=== PATIENT | female | born 1975 | race Caucasian/White ===

== ENCOUNTER 2019-09-15 07:13 | Outpatient (CLI) | payer OTHER, SELFPAY ==
--- NOTE | ~2019-09-15 | MM_ITS ---
EXAMINATION: MM screening jj BI w anna HISTORY: Screening mammogram, history of bilateral breast cancer and reduction mammoplasty. TECHNIQUE: Craniocaudal and mediolateral oblique 3-D tomosynthesis images were obtained and synthetic 2-D images were generated. CAD analysis was submitted and interpreted. COMPARISON: 10/07/2018, 09/23/2018, 09/11/2018, 09/18/2017, 03/13/2017 BREAST PARENCHYMAL COMPOSITION: The breasts are heterogeneously dense, which may obscure small masses . FINDINGS: Lumpectomy changes are noted in the right breast and changes of reduction mammoplasty are s een in both breasts. There is no evidence of suspicious mass, calcification, or architectural distort ion to suggest malignancy in either breast. There has been no suspicious interval change. IMPRESSION: 1. No mammographic evidence of malignancy. 2. Recommend routine screening mammography in one year. BI-RADS Category 2: Benign finding(s). Reviewed, dictated and finalized at location A.
== END 2019-09-15 07:14 | disposition home or self-care (01) ==
LOC: ANHIMG 07:17
PROVIDERS: PCP Internal Medicine; Visit Provider Student in an Organized Health Care Education/Training Program
DX: Z12.31 Encounter for screening mammogram for malignant neoplasm of breast (principal)
CPT/HCPCS: 77063; 77067

== ENCOUNTER 2020-07-17 06:24 | Emergency (ER) | payer BC, SELFPAY ==
--- NOTE | ~2020-07-17 | XR_ITS ---
EXAMINATION: XR chest 2V DATE: 07/17/2020 07:23 INDICATION: Chest wall pain. TECHNIQUE: Frontal and lateral views of the chest were obtained. COMPARISON: Chest 2 views 09/07/2015 FINDINGS: The chest demonstrates clear lungs without pneumonia, pleural effusion, or pneumothorax. Th e heart size is normal. Surgical clips in the right upper quadrant are likely from cholecystectomy. IMPRESSION: 1. No acute cardiopulmonary disease. Reviewed, dictated and finalized at location A. 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
[2020-07-17 06:27] VITALS: BP 173/109; PULSE 82; RESP 18; TEMP 36.8; O2SAT 100
[2020-07-17 06:56] LABS: Add Urine Microscopic? YES; Appearance Urine Clear (Clear); Bacteria Urine Trace /hpf; Bilirubin Urine Negative (Negative); Blood Urine 1+ (Negative); Color Urine Colorless (Yellow); Glucose Urine UA Negative (Negative); Ketones Urine Negative (Negative); Leukocyte Esterase Ur Negative LEU/UL (Negative); Nitrate Urine Negative (Negative); Protein Urine Negative (Negative); RBC Urine 0-2 /hpf (0-2); Squamous Epithelial Cell Urine Rare /hpf (Few); Urobilinogen Urine Negative mg/dL (<2.0); WBC Urine 0-3 /hpf
[2020-07-17 06:58] LABS: Specific Grav Ur 1.002 (1.001-1.035)
[2020-07-17 07:02] LABS: Basophils Absolute Auto 0.1 K/mm3 (0.0-0.1); Basophils Percent Auto 0.8 % (0.2-1.2); Eosinophils Absolute Auto 0.2 K/mm3 (0-0.3); Eosinophils Percent Auto 3.2 % (0-4.4); Hematocrit 42.6 % (37.0-47.0); Hemoglobin 14.6 g/dL (12.0-15.0); Immature Granulocyte Absolute 0.01 K/mm3 (0.00-0.031); Immature Granulocyte Percent A 0.2 % (0-0.5); Lymphocytes Absolute Auto 1.95 K/mm3 (0.9-3.2); Lymphocytes Percent Auto 29.5 % (18.3-44.2); Mean Corpuscular HGB Conc 34.3 g/dl (32-36); Mean Corpuscular Hemoglobin 31.1 pg (26-34); Mean Corpuscular Volume 90.8 fl (80-100); Mean Platelet Volume 9.2 fl (7.4-10.4); Monocytes Absolute Auto 0.4 K/mm3 (0.1-0.6); Monocytes Percent Auto 5.6 % (2.6-8.5); Neutrophils Percent Auto 60.7 % (45.5-73.1); Platelet Count Result 252 k/mm3 (150-375); Red Blood Count 4.69 M/mm3 (4.2-5.4); Red Cell Distribution Width 11.9 % (11.5-14.5); White Blood Count 6.6 K/mm3 (4.5-10.0)
[2020-07-17 07:14] LABS: Anion Gap 7 mmol/L (8-16); Blood Urea Nitrogen 13 mg/dL (7-17); Calcium 9.4 mg/dL (8.4-10.2); Carbon Dioxide 30 mmol/L (22-30); Chloride 104 mmol/L (98-107); Estimated CRCL calculation 94 ml/min; Estimated Glomerular Filt Rate > 60; Glucose 97 mg/dL (65-105); Sodium 141 mmol/L (137-145)
--- NOTE | 2020-07-17 07:15 | ED.BACK ---
HPI - Back Pain/Injury General Chief Complaint: Urogenital-Female Stated Complaint: Right flank pain-hx of kidney stones Time Seen by Provider: 07/17/20 06:58 History of Present Illness HPI Narrative: RIght mid back pain for the past 5 days. worse with movement and taking a deep breath. No radiation. No associated symptoms. No injury. She has had prior kidney stones, this feels different. She has tried OTC pain medications without relief. No fever, chills, nausea, vomiting, cough, SOB, dysuria, hematuria. Related Data Home Medications Medication Instructions Recorded Confirmed cephalexin 250 mg capsule 250 mg PO Q12H 07/22/19 Allergies Allergy/AdvReac Type Severity Reaction Status Date / Time Sulfa (Sulfonamide AdvReac Unknown HIVES Verified 07/17/20 06:25 Antibiotics) Review of Systems Review of Systems: All systems reviewed & are unremarkable except as noted in HPI and below Constitutional: Constitutional: Denies chills, Denies fever(s) and Denies weakness Eyes: Eyes: Reports no additional eye complaints ENT: Reports system reviewed and no additional complaints, except as documented Respiratory: Respiratory: Denies chest congestion, Denies cough and Denies dyspnea Gastrointestinal: Gastrointestinal: Denies abdominal pain, Denies constipation, Denies diarrhea, Denies nausea and Denies vomiting Genitourinary: Genitourinary: Denies hematuria, Denies nocturia and Denies dysuria Musculoskeletal: Musculoskeletal: Reports back pain Neurologic: Denies dizziness, Denies numbness and Denies weakness PMFSH Past Medical History Medical History (Updated 07/18/20 @ 00:00 by Background Daemon) Anemia Breast cancer Kidney stones (vaginal after ) x 2 Surgical History Surgical History History of breast surgery History of hysterectomy Hx of cholecystectomy Previous section S/P laparoscopic surgery x 3 Social History Social History Smoking status: Former smoker Exam Const: General: healthy appearing, no acute distress and alert Nutritional Appearance: obese Orientation/consciousness: patient oriented x3 HENMT: Head: normal to inspection Neck: Neck: normal visual inspection and no lymphadenopathy Chest: Chest palpation & inspection: no tenderness Resp: Effort & Inspection: normal respiratory effort Auscultation: clear to auscultation bilaterally, no rales, no rhonchi and no wheezes Cardio: Jugular venous distension: no JVD Rate: regular rate Rhythm: regular rhythm Heart sounds: no murmurs GI: Inspection: non-distended GI Palp: Yes Soft to palpation and No Tenderness to palpation present (GI) Back/Spine/Pelvis: Back: no CVA tenderness Skin: General skin exam: normal color Neuro: General: patient oriented x3, moves all extremities, no focal motor deficits and CN's II-XI intact bilaterally Speech: normal speech Gait exam (Neuro): Normal gait present Extrem: General: normal to inspection and no edema Psych: Appearance: well kempt Affect: normal affect Course Vital Signs Vital signs: Vital Signs Temperature 36.8 C 07/17/20 06:27 Pulse Rate 82 07/17/20 06:27 Respiratory Rate 18 07/17/20 06:27 Blood Pressure 173/109 H 07/17/20 06:27 Pulse Oximetry 100 07/17/20 06:27 Temperature 36.8 C 07/17/20 06:27 Pulse Rate 84 07/17/20 07:46 Respiratory Rate 18 07/17/20 06:27 Blood Pressure 115/92 H 07/17/20 07:46 Pulse Oximetry 94 07/17/20 07:46 MDM - Back Pain/Injury MDM Narrative Medical decision making narrative: H&P suggests muscular pain. higher than expected for renal origin. CXR negative. Differential Diagnosis Differential diagnosis: Likely thoracic back pain Medical Records Attestation: I reviewed the patient's medical records. Lab Data Attestation: I reviewed the patient's lab results. Result
[2020-07-17 07:28] VITALS: BP 145/91; O2SAT 97
[2020-07-17] MEDS: KETOROLAC 30 MG/ML VIAL (*BKC) IV PUSH (07:29)
[2020-07-17 07:31] VITALS: BP 137/90; O2SAT 98
[2020-07-17] MEDS: diazePAM INJ (*CRX) 10 MG/2 ML SYRINGE 2.5 MG IV PUSH (07:31)
[2020-07-17 07:46] VITALS: BP 115/92; PULSE 84; O2SAT 94
== END 2020-07-17 08:54 | disposition home or self-care (01) ==
PROVIDERS: Emergency Medicine; Emergency Provider Emergency Medicine; PCP Internal Medicine
DX: S29.012A Strain of muscle and tendon of back wall of thorax, initial encounter (principal); Z85.3 Personal history of malignant neoplasm of breast; Z87.442 Personal history of urinary calculi; Z87.891 Personal history of nicotine dependence; Z86.2 Personal history of diseases of the blood and blood-forming organs and certain disorders involving the immune mechanism; X58.XXXA Exposure to other specified factors, initial encounter
CPT/HCPCS: 36415; 71046; 80048; 81001; 81025; 85025; 96374; 96375; 99284; J1885; J3360

== ENCOUNTER 2020-09-16 07:16 | Outpatient (CLI) | payer BC, SELFPAY ==
--- NOTE | ~2020-09-16 | MM_ITS ---
EXAMINATION: MM screening jj BI w anna HISTORY: Screening mammogram TECHNIQUE: Craniocaudal and mediolateral oblique 3-D tomosynthesis images were obtained and synthetic 2-D images were generated. CAD analysis was submitted and interpreted. COMPARISON: 09/15/2019 bilateral digital screening mammogram 10/07/2018 diagnostic left digital mammogram 09/23/2018 diagnostic left digital mammogram and limited left breast ultrasound 08/2018, 09/18/2017 bilateral digital screening mammogram BREAST PARENCHYMAL COMPOSITION: The breasts are heterogeneously dense, which may obscure small masses . FINDINGS: Surgical clips are noted on the right. A biopsy marker is noted on the left. There is a new cluster of grouped granular appearing suspicious microcalcifications in the upper inne r right breast. Diagnostic right mammogram with magnification views is recommended, in addition to ri ght breast ultrasound examination. Otherwise there is no evidence of suspicious mass, calcification, or interval architectural distortio n to suggest malignancy in either breast. There has been no other suspicious interval change. IMPRESSION: 1. Suspicious new grouped microcalcifications in the upper inner right breast 2. Diagnostic right mammogram and right breast ultrasound examination are recommended. BI-RADS Category 0: Incomplete: Needs additional imaging evaluation. Reviewed, dictated and finalized at location A. IMPRESSION: 1. Suspicious new grouped microcalcifications in the upper inner right breast 2. Diagnostic right mammogram and right breast ultrasound examination are recom mended. BI-RADS Category 0: Incomplete: Needs additional imaging evaluation.
== END 2020-09-16 07:17 | disposition home or self-care (01) ==
PROVIDERS: PCP Internal Medicine; Visit Provider Student in an Organized Health Care Education/Training Program
DX: Z12.31 Encounter for screening mammogram for malignant neoplasm of breast (principal); R92.8 Other abnormal and inconclusive findings on diagnostic imaging of breast
CPT/HCPCS: 77063; 77067

== ENCOUNTER 2020-10-04 13:20 | Outpatient (CLI) | payer BC, SELFPAY ==
--- NOTE | ~2020-10-04 | MMUS_ITS ---
EXAMINATION: MM diagnostic mammo unilat RT, US breast RT limited HISTORY: New cluster of grouped granular suspicious microcalcifications in upper inner right breast o n 09/16/2020 screening mammogram TECHNIQUE: Additional 3-D ML tomosynthesis images of the right breast were performed and synthetic 2- D images were generated. Magnification views of the right breast in ML and CC projections. CAD analys is was submitted and interpreted. High resolution upper outer and upper inner quadrant right breast u ltrasound was performed. COMPARISON: 09/26/2020, 09/15/2019 bilateral digital screening mammogram examinations FINDINGS: MAMMOGRAPHIC FINDINGS: There is a cluster of grouped granular indeterminate microcalcifications in the inner aspect of the u pper inner quadrant of the right breast. ULTRASOUND: No suspicious mass or shadowing is evident in the upper outer or upper inner quadrants. There is a 2.8 x 2.3 x 3.6 mm cyst with through transmission posterior enhancement at 10:00 near the nipple. IMPRESSION: 1. Indeterminate grouped microcalcifications in upper inner quadrant 2. Stereotactic biopsy of upper inner quadrant grouped microcalcifications is recommended BI-RADS Category 4: Suspicious abnormality; biopsy should be considered Dr. Allison telephoned the report to [phone] and left a voicemail message with the diagnostic mammo gram and ultrasound findings and the recommendation for stereotactic biopsy of grouped microcalcifica tions of indeterminate nature in the upper inner quadrant Reviewed, dictated and finalized at location A. IMPRESSION: 1. Indeterminate grouped microcalcifications in upper inner quadrant 2. Stereotactic biopsy of upper inner quadrant grouped microcalcifications is r ecommended BI-RADS Category 4: Suspicious abnormality; biopsy should be considered Dr. Allison telephoned the report to [phone] and left a voicemail message wit h the diagnostic mammogram and ultrasound findings and the recommendation for s tereotactic biopsy of grouped microcalcifications of indeterminate nature in th e upper inner quadrant IMPRESSION: 1. Indeterminate grouped microcalcifications in upper inner quadrant 2. Stereotactic biopsy of upper inner quadrant grouped microcalcifications is r ecommended BI-RADS Category 4: Suspicious abnormality; biopsy should be considered Dr. Allison telephoned the report to [phone] and left a voicemail message wit h the diagnostic mammogram and ultrasound findings and the recommendation for s tereotactic biopsy of grouped microcalcifications of indeterminate nature in th e upper inner quadrant
== END 2020-10-04 13:21 | disposition home or self-care (01) ==
PROVIDERS: PCP Internal Medicine; Visit Provider Student in an Organized Health Care Education/Training Program
DX: R92.8 Other abnormal and inconclusive findings on diagnostic imaging of breast (principal)
CPT/HCPCS: 76642; 77065

== ENCOUNTER → 2020-11-29 13:28 | Outpatient (CLI) | payer BC, SELFPAY ==
--- NOTE | ~2020-11-29 | XR_ITS ---
EXAMINATION: XR abdomen/kub 1V INDICATION: Bilateral kidney stones TECHNIQUE: Supine views of the abdomen were obtained on 2 radiographs. COMPARISON: 11/19/2018 FINDINGS: Small stones of the left kidney measure up to 3 mm and are grossly unchanged. No definite r ight-sided stones are identified. No stones are identified along the expected courses of the ureters or within the urinary bladder. The bowel gas pattern is normal. Cholecystectomy clips are noted in th e right upper quadrant. IMPRESSION: 1. Stable left nephrolithiasis. Reviewed, dictated and finalized at location A.
== END ==
PROVIDERS: Visit Provider Urology
DX: N20.0 Calculus of kidney (principal)
CPT/HCPCS: 74018

== ENCOUNTER 2022-01-30 00:42 | Day surgery (SDC) | payer BC, SELFPAY ==
[2022-01-17 14:09] VITALS: BMI 33.5
[2022-01-30 06:17] VITALS: BP 140/88; PULSE 73; RESP 18; TEMP 36.4; O2SAT 100; BMI 33.4
[2022-01-30] MEDS: LACTATED RINGERS 1,000 ML 150 ML IV CONT (06:27)
--- NOTE | 2022-01-30 07:18 | P.PNAN_ITS ---
Anes - Initial Pre Proc Eval Procedure: Operation Date: 01/30/22 07:30 Proposed Procedures p Screening Colonoscopy - Emery Nolan MD Date/Time: 01/30/22 07:18 Surgeon: Emery Nolan MD Pre Op Diagnosis: neoplasm screening Patient Data Age: 46 Gender: F Height: 1.7 m Weight: 96.8 kg Last Vital Signs Temp 97.5 F L 01/30/22 06:17 Pulse 73 01/30/22 06:17 Resp 18 01/30/22 06:17 BP 140/88 01/30/22 06:17 Pulse Ox 100 01/30/22 06:17 O2 Del Method Room Air 01/30/22 06:17 Allergies Allergy/AdvReac Type Severity Reaction Status Date / Time Sulfa (Sulfonamide AdvReac Unknown HIVES Verified 01/30/22 06:16 Antibiotics) Home Medications Medication Instructions Recorded Confirmed Type Saccharomyces boulardii 250 mg 250 mg PO BID 08/02/20 01/30/22 History capsule (Daily Probiotic (S. boulardii)) cephalexin 250 mg capsule 250 mg PO Q12H PRN Sexual Activity 08/02/20 01/30/22 History cholecalciferol (vitamin D3) 125 125 mcg PO DAILY 08/02/20 01/30/22 History mcg (5,000 unit) capsule multivitamin (Daily Multi-Vitamin 1 tablet PO DAILY 08/02/20 01/30/22 History tablet) Patient hx anesthesia problems: none Family hx anesthesia problems: none Results Review: All pre-operative results and documents have been reviewed as part of the pre- operative evaluation. PMFSH Past Medical History Medical History Anemia Breast cancer Kidney stones (vaginal after ) x 2 Surgical History Surgical History History of breast surgery Hx of cholecystectomy Previous section S/P laparoscopic surgery x 3 Social History Social History Smoking status: Former smoker Tobacco type: cigarettes Substance use type: does not use Living arrangements: with family Spiritual care concerns: No Anes - Eval Final PreProcedure Day of Procedure 01/30/22 07:18 Patient weight: obese Heart: regular rate and rhythm Lungs: clear to auscultation Airway: Mallampati scale class II Neurological: alert and oriented Last oral intake: >/= 8 hours ASA classification: II Emergent: no Anesthetic plan: proceed Anesthesia type and monitoring: general GIVS and standard monitoring Results Review: All pre-operative results and documents have been reviewed as part of the pre- operative evaluation. Informed Consent: The patient's anesthetic plan and its attendant risks and benefits were discussed with the patient/family/POA. Questions were solicited and answers provided to the satisfaction of the patient/family/POA.
--- NOTE | 2022-01-30 07:20 | PM.HPGS ---
History of Present Illness History of Present Illness Consent: Risks, benefits, and alternatives have been discussed and questions answered. Patient agrees to proceed with procedure. Chief complaint: neoplasm screening Narrative: Karena Jay is a 46 year old female here for screening colonoscopy, had one about 15 years ago because IBS Review of Systems Constitutional: Constitutional: Denies headache(s) and Denies weakness Eyes: Eyes: Denies blurry vision ENT: Reports Normal hearing present, Denies headache(s) and Denies neck pain Cardiovascular: Cardiovascular: Denies chest pain and Denies dyspnea Respiratory: Respiratory: Denies dyspnea Gastrointestinal: Gastrointestinal: Reports no additional gastrointestinal complaints Genitourinary: Genitourinary: Denies dysuria Musculoskeletal: Musculoskeletal: Denies neck pain Integumentary/Breasts: Skin/Breast: Denies dry skin Neurologic: Reports Normal hearing present, Denies headache(s) and Denies weakness Psychiatric: Psychiatric: Denies anxiety Endocrine: Endocrine: Denies change in body appearance Hematologic/Lymphatic: Hematologic/Lymphatic: Denies easy bleeding Allergic/Immunologic: Allergic/Immunologic: Denies urticaria PMFSH Past Medical History Medical History (Updated 01/30/22 @ 07:21 by Emery Nolan MD) Anemia Breast cancer Colon cancer screening Kidney stones (vaginal after ) x 2 Surgical History Surgical History History of breast surgery Hx of cholecystectomy Previous section S/P laparoscopic surgery x 3 Social History Social History Smoking status: Former smoker Tobacco type: cigarettes Substance use type: does not use Living arrangements: with family Spiritual care concerns: No Meds Home Medications and Allergies Home Medications Medication Instructions Recorded Confirmed Type Saccharomyces boulardii 250 mg 250 mg PO BID 08/02/20 01/30/22 History capsule (Daily Probiotic (S. boulardii)) cephalexin 250 mg capsule 250 mg PO Q12H PRN Sexual Activity 08/02/20 01/30/22 History cholecalciferol (vitamin D3) 125 125 mcg PO DAILY 08/02/20 01/30/22 History mcg (5,000 unit) capsule multivitamin (Daily Multi-Vitamin 1 tablet PO DAILY 08/02/20 01/30/22 History tablet) Allergies Allergy/AdvReac Type Severity Reaction Status Date / Time Sulfa (Sulfonamide AdvReac Unknown HIVES Verified 01/30/22 06:16 Antibiotics) Vital Signs Vital Signs - 24 hr 01/30/22 06:17 Temperature 97.5 F L Pulse Rate 73 Respiratory Rate 18 Blood Pressure 140/88 Pulse Oximetry 100 Oxygen Delivery Room Air Exam Const: General: comfortable and no acute distress HENMT: General nose exam: Normal nares present Eyes: General: appearance normal, both eyes and all related structures Neck: Neck: no JVD Resp: Auscultation: clear to auscultation bilaterally Cardio: Rate: regular rate Rhythm: regular rhythm GI: Inspection: non-distended GI Palp: Yes Soft to palpation Skin: General skin exam: normal color Neuro: General: gait normal Speech: normal speech Extrem: General: normal to inspection Psych: Mental Status: mental status grossly normal Assessment and Plan Assessment and plan (1) Colon cancer screening: Code(s): Z12.11 - Encounter for screening for malignant neoplasm of colon Status: Acute Assessment and Plan: colonoscopy
[2022-01-30 07:40] VITALS: BP 131/77; PULSE 60; RESP 22; O2SAT 100
[2022-01-30 07:50] VITALS: BP 125/80; PULSE 54; RESP 17; O2SAT 100
[2022-01-30 08:00] VITALS: BP 132/88; PULSE 50; RESP 17; O2SAT 100
== END 2022-01-30 08:11 | disposition home or self-care (01) ==
PROVIDERS: PCP Internal Medicine; Visit Provider Internal Medicine Gastroenterology
PROC: 0DJD8ZZ Inspection of Lower Intestinal Tract, Via Natural or Artificial Opening Endoscopic (ICD-10-PCS; CPT 45378; principal; 2022-01-30 07:30)
DX: Z12.11 Encounter for screening for malignant neoplasm of colon (principal); K57.30 Diverticulosis of large intestine without perforation or abscess without bleeding; K64.8 Other hemorrhoids; D64.9 Anemia, unspecified; Z85.3 Personal history of malignant neoplasm of breast; Z87.891 Personal history of nicotine dependence; E66.9 Obesity, unspecified; Z68.33 Body mass index [BMI] 33.0-33.9, adult
CPT/HCPCS: 45378; J2704; J7120

== ENCOUNTER 2022-04-24 14:21 | Outpatient (CLI) | payer BC, SELFPAY ==
--- NOTE | ~2022-04-24 | XR_ITS ---
EXAMINATION: XR abdomen/kub 1V INDICATION: Bilateral kidney stones TECHNIQUE: Supine views of the abdomen were obtained on 2 radiographs. COMPARISON: 11/29/2020 FINDINGS: Bowel contents project over the kidneys limiting sensitivity for renal stones. There are st able left kidney stones measuring 3 mm and 2 mm. No stones project along the expected courses of the ureter or the urinary bladder. The bowel gas pattern is normal. A moderate volume of colonic stool is present. Surgical clips in the right upper quadrant are likely from prior cholecystectomy. IMPRESSION: 1. Stable left nephrolithiasis. Reviewed, dictated and finalized at location F. IRATORY THERAPY AIDE
== END 2022-04-24 14:22 | disposition home or self-care (01) ==
PROVIDERS: PCP Internal Medicine; Visit Provider Nurse Practitioner Adult Health
DX: N20.0 Calculus of kidney (principal)
CPT/HCPCS: 74018

== ENCOUNTER 2023-04-24 13:57 | Outpatient (CLI) | payer BC, SELFPAY ==
--- NOTE | ~2023-04-24 | XR_ITS ---
Supine and upright views of the abdomen Clinical history: Kidney stones COMPARISON: 09/18/2021 Findings: Bowel gas pattern is nonspecific. No evidence for obstruction or free air. Small left renal stones are similar to prior exam. Probable small right renal stones also present. Cholecystectomy cl ips present. Osseous structures are intact. Impression: Small bilateral renal stones, left larger than right. Reviewed, dictated and finalized at location . 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
== END 2023-04-24 13:58 | disposition home or self-care (01) ==
PROVIDERS: PCP Internal Medicine; Visit Provider Nurse Practitioner Adult Health
DX: N20.0 Calculus of kidney (principal)
CPT/HCPCS: 74018

== ENCOUNTER 2024-03-19 07:03 | Emergency (ER) | payer BC, SELFPAY ==
--- NOTE | ~2024-03-19 | CT_ITS ---
CT of the Abdomen and Pelvis: Indication: Abdominal pain Technique: 2.5 mm axial scans were obtained through the abdomen and pelvis following intravenous adm inistration of 100 cc of Omnipaque 350. Dose reduction technique was used on this scan by utilizing a utomated exposure control and iterative reconstruction technique. The dose-length product (DLP) was 1 042.84 mGy-cm. Findings: Scans through the lung bases are unremarkable. The liver, spleen, pancreas, and adrenal glands are within normal limits. Cholecystectomy clips are p resent. Small bilateral nonobstructing renal stones are present. No evidence of aortic aneurysm. No lymphadenopathy. There is extensive wall thickening and inflammatory change involving the proximal sigmoid colon, most compatible with acute diverticulitis. Probable prominent diverticulum in this region. No definite fr ee air or abscess. Images through the pelvis were performed. Urinary bladder unremarkable. No adnexal mass seen. No asci casey. Impression: Acute sigmoid diverticulitis, as detailed above. Small bilateral nonobstructing renal stones. Reviewed, dictated and finalized at location . Impression: Acute sigmoid diverticulitis, as detailed above. Small bilateral nonobstructing renal stones.
[2024-03-19 07:23] VITALS: BP 160/100; PULSE 97; RESP 16; TEMP 37.2; O2SAT 98
[2024-03-19 07:47] LABS: Basophils Absolute Auto 0.1 K/mm3 (0.0-0.1); Basophils Percent Auto 0.4 % (0.2-1.2); Eosinophils Absolute Auto 0.1 K/mm3 (0-0.3); Eosinophils Percent Auto 1.1 % (0-4.4); Hematocrit 42.8 % (37.0-47.0); Hemoglobin 14.3 g/dL (12.0-15.0); Immature Granulocyte Absolute 0.04 K/mm3 (0.00-0.031); Immature Granulocyte Percent A 0.4 % (0-0.5); Lymphocytes Absolute Auto 1.87 K/mm3 (0.9-3.2); Lymphocytes Percent Auto 16.6 % (18.3-44.2); Mean Corpuscular HGB Conc 33.4 g/dl (32-36); Mean Corpuscular Volume 92.8 fl (80-100); Mean Platelet Volume 9.2 fl (7.4-10.4); Monocytes Absolute Auto 0.9 K/mm3 (0.1-0.6); Monocytes Percent Auto 8.2 % (2.6-8.5); Neutrophils Absolute Auto 8.3 K/mm3 (1.3-6.7); Neutrophils Percent Auto 73.3 % (45.5-73.1); Platelet Count Result 209 k/mm3 (150-375); Red Blood Count 4.61 M/mm3 (4.2-5.4); Red Cell Distribution Width 12.3 % (11.5-14.5); White Blood Count 11.3 K/mm3 (4.5-10.0)
[2024-03-19 08:00] LABS: Alanine Aminotransferase 20 U/L (6-35); Albumin Level 4.8 g/dL (3.5-5.1); Alkaline Phosphatase 80 U/L (38-126); Anion Gap 8 mmol/L (4-12); Aspartate Amino Transferase 21 U/L (14-36); Bilirubin,Total 1.4 mg/dL (0.2-1.3); Blood Urea Nitrogen 16 mg/dL (7-17); Calcium 9.4 mg/dL (8.4-10.2); Carbon Dioxide 29 mmol/L (22-30); Chloride 103 mmol/L (98-107); Estimated CRCL calculation 88 ml/min; Estimated Glomerular Filt Rate > 60; Glucose 109 mg/dL (65-110); Potassium 3.9 mmol/L (3.4-5.0); Sodium 140 mmol/L (137-145)
[2024-03-19 08:26] LABS: INR 0.9; Prothrombin Time 13.1 Seconds (11.1-14.7)
[2024-03-19 08:27] LABS: Partial Thromboplastin Time 26.8 Seconds (22.3-36.8)
--- NOTE | 2024-03-19 10:13 | ED.GENADULT ---
HPI - General Adult General Chief complaint: GI Bleed Stated complaint: gastro issues no bowel movements, blood/mucus Time Seen by Provider: 03/19/24 07:18 History of Present Illness HPI narrative: Patient is a 48-year-old female who presents ER with lower abdominal pain and rectal bleeding. Pain worsening over last 3 days. Mainly left lower quadrant. Worse with physical movements. No fevers or chills or sweats. HIDA mucus-like bowel movement today that had streaks of blood in it. This is abnormal for her. Colonoscopy in 2021 showed diverticula but patient has no history of diverticulitis. No vomiting. Related Data Home Medications Medication Instructions Recorded Confirmed cephalexin 250 mg capsule 250 mg PO Q12H PRN Sexual Activity 08/02/20 10/09/23 cholecalciferol (vitamin D3) 125 125 mcg PO DAILY 08/02/20 10/09/23 mcg (5,000 unit) capsule multivitamin (Daily Multi-Vitamin 1 tablet PO DAILY 08/02/20 10/09/23 tablet) Allergies Allergy/AdvReac Type Severity Reaction Status Date / Time Sulfa (Sulfonamide AdvReac Unknown HIVES Verified 10/09/23 10:07 Antibiotics) Review of Systems Review of Systems: All systems reviewed & are unremarkable except as noted in HPI and below Constitutional: Constitutional: Reports no additional constitutional complaints Cardiovascular: Cardiovascular: Reports no additional cardiovascular complaints Respiratory: Respiratory: Reports no additional respiratory complaints Gastrointestinal: Gastrointestinal: Reports abdominal pain, Denies diarrhea, Denies nausea and Denies vomiting Comments: Blood in stool Genitourinary: Genitourinary: Reports no additional female genitourinary complaints PMFSH Past Medical History Medical History Anemia Breast cancer Colon cancer screening Kidney stones (vaginal after ) x 2 Surgical History Surgical History History of breast surgery History of hysterectomy, supracervical Hx of cholecystectomy Previous section S/P laparoscopic surgery x 3 Social History Social History Smoking status: Former smoker Tobacco type: cigarettes Alcohol intake: current Substance use: never Substance use type: does not use Lack of Transportation: No Lack of Food: Never True Current Housing: I Have Housing Concerned About Future Housing: No Difficulty Paying Gas/Electric Bills: No Difficulty Paying for Meds: No Currently Unemployed: No Education: High School Diploma/GED Difficulty w/ Childcare or Family Care: No Living arrangements: with family Spiritual care concerns: No Exam Narrative: GENERAL: Well-appearing, well-nourished, and in no acute distress. HEAD: Normocephalic, atraumatic. ENT: Mucous membranes moist. CHEST: Clear to auscultation. No respiratory distress. HEART: Regular rate and rhythm. Normal peripheral pulses. ABDOMEN: Soft, tender to palpation left lower quadrant with guarding, nondistended. EXTREMITIES: Normal range of motion. No edema. SKIN: Warm, dry, no rash. NEURO: Alert and oriented x3. PSYCH: Normal mood and affect. Course Course Emergency Course: resting comfortably. Informed of results. Discussed treatment plan. Mild leukocytosis with diverticulitis on imaging. No perforation or abscess. Augmentin and [place] for home. Recommend follow-up with PCP. Vital Signs Vital signs: Vital Signs Temperature 98.9 F 03/19/24 07:23 Pulse Rate 97 03/19/24 07:23 Respiratory Rate 16 03/19/24 07:23 Blood Pressure 160/100 H 03/19/24 07:23 Pulse Oximetry 98 03/19/24 07:23 Temperature 98.9 F 03/19/24 07:23 Pulse Rate 97 03/19/24 07:23 Respiratory Rate 16 03/19/24 07:23 Blood Pressure 160/100 H 03/19/24 07:23 Pulse Oximetry 98 03/19/24 07:23
== END 2024-03-19 10:33 | disposition home or self-care (01) ==
PROVIDERS: Emergency Provider Emergency Medicine; PCP Internal Medicine
DX: K57.32 Diverticulitis of large intestine without perforation or abscess without bleeding (principal); Z86.2 Personal history of diseases of the blood and blood-forming organs and certain disorders involving the immune mechanism; Z85.3 Personal history of malignant neoplasm of breast; Z87.442 Personal history of urinary calculi; Z87.891 Personal history of nicotine dependence; Z90.710 Acquired absence of both cervix and uterus; Z90.49 Acquired absence of other specified parts of digestive tract; N20.0 Calculus of kidney
CPT/HCPCS: 36415; 74177; 80053; 85025; 85610; 85730; 86850; 86900; 86901; 99284; Q9967

== ENCOUNTER 2024-05-12 07:13 | Outpatient (CLI) | payer BC, SELFPAY ==
--- NOTE | ~2024-05-12 | XR_ITS ---
Supine and upright views of the abdomen Clinical history: Bilateral kidney stones COMPARISON: 04/24/2023 Findings: Bowel gas pattern is nonspecific. No evidence for obstruction or free air. Left renal stone s are present, largest measuring 5 mm. Questionable punctate right renal stones versus overlying josh l contents. Osseous structures are intact. Impression: Nephrolithiasis, as detailed above. Reviewed, dictated and finalized at location . LIGHTING ADVISER Impression: Nephrolithiasis, as detailed above.
== END 2024-05-12 07:14 | disposition home or self-care (01) ==
PROVIDERS: PCP Physician Assistant
DX: N20.0 Calculus of kidney (principal)
CPT/HCPCS: 74018

== ENCOUNTER 2024-05-23 00:44 | Day surgery (SDC) | payer BC, SELFPAY ==
[2024-05-13 13:16] VITALS: BMI 33.3
[2024-05-23 11:38] VITALS: BP 153/100; PULSE 71; RESP 18; TEMP 36.1; O2SAT 98
[2024-05-23] MEDS: LACTATED RINGERS 1,000 ML 150 ML IV CONT (11:55)
--- NOTE | 2024-05-23 12:00 | P.PNAN_ITS ---
Anes - Initial Pre Proc Eval Procedure: Operation Date: 05/23/24 13:00 Proposed Procedures p Colonoscopy - Orlando Oviedo MD Date/Time: 05/23/24 12:00 Surgeon: Orlando Oviedo MD Pre Op Diagnosis: personal hx of disease of digestive system Patient Data Age: 49 Gender: F Height: 1.7 m Weight: 95 kg Last Vital Signs Temp 36.1 C L 05/23/24 11:38 Pulse 71 05/23/24 11:38 Resp 18 05/23/24 11:38 BP 153/100 H 05/23/24 11:38 Pulse Ox 98 05/23/24 11:38 O2 Del Method Room Air 05/23/24 11:38 Allergies Allergy/AdvReac Type Severity Reaction Status Date / Time Sulfa (Sulfonamide AdvReac Unknown HIVES Verified 05/23/24 11:36 Antibiotics) Home Medications ?Medication ?Instructions ?Recorded ?Confirmed ?Type cephalexin 250 mg capsule 250 mg PO Q12H PRN Sexual Activity 08/02/20 05/13/24 History cholecalciferol (vitamin D3) 125 125 mcg PO DAILY 08/02/20 05/23/24 History mcg (5,000 unit) capsule multivitamin (Daily Multi-Vitamin 1 tablet PO DAILY 08/02/20 05/23/24 History tablet) Patient hx anesthesia problems: none Family hx anesthesia problems: none Results Review: All pre-operative results and documents have been reviewed as part of the pre- operative evaluation. PMFSH Past Medical History Medical History LLQ pain History of diverticulitis of colon Colon cancer screening Anemia Breast cancer Kidney stones (vaginal after ) x 2 Surgical History Surgical History History of hysterectomy, supracervical History of breast surgery Hx of cholecystectomy S/P laparoscopic surgery x 3 Previous section Social History Social History Smoking status: Former smoker Tobacco type: cigarettes Alcohol intake: current Substance use: never Substance use type: does not use Lack of Transportation: No Lack of Food: Never True Current Housing: I Have Housing Concerned About Future Housing: No Difficulty Paying Gas/Electric Bills: No Difficulty Paying for Meds: No Currently Unemployed: No Education: High School Diploma/GED Difficulty w/ Childcare or Family Care: No Living arrangements: with family Spiritual care concerns: No Anes - Eval Final PreProcedure Day of Procedure 05/23/24 12:00 Patient weight: obese Heart: regular rate and rhythm Lungs: clear to auscultation Airway: Mallampati scale class II Neurological: alert and oriented Last oral intake: >/= 8 hours ASA classification: III Emergent: no Anesthetic plan: proceed Anesthesia type and monitoring: general GIVS and standard monitoring Results Review: All pre-operative results and documents have been reviewed as part of the pre- operative evaluation. Informed Consent: The patient's anesthetic plan and its attendant risks and benefits were discussed with the patient/family/POA. Questions were solicited and answers provided to the satisfaction of the patient/family/POA.
--- NOTE | 2024-05-23 12:26 | PM.IMHP ---
H&P: HPI History of Present Illness Date/Time: 05/23/24 12:26 Chief Complaint: History of colon polyps Narrative: The patient has a history of colonic polyps, the last colonoscopy was approximately 2 years ago. However, the patient had attack of acute diverticulitis 2 months ago and she is referred for follow-up colonoscopy. Review of Systems Review of Systems: All systems reviewed & are unremarkable except as noted in HPI and below PMFSH Past Medical History Medical History LLQ pain History of diverticulitis of colon Colon cancer screening Anemia Breast cancer Kidney stones (vaginal after ) x 2 Surgical History Surgical History History of hysterectomy, supracervical History of breast surgery Hx of cholecystectomy S/P laparoscopic surgery x 3 Previous section Social History Social History Smoking status: Former smoker Tobacco type: cigarettes Alcohol intake: current Substance use: never Substance use type: does not use Lack of Transportation: No Lack of Food: Never True Current Housing: I Have Housing Concerned About Future Housing: No Difficulty Paying Gas/Electric Bills: No Difficulty Paying for Meds: No Currently Unemployed: No Education: High School Diploma/GED Difficulty w/ Childcare or Family Care: No Living arrangements: with family Spiritual care concerns: No Meds Home Medications and Allergies Home Medications ?Medication ?Instructions ?Recorded ?Confirmed ?Type cephalexin 250 mg capsule 250 mg PO Q12H PRN Sexual Activity 08/02/20 05/13/24 History cholecalciferol (vitamin D3) 125 125 mcg PO DAILY 08/02/20 05/23/24 History mcg (5,000 unit) capsule multivitamin (Daily Multi-Vitamin 1 tablet PO DAILY 08/02/20 05/23/24 History tablet) Allergies Allergy/AdvReac Type Severity Reaction Status Date / Time Sulfa (Sulfonamide AdvReac Unknown HIVES Verified 05/23/24 11:36 Antibiotics) Vital Signs Vital Signs - 24 hr 05/23/24 11:38 Temperature 97 F L Pulse Rate 71 Respiratory Rate 18 Blood Pressure 153/100 H Pulse Oximetry 98 Oxygen Delivery Room Air Exam Const: General: cooperative and healthy appearing Resp: Effort & Inspection: normal respiratory effort and able to speak in complete sentences Auscultation: clear to auscultation bilaterally Cardio: Rate: regular rate Rhythm: regular rhythm GI: Inspection: normal to inspection GI Palp: No No hepatosplenomegaly present Auscultation: normal bowel sounds Rectal Exam: deferred Skin: General skin exam: normal color Psych: Appearance: grossly normal Mental Status: mental status grossly normal Assessment and Plan Assessment and plan (1) Colon cancer screening: Code(s): Z12.11 - Encounter for screening for malignant neoplasm of colon Status: Acute Assessment and Plan: The patient is deemed a good candidate for the procedure. Consent signed. Will proceed. (2) History of diverticulitis of colon: Code(s): Z87.19 - Personal history of other diseases of the digestive system Status: Acute
[2024-05-23 12:47] VITALS: BP 119/72; PULSE 64; RESP 21; O2SAT 95
[2024-05-23 12:57] VITALS: BP 116/72; PULSE 59; RESP 13; O2SAT 97
[2024-05-23 13:07] VITALS: BP 131/71; PULSE 48; RESP 21; O2SAT 100
== END 2024-05-23 13:17 | disposition home or self-care (01) ==
PROVIDERS: Referring Provider Internal Medicine Gastroenterology; Visit Provider Internal Medicine Gastroenterology
PROC: 0DJD8ZZ Inspection of Lower Intestinal Tract, Via Natural or Artificial Opening Endoscopic (ICD-10-PCS; CPT 45378; principal; 2024-05-23 13:00)
DX: Z09 Encounter for follow-up examination after completed treatment for conditions other than malignant neoplasm (principal); K57.30 Diverticulosis of large intestine without perforation or abscess without bleeding; Z87.19 Personal history of other diseases of the digestive system; E66.9 Obesity, unspecified; Z68.32 Body mass index [BMI] 32.0-32.9, adult
CPT/HCPCS: 45378; J2003; J2704; J7120

== ENCOUNTER 2024-05-30 07:42 | Outpatient (CLI) | payer BC, SELFPAY ==
[2024-05-30 08:27] LABS: INR 0.9; Prothrombin Time 12.2 Seconds (11.1-14.7)
[2024-05-30 08:28] LABS: Partial Thromboplastin Time 29.1 Seconds (22.3-36.8)
== END 2024-05-30 07:43 | disposition home or self-care (01) ==
LOC: ANHSURGERY 07:44
PROVIDERS: Visit Provider Urology
DX: Z01.812 Encounter for preprocedural laboratory examination (principal); N20.0 Calculus of kidney
CPT/HCPCS: 36415; 85610; 85730; 87086

== ENCOUNTER 2024-06-06 00:45 | Day surgery (SDC) | payer BC, SELFPAY ==
[2024-05-28 11:49] VITALS: BMI 33.7
--- NOTE | 2024-05-28 11:54 | PC.NURSE ---
Report to the Outpatient Waiting Room, entrance under the green pavilion located off [facility], at time _1130_ on date _[id number]_. Planned Procedure Time: _130pm_.? Time changes happen often and if your time is changed the preop area will call you the afternoon before. - You and your visitor will be asked to self-screen and do not enter if you have any COVID symptoms. Please call surgeon if you need to reschedule. - A mask is optional within the hospital at this time. Patients may have clear liquids (water, carbonated beverages, clear teas, apple juice) until 3 hours prior to surgery with a maximum of 20 ounces. - No food from midnight until time of surgery and no smoking. This includes no chewing gum, candy or mints. Take only the following medications with a SIP of water on the morning of surgery: ____None DO NOT STOP ANY OF YOUR OTHER PRESCRIPTION MEDICATIONS PRIOR TO SURGERY EXCEPT THE FOLLOWING Medications to discontinue per physician __Vitamins Date to take last onbx___[id number] Please no make-up, nail indian, hairspray, perfume, deodorant, or body powder the day of surgery.? No jewelry (including any body piercings) or valuables the day of surgery, leave them at home.? Please take a shower or bath the night before, or the morning of, surgery with an antibacterial soap.? Wear comfortable, loose fitting clothing.? - Jewelry must be removed prior to entering the operating room.? Rings and piercings that are not removed may be cut off. - The hospital will not accept responsibility for valuables.? - Please leave all valuables, including medications, at home the day of surgery. If you are going home after surgery, a licensed electric truck driver must drive you home.? - NO public transportation without another adult if you receive anesthesia. - We recommend that an adult stay with you for 24 hours following discharge. - We also recommend that you do not drive, make important decision, drink alcoholic beverages, or take any drugs that were not prescribed by your health care provider for at least 24 hours after your discharge time. Follow any additional instructions given to you from your surgeon. Telephone instructions given to Micaela___and asked if any additional questions and then verbalized understanding. Patient advised to call surgeon office or pre surgery nurse liaison [phone] if any additional questions.
[2024-06-06] VITALS (11 sets, daily range): BP systolic 113–155; BP diastolic 60–103; PULSE 59–76; RESP 14–18; TEMP 36.6–36.7; O2SAT 96–100
--- NOTE | ~2024-06-06 | XR_ITS ---
EXAMINATION: XR abdomen/kub 1V DATE: 06/06/2024 11:33 INDICATION: Left kidney stone. TECHNIQUE: A supine view of the abdomen on 2 radiographs was obtained. COMPARISON: Abdomen radiographs 05/12/2024, CT abdomen and pelvis 03/19/2024 FINDINGS: There are no dilated loops of bowel. The right kidney is obscured by bowel. There are appro ximately 7 stones in left kidney measuring up to 5 mm. Surgical clips in the right upper quadrant are likely from cholecystectomy. IMPRESSION: 1. Left kidney stones. Reviewed, dictated and finalized at location A. ROOM ASSISTANT IMPRESSION: 1. Left kidney stones.
--- NOTE | 2024-06-06 06:24 | WPDHPUPDATE1 ---
History and Physical Update Update Date/Time: 06/06/24 06:24 History and Physical has been reviewed, including an updated exam of the patient. There are NO changes in the patient's condition. Risks, benefits, and alternatives have been discussed and questions answered. Patient agrees to proceed with procedure.
[2024-06-06] MEDS: LACTATED RINGERS 1,000 ML 30 ML IV CONT (12:00)
--- NOTE | 2024-06-06 12:51 | P.PNAN_ITS ---
Anes - Initial Pre Proc Eval Procedure: Operation Date: 06/06/24 13:30 Proposed Procedures p Left Extracorporeal Shock Wave Lithotripsy - Tanner Red MD Date/Time: 06/06/24 12:51 Surgeon: Tanner Red MD Pre Op Diagnosis: Left Renal Stone Patient Data Age: 49 Gender: F Height: 1.7 m Weight: 97.7 kg Last Vital Signs Temp 98.0 F 06/06/24 11:44 Pulse 76 06/06/24 11:44 Resp 18 06/06/24 11:44 BP 132/78 06/06/24 12:34 Pulse Ox 99 06/06/24 11:44 O2 Del Method Room Air 06/06/24 11:44 Allergies Allergy/AdvReac Type Severity Reaction Status Date / Time Sulfa (Sulfonamide AdvReac Unknown HIVES Verified 05/28/24 11:48 Antibiotics) Home Medications ?Medication ?Instructions ?Recorded ?Confirmed ?Type cephalexin 250 mg capsule 250 mg PO Q12H PRN Sexual Activity 08/02/20 05/28/24 History cholecalciferol (vitamin D3) 125 125 mcg PO DAILY 08/02/20 06/06/24 History mcg (5,000 unit) capsule multivitamin (Daily Multi-Vitamin 1 tablet PO DAILY 08/02/20 06/06/24 History tablet) Patient hx anesthesia problems: none Family hx anesthesia problems: none Results Review: All pre-operative results and documents have been reviewed as part of the pre- operative evaluation. PMFSH Past Medical History Medical History LLQ pain History of diverticulitis of colon Colon cancer screening Anemia Breast cancer Kidney stones (vaginal after ) x 2 Surgical History Surgical History History of hysterectomy, supracervical History of breast surgery Hx of cholecystectomy S/P laparoscopic surgery x 3 Previous section Social History Social History Years smoked: 15 Smoking status: Former smoker Tobacco type: cigarettes Smoking end date: 05/28/13 Alcohol intake: current Substance use: never Substance use type: does not use Lack of Transportation: No Lack of Food: Never True Current Housing: I Have Housing Concerned About Future Housing: No Difficulty Paying Gas/Electric Bills: No Difficulty Paying for Meds: No Currently Unemployed: No Education: High School Diploma/GED Difficulty w/ Childcare or Family Care: No Living arrangements: with family Spiritual care concerns: No Anes - Eval Final PreProcedure Day of Procedure 06/06/24 12:51 Patient weight: obese Heart: regular rate and rhythm Lungs: clear to auscultation Airway: Mallampati scale class II Neurological: alert and oriented Last oral intake: >/= 8 hours ASA classification: II Emergent: no Anesthetic plan: proceed Anesthesia type and monitoring: general LMA and standard monitoring Results Review: All pre-operative results and documents have been reviewed as part of the pre- operative evaluation. Obesity. No cp or sob w walking 1-2 fos. Informed Consent: The patient's anesthetic plan and its attendant risks and benefits were discussed with the patient/family/POA. Questions were solicited and answers provided to the satisfaction of the patient/family/POA.
[2024-06-06] MEDS: ceFAZolin 2 GM/D5W 50 ML 2 GM/50 ML BAG IVPB (13:30)
--- NOTE | 2024-06-06 14:04 | W.PM.PROC2 ---
Procedure Note - Detailed Date of Procedure 06/06/24 Pre-op Diagnosis Left Renal Stones Post-op Diagnosis Same Procedure Performed Left ESWL Surgeon Tanner Red MD Anesthesia General Description of Procedure The patient was brought to the operative suite where she was placed in the supine position on the Dornier lithotripsy table. The focal point of the lithotripter was placed first at a 5-6mm left mid-pole calculus. We treated that stone with 1900 shocks at a power setting of 4. A smaller upper pole stone was treated with 600 shocks at the same power setting. A total of 2500 shocks were delivered at a power setting of 4. There appeared to be good fragmentation of the stone. The patient tolerated the procedure well and was taken to the recovery room in good condition. Drains No Packing No Pathology None sent Complications No immediate complications Condition Stable
[2024-06-06] MEDS: ONDANSETRON INJ 4 MG/2 ML VIAL IV PUSH (15:25)
--- OUTSIDE RECORDS SUMMARY | 2024-06-13 01:59 | XMS_ITS | Encounter Summary ---
Author Organization [facility] Health Address [address] [place] [address] Care Team Providers Care Blood Bank Technologist Name Role Phone Denilson Ferrara MD Primary Care Provider + Encounter Details Date Type Department Care Team (Late st Contact Info) Description 08/29/2016 Hospital Outpatient Visit Historic [facility] [address] [place] [id number] Nivia Castrejon, DO [address] [id number] Discharge Disposition: Home or Self Care Social History Tobacco Use Types Packs/Day Years Used Date Smoking Tobacco: Never Assessed Sex and Gender Information Value Date Recorded Sex Assigned at Not on file Gender Identity Not on file Sexual Orientation Not on file documented as of this encounter Plan of Treatment Not on file documented as of this encounter Visit Diagnoses Not on filedocumented in this encounter Care Teams Blood Bank Technologist Relationship Specialty Start Date End Date Denilson Ferrara MD PCP - General 06/01/10 documented as of this encounter
--- OUTSIDE RECORDS SUMMARY | 2024-06-13 01:59 | XMS_ITS | Encounter Summary ---
Author Organization [facility] Address [address] [place] [address]. [place], [place] [address] [place] [address] Care Team Providers Care Terminal Carman Name Role Phone Ravinder Ford Primary Care Provider [phone] Reason for Referral * Imaging (Routine) - Closed Specialty Diagnoses / Procedures Referred By Annemarie turner Referred To Contact RADIOLOGY Diagnoses Multiple thyroid nodules Procedures [place] [address] [place] [address] Phone: tel: fax: Referral ID Status Reason Start Date Expiration Date Visits Re quested Visits Authorized [id number] Closed 07/03/2023 07/03/2024 1 1 * Imaging (Routine) - Closed Specialty Diagnoses / Procedures Referred By Annemarie turner Referred To Contact RADIOLOGY Diagnoses Pulmonary nodules Procedures CT CHEST [place] [address] [place] [address] Phone: tel: fax: Referral ID Status Reason Start Date Expiration Date Visits Re quested Visits Authorized [id number] Closed 07/03/2023 07/30/2024 1 1 Reason for Visit * Imaging (Routine) - Closed Specialty Diagnoses / Procedures Referred By Annemarie t Referred To Contact RADIOLOGY Diagnoses Pulmonary nodules Procedures CT CHEST [place] [address] [place] [address] Phone: tel: fax: Referral ID Status Reason Start Date Expiration Date Visits Re quested Visits Authorized [id number] Closed 07/03/2023 07/30/2024 1 1 Encounter Details Date Type Department Care Team (Latest Contact Info) Description 03/11/2024 8:06 AM CDT - 03/11/2024 11:59 PM CDT [place] [address] [place] [address] [place] [address] [place] [address] Discharge Disposition: Home or Self Care (Routine Discharge) Social History Tobacco Use Types Packs/Day Years Used Date Smoking Tobacco: Former Cigarettes 0.5 15 0 07/11/1998 - 07/11/2013 Smokeless Tobacco: Never Alcohol Use Standard Drinks/Week Comments Yes 0 (1 standard drink = 0.6 oz pur e alcohol) occasional AUDIT-C Answer Date Recorded Frequency of Alcohol Consumption Monthly or less 08/22/2018 Average Number of Drinks 1 or 2 019 Frequency of Binge Drinking Never 08/09 PHQ-2 Answer Date Recorded Patient Health Questionnaire-2 Score 0 07/03/2023 Comments No Sex and Gender Information Value Date Recorded Sex Assigned at Not on file Legal Sex Female 7:01 PM CDT Gender Identity Not on file Sexual Orientation Not on file documented as of this encounter Medications at Time of Discharge Multiple Vitamin (MULTIVITAMIN) capsule Take 1 capsule by mouth daily. vitamin D3, cholecalciferol, 1000 UNIT Tab tabletIndication s:Vitamin D Deficiency Take 1 tablet (25 mcg total) by mouth daily. Indications: Vitamin D Deficiency documented as of this encounter Plan of Treatment Upcoming Encounters Date Type Department Care Team (Late st Contact Info) Description 06/23/2024 2:40 PM INSERTER OPERATOR Office Visit [facility] Medical Group Family & Internal Medicine [place] [address] [place] [phone] [place] [address] [place] [address] documented as of this encounter Procedures Procedure Name Priority Date/Time Associated Diagnosis Comments US THYROID Routine 03/11/2024 8:54 AM CDT Multiple thyroid nodules CT CHEST W LUNG NOD FLUP Routine 03/11/2024 8:49 AM CDT Pulmonary nodules documented in this encounter Results * US THYROID (03/11/2024 8:54 AM CDT) Anatomical Region Laterality Modality Neck Ultrasound 03/14/2024 11:4 5 AM CDT Impressions 03/14/2024 11:53 AM CDT IMPRESSION: 1. ??Grossly similar appearance of the 2 left-sided thyroid nodules. No new lesions. Ordered By: RAVINDER FORD Interpreted By: James Wilson, 03/14/2024 11:45 AM Narrative 03/14/2024 11:53 AM CDT [facility] [address] [facility] [place] [address] IMAGING STUDIES: US THYROID DATE: 03/11/2024 8:42 AM CLINICAL HISTORY: f/u multiple nodules. one with solid component ?? . Comparison: 03/22/2023. FINDINGS: RIGHT THYROID GLAND MEASURES 4.8 x 1.0 x 1.8 cm. LEFT THYROID GLAND MEASURES 5.0 x 1.5 x 1.8 cm. SLIGHTLY HETEROGENEOUS ECHOTEXTURE TO THE THYROID GLAND. GROSSLY NORMAL COLOR FLOW.. NO NODULES WITHIN THE RIGHT LOBE. WITHIN THE SUPERIOR LEFT LOBE THERE IS A WELL-DEFINED MIXED CYSTIC AND SOLID NODULE. NO ABNORMAL COLOR FLOW. NO SHADOWING. HYPOECHOIC. MEASURES 4.8 X 3.5 X 4.5 MILLIMETERS.. PRIOR MEASUREMENT OF 5.1 X 3.2 X 4.4 MM. ?TR3 Within the mid left lobe there is a well-defined spongiform nodule. Mainly hypoechoic. No abnormal color flow. No shadowing. Measures 8.0 x 4.7 x 6.9 mm. Prior measurement of 8.7 x 4.5 x 7.0 mm.. ?? TR 2 Procedure Note Miguelangel Wilson MD - 03/14/2024 [facility] [address] [place] [address] IMAGING STUDIES: US THYROID DATE: 03/11/2024 8:42 AM CLINICAL HISTORY: f/u multiple nodules. one with solid component . Comparison: 03/22/2023. FINDINGS: RIGHT THYROID GLAND MEASURES 4.8 x 1.0 x 1.8 cm. LEFT THYROID GLAND MEASURES 5.0 x 1.5 x 1.8 cm. SLIGHTLY HETEROGENEOUS ECHOTEXTURE TO THE THYROID GLAND. GROSSLY NORMALCOLOR FLOW.. NO NODULES WITHIN THE RIGHT LOBE. WITHIN THE SUPERIOR LEFT LOBE THERE IS A WELL-DEFINED MIXED CYSTIC ANDSOLID NODULE. NO ABNORMAL COLOR FLOW. NO SHADOWING. HYPOECHOIC. MEASURES 4.8 X 3.5 X 4.5 MILLIMETERS.. PRIOR MEASUREMENT OF 5.1 X 3.2 X4.4 MM. TR3 Within the mid left lobe there is a well-defined spongiform nodule. Mainlyhypoechoic. No abnormal color flow. No shadowing. Measures 8.0 x 4.7 x 6.9 mm. Prior measurement of 8.7 x 4.5 x 7.0 mm..TR 2 IMPRESSION: 1. Grossly similar appearance of the 2 left-sided thyroid nodules. No newlesions. Ordered By: RAVINDER FORD Interpreted By: James Wilson, 03/14/2024 11:45 AM Ravinder BOATENG ULTRASOUND Final Result * CT CHEST W LUNG NOD FLUP (03/11/2024 8:49 AM CDT) Anatomical Region Laterality Modality Chest Computed Tomogra phy 03/14/2024 12:5 9 PM CDT Impressions 03/14/2024 1:07 PM CDT IMPRESSION: 1. ??Stable appearance to bilateral pulmonary nodules for greater than 2 years. Considered benign. No further workup necessary. 2. ??No new nodules. No infiltrate or effusion.. 3. ??Moderate coronary artery calcifications for a patient of this age. Please correlate with cardiac risk profile. Ordered By: RAVINDER FORD Interpreted By: James Wilson, 03/14/2024 12:59 PM Narrative 03/14/2024 1:07 PM CDT [facility] [address] [place] [address] IEXAMINATION: CT CHEST WITH CONTRAST EXAM DATE/TIME: 03/11/2024 8:20 AM REASON FOR EXAM: ??Lung nodules, multiple ? . Prior history of tobacco use. Follow-up. History of breast carcinoma with lumpectomy COMPARISON: 03/22/2023. 03/15/2022. 03/04/2021 TECHNIQUE: Computed tomography was performed of the chest after the injection of 80 mL of Isovue-370. A dose lowering technique was used for this procedure, which may include, but is not limited to, dose reduction technique, automated exposure control, iterative reconstruction, ALARA (As Low As Reasonably Achievable), or Image Gently techniques. FINDINGS: On lung windows, no suspicious pulmonary lesion, pneumothorax, or pleural effusion.. Previously identified lung nodules within the right lower lobe and left lower lobe are stable for greater than 2 years. Considered benign. No new nodules. No further workup needed. Largest nodule is in the left lower lobe measuring approximately 5.5 mm on image 70 of series 3. Other smaller nodules in the right lower lobe are stable. Multiple arrows placed on lung window images. On soft tissue windows, no axillary or supraclavicular lymphadenopathy. On mediastinal windows, no evidence of hilar or mediastinal lymphadenopathy. Heart size normal. No pericardial effusion. Calcified mediastinal and right hilar lymph nodes. Calcified granuloma in right lower lobe. Limited evaluation of the upper abdomen demonstrates no acute abnormality. On bone windows, no suspicious skeletal lesion or acute compression fracture deformity. Procedure Note Miguelangel Wilson MD - 03/14/2024 [facility] [address] [place] [address] IEXAMINATION: CT CHEST WITH CONTRAST EXAM DATE/TIME: 03/11/2024 8:20 AM REASON FOR EXAM: Lung nodules, multiple . Prior history of tobaccouse. Follow-up. History of breast carcinoma with lumpectomy COMPARISON: 03/22/2023. 03/15/2022. 03/04/2021 TECHNIQUE: Computed tomography was performed of the chest after theinjection of 80 mL of Isovue-370. A dose lowering technique was used for this procedure, which may include,but is not limited to, dose reduction technique, automated exposurecontrol, iterative reconstruction, ALARA (As Low As ReasonablyAchievable), or Image Gently techniques. FINDINGS: On lung windows, no suspicious pulmonary lesion, pneumothorax, or pleuraleffusion.. Previously identified lung nodules within the right lower lobe and leftlower lobe are stable for greater than 2 years. Considered benign. No newnodules. No further workup needed. Largest nodule is in the left lower lobe measuring approximately 5.5 mm onimage 70 of series 3. Other smaller nodules in the right lower lobe arestable. Multiple arrows placed on lung window images. On soft tissue windows, no axillary or supraclavicular lymphadenopathy. On mediastinal windows, no evidence of hilar or mediastinallymphadenopathy. Heart size normal. No pericardial effusion. Calcifiedmediastinal and right hilar lymph nodes. Calcified granuloma in rightlower lobe. Limited evaluation of the upper abdomen demonstrates no acuteabnormality. On bone windows, no suspicious skeletal lesion or acute compressionfracture deformity. IMPRESSION: 1. Stable appearance to bilateral pulmonary nodules for greater than 2years. Considered benign. No further workup necessary. 2. No new nodules. No infiltrate or effusion.. 3. Moderate coronary artery calcifications for a patient of this age.Please correlate with cardiac risk profile. Ordered By: RAVINDER FORD Interpreted By: James Wilson, 03/14/2024 12:[address] Final Result documented in this encounter Visit Diagnoses Diagnosis Pulmonary nodules Other nonspecific abnormal finding of lung field Multiple thyroid nodules Nontoxic multinodular goiter documented in this encounter Administered Medications Inactive Administered Medications - up to 3 most recent administrations Medication Order MAR Action Action Date Dose Rate Site iopamidol (ISOVUE-370) 76 % injection 80 mL 80 mL, Intravenous, IMG once as needed, Contrast, 1 dose, Starting on Sun03/11/24 at 0849, Until Sun03/11/24 at 0843 Given 03/11/2024 8:43 AM CDT 80 mLs Left Arm documented in this encounter Care Teams Terminal Carman Relationship Specialty [place] [address] [place] [address] PCP - General Physician Digital Account Director Medical 06/29/23 documented as of this encounter
--- OUTSIDE RECORDS SUMMARY | 2024-06-13 01:59 | XMS_ITS | Clinical Summary ---
Author Organization [facility] Address [address] [place] [address] Care Team Providers Care Arcade Attendant Name Role Phone Denilson Ferrara MD Primary Care Provider + Source Comments [facility],non-owned Affiliates and Associated Physician Practices is amultiple site organization consisting of ambulatory clinics and hospital sitesin [place], [place], [place] and [place]. This disclosure is being madepursuant to the Care Everywhere program and may not contain all information available regarding this patient. Last updated 18.[facility] [employer] Social History Tobacco Use Types Packs/Day Years Used Date Smoking Tobacco: Never Assessed Sex and Gender Information Value Date Recorded Sex Assigned at Not on file Gender Identity Not on file Sexual Orientation Not on file Plan of Treatment Health Maintenance Due Date Last Done Comments COLOGUARD (AGES 45-75) - COL ON CA SCREENING 1976 COLON MONITORING 1976 COLONOSCOPY - COLON CA SCREENING 1976 CT COLONOGRAPHY - COLON CA SCREENING 1976 Colorectal Cancer Screening 1976 FIT - COLON CA SCREENING 1976 FLEX SIG - COLON CA SCREENING 1976 LIPID TESTING 1976 MAMMOGRAM 1976 PAP SMEAR 1976 HIV SCREENING 1991 HEPATITIS C SCREENING 05/06/1994 DTAP/TDAP/TD VACCINES (1 - Tdap) 1995 HEPATITIS B VACCINE (1 of 3 - 19+ 3-dose series) 1995 DEPRESSION SCREENING 06/11/2023 COVID-19 VACCINE (1 - 2023-2 5 season) 2024 INFLUENZA VACCINE (#1) 2024 ZOSTER VACCINE (1 of 2) 2026 HIB VACCINE Aged Out No longer eligi ble based on patient's age to complete this topic HPV VACCINE Aged Out No longer eligi ble based on patient's age to complete this topic MENINGOCOCCAL VACCINE Aged Out No tracy josseline eligible based on patient's age to complete this topic PNEUMOCOCCAL VACCINE Aged Out No long er eligible based on patient's age to complete this topic Care Teams Arcade Attendant Relationship Specialty Start Date End Date Denilson Ferrara MD PCP - General 06/01/10
--- OUTSIDE RECORDS SUMMARY | 2024-06-13 01:59 | XMS_ITS | Encounter Summary ---
Author Organization [facility] Address [address] [place] [address]. [place], [place] [address] [place] [address] Care Team Providers Care Civil Designer Name Role Phone Ravinder Ford Primary Care Provider [phone] Encounter Details Date Type Department Care Team (Latest Contact Info) Description 07/03/2023 Travel Social History Tobacco Use Types Packs/Day Years [...] st Contact Info) Description 06/23/2024 2:40 PM SURVEY ASSOCIATE Office Visit [facility] Medical Group Family & Internal Medicine [facility] [address] [place] [address] [place] [address] [place] [address] documented as of this encounter Visit Diagnoses Not on filedocumented in this encounter Care Teams Civil Designer Relationship Specialty [place] [address] [place] [address] PCP - General Physician Canvas Goods Fabricator Medical 06/29/23 documented as of this encounter
--- OUTSIDE RECORDS SUMMARY | 2024-06-13 01:59 | XMS_ITS | Encounter Summary ---
Author Organization [facility] Address [address] [place] [address]. [place], [place] [address] [place] [address] Care Team Providers Care Pulping Machine Operator Name Role Phone Radha Culp NP Primary Care Provider [phone] Ravinder Ford Primary Care Provider [phone] Encounter Details Date Type Department Care Team (Latest Contact Info) Description 04/24/2023 Scan HEALTH INFO SRVCS Scanned, Doc Med Group Social History Tobacco Use Types Packs/Day Years [...] st Contact Info) Description 06/23/2024 2:40 PM SOCIAL WORKER PSYCHIATRIC Office Visit [facility] Medical Group Family & Internal Medicine [facility] [address] [place] [address] Ravinder Ford PA [address] [place] [address] documented as of this encounter Visit Diagnoses Not on filedocumented in this encounter Care Teams Pulping Machine Operator Relationship Specialty [place] [address] [address], [address] [place] [address] PCP - General Nurse Practitioner Family 09/15/2206/11 [place] [address] [place] [address] PCP - General Physician Tax Compliance Manager Medical 06/29/23 documented as of this encounter
--- OUTSIDE RECORDS SUMMARY | 2024-06-13 01:59 | XMS_ITS | Encounter Summary ---
Author Organization [facility] Address [address] [place] [address]. [place], [place] [address] [place] [address] Care Team Providers Care Diecast Machine Operator Name Role Phone Ravinder Ford Primary Care Provider [phone] Reason for Visit * Reason Comments Lab (SCAN) CT (SCAN) Encounter Details Date Type Department Care Team ([facility] Contact Info) Description 03/19/2024 Scan HEALTH INFO SRVCS Scanned, Doc Med Group Lab (SCAN); CT (SCAN) Social History Tobacco Use Types Packs/Day Years [...] Upcoming Encounters Date Type Department Care Team ([facility] Contact Info) Description 06/23/2024 2:40 PM BRANCH BILLING PAYROLL CLERK Office Visit [facility] Medical [facility] Family & Internal Medicine [facility] [address] [place] [phone] Ravinder Ford PA [address] [place] [address] documented as of this encounter Procedures Procedure Name Priority Date/Time Associated Diagnosis Comments CT GENERIC 03/19/2024 OUTSIDE PT/INR (SCAN ORDER) 03/19/2024 OUTSIDE LAB (SCAN ORDER) 03/19/2024 OUTSIDE LAB (SCAN ORDER) 03/19/2024 documented in this encounter Results * OUTSIDE LAB (SCAN ORDER) (03/19/2024) 03/19/2024 us Doc Med Group Scanned SCANNING Final Resu lt * OUTSIDE PT/INR (SCAN ORDER) (03/19/2024) 03/19/2024 us Doc Med Group Scanned SCANNING Final Resu lt * OUTSIDE LAB (SCAN ORDER) (03/19/2024) 03/19/2024 us Doc Med Group Scanned SCANNING Final Resu lt * CT GENERIC (03/19/2024) Anatomical Region Laterality Modality Other 03/19/2024 us Doc Med Group Scanned SCANNING Final Resu lt documented in this encounter Visit Diagnoses Not on filedocumented in this encounter Care Teams Diecast Machine Operator Relationship Specialty [place] [address] [place] [address] PCP - General Physician Treatment Coordinator Medical 06/29/23 documented as of this encounter
--- OUTSIDE RECORDS SUMMARY | 2024-06-13 01:59 | XMS_ITS | Encounter Summary ---
Author Organization [facility] Address [address] [place] [address]. [place], [place] [address] [place] [address] Care Team Providers Care Linux System Admin Name Role Phone Ravinder Ford Primary Care Provider [phone] Encounter Details Date Type Department Care Team (Latest Contact Info) Description 03/11/2024 Travel Social History Tobacco Use Types Packs/Day [...] st Contact Info) Description 06/23/2024 2:40 PM COVERSTITCH BINDER Office Visit [facility] Medical Group Family & Internal Medicine [facility] [address] [place] [address] [place] [address] [place] [address] documented as of this encounter Visit Diagnoses Not on filedocumented in this encounter Care Teams Linux System Admin Relationship Specialty [place] [address] [place] [address] PCP - General Physician Architect Intern Medical 06/29/23 documented as of this encounter
--- OUTSIDE RECORDS SUMMARY | 2024-06-13 01:59 | XMS_ITS | Encounter Summary ---
Author Organization [facility] Address [address] [place] [address] Care Team Providers Care Nursing Assoc Name Role Phone Denilson Ferrara MD Primary Care Provider + Encounter Details Date Type Department Care Team (Latest Contact Info) Description 08/29/2016 Hospital Outpatient Visit Historic [facility] MRI [address] [place] [address] Discharge Disposition: Home or Self Care Social History Tobacco Use Types Packs/Day Years Used Date Smoking Tobacco: Never Assessed Sex and Gender Information Value Date Recorded Sex Assigned at Not on file Gender Identity Not on file Sexual Orientation Not on file documented as of this encounter Plan of Treatment Not on file documented as of this encounter Procedures Procedure Name Priority Date/Time Associated Diagnosis Comments MRI BREAST BILAT WWO CONTRAST Routine 08/29/2016 2:44 PM CDT CREATININE BLOOD - POCT (IP) [facility] Routine 08/29/2016 documented in this encounter Results * MRI BREAST BILAT WWO CONTRAST (08/29/2016 2:44 PM CDT) Anatomical Region Laterality Modality Breast Bilateral Other Impressions 08/30/2016 12:05 PM CDT IMPRESSION: Right breast: A 1.9 x 3.4 cm postbiopsy hematoma in the upper inner quadrant with minimal surrounding enhancement which may represent residual disease versus post biopsy change. ??No additional MR evidence of malignancy within the right breast. Left breast: No MR evidence of malignancy. ASSESSMENT: BI-RADS category 6, known malignancy. RECOMMENDATION: Management per the patient's breast surgeon, Dr. Castrejon. Report dictated by Emmanuel Olson M.D. (resident). I, Dr. DALTON SALDIVAR M.D. have personally reviewed and interpreted this examination/study. This report was electronically signed by DALTON SALDIVAR M.D. ??on 08/30/2016 12:05 PM . 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 Patient underwent right breast biopsy on 08/08/2016. COMPARISON: Comparison was made to previous mammograms dated 07/20/2016 and 07/26/2016 from [facility]. TECHNIQUE: Multiplanar multisequence MR imaging of both breasts before and following the administration of 10 mL of Gadavist intravenous gadolinium contrast. Dynamic phase imaging was performed in the axial plane. Exam was processed by and interpreted on a Sisasa magnetic observer including 3-D volume rendering, subtraction image processing and contrast kinetic analysis. FINDINGS: Background tissue pattern: Scattered fibroglandular tissue. Degree of background parenchymal enhancement: Minimal symmetric. RIGHT BREAST: In the upper inner right breast, there is a 1.9 x 3.4 cm lobulated heterogeneously T2 hyperintense and T1 hyperintense post biopsy hematoma (series 2 image 20) which is adjacent to a area of magnetic susceptibility on the T1 sequence (series 3 image 64) consistent with a postbiopsy marker. The hematoma has subtle thin peripheral enhancement on the postcontrast images which is minimally more prominent along the anterior and medial surfaces. There is no additional suspicious mass or area of abnormal enhancement in the right breast. There is no abnormality of the right axilla, chest wall, or nipple areolar complex. LEFT BREAST: There is no suspicious mass or area of abnormal enhancement in the left breast. There is no abnormality of the left axilla, chest wall, or nipple areolar complex. EXTRAMAMMARY FINDINGS: None Procedure Note Veronique Saldivar MD - 09/07/2017 EXAMINATION: Magnetic Resonance Imaging (MRI) Bilateral Breast Without AndWith Contrast HISTORY: 41-year-old female with DCIS in the upper, slightly inner rightbreast. Patient underwent right breast biopsy on 08/08/2016. COMPARISON: Comparison was made to previous mammograms dated 07/20/2016 and07/26/2016 from [facility]. TECHNIQUE: Multiplanar multisequence MR imaging of both breasts before andfollowing the administration of 10 mL of Gadavist intravenous gadoliniumcontrast. Dynamic phase imaging was performed in the axial plane. Exam wasprocessed by and interpreted on a Sisasa magnetic observer including 3-D volume rendering, subtraction imageprocessing and contrast kinetic analysis. FINDINGS: Background tissue pattern: Scattered fibroglandular tissue. Degree of background parenchymal enhancement: Minimal symmetric. RIGHT BREAST: In the upper inner right breast, there is a 1.9 x 3.4 cm lobulatedheterogeneously T2 hyperintense and T1 hyperintense post biopsy hematoma(series 2 image 20) which is adjacent to a area of magnetic susceptibilityon the T1 sequence (series 3 image 64) consistent with a postbiopsy marker. The hematoma has subtle thinperipheral enhancement on the postcontrast images which is minimally moreprominent along the anterior and medial surfaces. There is no additionalsuspicious mass or area of abnormal enhancement in the right breast. There is no abnormality of the rightaxilla, chest wall, or nipple areolar complex. LEFT BREAST: There is no suspicious mass or area of abnormal enhancement in the leftbreast. There is no abnormality of the left axilla, chest wall, or nippleareolar complex. EXTRAMAMMARY FINDINGS: None IMPRESSION IMPRESSION: Right breast: A 1.9 x 3.4 cm postbiopsy hematoma in the upper innerquadrant with minimal surrounding enhancement which may represent residualdisease versus post biopsy change. No additional MR evidence ofmalignancy within the right breast. Left breast: No MR evidence of malignancy. ASSESSMENT: BI-RADS category 6, known malignancy. RECOMMENDATION: Management per the patient's breast surgeon, Dr. Castrejon. Report dictated by Emmanuel Olson M.D. (resident). I, Dr. DALTON SALDIVAR M.D. have personally reviewed and interpreted thisexamination/study. This report was electronically signed by DALTON SALDIVAR M.D. on08/30/2016 12:05 PM . Historical Provider MR ORDERABLES * (ABNORMAL) CREATININE BLOOD - POCT (IP) [facility] (08/29/2016) Creatinine POCT 1.22 0.3 - 1.3 mg/dL [facility] eGFR POCT 52(A) 60 ml/min [facility] 08/29/2016 Hellen Bejarano MD LAB - POINT OF CARE ORDERABLES [facility] documented in this encounter Visit Diagnoses Not on filedocumented in this encounter Care Teams Nursing Assoc Relationship Specialty Start Date End Date Denilson Ferrara MD PCP - General 06/01/10 documented as of this encounter
--- OUTSIDE RECORDS SUMMARY | 2024-06-13 01:59 | XMS_ITS | Patient Health Summary ---
Author Organization [facility] Address [address] [place] [address] Care Team Providers Care Financial Foundations Associate Name Role Phone Denilson Ferrara MD Primary Care Provider + Note from [facility],non-owned Affiliates and Associated Physician Practices is amultiple site organization consisting of ambulatory clinics and hospital sitesin [place], [place], [place] and [place]. This disclosure is being madepursuant to the Care Everywhere program and may not contain all information available regarding this patient. Last updated 18.[facility] Social History Tobacco Use Types Packs/Day Years Used Date Smoking Tobacco: Never Assessed Sex and Gender Information Value Date Recorded Sex Assigned at Not on file Gender Identity Not on file Sexual Orientation Not on file Procedures * MRI BREAST BILAT WWO CONTRAST(Performed 08/29/2016) * CREATININE BLOOD - POCT (IP) [facility](Performed 08/29/2016) Results * MRI BREAST BILAT WWO CONTRAST [...] previous mammograms dated 07/20/2016 and 07/26/2016 from [facility]. TECHNIQUE: Multiplanar multisequence MR imaging of both breasts before and following the administration of 10 mL of Gadavist intravenous gadolinium contrast. Dynamic phase imaging was performed in the axial plane. Exam was processed by and interpreted on a MagMe repair miller including 3-D volume rendering, subtraction image processing [...] to previous mammograms dated 07/20/2016 and07/26/2016 from [facility]. TECHNIQUE: Multiplanar multisequence MR imaging of both breasts before andfollowing the administration of 10 mL of Gadavist intravenous gadoliniumcontrast. Dynamic phase imaging was performed in the axial plane. Exam wasprocessed by and interpreted on a MagMe repair miller including 3-D volume rendering, subtraction imageprocessing and [...] * (ABNORMAL) CREATININE BLOOD - POCT (IP) [facility] (08/29/2016) Creatinine POCT 1.22 0.3 - 1.3 mg/dL [facility] eGFR POCT 52(A) 60 ml/min [facility] 08/29/2016 Hellen Bejarano MD LAB - POINT OF CARE ORDERABLES Performing Organization Address City/State/[place]UST Co de Phone Number [facility] Care Teams Financial Foundations Associate Relationship Specialty Start Date End Date Denilson Ferrara MD PCP - General 06/01/10
--- OUTSIDE RECORDS SUMMARY | 2024-06-13 01:59 | XMS_ITS | Encounter Summary ---
Author Organization [facility] Address [address] [place] [address]. [place], [place] [address] [place] [address] Care Team Providers Care Health And Safety Coordinator Name Role Phone Ravinder Ford Primary Care Provider [phone] Encounter Details Date Type Department Care Team (Latest Contact Info) Description 05/23/2024 Scan HEALTH INFO SRVCS Scanned, Doc Med [...] st Contact Info) Description 06/23/2024 2:40 PM MACHINE MAINTENANCE REPAIRER Office Visit [facility] Medical [facility] Family & Internal Medicine [facility] [address] [place] [address] Ravinder Ford PA [address] [place] [address] documented as of this encounter Visit Diagnoses Not on filedocumented in this encounter Care Teams Health And Safety Coordinator Relationship Specialty [place] [address] [place] [address] PCP - General Physician Brakes Inspector Medical 06/29/23 documented as of this encounter
--- OUTSIDE RECORDS SUMMARY | 2024-06-13 01:59 | XMS_ITS | Encounter Summary ---
Author Organization [facility] Address [address] [place] [address]. [place], [place] [address] [place] [address] Care Team Providers Care Train Driver Name Role Phone Ravinder Ford Primary Care Provider [phone] Encounter Details Date Type Department Care Team (Latest Contact Info) Description 04/03/2024 Scan HEALTH INFO SRVCS Scanned, Doc Med [...] st Contact Info) Description 06/23/2024 2:40 PM VETERANS ADVISER Office Visit [facility] Medical [facility] Family & Internal Medicine [facility] [address] [place] [address] Ravinder Ford PA [address] [place] [address] documented as of this encounter Visit Diagnoses Not on filedocumented in this encounter Care Teams Train Driver Relationship Specialty [place] [address] [place] [address] PCP - General Physician Science Specialist Medical 06/29/23 documented as of this encounter
--- OUTSIDE RECORDS SUMMARY | 2024-06-13 01:59 | XMS_ITS | Encounter Summary ---
Author Organization [facility] Address [address] [place] [address]. [place], [place] [address] [place] [address] Care Team Providers Care Sand Polisher Name Role Phone Ravinder Ford Primary Care Provider [phone] Reason for Referral * Imaging (Routine) - Closed Specialty Diagnoses / Procedures Referred By Annemarie turner Referred To Contact RADIOLOGY Diagnoses Multiple thyroid nodules Procedures [place] [address] [facility] [place] [address] Phone: tel: fax: Referral ID Status Reason Start Date Expiration Date Visits Re quested Visits Authorized [id number] Closed 07/03/2023 07/03/2024 1 1 WOUND * Imaging (Routine) - Closed Specialty Diagnoses / Procedures Referred By Annemarie turner Referred To Contact RADIOLOGY Diagnoses Pulmonary nodules Procedures CT CHEST [place] [address] [place] [address] Phone: tel: fax: Referral ID Status Reason Start Date Expiration Date Visits Re quested Visits Authorized [id number] Closed 07/03/2023 07/30/2024 1 1 WOUND Reason for Visit * Reason Comments Follow Up Transfer care (Radha pt) Hyperlipidemia Blood Pressure Changes Pt has noticed el evated BP the past 3 months Encounter Details Date Type Department Care Team (Late st Contact Info) Description 07/03/2023 7:40 AM RN WOUND Office Visit [facility] Family & Internal Medicine [facility] [address] [place] [address] [place] [address] [place] [address] Follow Up (Transfer care (Radha pt)); Hyperlipidemia; Blood Pressure Changes (Pt has noticed elevated BP the past 3 months) Social History Tobacco Use Types Packs/Day Years Used Date Smoking Tobacco: Former Cigarettes 0.5 15 0 07/11/1998 - 07/11/2013 Smokeless Tobacco: Never Tobacco Cessation:Counseling Given: Yes Alcohol Use Standard Drinks/Week Comments Yes 0 [...] on file documented as of this encounter Last Filed Vital Signs Vital Sign Reading Time Taken Comments Blood Pressure 150/94 07/03/2023 7:38 AM RN WOUND Pulse 74 07/03/2023 7:31 AM RN WOUND Temperature 36.6 ??C (97.8 ??F) 07/03/2023 7:31 AM CS T Respiratory Rate 16 07/03/2023 7:31 AM RN WOUND Oxygen Saturation 99% 07/03/2023 7:31 AM RN WOUND Inhaled Oxygen Concentration - - Weight 93 kg (205 lb) 07/03/2023 7:31 AM RN WOUND Height 170.2 cm (5' 7 ) 07/03/2023 7:31 AM RN WOUND Body Mass Index 32.11 07/03/2023 7:31 AM RN WOUND documented in this encounter Patient Instructions * Patient Instructions* TASNEEM [place] - 07/03/2023 7:40 AM RN WOUND Blood pressure should be 120-130 over 70-80. If consistently above 140/90 please make f/u appt to discuss blood pressure meds. Also bring in machine to compare to clinic blood pressure readings. F/u blood draw and f/u in 6 months. F/u sooner if blood pressure is high. WOUND documented in this encounter Progress Notes * TASNEEM [place] - 07/03/2023 7:40 AM CST Reason for Visit: Follow Up (Transfer care (Radha pt)), Hyperlipidemia, and Blood Pressure Changes (Pt has noticed elevated BP the past 3 months) History of Present Illness: Patient here to transfer care from Dr. Hopper. She was also seen Radha Seay NP recently forfollow-up of thyroid nodules and pulmonary nodules. She gets annual CT of the lungs for some stablepulmonary nodules 3 mm and 5 mm. These have been unchanged over the last 2 years. Recently had an ultrasound done of her thyroid due to nodule seen on the CT scan. These are also benign- appearing less than 1.5 cm. There is one that is has solid components on the periphery. We will repeat the ultrasound again a year from March. Patient has seen elevated blood pressures at home with her home machine. She states the highest 1 has been 150s over 110. Most of the time though they are around 140/90. She denies headache chest pain shortness of breath or [place] exertion. The patient really does not want to go on blood pressure medication unless absolutely necessary. We discussed the possible long-term consequences of uncontrolled blood pressure including stroke and congestive heart failure. The patient has been losing weight since about March intentionally, she is using intermittent fasting last meal was at 6 PM and next meal is at 12 noon the next day. I am absolutely for this and also recommended she eat only whole food diet. She is eating salads with extremely small amount of salad dressing turkey and cheese. We spoke about exercise and diet briefly. Cholesterol labs: HDL is 50 which is increased from her prior one 2 years ago, triglycerides 99, LDL 122. Her HDL to triglyceride ratio is 2 or less which is excellent. I would not recommend any change or medications to treat this. History of breast cancer: Patient has a breast surgeon she sees and does 6 months mammograms. She had ER positive breast cancer with partial mastectomy in the past. No complaints. Left hip pain: Patient complains of the left hip popping on occasion. States when she was exercising she did not have this issue. She states she is stiff. I offered physical therapy referral she would like to wait and see if it goes away after she starts her new exercise routine. Follow Up Hyperlipidemia ROS: Review of Systems Medications: Current Outpatient Medications: Multiple Vitamin (MULTIVITAMIN) capsule, Take 1 capsule by mouth daily., Disp: , Rfl: vitamin D3, cholecalciferol, 1000 UNIT Tab tablet, Take 1 tablet (25 mcg total) by mouth daily. Indications: Vitamin D Deficiency, Disp: , Rfl: Review of patient's allergies indicates: Allergen Reactions Elemental Sulfur Rash and Hives Sulfa Antibiotics Unknown Past Medical History: Diagnosis Date Chronic UTI Influenza vaccine refused Shoulder pain, right Past Surgical History: Procedure Laterality Date BREAST LUMPECTOMY Right 11/2020 SECTION LAPAROSCOPIC CHOLECYSTECTOMY LAPAROSCOPIC SUPRACERVICAL HYSTERECTOMY OTHER PROCEDURE Renal Lithotripsy Social History Socioeconomic History Marital status: Tobacco Use Smoking status: Former Packs/day: 0.50 Years: 15.00 Additional pack years: 0.00 Total pack years: 7.50 Types: Cigarettes Quit date: 07/11/2013 Years since quittin.9 Smokeless tobacco: Never Vaping Use Vaping Use: Never used Substance and Sexual Activity Alcohol use: Yes Comment: occasional Drug use: No Other Topics Concern Service No Blood Transfusions No Caffeine Concern No Occupational Exposure No Hobby Hazards No Sleep Concern No Stress Concern No Weight Concern No Special Diet No Back Care No Exercise No Bike Helmet No Seat Belt No Self-Exams No Wheelchair No Walker No Upper extremity braces/slings No Lower extermity braces/slings No Self Care No E-Cigarettes Questions Responses E-Cigarette Use Never User E-cigarette/Vaping Substances Questions Responses Nicotine No THC No CBD No Flavoring No E-cigarette/Vaping Devices Questions Responses Disposable No Pre-filled or Refillable Cartridge No Refillable Tank No Pre-filled Pod No Family History Problem Relation Name Age of Onset None Mother No Known Problems Father No Known Problems Sister No Known Problems Brother No Known Problems Daughter No Known Problems Son No Known Problems Maternal Aunt No Known Problems Maternal Uncle No Known Problems Paternal Aunt No Known Problems Paternal Uncle No Known Problems Maternal Grandmother No Known Problems Maternal Grandfather No Known Problems Paternal Grandmother No Known Problems Paternal Grandfather No Known Problems Other Family Status Relation Name Status Mother (Not Specified) Father (Not Specified) Sister (Not Specified) Brother (Not Specified) Daughter (Not Specified) Son (Not Specified) MAunt (Not Specified) MUncle (Not Specified) PAunt (Not Specified) PUncle (Not Specified) MGM (Not Specified) MGF (Not Specified) PGM (Not Specified) PGF (Not Specified) Other (Not Specified) Physical Exam Vitals reviewed. Constitutional: Appearance: Normal appearance. HENT: Head: Normocephalic and atraumatic. Right Ear: Tympanic membrane normal. Left Ear: Tympanic membrane normal. Mouth/Throat: Mucous membranes are moist. Oropharynx is clear. Eyes: General: Left eye: Left eye discharge: cmp. Conjunctiva/sclera: Conjunctivae normal. Pupils: Pupils are equal, round, and reactive to light. Neck: Vascular: No carotid bruit. Comments: No carotid bruits bilaterally. Cardiovascular: Rate and Rhythm: Normal rate and regular rhythm. Pulmonary: Effort: Pulmonary effort is normal. Breath sounds: Normal breath sounds. Musculoskeletal: Cervical back: No tenderness. Lymphadenopathy: Cervical: No cervical adenopathy. Neurological: Mental Status: She is alert. Filed Vitals: 07/03/23 0731 07/03/23 0738 BP: (!) 142/93 (!) 150/94 Pulse: 74 Resp: 16 Temp: 97.8 ??F (36.6 ??C) TempSrc: Core SpO2: 99% Weight: 93 kg (205 lb) Height: 1.702 m (5' 7 ) Diagnoses/Impression: 1. Borderline hypertension INSULIN,TOTAL COMPREHENSIVE METABOLIC PANEL 2. Multiple thyroid nodules US THYROID TSH W/REFLEX THYROXINE, FREE (FT4) FREE T3 3. Pulmonary nodules CT CHEST W LUNG NOD FLUP 4. Chronic left hip pain 5. Vitamin D deficiency VITAMIN D, 25 OH Recommendations and Plan: Continue current diet and and exercise routine. Monitor home blood pressure medications if above what they are instructions are in patient instructions and return for evaluation for possible medication. Otherwise follow-up in 6 months. Orders Placed This Encounter VITAMIN D, 25 OH INSULIN,TOTAL COMPREHENSIVE METABOLIC PANEL TSH W/REFLEX THYROXINE, FREE (FT4) FREE T3 CT CHEST W LUNG NOD FLUP US THYROID Reviewed and updated this visit by provider: TASNEEM POWELL Referring Provider: No ref. provider found PCP: TASNEEM POWELL Cosigned by Joseph Addiosn MD at 07/03/2023 12:01 PM RN WOUND WOUND WOUND WOUND documented in this encounter Plan of Treatment Upcoming Encounters Date Type Department Care Team (Late st Contact Info) Description 06/23/2024 2:40 PM RN WOUND Office Visit [facility] Family & Internal Medicine [address] [address] Ravinder Ford PA [address] [place] [address] Scheduled Orders Name Type Priority Associated Diagnoses Orde r Schedule VITAMIN D, 25 OH Lab Routine Vitamin D deficiency Expected: 12/10/2023, Expires: 12/09/2024 INSULIN,TOTAL Lab Routine Borderline hypertension Expected: 12/10/2023, Expires: 12/09/2024 COMPREHENSIVE METABOLIC PANEL Lab Routine Borderline hypertension Expected: 12/10/2023, Expires: 12/09/2024 TSH W/REFLEX Lab Routine Multiple thyroid nodules Expected: 12/10/2023, Expires: 12/09/2024 THYROXINE, FREE (FT4) Lab Routine Multiple thyroid nodules Expected: 12/10/2023, Expires: 12/09/2024 FREE T3 Lab Routine Multiple thyroid nodules Expected: 12/10/2023, Expires: 12/09/2024 documented as of this encounter Results * US THYROID (03/11/2024 8:54 AM CDT) Anatomical Region Laterality Modality Neck Ultrasound 03/14/2024 11:4 5 AM CDT Impressions 03/14/2024 11:53 AM CDT IMPRESSION: 1. ??Grossly similar appearance of the 2 left-sided thyroid nodules. No new lesions. Ordered By: RAVINDER FORD Interpreted By: James Wilson, 03/14/2024 11:45 AM Narrative 03/14/2024 11:53 AM CDT [facility] [address] [facility] [address] [place] [address] IMAGING STUDIES: US THYROID DATE: 03/11/2024 8:42 [...] Procedure Note Miguelangel Wilson MD - 03/14/2024 [facility] [address] [place] [address] IMAGING STUDIES: US THYROID DATE: 03/11/2024 8:42 [...] Interpreted By: James Wilson, 03/14/2024 11:45 AM us Ravinder BOATENG ULTRASOUND Final Result * CT [...] 12:59 PM Narrative 03/14/2024 1:07 PM CDT [facility] [address] [place] [address] IEXAMINATION: CT CHEST WITH CONTRAST EXAM DATE/TIME: [...] Procedure Note Miguelangel Wilson MD - 03/14/2024 [facility] [address] [facility] [place] [address] IEXAMINATION: CT CHEST WITH CONTRAST EXAM DATE/TIME: [...] documented in this encounter Visit Diagnoses Diagnosis Borderline hypertension- Primary Elevated blood pressure reading without diagnosis of hypertension Multiple thyroid nodules Nontoxic multinodular goiter Pulmonary nodules Other nonspecific abnormal finding of lung field Chronic left hip pain Pain in joint, pelvic region and thigh Vitamin D deficiency Unspecified vitamin D deficiency Pulmonary nodules Other nonspecific abnormal finding of lung field Multiple thyroid nodules Nontoxic multinodular goiter documented in this encounter Care Teams Sand Polisher Relationship Specialty [place] [address] [place] [address] PCP - General Physician Environmental Aide Medical 06/29/23 documented as of this encounter
--- OUTSIDE RECORDS SUMMARY | 2024-06-13 01:59 | XMS_ITS | Clinical Summary ---
Author Organization [facility] Address [address] [place] [address]. [place], [place] [address] [place] [address] Care Team Providers Care Pedicab Driver Name Role Phone Ravinder Ford Primary Care Provider [phone] Allergies Active Allergy Reactions Criticality Noted Date Comments Elemental Sulfur Rash,Hives High 10/03/2017 Sulfa Antibiotics Unknown 10/23/2013 Medications vitamin D3, cholecalciferol , 1000 UNIT Tab tabletIndicatio ns:Vitamin D Deficiency Take 1 tablet (25 mcg total) by mouth daily. Indications: Vitamin D Deficiency Active Multiple Vitamin (MULTIVITAMIN) capsule Take 1 capsule by mouth daily. Active Active Problems Problem Noted Date Diagnosed Date Mixed hyperlipidemia 06/29/2023 Fatty liver 12/19/[address] nodules on [address] 02/23/2021 Vitamin D deficiency 02/23/2021 BMI 33.0-33.9,adult 04/07/2018 History of breast cancer 10/03/2017 Estrogen receptor positive status (ER+) 10/04/19 18 Resolved Problems Problem Noted Date Diagnosed Date Resolved Date Health care maintenance 02/23/2021 09/2 Acute right flank pain 07/22/202002/23 UTI symptoms 07/22/2020 02/23/2021 Hematuria, unspecified type 07/22/2020 12/19/2022 Kidney stone 07/22/2020 12/19/2022 Sign and symptom in breast 10/03/2018 0 12/19/2022 Abnormal ultrasound of breast 10/03/2018 12/19/2022 Acute diffuse otitis externa of right ear 09/12/2018 11/15/2018 Palpitations 07/10/2014 12/19/2022 Shoulder pain, right 10/23/2013 021 Encounters Date Type Department Care Team Description 06/10/2024 Orders Only [facility] Family & Internal Medicine [facility] [address] [place] [address] Ravinder Ford PA 05/23/2024 Scan [facility] Scanned, Doc [facility] 04/03/2024 Scan [facility] INFO [facility] Scanned, Doc [facility] Group 03/19/2024 Scan [facility] INFO [facility] Scanned, Doc Med Group Lab (SCAN); CT (SCAN) from Last 3 Months Immunizations Name Administration Dates Next Due COVID-19 Vaccine (Generic) 02/23/2021(Deferred: Patient Refused) Fluzone Adult - >Age 3 (Pref illed Syringe) 07/22/2020(Deferred: Patient Refused) Td 02/15/2013 Family History Medical History Relation Comments No Known Problems Brother No Known Problems Daughter No Known Problems Father No Known Problems Maternal Aunt No Known Problems Maternal Grandfather No Known Problems Maternal Grandmother No Known Problems Maternal Uncle None Mother No Known Problems Other No Known Problems Paternal Aunt No Known Problems Paternal Grandfather No Known Problems Paternal Grandmother No Known Problems Paternal Uncle No Known Problems Sister No Known Problems Son Relation Status Comments Brother Daughter Father Maternal Aunt Maternal Grandfather Maternal Grandmother Maternal Uncle Mother Other Paternal Aunt Paternal Grandfather Paternal Grandmother Paternal Uncle Sister Son Social History Tobacco Use Types Packs/Day Years [...] on file Sexual Orientation Not on file Last Filed Vital Signs Vital Sign Reading Time Taken Comments Blood Pressure 150/94 07/03/2023 7:38 AM BALING MACHINE TENDER Pulse 74 07/03/2023 7:31 AM BALING MACHINE TENDER Temperature 36.6 ??C (97.8 ??F) 07/03/2023 7:31 AM CS T Respiratory Rate 16 07/03/2023 7:31 AM BALING MACHINE TENDER Oxygen Saturation 99% 07/03/2023 7:31 AM BALING MACHINE TENDER Inhaled Oxygen Concentration - - Weight 93 kg (205 lb) 07/03/2023 7:31 AM BALING MACHINE TENDER Height 170.2 cm (5' 7 ) 07/03/2023 7:31 AM BALING MACHINE TENDER Body Mass Index 32.11 07/03/2023 7:31 AM BALING MACHINE TENDER Plan of Treatment Upcoming Encounters Date Type Department Care Team (Late st Contact Info) Description 06/23/2024 2:40 PM BALING MACHINE TENDER Office Visit [facility] Family & Internal Medicine [facility] [address] [place] [phone] [place] [address] [place] [address] Health Maintenance Due Date Last Done Comments Cervical Cancer Screening Pap Smear (Age 30 to 64) Every 3 Years 1976 Colorectal Cancer Screening Colonoscopy (10 Years) 1976 Pneumococcal Vaccine: Pediatrics (0 to 5 Years) and At-Risk Patients (6 to 64 Years) (1 of 2 - PCV) 1982 Hepatitis C 1994 Hepatitis B Vaccines (1 of 3 - 19+ 3-dose series) 1995 DTaP, Tdap and Td Vaccines (1 - Tdap) 02/16/2013 02/15/2013 Annual Physical 12/20/2023 12/19/2022, 02/23/2021 COVID-19 Vaccine ( - season) 2024 Influenza Adult (#1) 2024 Mammogram Screening 10/07/2025 10/08/2023, 10/05/2022, 10/05/2022, Additional history exists Cervical Cancer Screening Pap with HPV Testing (Age 30 to 64) Every 5 Years 08/16/2027 08/15/2022, 08/11/2021, 08/02/2020 Cervical Cancer Screening with HPV 08/16/2027 Meningococcal Vaccine Aged Out No tracy josseline eligible based on patient's age to complete this topic RSV Immunizations Under 20 Months Aged Out No longer eligible based on patient's age to complete this topic Procedures Procedure Name Priority Date/Time Associated Diagnosis Comments FREE T3 Routine 06/10/2024 7:10 AM BALING MACHINE TENDER THYROID STIM HORMONE TSH Routine 06/10/2024 7:10 AM BALING MACHINE TENDER THYROXINE, FREE (FT4) Routine 06/10/2024 7:10 AM BALING MACHINE TENDER INSULIN,TOTAL Routine 06/10/2024 7:10 AM BALING MACHINE TENDER COMPREHENSIVE METABOLIC PANEL Routine 06/10/2024 7:[address] M[address] GENERIC 03/19/2024 OUTSIDE LAB (SCAN ORDER) 03/19/2024 OUTSIDE PT/INR (SCAN ORDER) 03/19/2024 OUTSIDE LAB (SCAN ORDER) 03/19/2024 MAMMOGRAM GENERIC (SCAN ORDER) 10/05/2022 OUTSIDE CYTOPATH CERV/VAG INTERPRET (PAP) 08/15/2022 from Last 3 Months or Most Recently Relevant to Health Maintenance Results * FREE T3 (06/10/2024 7:10 AM BALING MACHINE TENDER) FREE T3 3.6 2.3 - 4.2 pg/mL [facility] 06/10/2024 7:10 AM BALING MACHINE TENDER 06/10/2024 7:11 AM BALING MACHINE TENDER Narrative [facility] - 06/11/2024 3:18 AM BALING MACHINE TENDER FASTING:YES FASTING: YES Resulting Agency Comment Performing Organization Information: ?Site ID: [place] ?Name: [facility] ?Address: [facility][note 3] [place] [address] ?Director: Osiel Collins MD us Ravinder BOATENG LABORATORY Final Result [facility] [address] [id number], * COMPREHENSIVE METABOLIC PANEL (06/10/2024 7:10 AM BALING MACHINE TENDER) Pathologist [facility] GLUCOSE 91 65 - 99 mg/dL [facility] Comment: ? Fasting reference interval BUN 15 7 - 25 mg/dL [facility] CREATININE S/P/B 0.80 0.50 - 0.99 mg/dL [facility] GFR ESTIMATE 91 > OR = 60 mL/min/1. 73m2 [facility] BUN CREATININE RATIO SEE NOTE: (calc) [facility] Comment: ?? Not Reported: BUN and Creatinine are within ?? reference range. ? SODIUM S/P/B 141 135 - 146 mmol/L [facility] POTASSIUM S/P/B 4.1 3.5 - 5.3 mmol/L [facility] CHLORIDE S/P/B 102 98 - 110 mmol/L [facility] CO2 29 20 - 32 mmol/L [facility] CALCIUM S/P/B 9.7 8.6 - 10.2 mg/dL [facility] TOTAL PROTEIN S/P/B 7.6 6.1 - 8.1 g/dL [facility] ALBUMIN S/P/B 4.5 3.6 - 5.1 g/dL [facility] GLOBULIN 3.1 1.9 - 3.7 g/dL (calc) [facility] ALBUMIN/GLOBULI N RATIO 1.5 1.0 - 2.5 (calc) [facility] BILIRUBIN TOTAL S/P/B 0.9 0.2 - 1.2 mg/dL [facility] ALKALINE PHOSPHATASE S/P/B 65 31 - 125 U/L [facility] AST 12 10 - 35 U/L [facility] ALT 15 6 - 29 U/L [facility] 06/10/2024 7:10 AM BALING MACHINE TENDER 06/10/2024 7:11 AM BALING MACHINE TENDER Narrative [facility] [place] [facility] - 06/11/2024 3:18 AM BALING MACHINE TENDER FASTING:YES FASTING: YES Resulting Agency Comment Performing Organization Information: ?Site ID: [place] ?Name: [facility] ?Address: [address] [place] [address] ?Director: Osiel Collins MD Ravinder BOATENG LABORAT[facility] Final Result Performing Organization Address [facility] de Phone Number [facility] [address] [place], [place] [phone] [place] [address] * THYROXINE, FREE (FT4) (06/10/2024 7:10 AM BALING MACHINE TENDER) FREE T4 1.3 0.8 - 1.8 ng/dL [facility] 06/10/2024 7:10 AM BALING MACHINE TENDER 06/10/2024 7:11 AM BALING MACHINE TENDER Narrative [facility] - 06/11/2024 3:18 AM BALING MACHINE TENDER FASTING:YES FASTING: YES Resulting Agency Comment Performing Organization Information: ?Site ID: [place] ?Name: [facility] ?Address: [facility][note 3] [place] [address] ?Director: Osiel Collins MD Ravinder BOATENG LABORATORY Final Result Performing Organization Address [facility] de Phone Number [facility] [address] [place], [place] [phone] [place] [address] * THYROID STIM HORMONE TSH (06/10/2024 7:10 AM BALING MACHINE TENDER) TSH 2.22 mIU/L [facility] Comment: ?Reference Range ?> or = 20 Years ??0.40-4.50 ? Ranges ?First trimester ?0.26-2.66 ?Second trimester ?? 0.55-2.73 ?Third trimester ?0.43-2.91 06/10/2024 7:10 AM BALING MACHINE TENDER 06/10/2024 7:11 AM BALING MACHINE TENDER Narrative [facility] - 06/11/2024 3:18 AM BALING MACHINE TENDER FASTING:YES FASTING: YES Resulting Agency Comment Performing Organization Information: ?Site ID: [place] ?Name: [facility] ?Address: [address] [place] [address] ?Director: Osiel Collins MD us Ravinder BOATENG LABORATORY Final Result [facility] [address] [place] [address], * (ABNORMAL) INSULIN,TOTAL (06/10/2024 7:10 AM BALING MACHINE TENDER) INSULIN 24.0(H) uIU/mL [facility] Comment: ?Reference Range ??< or = 18.4 ?Risk: ?Optimal ?< or = 18.4 ?Moderate ? NA ?High ? >18.4 ?Adult cardiovascular event risk category ?cut points (optimal, moderate, high) ?are based on Insulin Reference Interval ?studies performed at [facility] ?in 2021. ? 06/10/2024 7:10 AM BALING MACHINE TENDER 06/10/2024 7:11 AM BALING MACHINE TENDER Narrative [facility] - 06/11/2024 3:18 AM BALING MACHINE TENDER FASTING:YES FASTING: YES Resulting Agency Comment Performing Organization Information: ?Site ID: [place] ?Name: [facility] ?Address: [address] [address] ?Director: Osiel Collins MD Ravinder BOATENG LABORATORY Final Result [facility] [address] [address], [place] * CT GENERIC (03/19/2024) Anatomical Region Laterality Modality Other 03/19/2024 Result [facility] Scanned SCANNING Final Resu lt * OUTSIDE PT/INR (SCAN ORDER) (03/19/2024) 03/19/2024 Result [facility] Scanned SCANNING Final Resu lt * OUTSIDE LAB (SCAN ORDER) (03/19/2024) Only the most recent of2 resultswithin the time period is included. 03/19/2024 Result [facility] Scanned SCANNING Final Resu lt * MAMMOGRAM GENERIC (10/05/2022) Anatomical Region Laterality Modality Other 10/05/2022 [facility] Scanned SCANNING Final Resu lt * PAP SMEAR WITH HPV (08/15/2022) 08/15/2022 [facility] Scanned SCANNING Final Resu lt from Last 3 Months or Most Recently Relevant to Health Maintenance [place] [address] [place] [address] Care Teams Pedicab Driver Relationship Specialty [place] [address] [place] [address] PCP - General Physician Residential Specialist Medical 06/29/23
--- OUTSIDE RECORDS SUMMARY | 2024-06-13 01:59 | XMS_ITS | Encounter Summary ---
Author Organization [facility] Address [address] [place] [address]. [place], [place] [address] [place] [address] Care Team Providers Care Freight Hustler Name Role Phone Radha Culp NP Primary Care Provider [phone] Encounter Details Date Type Department Care Team (Latest Contact Info) Description 06/26/2023 Travel Social History Tobacco Use Types Packs/Day [...] Date Recorded Patient Health Questionnaire-2 Score 0 12/19/2022 Comments No Sex and Gender Information Value Date Recorded Sex Assigned at Not on file Legal Sex Female 7:01 PM CDT Gender Identity Not on file Sexual Orientation Not on file documented as of this encounter Plan of Treatment Upcoming Encounters Date Type Department Care Team (Late st Contact Info) Description 06/23/2024 2:40 PM CASH REGISTER REPAIRER Office Visit [facility] Family & Internal Medicine [facility] [address] [place] [address] [place] [address] [place] [address] documented as of this encounter Visit Diagnoses Not on filedocumented in this encounter Care Teams Freight Hustler Relationship Specialty [place] [address] [address], [address] [place] [address] PCP - General Nurse Practitioner Family 09/15/2206/11 documented as of this encounter
--- OUTSIDE RECORDS SUMMARY | 2024-06-13 01:59 | XMS_ITS | Encounter Summary ---
Author Organization [facility] Address [address] [place] [address]. [place], [place] [phone] [place] [address] Care Team Providers Care Recreation Supervisor Name Role Phone Radha Culp NP Primary Care Provider Reason for Visit * Reason Onset Date Comments Lab Order 06/12/2023 Encounter Details Date Type Department Care Team (Late st Contact Info) Description 06/12/2023 Telephone [facility] Family & Internal Medicine [facility] [address] [place] [address] [place] [address] [facility] [address] [place] [address] Lab Order Social History Tobacco Use Types Packs/Day Years [...] on file documented as of this encounter Progress Notes * Radha Culp NP - 06/29/2023 2:34 PM CST Please let patient know cmp is normal. Please let patient know total cholesterol was 122 (normal is below 200), triglycerides were 99 (normal is less than 150), HDL was 50( this is your good cholesterol and normal is above 40), and your LDL was 122 (this is your bad cholesterol and normal is less than 100). Recommend a low cholesterol diet, increase veggies, decrease intake of trans fats, processed meats, refined carbs, and sweetened beverages. Stop smoking if you smoke. Encourage regular aerobic exercise, such as walking, riding a bike, or swimming. She is past due for a f/u appt. Please make f/u appt and est. Care with new provider. Thanks TAL CAMPAIGN MANAGER * Radha Culp NP - 06/13/2023 5:15 PM CST She can come here for fasting labs. Labs are already ordered. TAL CAMPAIGN MANAGER * Lety Plunkett MA - 06/13/2023 4:46 PM CST Please advise? TAL CAMPAIGN MANAGER * Rd Craven RN - 06/12/2023 2:31 PM CST Per SINCERE NATH: Please have patient get fasting labs drawn. Cmp and lipids. If cholesterol is elevated, then this might help our case to get CTA covered. Please get labs done LITZY. Also does she have any family hx of heart disease? Thanks TAL CAMPAIGN MANAGER documented in this encounter Plan of Treatment Upcoming Encounters Date Type Department Care Team (Late st Contact Info) Description 06/23/2024 2:40 PM DIGITAL CAMPAIGN MANAGER Office Visit [facility] Family & Internal Medicine [address] [address] [place] [address] [place] [address] documented as of this encounter Procedures Procedure Name Priority Date/Time Associated Diagnosis Comments COMPREHENSIVE METABOLIC PANEL Routine 06/26/2023 8:05 AM DIGITAL CAMPAIGN MANAGER Screening for lipid disorders LIPID PANEL Routine 06/26/2023 8:05 AM DIGITAL CAMPAIGN MANAGER Screening for lipid disorders documented in this encounter Results * COMPREHENSIVE METABOLIC PANEL (06/26/2023 8:05 AM DIGITAL CAMPAIGN MANAGER) [facility] GLUCOSE 84 65 - 99 mg/dL [place] [place] Comment: ? Fasting reference interval BUN 14 7 - 25 mg/dL [place] [place] CREATININE S/P/B 0.78 0.50 - 0.99 mg/dL [place] [place] GFR ESTIMATE 94 > OR = 60 mL/min/1. 73m2 [place] [place] BUN CREATININE RATIO SEE NOTE: (calc) [facility] [place] Comment: ?? Not Reported: BUN and Creatinine are within ?? reference range. ? SODIUM S/P/B 140 135 - 146 mmol/L [place] [place] POTASSIUM S/P/B 4.5 3.5 - 5.3 mmol/L [place] [place] CHLORIDE S/P/B 103 98 - 110 mmol/L [place] [place] CO2 28 20 - 32 mmol/L [place] [place] CALCIUM S/P/B 9.9 8.6 - 10.2 mg/dL [place] [place] TOTAL PROTEIN S/P/B 7.9 6.1 - 8.1 g/dL [place] [place] ALBUMIN S/P/B 4.8 3.6 - 5.1 g/dL [place] [place] GLOBULIN 3.1 1.9 - 3.7 g/dL (calc) [place] [place] ALBUMIN/GLOBULIN RATIO 1.5 1.0 - 2.5 (calc) [place] [place] BILIRUBIN TOTAL S/P/B 0.8 0.2 - 1.2 mg/dL [place] [place] ALKALINE PHOSPHATASE S/P/B 66 31 - 125 U/L [place] [place] AST 14 10 - 35 U/L [place] [place] ALT 16 6 - 29 U/L [place] [place] 06/26/2023 8:05 AM DIGITAL CAMPAIGN MANAGER 06/27/2023 12:52 PM DIGITAL CAMPAIGN MANAGER Narrative Resulting Agency Comment Performing Organization Information: ?Site ID: ?Name: [facility] ?Address: [address] [place] [address] ?Director: Osiel Collins us Radha Culp NP LABORATORY Final Result [facility] [place] [facility] [address] [address] * (ABNORMAL) LIPID PANEL (06/26/2023 8:05 AM DIGITAL CAMPAIGN MANAGER) CHOLESTEROL 193 <200 mg/dL [place] [place] HDL 50 > OR = 50 mg/dL [place] [place] TRIGLYCERIDES 99 <150 mg/dL [place] [place] LDL (CALCULATED) 122(H) mg/dL (calc) [place] [place] Comment: Reference range: <100 Desirable range <100 mg/dL for primary prevention; ?? <70 mg/dL for patients with CHD or diabetic patients with > or = 2 CHD risk factors. LDL-C is now calculated using the Yash calculation, which is a validated novel method providing better accuracy than the Friedewald equation in the estimation of LDL-C. Moisés SS et al. YOSEF. 2013;310(19): 2674-9712 (http://education.Conclusive [employer]/faq/GCY065) CHOL/HDL RATIO 3.9 <5.0 (calc) [place] [place] NON HDL CHOLESTEROL 143(H) <130 mg/dL (calc) [place] [place] Comment: For patients with diabetes plus 1 major ASCVD risk factor, treating to a non-HDL-C goal of <100 mg/dL (LDL-C of <70 mg/dL) is considered a therapeutic option. 06/26/2023 8:05 AM DIGITAL CAMPAIGN MANAGER 06/27/2023 12:52 PM DIGITAL CAMPAIGN MANAGER Narrative Resulting Agency Comment Performing Organization Information: ?Site ID: ?Name: [facility] ?Address: [facility] [place] [address] ?Director: Osiel Collins us Radha Culp NP LABORATORY Final Result [facility] [address], documented in this encounter Visit Diagnoses Diagnosis Screening for lipid disorders- Primary documented in this encounter Care Teams Recreation Supervisor Relationship Specialty [place] [address] [address], [address] [place] [address] PCP - General Nurse Practitioner Family 09/15/2206/11 documented as of this encounter
--- OUTSIDE RECORDS SUMMARY | 2024-06-13 01:59 | XMS_ITS | Encounter Summary ---
Author Organization [facility] Address [address] [place] [address]. [place], [place] [address] [place] [address] Care Team Providers Care Contract Administration Manager Name Role Phone Radha Culp NP Primary Care Provider [phone] Encounter Details Date Type Department Care Team (Late st Contact Info) Description 06/26/2023 8:00 AM BURLAP SPREADER Laboratory Only [facility] Family & Internal Medicine [facility] [address] [place] [address] [place] [address] [facility], [address] [place] [address] Social History Tobacco Use Types Packs/Day Years [...] st Contact Info) Description 06/23/2024 2:40 PM BURLAP SPREADER Office Visit [facility] Family & Internal Medicine [facility] [address] [place] [phone] [place] [address] [place] [address] documented as of this encounter Procedures Procedure Name Priority Date/Time Associated Diagnosis Comments COLLECTION VENOUS BLOOD VENIPUNCTURE Routine 06/26/2023 8:05 AM BURLAP SPREADER Screening for lipid disorders documented in this encounter Visit Diagnoses Diagnosis Screening for lipid disorders- Primary documented in this encounter Care Teams Contract Administration Manager Relationship Specialty [place] [address] [facility] [address] [place] [address] PCP - General Nurse Practitioner Family 09/15/2206/11 documented as of this encounter
--- OUTSIDE RECORDS SUMMARY | 2024-06-13 01:59 | XMS_ITS | Referral Summary ---
Author Organization [facility] Address [address] [facility] [place] [address] Care Team Providers Care Spanish Interpreter Name Role Phone Denilson Ferrara MD Primary Care Provider + Source Comments [facility],non-owned Affiliates and Associated Physician Practices is amultiple site organization consisting of ambulatory clinics and hospital sitesin [place], [place], [place] and [place]. This disclosure is being madepursuant to the Care Everywhere program and may not contain all information available regarding this patient. Last updated 18.[facility] Social History Tobacco Use Types Packs/Day Years Used Date Smoking Tobacco: Never Assessed Sex and Gender Information Value Date Recorded Sex Assigned at Not on file Gender Identity Not on file Sexual Orientation Not on file Plan of Treatment Not on file Care Teams Spanish Interpreter Relationship Specialty Start Date End Date Denilson Ferrara MD PCP - General 06/01/10
--- OUTSIDE RECORDS SUMMARY | 2024-06-13 02:00 | XMS_ITS | Encounter Summary ---
Author Organization [facility] Address [address] [place] [address]. [place], [place] [address] [place] [address] Care Team Providers Care Body Welder Name Role Phone Radha Culp NP Primary Care Provider [phone] Reason for Visit * Reason Comments Mammogram (SCAN) Encounter Details Date Type Department Care Team ([facility] Contact Info) Description 10/05/2022 Scan HEALTH INFO SRVCS Scanned, Doc Med Group Mammogram (SCAN) Social History Tobacco Use Types Packs/Day [...] Drinking Never 08/09 PHQ-2 Answer Date Recorded PHQ-2 Score - If the patient scores above 3, please move on to questions 3-9 0 07/22/2020 Comments No Sex and Gender Information Value Date Recorded Sex Assigned at Not on file Legal Sex Female 7:01 PM CDT Gender Identity Not on file Sexual Orientation Not on file documented as of this encounter Plan of Treatment Upcoming Encounters Date Type Department Care Team ([facility] Contact Info) Description 06/23/2024 2:40 PM NUTRITION SERVICES MANAGER Office Visit [facility] Medical [facility] Family & Internal Medicine [facility] [address] [place] [address] [place] [address] [place] [address] documented as of this encounter Procedures Procedure Name Priority Date/Time Associated Diagnosis Comments MAMMOGRAM GENERIC (SCAN ORDER) 10/05/2022 documented in this encounter Results * MAMMOGRAM GENERIC (10/05/2022) Anatomical Region Laterality Modality Other 10/05/2022 us Doc Med Group Scanned SCANNING Final Resu lt documented in this encounter Visit Diagnoses Not on filedocumented in this encounter Care Teams Body Welder Relationship Specialty [place] [address] [address], [address] [place] [address] PCP - General Nurse Practitioner Family 09/15/2206/11 documented as of this encounter
--- OUTSIDE RECORDS SUMMARY | 2024-06-13 02:00 | XMS_ITS | Encounter Summary ---
Author Organization [facility] Address [address] [place] [address]. [place], [place] [address] [place] [address] Care Team Providers Care Material Clerk Name Role Phone Denilson Ferrara MD Primary Care Provider U rayshawn Reason for Visit * Reason Onset Date Comments CT Results 11/17/2020 Encounter Details Date Type Department Care Team (Late st Contact Info) Description 11/17/2020 Telephone [facility] Medical Group Family & Internal Medicine [address] [address] Results Social History Tobacco Use Types Packs/Day Years [...] as of this encounter Progress Notes * Tamy Ramos RN - 11/17/2020 5:[address] results sent via mail * Tamy Ramos RN - 11/17/2020 4:39 PM CDT Sent message to patient asking how she wants to get her results-awaiting reply * Marisol Olmos - 11/17/2020 4:[address] scan to check for kidney stones. Karena is asking if this can be sent to her. Test was completed mid July [facility] in [place] CB # Karena [phone] for questions documented in this encounter Plan of Treatment Upcoming Encounters Date Type Department Care Team (Late st Contact Info) Description 06/23/2024 2:40 PM LEAD HANDLER Office Visit [facility] Medical Group Family & Internal Medicine [address] [address] Ravinder Ford PA [address] [place] [address] documented as of this encounter Visit Diagnoses Not on filedocumented in this encounter Care Teams Material Clerk Relationship Specialty Start Date End Date Denilson Ferrara MD PCP - General INTERNAL MEDICINE 08/22/18 09/14/22 documented as of this encounter
--- OUTSIDE RECORDS SUMMARY | 2024-06-13 02:00 | XMS_ITS | Encounter Summary ---
Author Organization [facility] Address [address] [place] [address]. [place], [place] [address] [place] [address] Care Team Providers Care Emergency Vehicle Operator Name Role Phone Denilson Ferrara MD Primary Care Provider U rayshawn Encounter Details Date Type Department Care Team (Latest Contact Info) Description 10/11/2020 Scan HEALTH INFO SRVCS Scanned, Documents Social History Tobacco Use Types Packs/Day Years [...] st Contact Info) Description 06/23/2024 2:40 PM HELPER STEEL FABRICATION Office Visit [facility] Medical Group Family & Internal Medicine [facility] [address] [place] [address] [place] [address] [place] [address] documented as of this encounter Visit Diagnoses Not on filedocumented in this encounter Care Teams Emergency Vehicle Operator Relationship Specialty Start Date End Date Denilson Ferrara MD PCP - General INTERNAL MEDICINE 08/22/18 09/14/22 documented as of this encounter
--- OUTSIDE RECORDS SUMMARY | 2024-06-13 02:00 | XMS_ITS | Encounter Summary ---
Author Organization [facility] Address [address] [place] [address]. [place], [place] [address] [place] [address] Care Team Providers Care Composition Board Press Operator Name Role Phone Denilson Ferrara MD Primary Care Provider U rayshawn Encounter Details Date Type Department Care Team (Late st Contact Info) Description 02/24/2021 6:56 AM CDT - 02/24/2021 11:59 PM CDT Hospital Encounter [facility] [address] [place] [address] Denilson Ferrara MD Discharge Disposition: Home or Self Care (Routine [...] on file Sexual Orientation Not on file COVID-19 Exposure Response Date Recorded In the last month, have you been in contact with someone who was confirmed or suspected to have Coronavirus / COVID-19? No / Unsure 02/23/2021 3:47 PM CDT documented as of this encounter Medications at Time of Discharge Multiple Vitamin (MULTIVITAMIN) capsule Take 1 capsule by mouth daily. vitamin D3, cholecalciferol, 1000 UNIT Tab tabletIndication s:Vitamin D Deficiency Take 1 tablet (25 mcg total) by mouth daily. Indications: Vitamin D Deficiency cephALEXin 500 MG capsuleIndicatio ns:Urinary Tract Infection,Recurr ent UTI's through Dr. Red Take 1 capsule (500 mg total) by mouth 4 (four) times daily. Indications: Urinary Tract Infection, Recurrent UTI's through Dr. Red 3 Probiotic Product (PROBIOTIC ADVANCED) Cap Take 1 capsule by mouth daily. 3 documented as of this encounter Plan of Treatment Upcoming Encounters Date Type Department Care Team (Late st Contact Info) Description 06/23/2024 2:40 PM SEWING MACHINE TESTER Office Visit [facility] Medical Group Family & Internal Medicine [facility] [address] [place] [address] [place] [address] [place], [place] [phone] documented as of this encounter Procedures Procedure Name Priority Date/Time Associated Diagnosis Comments TSH W/REFLEX Routine 02/24/2021 7:34 AM CDT Avitaminosis D Routine general medical examination at a health care facility COMPREHENSIVE METABOLIC PANEL Routine 02/24/2021 7:34 AM CDT Avitaminosis D Routine general medical examination at a health care facility LIPID PANEL Routine 02/24/2021 7:34 AM CDT Avitaminosis D Routine general medical examination at a health care facility CBC W/DIFF AUTOMATED Routine 02/24/2021 7:34 AM CDT Avitaminosis D Routine general medical examination at a health care facility VITAMIN D, 25 OH Routine 02/24/2021 7:34 AM CDT Avitaminosis D Routine general medical examination at a health care facility documented in this encounter Results * (ABNORMAL) CBC W/DIFF AUTOMATED (02/24/2021 7:34 AM CDT) WBC 7.1 4.4 - 11.0 x10'3/uL 02/24/2021 8:17 AM CDT [facility] RBC 4.47(L) 4.50 - 5.10 x10'6/uL 02/24/2021 8:17 AM CDT [facility] HGB 14.0 12.3 - 15.3 G/DL 02/24/2021 8:17 AM CDT [facility] HCT 41.7 35.9 - 44.6 % 02/24/2021 8:17 AM CDT [facility] MCV 93.3 80.0 - 96.0 FL 02/24/2021 8:17 AM CDT [facility] MCH 31.3(H) 25.3 - 30.9 PG 02/24/2021 8:17 AM CDT [facility] MCHC 33.6 31.0 - 34.1 G/DL 02/24/2021 8:17 AM CDT [facility] RDW 12.1(L) 12.4 - 15.1 % 02/24/2021 8:17 AM CDT [facility] PLT 232 151 - 353 x10'3/uL 02/24/2021 8:17 AM CDT [facility] MPV 9.5(L) 9.6 - 12.0 FL 02/24/2021 8:17 AM CDT [facility] RBC MORPHOLOGY NORMAL 02/24/2021 8:17 AM CDT [facility] PLT MORPH. NORMAL 02/24/2021 8:17 AM CDT [facility] WBC MORPHOLOGY NORMAL 02/24/2021 8:17 AM CDT [facility] LYMPHOCYTES % 30.0 15.8 - 45.0 % 02/24/2021 8:17 AM CDT [facility] NEUTROPHILS % 58.8 42.1 - 71.9 % 02/24/2021 8:17 AM CDT [facility] MONOCYTES % 6.9 5.7 - 12.5 % 02/24/2021 8:17 AM CDT [facility] EOSINOPHILS 2.8 0.0 - 5.6 % 02/24/2021 8:17 AM CDT [facility] BASOPHILS 1.1 0.0 - 1.3 % 02/24/2021 8:17 AM CDT [facility] ABS. NEUTROPHILS TOTAL 4.19 1.40 - 6.00 x10'3/uL 02/24/2021 8:17 AM CDT [facility] IMMATURE GRANS % 0.4 0.0 - 0.5 % 02/24/2021 8:17 AM CDT [facility] ABS. LYMPHOCYTES 2.14 0.80 - 4.70 x10'3/uL 02/24/2021 8:17 AM T [facility] 02/24/2021 7:34 AM CDT us Leslie Ferrara MD LABORATORY Final Result [facility] [address] [place] [address], * (ABNORMAL) COMPREHENSIVE METABOLIC PANEL (02/24/2021 7:34 AM CDT) [facility] GLUCOSE 87 70 - 99 MG/DL 02/24/2021 8:37 AM CDT [facility] BUN 16 7 - 18 MG/DL 02/24/2021 8:[address] [facility] CREATININE S/P/B 0.92 0.55 - 1.02 MG/DL 02/24/2021 8:[address] [facility] SODIUM S/P/B 143 136 - 145 MMOL/L 02/24/2021 8:[address] [facility] POTASSIUM S/P/B 4.2 3.5 - 5.1 MMOL/L 02/24/2021 8:[address] [facility] CHLORIDE S/P/B 105 100 - 108 MMOL/L 02/24/2021 8:[address] [facility] CO2 28.1 21 - 32 MMOL/L 02/24/2021 8:[address] [facility] CALCIUM S/P/B 8.8 8.5 - 10.1 MG/DL 02/24/2021 8:[address] [facility] BILIRUBIN TOTAL S/P/B 0.6 0.2 - 1.2 MG/DL 02/24/2021 8:[address] [facility] TOTAL PROTEIN S/P/B 7.4 6.4 - 8.2 G/DL 02/24/2021 8:[address] [facility] ALBUMIN S/P/B 3.8 3.4 - 5.0 G/DL 02/24/2021 8:[address] [facility] AST 9(L) 15 - 37 U/L 02/24/2021 8:[address] [facility] ALT 18 14 - 55 U/L 02/24/2021 8:[address] [facility] ALKALINE PHOSPHATASE S/P/B 61 50 - 136 U/L 02/24/2021 8:[address] [facility] ANION GAP 9.9 5 - 15 MMOL/L 02/24/2021 8:37 AM CDT [facility] BUN CREATININE RATIO 17.4 6 - 26 02/24/2021 8:37 AM CDT [facility] A/G RATIO 1.1 1.0 - 2.0 RATIO 02/24/2021 8:37 AM CDT [facility] EGFR NON-AFR. AMER. 76(L) >90 ML/MIN/1.7 3 M2 02/24/2021 8:37 AM CDT [facility] EGFR AFR. AMER. 88(L) >90 ML/MIN/1.7 3 M2 02/24/2021 8:37 AM T [facility] Comment: NOTE: eGFR is not calculated for patients <18 years of age. This is an estimated GFR (CKD EPI) and should not be used for calculating drug doses. 02/24/2021 7:34 AM CDT us Leslie Ferrara MD LABORATORY Final Result [facility] [address] [place] [address], * (ABNORMAL) LIPID PANEL (02/24/2021 7:34 AM CDT) CHOLESTEROL 183 <200.0 MG/DL 02/24/2021 8:37 AM CDT [facility] TRIGLYCERIDES 78 <150 MG/DL 02/24/2021 8:37 AM CDT [facility] HDL 48 >40.0 MG/DL 02/24/2021 8:37 AM CDT [facility] LDL (CALCULATED) 119(H) <100 MG/DL 02/24/2021 8:37 AM CDT [facility] NON HDL CHOLESTEROL 135(H) <130 MG/DL 02/24/2021 8:37 AM CDT [facility] CHOL/HDL RATIO 3.8 0.0 - 4.5 02/24/2021 8:37 AM T [facility] VLDL CALCULATION 16 5 - 55 MG/DL 02/24/2021 8:37 AM T [facility] LIPID INTERPRETATION 02/24/2021 8:37 AM CDT [facility] Comment: NIH CONCENSUS REPORT RECOMMENDATIONS: ?ADULT ?CHILD ??LOW RISK: ?CHOLESTEROL ? <200 ? <170 ?TRIGLYCERIDE ?<150 ?--- ?HDL ? >=60 ?--- ?LDL ? <100 ? <110 ??BORDERLINE: ?CHOLESTEROL ? 200-239 ?? 170-199 ?TRIGLYCERIDE ?150-199 ? --- ?HDL ?40-59 ?--- ?LDL ? 100-159 ?? 110-129 ??HIGH RISK: ?CHOLESTEROL ? >=240 ?>=200 ?TRIGLYCERIDE ?>=200 ? --- ?HDL ?<40 ?--- ?LDL ? >=160 ?>=130 02/24/2021 7:34 AM CDT Leslie Ferrara MD LABORATORY Final Result Performing Organization Address [facility] de Phone Number [facility] [address] [place] [address], * TSH W/REFLEX (02/24/2021 7:34 AM CDT) TSH 2.695 0.358 - 3.74 uIU/ML 02/24/2021 8:37 AM CDT [facility] Comment: HIGH DOSES OF BIOTIN MAY INTERFERE WITH THIS TEST RESULT. CORRELATION TO CLINICAL HISTORY AND PRESENTATION RECOMMENDED. FREE T4 NOT INDICATED 02/24/2021 7:34 AM CDT Leslie Ferrara MD LABORATORY Final Result Performing Organization Address [facility] de Phone Number [facility] [address] [place] [address], * VITAMIN D, 25 OH (02/24/2021 7:34 AM CDT) VITAMIN D 25 HYDROXY S/P/B 54 30 - 100 NG/ML 02/24/2021 8:56 AM CDT [facility] Comment: ? INTERPRETATION ? DEFICIENT ??<20 ? INSUFFICIENT 20-29 ?SUFFICIENT 30-100 02/24/2021 7:34 AM CDT Leslie Ferrara MD LABORATORY Final Result [facility] [address] [place] [address], [place] [phone] documented in this encounter Visit Diagnoses Diagnosis Avitaminosis D Unspecified vitamin D deficiency Routine general medical examination at a health care facility documented in this encounter Care Teams Composition Board Press Operator Relationship Specialty Start Date End Date Denilson Ferrara MD PCP - General INTERNAL MEDICINE 08/22/18 09/14/22 documented as of this encounter
--- OUTSIDE RECORDS SUMMARY | 2024-06-13 02:00 | XMS_ITS | Encounter Summary ---
Author Organization [facility] Address [address] [place] [address]. [place], [place] [address] [place] [address] Care Team Providers Care Natural Gas Plant Technician Name Role Phone Denilson Ferrara MD Primary Care Provider U rayshawn Encounter Details Date Type Department Care Team (Latest Contact Info) Description 12/08/2020 Scan HEALTH INFO SRVCS Scanned, Documents Social [...] st Contact Info) Description 06/23/2024 2:40 PM HYDROMETEOROLOGIST Office Visit [facility] Medical Group Family & Internal Medicine [facility] [address] [place] [address] [place] [address] [place] [address] documented as of this encounter Visit Diagnoses Not on filedocumented in this encounter Care Teams Natural Gas Plant Technician Relationship Specialty Start Date End Date Denilson Ferrara MD PCP - General INTERNAL MEDICINE 08/22/18 09/14/22 documented as of this encounter
--- OUTSIDE RECORDS SUMMARY | 2024-06-13 02:00 | XMS_ITS | Encounter Summary ---
Author Organization [facility] Address [address] [place] [address]. [place], [place] [address] [place] [address] Care Team Providers Care Launch Manager Name Role Phone Denilson Ferrara MD Primary Care Provider U meganailable Reason for Visit * Reason Comments Mammogram (SCAN) Encounter Details Date Type Department Care Team ([facility] Contact Info) Description 10/04/2020 Scan [facility] HEALTH INFO SRVCS Scanned, Documents Mammogram (SCAN) Social History Tobacco Use Types [...] Upcoming Encounters Date Type Department Care Team ([facility] Contact Info) Description 06/23/2024 2:40 PM TRAUMA COUNSELLOR Office Visit [facility] Medical Group Family & Internal Medicine [facility] [address] [place] [address] [place] [address] [place] [address] documented as of this encounter Procedures Procedure Name Priority Date/Time Associated Diagnosis Comments MAMMOGRAM GENERIC (SCAN ORDER) 10/04/2020 documented in this encounter Results * MAMMOGRAM GENERIC (10/04/2020) Anatomical Region Laterality Modality Other 10/04/2020 Narrative 10/04/2020 Ordered by an unspecified provider. us Documents Scanned SCANNING Final Result documented in this encounter Visit Diagnoses Not on filedocumented in this encounter Care Teams Launch Manager Relationship Specialty Start Date End Date Denilson Ferrara MD PCP - General INTERNAL MEDICINE 08/22/18 09/14/22 documented as of this encounter
--- OUTSIDE RECORDS SUMMARY | 2024-06-13 02:00 | XMS_ITS | Encounter Summary ---
Author Organization [facility] Address [address] [place] [address]. [place], [place] [address] [place] [address] Care Team Providers Care Multiple Spindle Screw Machine Operator Name Role Phone Denilson Ferrara MD Primary Care Provider U meganailable Reason for Visit * Reason Onset Date Comments Schedule Test 03/03/2022 Patient to have a follow up CT scan from 02/2021-amado landa MD aware. Patient agreeable. Encounter Details Date Type Department Care Team (Late st Contact Info) Description 03/03/2022 Telephone [facility] Medical Group Family & Internal Medicine [address] [address] Denilson Ferrara MD Schedule Test (Patient to have a follow up CT scan from 02/2021-amado landa MD aware. Patient agreeable.) Social History Tobacco Use Types Packs/Day Years [...] Progress Notes * Tamy Ramos RN - 03/03/2022 8:49 AM CDT ----- Message from Tamy Ramos RN sent at 03/11/2021 1:28 PM CDT ----- Ct scan in 1 year follow up from small nodule documented in this encounter Plan of Treatment Upcoming Encounters Date Type Department Care Team (Late st Contact Info) Description 06/23/2024 2:40 PM MARBLE MASON Office Visit [facility] Medical Group Family & Internal Medicine - [place] [address] [place] [address] [place] [address] [place] [address] documented as of this encounter Visit Diagnoses Not on filedocumented in this encounter Care Teams Multiple Spindle Screw Machine Operator Relationship Specialty Start Date End Date Denilson Ferrara MD PCP - General INTERNAL MEDICINE 08/22/18 09/14/22 documented as of this encounter
--- OUTSIDE RECORDS SUMMARY | 2024-06-13 02:00 | XMS_ITS | Encounter Summary ---
Author Organization [facility] Address [address] [place] [address]. [place], [place] [address] [place] [address] Care Team Providers Care Animator Name Role Phone Radha Culp NP Primary Care Provider [phone] Encounter Details Date Type Department Care Team (Latest Contact Info) Description 12/19/2022 Travel Social History Tobacco Use Types Packs/Day [...] Contact Info) Description 06/23/2024 2:40 PM LEAD NET SOFTWARE DEVELOPER Office Visit [facility] Medical Group Family & Internal Medicine [facility] [address] [place] [address] [place] [address] [place] [address] documented as of this encounter Visit Diagnoses Not on filedocumented in this encounter Care Teams Animator Relationship Specialty [place] [address] [address], [address] [place] [address] PCP - General Nurse Practitioner Family 09/15/2206/11 documented as of this encounter
--- OUTSIDE RECORDS SUMMARY | 2024-06-13 02:00 | XMS_ITS | Encounter Summary ---
Author Organization [facility] Address [address] [place] [address]. [place], [place] [address] [place] [address] Care Team Providers Care Supervisor Electrolytic Tinning Name Role Phone Radha Culp NP Primary Care Provider [phone] Encounter Details Date Type Department Care Team (Latest Contact Info) Description 03/22/2023 Travel Social History Tobacco Use Types Packs/Day [...] st Contact Info) Description 06/23/2024 2:40 PM HUMAN RESOURCES BENEFITS ASSISTANT Office Visit [facility] Medical Group Family & Internal Medicine [facility] [address] [place] [address] [place] [address] [place] [address] documented as of this encounter Visit Diagnoses Not on filedocumented in this encounter Care Teams Supervisor Electrolytic Tinning Relationship Specialty [place] [address] [address], [address] [place] [address] PCP - General Nurse Practitioner Family 09/15/2206/11 documented as of this encounter
--- OUTSIDE RECORDS SUMMARY | 2024-06-13 02:00 | XMS_ITS | Encounter Summary ---
Author Organization [facility] Address [address] [place] [address]. [place], [place] [address] [place] [address] Care Team Providers Care Sociology Research Assistant Name Role Phone Radha Culp NP Primary Care Provider [phone] Encounter Details Date Type Department Care Team (Late st Contact Info) Description 03/26/2023 Orders Only [facility] Medical Group Family & Internal Medicine - [address] [address] [place] [address] [place] [address], [address] [place] [address] Social History Tobacco Use Types [...] as of this encounter Progress Notes * Elana Cummings RN - 03/28/2023 4:04 PM CDTAddended by: ELANA CUMMINGS I on: 03/28/2023 04:04 PM Modules accepted: Orders documented in this encounter Plan of Treatment Upcoming Encounters Date Type Department Care Team (Late st Contact Info) Description 06/23/2024 2:40 PM HYDROELECTRIC MACHINERY MECHANIC HELPER Office Visit [facility] Medical Group Family & Internal Medicine [facility] [address] [place] [address] [place] [address] [place], [place] [phone] documented as of this encounter Visit Diagnoses Diagnosis Coronary artery calcification- Primary documented in this encounter Care Teams Sociology Research Assistant Relationship Specialty [place] [address] [facility], [address] [place] [address] PCP - General Nurse Practitioner Family 09/15/2206/11 documented as of this encounter
--- OUTSIDE RECORDS SUMMARY | 2024-06-13 02:00 | XMS_ITS | Encounter Summary ---
Author Organization [facility] Address [address] [place] [address]. [place], [place] [id number] [place] [address] Care Team Providers Care Yarn Worker Name Role Phone Denilson Ferrara MD Primary Care Provider U meganailable Reason for Visit * Reason Comments Mammogram (SCAN) Encounter Details Date Type Department Care Team ([facility] Contact Info) Description 09/16/2020 Scan [facility] HEALTH INFO SRVCS Scanned, Documents [...] Upcoming Encounters Date Type Department Care Team ([facility] Contact Info) Description 06/23/2024 2:40 PM CARTON MARKER MACHINE Office Visit [facility] Family & Internal Medicine [facility] [id number] [place] [phone] [place] [id number] [place] [address] documented as of this encounter Procedures Procedure Name Priority Date/Time Associated Diagnosis Comments MAMMOGRAM GENERIC (SCAN ORDER) 09/16/2020 documented in this encounter Results * MAMMOGRAM GENERIC (09/16/2020) Anatomical Region Laterality Modality Other 09/16/2020 Narrative 09/16/2020 Ordered by an unspecified provider. us Documents Scanned SCANNING Final Result documented in this encounter Visit Diagnoses Not on filedocumented in this encounter Care Teams Yarn Worker Relationship Specialty Start Date End Date Denilson Ferrara MD PCP - General INTERNAL MEDICINE 08/22/18 09/14/22 documented as of this encounter
--- OUTSIDE RECORDS SUMMARY | 2024-06-13 02:00 | XMS_ITS | Encounter Summary ---
Author Organization [facility] Address [address] [place] [address]. [place], [place] [phone] [place] [address] Care Team Providers Care Bleaching Machine Operator Name Role Phone Denilson Ferrara MD Primary Care Provider U rayshawn Encounter Details Date Type Department Care Team (Latest Contact Info) Description 01/30/2022 Scan HEALTH INFO SRVCS Scanned, Documents Social [...] st Contact Info) Description 06/23/2024 2:40 PM MECHANICAL SERVICE TECHNICIAN Office Visit [facility] Family & Internal Medicine [facility] [address] [place] [address] [place] [address] [place] [address] documented as of this encounter Visit Diagnoses Not on filedocumented in this encounter Care Teams Bleaching Machine Operator Relationship Specialty Start Date End Date Denilson Ferrara MD PCP - General INTERNAL MEDICINE 08/22/18 09/14/22 documented as of this encounter
--- OUTSIDE RECORDS SUMMARY | 2024-06-13 02:00 | XMS_ITS | Encounter Summary ---
Author Organization [facility] Address [address] [place] [address]. [place], [place] [phone] [place] [address] Care Team Providers Care Tire Finisher Name Role Phone Denilson Ferrara MD Primary Care Provider Rogelio bloodshaq Encounter Details Date Type Department Care Team (Latest Contact Info) Description 07/29/2020 Travel Social History Tobacco Use Types Packs/Day [...] have Coronavirus / COVID-19? No / Unsure 07/29/2020 4:09 PM INSIDE BARREL LATHE OPERATOR documented as of this encounter Plan of Treatment Upcoming Encounters Date Type Department Care Team (Late st Contact Info) Description 06/23/2024 2:40 PM INSIDE BARREL LATHE OPERATOR Office Visit [facility] Medical [facility] Family & Internal Medicine [address] [phone] [place] [address] [place] [address] documented as of this encounter Visit Diagnoses Not on filedocumented in this encounter Care Teams Tire Finisher Relationship Specialty Start Date End Date Denilson Ferrara MD PCP - General INTERNAL MEDICINE 08/22/18 09/14/22 documented as of this encounter
--- OUTSIDE RECORDS SUMMARY | 2024-06-13 02:00 | XMS_ITS | Encounter Summary ---
Author Organization [facility] Address [address] [place] [address]. 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 Office Visit [facility] Family & Internal Medicine [facility] [address] [place] [address] [place] [address] [place] [address] documented as of this encounter Results * (ABNORMAL) CBC W/DIFF AUTOMATED (02/24/2021 7:34 AM CDT) WBC 7.1 4.4 - 11.0 x10'3/uL 02/24/2021 8:17 AM CDT [facility] RBC 4.47(L) 4.50 - 5.10 x10'6/uL 02/24/2021 8:17 AM CDT [facility] HGB 14.0 12.3 - 15.3 G/DL 02/24/2021 8:17 AM CDT [facility] HCT 41.7 35.9 - 44.6 % 02/24/2021 8:17 AM CDT [facility] MCV 93.3 80.0 - 96.0 FL 02/24/2021 8:17 AM CDT [facility] MCH 31.3(H) 25.3 - 30.9 PG 02/24/2021 8:17 AM CDT [facility] MCHC 33.6 31.0 - 34.1 G/DL 02/24/2021 8:17 AM CDT [facility] RDW 12.1(L) 12.4 - 15.1 % 02/24/2021 8:17 AM CDT [facility] PLT 232 151 - 353 x10'3/uL 02/24/2021 8:17 AM CDT [facility] MPV 9.5(L) 9.6 - 12.0 FL 02/24/2021 8:17 AM CDT [facility] RBC MORPHOLOGY NORMAL 02/24/2021 8:17 AM CDT [facility] PLT MORPH. NORMAL 02/24/2021 8:17 AM CDT [facility] WBC MORPHOLOGY NORMAL 02/24/2021 8:17 AM CDT [facility] LYMPHOCYTES % 30.0 15.8 - 45.0 % 02/24/2021 8:17 AM CDT [facility] NEUTROPHILS % 58.8 42.1 - 71.9 % 02/24/2021 8:17 AM CDT [facility] MONOCYTES % 6.9 5.7 - 12.5 % 02/24/2021 8:17 AM T [facility] EOSINOPHILS 2.8 0.0 - 5.6 % 02/24/2021 8:17 AM T [facility] BASOPHILS 1.1 0.0 - 1.3 % 02/24/2021 8:17 AM T [facility] ABS. NEUTROPHILS TOTAL 4.19 1.40 - 6.00 x10'3/uL 02/24/2021 8:17 AM T [facility] IMMATURE GRANS % 0.4 0.0 - 0.5 % 02/24/2021 8:17 AM CDT [facility] ABS. LYMPHOCYTES 2.14 0.80 - 4.70 x10'3/uL 02/24/2021 8:17 AM T [facility] 02/24/2021 7:34 AM CDT us Leslie Ferrara MD LABORATORY Final Result [facility] [address] [place] [place] [address], * (ABNORMAL) COMPREHENSIVE METABOLIC PANEL (02/24/2021 7:34 AM CDT) [facility] GLUCOSE 87 70 - 99 MG/DL 02/24/2021 8:37 AM CDT [facility] BUN 16 7 - 18 MG/DL 02/24/2021 8:37 AM CDT [facility] CREATININE S/P/B 0.92 0.55 - 1.02 MG/DL 02/24/2021 8:37 AM CDT [facility] SODIUM S/P/B 143 136 - 145 MMOL/L 02/24/2021 8:37 AM CDT [facility] POTASSIUM S/P/B 4.2 3.5 - 5.1 MMOL/L 02/24/2021 8:37 AM CDT [facility] CHLORIDE S/P/B 105 100 - 108 MMOL/L 02/24/2021 8:37 AM T [facility] CO2 28.1 21 - 32 MMOL/L 02/24/2021 8:37 AM T [facility] CALCIUM S/P/B 8.8 8.5 - 10.1 MG/DL 02/24/2021 8:37 AM T [facility] BILIRUBIN TOTAL S/P/B 0.6 0.2 - 1.2 MG/DL 02/24/2021 8:37 AM T [facility] TOTAL PROTEIN S/P/B 7.4 6.4 - 8.2 G/DL 02/24/2021 8:37 AM T [facility] ALBUMIN S/P/B 3.8 3.4 - 5.0 G/DL 02/24/2021 8:37 AM T [facility] AST 9(L) 15 - 37 U/L 02/24/2021 8:37 AM T [facility] ALT 18 14 - 55 U/L 02/24/2021 8:37 AM T [facility] ALKALINE PHOSPHATASE S/P/B 61 50 - 136 U/L 02/24/2021 8:37 AM CDT [facility] ANION GAP 9.9 5 - 15 MMOL/L 02/24/2021 8:37 AM T [facility] BUN CREATININE RATIO 17.4 6 - 26 02/24/2021 8:37 AM T [facility] A/G RATIO 1.1 1.0 - 2.0 RATIO 02/24/2021 8:37 AM T [facility] EGFR NON-AFR. AMER. 76(L) >90 ML/MIN/1.7 3 M2 02/24/2021 8:37 AM T [facility] EGFR AFR. AMER. 88(L) >90 ML/MIN/1.7 3 M2 02/24/2021 8:37 AM T [facility] Comment: NOTE: eGFR is not calculated for patients <18 years of age. This is an estimated GFR (CKD EPI) and should not be used for calculating drug doses. 02/24/2021 7:34 AM CDT us Leslie Ferrara MD LABORATORY Final Result [facility] [address] [place] [address], * (ABNORMAL) LIPID PANEL (02/24/2021 7:34 AM CDT) CHOLESTEROL 183 <200.0 MG/DL 02/24/2021 8:37 AM CDT [facility] TRIGLYCERIDES 78 <150 MG/DL 02/24/2021 8:[address] [facility] HDL 48 >40.0 MG/DL 02/24/2021 8:[address] [facility] LDL (CALCULATED) 119(H) <100 MG/DL 02/24/2021 8:[address] [facility] NON HDL CHOLESTEROL 135(H) <130 MG/DL 02/24/2021 8:[address] [facility] CHOL/HDL RATIO 3.8 0.0 - 4.5 02/24/2021 8:[address] [facility] VLDL CALCULATION 16 5 - 55 MG/DL 02/24/2021 8:[address] [facility] LIPID INTERPRETATION 02/24/2021 8:[address] [facility] Comment: [facility] CONCENS[facility] REPORT RECOMMENDATIONS: ?ADULT [...] MD LABORATORY Final Result Performing Organization Address [facility] de Phone Number [facility] [address] [place] [address], * TSH W/REFLEX (02/24/2021 7:34 AM CDT) [facility] TSH 2.695 0.358 - 3.74 uIU/ML 02/24/2021 8:37 AM CDT [facility] Comment: HIGH DOSES OF BIOTIN MAY INTERFERE WITH THIS TEST RESULT. CORRELATION TO CLINICAL HISTORY AND PRESENTATION RECOMMENDED. FREE T4 NOT INDICATED 02/24/2021 7:34 AM CDT Leslie Ferrara MD LABORATORY Final Result Performing Organization Address [facility] de Phone Number [facility] [address] [place] [address], * VITAMIN D, 25 OH (02/24/2021 7:34 AM CDT) VITAMIN D 25 HYDROXY S/P/B 54 30 - 100 NG/ML 02/24/2021 8:56 AM CDT [facility] Comment: ? INTERPRETATION ? DEFICIENT ??<20 ? INSUFFICIENT 20-29 ?SUFFICIENT 30-100 02/24/2021 7:34 AM CDT Leslie Ferrara MD LABORATORY Final Result [facility] [address] [place] [address], documented in this encounter Visit Diagnoses Diagnosis Avitaminosis D- Primary Unspecified vitamin D deficiency Routine general medical examination at a health care facility documented in this encounter Care Teams Hand Roller Engraver Relationship Specialty Start Date End Date Denilson Ferrara MD PCP - General INTERNAL MEDICINE 08/22/18 09/14/22 documented as of this encounter
--- OUTSIDE RECORDS SUMMARY | 2024-06-13 02:00 | XMS_ITS | Encounter Summary ---
Author Organization [facility] Address [address] [place] [address]. [place], [place] [id number] [place] [id number] Care Team Providers Care Job Placement Counselor Name Role Phone Radha Culp NP Primary Care Provider [phone] Reason for Referral * Imaging (Routine) - Closed Specialty Diagnoses / Procedures Referred By Annemarie turner Referred To Contact RADIOLOGY Diagnoses Thyroid nodule [place] [address] [address], [address] [place] [address] Phone: tel: fax: Referral ID Status Reason Start Date Expiration Date Visits Re quested Visits Authorized [id number] Closed 12/19/2022 12/20/2023 1 1 * Imaging (Routine) - Closed Specialty Diagnoses / Procedures Referred By Annemarie turner Referred To Contact RADIOLOGY Diagnoses Multiple lung nodules on CT Procedures [place]ST [place] [id number] [place] [address] Phone: tel: fax: Referral ID Status Reason Start Date Expiration Date Visits Re quested Visits Authorized [id number] Closed 12/19/2022 01/16/2024 1 1 Reason for Visit * Reason Comments Physical Pt is here for mariama burch physicalWould like to discuss lab results [facility] Encounter Details Date Type Department Care Team (Late st Contact Info) Description 12/19/2022 4:20 PM CDT Office Visit [facility] Family & Internal Medicine [facility] [address] [place] [address] [place] [address] [facility], [address] [place] [address] Physical (Pt is here for annual physical/Would like to discuss lab results she had done at [facility] ) Social History Tobacco Use Types Packs/Day Years Used Date Smoking Tobacco: Former Cigarettes 0.5 15 0 07/11/1998 - 07/11/2013 Smokeless Tobacco: Never Tobacco Cessation:Counseling Given: Not Answered Alcohol Use Standard Drinks/Week Comments Yes 0 [...] Sign Reading Time Taken Comments Blood Pressure 146/84 12/19/2022 4:08 PM CDT Pulse 72 12/19/2022 3:59 PM CDT Temperature 37.3 ??C (99.2 ??F) 12/19/2022 3:59 PM CD T Respiratory Rate 20 12/19/2022 3:59 PM CDT Oxygen Saturation 96% 12/19/2022 3:59 PM CDT Inhaled Oxygen Concentration - - Weight 103 kg (227 lb) 12/19/2022 3:59 PM CDT Height 170.2 cm (5' 7 ) 12/19/2022 3:59 PM CDT Body Mass Index 35.55 12/19/2022 3:59 PM CDT documented in this encounter Progress Notes * Radha Culp NP - 12/19/2022 4:20 PM CDT Reason for Visit: Physical (Pt is here for annual physical/Would like to discuss lab results she had done at [facility] ) History of Present Illness: Transition into care-- tx from Dr. Schuler Annual-- here for annual exam. Brought labs that she had done at [facility] that were ordered by [facility] with Lisbeth Michele NP and was rx vitamins. Weight gain-- reports weight gain x 6mo. Eats healthy. Walks 1-2 miles 3 times a week. She works [employer]. Breakfast-- protein shake; 10am-- turkey stick, cheese stick, carrots, apple; lunch--salad with chicken; snack-- none; dinner-- chicken kabob and small potato. Only drinks water. Reports she has always struggled with weight. Has never tried weight loss meds, but is interested. Health maintenance: Nicu Rn care: Dr. Ortega Mammogram: monitored by [facility]. Hx of DCIS breast cancer. Pap: 09/2022- by Dr. Ortega. Hx of partial hysterectomy. Still has ovaries and cervix. Colon cancer screenin01/2022--repeat in 10 years. Exercise: sometimes. Diet: Vision: yearly Dental: every 6mo. ROS: Review of Systems Constitutional: Positive for malaise/fatigue. Negative for fever and weight loss. Respiratory: Negative for cough and shortness of breath. Cardiovascular: Negative for chest pain, palpitations and leg swelling. Gastrointestinal: Negative for abdominal pain, constipation and diarrhea. Genitourinary: Negative. Musculoskeletal: Negative for joint pain and myalgias. Skin: Negative for rash. Psychiatric/Behavioral: Negative for depression and suicidal ideas. The patient is not nervous/anxious. PHQ-9: 07/22/2020 8:20 AM 12/19/2022 4:07 PM PHQ2/PHQ 9 DEPRESSION SCREEN QUESTIONAIRE Little interest or pleasure in doing things Not at all Feeling down, depressed, or hopeless Not at all Patient Health Questionnaire-2 Score 0 LITTLE INTEREST OR PLEASURE IN DOING THINGS 0-Not at All FEELING DOWN, DEPRESSSED,OR HOPELESS 0-Not at All PHQ2 DEPRESSION TOTAL SCORE 0 IF YOU CHECKED OFF ANY PROBLEMS Not difficult at all Medications: Current Outpatient Medications: Digestive Enzymes (PANCREATIN 8X OR), Bilex, Disp: , Rfl: Kelp 150 MCG Tab, , Disp: , Rfl: Magnesium Glycinate 100 MG Cap, , Disp: , Rfl: Multiple Vitamin (MULTIVITAMIN) capsule, Take 1 capsule by mouth daily., Disp: , Rfl: Morse-3 Fatty Acids (FISH OIL) 500 MG capsule, Take 500 mg by mouth daily. ProOmega Lemon, Disp: , Rfl: Probiotic Product (FORTIFY PROBIOTIC WOMENS EX ST OR), PRO-Women, Disp: , Rfl: semaglutide-weight management (WEGOVY) 0.25 mg/dose injection (PEN), Inject 0.25 mg into the skin once a week for 30 days., Disp: 2 mL, Rfl: 0 vitamin D3, cholecalciferol, 1000 UNIT Tab tablet, Take 1 tablet (25 mcg total) by mouth daily. Indications: Vitamin D Deficiency, Disp: , Rfl: Review of patient's allergies indicates: Allergen Reactions Elemental Sulfur Rash and Hives Sulfa Antibiotics Unknown Past Medical History: Diagnosis Date Chronic UTI Influenza vaccine refused Shoulder pain, right Past Surgical History: Procedure Laterality Date BREAST LUMPECTOMY Right 11/2020 SECTION GALLBLADDER SURGERY HYSTERECTOMY OTHER PROCEDURE Renal Lithotripsy Social History Socioeconomic History Marital status: Tobacco Use Smoking status: Former Packs/day: 0.50 Years: 15.00 Pack years: 7.50 Types: Cigarettes Quit date: 07/11/2013 Years since quittin.4 Smokeless tobacco: Never Vaping Use Vaping Use: [...] Lower extermity braces/slings No Self Care No Family History Problem Relation Name Age [...] Specified) PGF (Not Specified) Other (Not Specified) Filed Vitals: 12/19/22 1559 12/19/22 1608 BP: (!) 146/88 (!) 146/84 Pulse: 72 Resp: 20 Temp: 99.2 ??F (37.3 ??C) TempSrc: Temporal SpO2: 96% Weight: 103 kg (227 lb) Height: 5' 7 (1.702 m) Physical Exam Vitals and nursing note reviewed. Constitutional: Appearance: Normal appearance. She is obese. HENT: Head: Normocephalic and atraumatic. Eyes: Extraocular Movements: Extraocular movements intact. Conjunctiva/sclera: Conjunctivae normal. Pupils: Pupils are equal, round, and reactive to light. Neck: Thyroid: No thyroid mass or thyromegaly. Vascular: No carotid bruit. Trachea: Trachea normal. Cardiovascular: Rate and Rhythm: Normal rate and regular rhythm. Heart sounds: Normal heart sounds. Pulmonary: Effort: Pulmonary effort is normal. Breath sounds: Normal breath sounds. Abdominal: General: Abdomen is flat. Bowel sounds are normal. Palpations: Abdomen is soft. There is no mass. Tenderness: There is no abdominal tenderness. Musculoskeletal: Cervical back: Neck supple. Right lower leg: No edema. Left lower leg: No edema. Lymphadenopathy: Cervical: No cervical adenopathy. Skin: General: Skin is warm and dry. Neurological: Mental Status: She is alert. Psychiatric: Mood and Affect: Mood normal. Behavior: Behavior normal. Behavior is cooperative. Thought Content: Thought content normal. Judgment: Judgment normal. Assessment: 1. Annual physical exam CANCELED: COMPREHENSIVE METABOLIC PANEL CANCELED: LIPID PANEL 2. Depression screening 3. Elevated blood pressure reading 4. Obesity (BMI 35.0-39.9 without comorbidity) semaglutide-weight management (WEGOVY) 0.25 mg/dose injection (PEN) 5. Fatigue, unspecified type 6. Weight gain 7. History of breast cancer 8. Multiple lung nodules on CT CT CHEST WO LUNG NOD FLUP 9. Vitamin D deficiency 10. Thyroid nodule US THYROID Plan: 1. Annual physical exam F/u 1 year. 2. Depression screening 3. Elevated blood pressure reading Goal bp is 140/90. Recommend low salt diet. Monitor bp at home and bring readings to next office visit. F/u in 1 mo. 4. Obesity (BMI 35.0-39.9 without comorbidity) Encouraged 6 small meals per day that are high in protein, low in carbs, low sugar. Limit sugary drinks. Increase water intake. Increase regular aerobic exercise, such as walking. Walk at least 10,000 steps/day. Keep a journal of exercise, food intake, and weights. Bring these to your next office visit. F/u in 1 mo. - semaglutide-weight management (WEGOVY) 0.25 mg/dose injection (PEN); Inject 0.25 mg into the skinonce a week for 30 days. Dispense: 2 mL; Refill: 0 5. Fatigue, unspecified type Reviewed lipids, thyroid, cmp, hgb A1C, magnesium, cbc, vitamin d that were done at [facility] clinic in october 2022. All labs were unremarkable. Recommended sleep study. Patient refused at this time. 6. Weight gain 7. History of breast cancer Managed by oncology. 8. Multiple lung nodules on CT Repeat CT 03/2023 to monitor. - CT CHEST WO LUNG NOD FLUP; Future 9. Vitamin D deficiency Stable. Monitored by anti-aging clinic. 10. Thyroid nodule Noted on lung CT from 03/2022. Will get US in 3mo. To monitor. - US THYROID; Future I personally spent a total of 60 minutes on the day of the encounter. This includes ktst-an-umjy and sxo-lkla-vo-face time I provided on the day of the encounter & excludes time spent performing separately reportable services. VANGIE BRODY documented in this encounter Plan of Treatment Upcoming Encounters Date Type Department Care Team (Late st Contact Info) Description 06/23/2024 2:40 PM VASCULAR MANAGER Office Visit [facility] Family & Internal Medicine [facility] [id number] [place] [id number] [place] [address] [place] [address] documented as of this encounter Results * CT CHEST WO LUNG NOD FLUP (03/22/2023 10:45 AM CDT) Anatomical Region Laterality Modality Chest Computed Tomogra phy 03/23/2023 8:30 AM CDT Impressions 03/23/2023 8:43 AM CDT IMPRESSION: 1. ??Stable appearance to bilateral pulmonary nodules for greater than 2 years. Considered benign. No further workup necessary of these nodules. 2. ??No new nodules. No infiltrate or effusion. 3. ??Moderate coronary artery calcifications. Please correlate with cardiac risk profile. CT angiogram of the coronary vessels may be of benefit in this 47-year-old. Ordered By: RADHA CULP Interpreted By: James Wilson, 03/23/2023 8:30 AM Narrative 03/23/2023 8:43 AM CDT IMAGING STUDIES: ??CT CHEST WO LUNG NOD FLUP ? DATE: ??03/22/2023 10:19 AM COMPARISON STUDIES: ??03/15/2022. 03/04/2021 CLINICAL HISTORY: ??Follow-up of lung nodules. Prior tobacco use.. . Radiation dose reduction technique was utilized. FINDINGS: 1. ??No infiltrate or effusion. No pneumothorax. . 2. ??Previous identified lung nodules within the right lower lobe and left lower lobe are stable for greater than 2 years. Thus considered benign. No new nodules. No further workup necessary. 3. ??Largest nodule is in the left lower lobe measuring 5 mm on image 72 of series 3. Other smaller nodules in the right lower lobe are stable, on images #53, 59, 60, 63, and 64 4. ??Atherosclerotic aorta without dilatation. No pericardial effusion. ??No pathologic lymphadenopathy. Calcified mediastinal and right hilar lymph nodes. Calcified granuloma in right lower lobe. 5. ??Upper abdomen with normal adrenals. Fatty superior liver. Cholecystectomy. Multiple calculi within partially visualized bilateral superior kidneys. Degenerative change in thoracic spine. Procedure Note Miguelangel Wilson MD - 03/23/2023 IMAGING STUDIES: CT CHEST WO LUNG NOD FLUP DATE: 03/22/2023 10:19 AM COMPARISON STUDIES: 03/15/2022. 03/04/2021 CLINICAL HISTORY: Follow-up of lung nodules. Prior tobacco use.. .Radiation dose reduction technique was utilized. FINDINGS: 1. No infiltrate or effusion. No pneumothorax. . 2. Previous identified lung nodules within the right lower lobe and leftlower lobe are stable for greater than 2 years. Thus considered benign. Nonew nodules. No further workup necessary. 3. Largest nodule is in the left lower lobe measuring 5 mm on image 72 ofseries 3. Other smaller nodules in the right lower lobe are stable, onimages #53, 59, 60, 63, and 64 4. Atherosclerotic aorta without dilatation. No pericardial effusion. Nopathologic lymphadenopathy. Calcified mediastinal and right hilar lymphnodes. Calcified granuloma in right lower lobe. 5. Upper abdomen with normal adrenals. Fatty superior liver.Cholecystectomy. Multiple calculi within partially visualized bilateralsuperior kidneys. Degenerative change in thoracic spine. IMPRESSION: 1. Stable appearance to bilateral pulmonary nodules for greater than 2years. Considered benign. No further workup necessary of these nodules. 2. No new nodules. No infiltrate or effusion. 3. Moderate coronary artery calcifications. Please correlate with cardiacrisk profile. CT angiogram of the coronary vessels may be of benefit inthis 47-year-old. Ordered By: RADHA CULP Interpreted By: James Wilson, 03/23/2023 8:30 AM us Radha Culp NP CT Final Result * US THYROID (03/22/2023 10:13 AM CDT) Anatomical Region Laterality Modality Neck Ultrasound 03/25/2023 5:48 AM CDT Impressions 03/25/2023 5:51 AM CDT IMPRESSION: ===== 1. ??No individual nodule meets TIRADS threshold recommend follow-up or FNA. 2. ??No acute abnormalities. Referred By: RADHA CULP Interpreted By: Phi Choudhary MD, 03/25/2023 5:48 AM Narrative 03/25/2023 5:51 AM CDT EXAMINATION: Thyroid ultrasound EXAM DATE/TIME: 03/22/2023 10:02 AM REASON FOR EXAM: ??f/u ?? Left thyroid nodule seen on CT. COMPARISON: No prior thyroid ultrasound TECHNIQUE: Transcutaneous ultrasound evaluation of the thyroid bed was performed for analysis of grayscale and color Doppler imaging characteristics. FINDINGS: The right thyroid lobe measures 4.9 x 1.1 x 1.5 cm. The left thyroid lobe measures 5.6 x 1.6 x 2.0 cm. The isthmus measures 3.6 ??mm in thickness. ?? 5 x 3 x 4 mm wider than tall mostly cystic nodule in the superior right thyroid lobe. ??Some peripheral solid components are noted. ??TIRADS 3. ??No follow-up indicated due to size under 1.5 cm. 9 x 5 x 7 mm wider than tall spongiform nodule in the right thyroid as well. ??TIRADS 2. ??Not suspicious. Remainder of thyroid tissue bilaterally has homogeneous grayscale appearance. ??No surrounding abnormal fluid collections or lymphadenopathy. ??Overlying skin thickness is normal. ===== Procedure Note Phi Choudhary MD - 03/25/2023 EXAMINATION: Thyroid ultrasound EXAM DATE/TIME: 03/22/2023 10:02 AM REASON FOR EXAM: f/u Left thyroid nodule seen on CT. COMPARISON: No prior thyroid ultrasound TECHNIQUE: Transcutaneous ultrasound evaluation of the thyroid bed wasperformed for analysis of grayscale and color Doppler imagingcharacteristics. FINDINGS: The right thyroid lobe measures 4.9 x 1.1 x 1.5 cm. The left thyroid lobemeasures 5.6 x 1.6 x 2.0 cm. The isthmus measures 3.6 mm in thickness. 5 x 3 x 4 mm wider than tall mostly cystic nodule in the superior rightthyroid lobe. Some peripheral solid components are noted. TIRADS 3. Nofollow-up indicated due to size under 1.5 cm. 9 x 5 x 7 mm wider than tall spongiform nodule in the right thyroid aswell. TIRADS 2. Not suspicious. Remainder of thyroid tissue bilaterally has homogeneous grayscaleappearance. No surrounding abnormal fluid collections or lymphadenopathy.Overlying skin thickness is normal. ===== IMPRESSION: ===== 1. No individual nodule meets TIRADS threshold recommend follow-up orFNA. 2. No acute abnormalities. Referred By: RADHA CULP Interpreted By: Phi Choudhary MD, 03/25/2023 5:48 AM us Radha Culp NP ULTRASOUND Final Result documented in this encounter Visit Diagnoses Diagnosis Annual physical exam- Primary Routine general medical examination at a health care facility Depression screening Screening for depression Elevated blood pressure reading Elevated blood pressure reading without diagnosis of hypertension Obesity (BMI 35.0-39.9 without comorbidity) Obesity, unspecified Fatigue, unspecified type Weight gain Abnormal weight gain History of breast cancer Personal history of malignant neoplasm of breast Multiple lung nodules on CT Vitamin D deficiency Unspecified vitamin D deficiency Thyroid nodule Nontoxic uninodular goiter Thyroid nodule Nontoxic uninodular goiter Multiple lung nodules on CT documented in this encounter Care Teams Job Placement Counselor Relationship Specialty Start [place] [address] [facility], [address] [place] [address] PCP - General Nurse Practitioner Family 09/15/2206/11 documented as of this encounter
--- OUTSIDE RECORDS SUMMARY | 2024-06-13 02:00 | XMS_ITS | Encounter Summary ---
Author Organization [facility] Address [facility]. [place], [place] [address] [place] [address] Care Team Providers Care Direct Sales Consultant Name Role Phone Denilson Pozo MD Primary Care Provider Rogelio tabares Reason for Visit * Reason Comments Pain Patient is here for right rib pain. Pain radiates to her back. Feels better when laying down. Sitting is hurting worse. Patient has been feeling light headed and dizzy. Patient vommited last week due to being dizzy. Encounter Details Date Type Department Care Team (Late st Contact Info) Description 07/29/2020 4:20 PM ELECTRICITY TRADING ANALYST Office Visit [facility] [address] [place] [address] Veronique Villagran, BOX BUILDER [facility] [address] [place] [address] Pain (Patient is here for right rib pain. Pain radiates to her back. Feels better when laying down. Sitting is hurting worse. Patient has been feeling light headed and dizzy. Patient vommited last week due to being dizzy. ) Social History Tobacco Use Types Packs/Day [...] COVID-19? No / Unsure 07/29/2020 4:09 PM ELECTRICITY TRADING ANALYST documented as of this encounter Last Filed Vital Signs Vital Sign Reading Time Taken Comments Blood Pressure 124/82 07/29/2020 4:17 PM ELECTRICITY TRADING ANALYST Pulse 75 07/29/2020 4:17 PM ELECTRICITY TRADING ANALYST Temperature 36.5 ??C (97.7 ??F) 07/29/2020 4:17 PM CS T Respiratory Rate 20 07/29/2020 4:17 PM ELECTRICITY TRADING ANALYST Oxygen Saturation 97% 07/29/2020 4:17 PM ELECTRICITY TRADING ANALYST Inhaled Oxygen Concentration - - Weight 98.3 kg (216 lb 12.8 oz) 07/29/2020 4:17 PM ELECTRICITY TRADING ANALYST Height 170.2 cm (5' 7 ) 07/29/2020 4:17 PM ELECTRICITY TRADING ANALYST Body Mass Index 33.96 07/29/2020 4:17 PM ELECTRICITY TRADING ANALYST documented in this encounter Progress Notes * Veronique Villagran, BOX BUILDER - 07/29/2020 4:20 PM CST Reason for Visit: Pain (Patient is here for right rib pain. Pain radiates to her back. Feels better when laying down.Sitting is hurting worse. Patient has been feeling light headed and dizzy. Patient vommited last week due to being dizzy. ) History of Present Illness: Karena Jay is a 45-year-old female who presents to the office with complaints of continued right side pain. Karena was seen one week ago due to right side back pain and was found to have multiple kidney stones on CT scan with largest stone being in left kidney. She has not started on the Tamulosin as prescribed. She notes persistent right back pain that radiates to the right abdominal area and is stabbing. The pain is better with standing or laying down and made worse with sitting. She notes she has taken ibuprofen 800 mg twice a day and this helps the pain. She denies fever, chills, nausea, vomiting, SOB, cough, dysuria, frequency, hematuria, headaches, numbness, tingling or difficu lty sleeping related to the pain. She notes she continues to have bouts of dizziness and notes themonly last seconds. She does report last week when pain started she did have episode of vomiting, but no additional episodes. She reports history of kidney stones and follows with a urologist. She hasno additional concerns today. ROS: Review of Systems Constitutional: Negative for chills, fatigue and fever. Eyes: Negative for visual disturbance. Respiratory: Negative for cough and shortness of breath. Gastrointestinal: Positive for vomiting (now resolved ). Negative for change in bowel habit and nausea. Genitourinary: Negative for dysuria, frequency and hematuria. Neurological: Positive for dizziness. Negative for tingling, weakness, numbness and headaches. Psychiatric/Behavioral: Negative for sleep disturbance. Medications: Current Outpatient Medications: ??? cephALEXin 500 MG capsule, Take 500 mg by mouth 4 (four) times daily. Indications: Urinary Tract Infection, Recurrent UTI's through Dr. Red, Disp: , Rfl: ??? multi vitamin/minerals tablet, Take 1 tablet by mouth daily. Indications: Vitamin Deficiency, Ritual Multi-Vitamin., Disp: , Rfl: ??? Probiotic Product (PROBIOTIC ADVANCED) Cap, Take 1 capsule by mouth daily., Disp: , Rfl: ??? tamsulosin 0.4 MG Cap, Take 1 capsule (0.4 mg total) by mouth daily., Disp: 15 capsule, Rfl: 1 ??? vitamin D3, cholecalciferol, 1000 UNIT Tab tablet, Take 1 tablet by mouth daily. Indications: Vitamin D Deficiency, Disp: , Rfl: Allergies Allergen Reactions ??? Sulfa Antibiotics Unknown ??? Sulfur Rash Past Medical History: Diagnosis Date ??? Chronic UTI ??? Influenza vaccine refused ??? Shoulder pain, right Past Surgical History: Procedure Laterality Date ??? SECTION ??? GALLBLADDER SURGERY ??? HYSTERECTOMY ??? OTHER PROCEDURE Renal Lithotripsy Social History Socioeconomic History ??? Marital status: Spouse name: Not on file ??? Number of children: Not on file ??? Years of education: Not on file ??? Highest education level: Not on file Occupational History ??? Not on file Social Needs ??? Financial resource strain: Not on file ??? Food insecurity Worry: Not on file Inability: Not on file ??? Transportation needs Medical: Not on file Non-medical: Not on file Tobacco Use ??? Smoking status: Former Smoker Packs/day: 0.50 Years: 15.00 Pack years: 7.50 Types: Cigarettes Quit date: 07/11/2013 Years since quittin.0 ??? Smokeless tobacco: Never Used Substance and Sexual Activity ??? Alcohol use: Yes Frequency: Monthly or less Drinks per session: 1 or 2 Binge frequency: Never Comment: occasional ??? Drug use: No ??? Sexual activity: Not on file Lifestyle ??? Physical activity Days per week: Not on file Minutes per session: Not on file ??? Stress: Not on file Relationships ??? Social connections Talks on phone: Not on file Gets together: Not on file Attends hinduism service: Not on file Active member of club or organization: Not on file Attends meetings of clubs or organizations: Not on file Relationship status: Not on file ??? Intimate partner violence Fear of current or ex partner: Not on file Emotionally abused: Not on file Physically abused: Not on file Forced sexual activity: Not on file Other Topics Concern ??? Service No ??? Blood Transfusions No ??? Caffeine Concern No ??? Occupational Exposure No ??? Hobby Hazards No ??? Sleep Concern No ??? Stress Concern No ??? Weight Concern No ??? Special Diet No ??? Back Care No ??? Exercise No ??? Bike Helmet No ??? Seat Belt No ??? Self-Exams No ??? Wheelchair No ??? Walker No ??? Upper extremity braces/slings No ??? Lower extermity braces/slings No ??? Self Care No Social History Narrative ??? Not on file E-Cigarettes Questions Responses E-Cigarette Use Never User Family History Problem Relation Name Age of Onset ??? None Mother Family Status Relation Name Status ??? Mother (Not Specified) Physical Exam Vitals signs and nursing note reviewed. Constitutional: General: She is awake. She is not in acute distress. Appearance: Normal appearance. She is well-developed and well-groomed. She is not ill-appearing, toxic-appearing or diaphoretic. HENT: Head: Normocephalic and atraumatic. Right Ear: Hearing and external ear normal. Left Ear: Hearing and external ear normal. Eyes: General: Lids are normal. Extraocular Movements: Extraocular movements intact. Conjunctiva/sclera: Conjunctivae normal. Pupils: Pupils are equal, round, and reactive to light. Cardiovascular: Rate and Rhythm: Normal rate and regular rhythm. Heart sounds: Normal heart sounds. No murmur. No gallop. Pulmonary: Effort: Pulmonary effort is normal. Breath sounds: Normal breath sounds and air entry. Abdominal: General: Abdomen is flat. Bowel sounds are normal. There is no distension. Palpations: Abdomen is soft. There is no hepatomegaly, splenomegaly or mass. Tenderness: There is no abdominal tenderness. There is no right CVA tenderness, left CVA tenderness, guarding or rebound. Musculoskeletal: Normal range of motion. Comments: She had no noted pain of her back with palpation. Skin: General: Skin is warm and dry. Capillary Refill: Capillary refill takes less than 2 seconds. Findings: No rash. Neurological: General: No focal deficit present. Mental Status: She is alert. Gait: Gait is intact. Psychiatric: Attention and Perception: Attention and perception normal. Mood and Affect: Mood and affect normal. Speech: Speech normal. Behavior: Behavior normal. Behavior is cooperative. Thought Content: Thought content normal. Cognition and Memory: Cognition and memory normal. Judgment: Judgment normal. Filed Vitals: 07/29/20 1617 BP: 124/82 Pulse: 75 Resp: 20 Temp: 97.7 ??F (36.5 ??C) TempSrc: Temporal SpO2: 97% Weight: 98.3 kg (216 lb 12.8 oz) Height: 5' 7 (1.702 m) Diagnoses/Impression: 1. Right flank pain CBC W/DIFF AUTOMATED COMPREHENSIVE METABOLIC PANEL 2. Kidney stone CBC W/DIFF AUTOMATED COMPREHENSIVE METABOLIC PANEL Recommendations and Plan: 1. Right flank pain - discussed continuing to use ibuprofen every 6 hours for pain, add heat 20 minutes on and 20 minutes off. If any new or worsening symptoms she is to seek ER attention. - CBC W/DIFF AUTOMATED; Future - COMPREHENSIVE METABOLIC PANEL; Future - CBC W/DIFF AUTOMATED - COMPREHENSIVE METABOLIC PANEL 2. Kidney stone - discussed following up with Urologist in [place], patient will call there office in the morningto set up appointment. - patient has not started on Tamulosin and does not plan to start - CBC W/DIFF AUTOMATED; Future - COMPREHENSIVE METABOLIC PANEL; Future - CBC W/DIFF AUTOMATED - COMPREHENSIVE METABOLIC PANEL Return to clinic for follow-up as scheduled with Dr. Schuler or sooner with new, persistent, or worsening symptoms. Karena Jay is in agreement to and verbalized understanding of treatment plan withno further questions at this time. Orders Placed This Encounter ??? CBC W/DIFF AUTOMATED ??? COMPREHENSIVE METABOLIC PANEL Reviewed and updated this visit by provider: MARIAN SORENSEN Referring Provider: No ref. provider found PCP: DENILSON POZO MD Cosigned by Joseph Addison MD at 07/30/2020 7:11 AM ELECTRICITY TRADING ANALYST TRICITY TRADING ANALYST TRICITY TRADING ANALYST * MARIAN Sorensen - 07/29/2020 4:20 PM CST Please call and let Karena know that her labs are reassurring and her kidney and liver function look good. Please remind her to make appointment with urologist she follows in [place] and to call us with the appointment once it is made. We can place a referral if needed. TRICITY TRADING ANALYST * Rosalie Lemus MA - 07/29/2020 4:20 PM CST Called the patient, No answer. Left a message for her to call the office back for results. TRICITY TRADING ANALYST * Rosalie Lemus MA - 07/29/2020 4:20 PM CST Spoke to the patient, Informed her of the results. Patient voiced understanding. TRICITY TRADING ANALYST documented in this encounter Plan of Treatment Upcoming Encounters Date Type Department Care Team (Late st Contact Info) Description 06/23/2024 2:40 PM ELECTRICITY TRADING ANALYST Office Visit [facility] Medical Group Family & Internal Medicine [facility] [address] [place] [address] [place] [address] [place], [place] [id number] documented as of this encounter Procedures Procedure Name Priority Date/Time Associated Diagnosis Comments COMPREHENSIVE METABOLIC PANEL Routine 07/29/2020 4:57 PM ELECTRICITY TRADING ANALYST Right flank pain Kidney stone CBC W/DIFF AUTOMATED Routine 07/29/2020 4:57 PM ELECTRICITY TRADING ANALYST Right flank pain Kidney stone documented in this encounter Results * COMPREHENSIVE METABOLIC PANEL (07/29/2020 4:57 PM ELECTRICITY TRADING ANALYST) GLUCOSE 80 65 - 99 mg/dL [facility] Comment: ? Fasting reference interval BUN 12 7 - 25 mg/dL [employer] [facility] CREATININE S/P/B 0.84 0.50 - 1.10 mg/dL [facility] EGFR NON-AFR. AMER. 85 > OR = 60 mL/min/1. 73m2 [facility] EGFR AFR. AMER. 98 > OR = 60 mL/min/1. 73m2 [employer] [facility] BUN CREATININE RATIO NOT APPLICABLE 6 - 22 (calc) [facility] SODIUM S/P/B 138 135 - 146 mmol/L [employer] POTASSIUM S/P/B 4.1 3.5 - 5.3 mmol/L [employer] CHLORIDE S/P/B 104 98 - 110 mmol/L [employer] CO2 25 20 - 32 mmol/L [employer] CALCIUM S/P/B 9.5 8.6 - 10.2 mg/dL [employer] [facility] TOTAL PROTEIN S/P/B 7.4 6.1 - 8.1 g/dL [employer] [facility] ALBUMIN S/P/B 4.8 3.6 - 5.1 g/dL [facility] GLOBULIN 2.6 1.9 - 3.7 g/dL (calc) [facility] ALBUMIN/GLOBULI N RATIO 1.8 1.0 - 2.5 (calc) [facility] BILIRUBIN TOTAL S/P/B 0.8 0.2 - 1.2 mg/dL [facility] ALKALINE PHOSPHATASE S/P/B 46 31 - 125 U/L [facility] AST 15 10 - 30 U/L [facility] ALT 22 6 - 29 U/L [facility] 07/29/2020 4:57 PM ELECTRICITY TRADING ANALYST 07/30/2020 12:37 AM ELECTRICITY TRADING ANALYST Veronique Villagran BOX BUILDER LABORATORY Final Resu lt [facility] [facility] [address] [place] [address] * CBC W/DIFF AUTOMATED (07/29/2020 4:57 PM ELECTRICITY TRADING ANALYST) WBC 8.2 3.8 - 10.8 Thousand/u L [facility] RBC 4.42 3.80 - 5.10 Million/uL [facility] HGB 13.7 11.7 - 15.5 g/dL [facility] HCT 40.8 35.0 - 45.0 % [facility] MCV 92.3 80.0 - 100.0 fL [facility] MCH 31.0 27.0 - 33.0 pg [facility] MCHC 33.6 32.0 - 36.0 g/dL [facility] RDW 12.7 11.0 - 15.0 % [facility] PLT 244 140 - 400 Thousand/u L [facility] MPV 10.0 7.5 - 12.5 fL [facility] ABS. NEUTROPHILS 4,108 1,500 - 7,800 cells/uL [facility] ABS. LYMPHOCYTES 3,321 850 - 3,900 cells/uL [facility] ABS. MONOCYTES 476 200 - 950 cells/uL [facility] ABS. EOSINOPHILS 221 15 - 500 cells/uL [facility] ABS. BASOPHILS 74 0 - 200 cells/uL [facility] SEG NEUTROPHILS 50.1 % [facility] LYMPHOCYTES 40.5 % [facility] MONOCYTES 5.8 % [facility] EOSINOPHILS 2.7 % [facility] BASOPHILS 0.9 % [facility] 07/29/2020 4:57 PM ELECTRICITY TRADING ANALYST 07/30/2020 12:37 AM ELECTRICITY TRADING ANALYST Veronique Villagran BOX BU[employer]DER LABORATORY Final Resu lt [facility] [place] [facility] [address] [place] [address] documented in this encounter Visit Diagnoses Diagnosis Right flank pain- Primary Abdominal pain, unspecified site Kidney stone Calculus of kidney documented in this encounter Care Teams Direct Sales Consultant Relationship Specialty Start Date End Date Denilson Pozo MD PCP - General INTERNAL MEDICINE 08/22/18 09/14/22 documented as of this encounter
--- OUTSIDE RECORDS SUMMARY | 2024-06-13 02:00 | XMS_ITS | Encounter Summary ---
Author Organization [facility] Address [address] [place] [address]. [place], [place] [address] [place] [address] Care Team Providers Care Optical Lathe Operator Name Role Phone EsperanzaemileeRadha le NP Primary Care Provider [phone] Reason for Visit * Reason Comments Lab (SCAN) Encounter Details Date Type Department Care Team (Latest Contact Info) Description 11/01/2022 Scan HEALTH INFO [facility] Scanned, Doc Med Group Lab (SCAN) Social History Tobacco Use Types Packs/Day [...] st Contact Info) Description 06/23/2024 2:[address] TECHNOLOGIST Office Visit [facility] Medical [facility] Family & Internal Medicine [facility] [address] [place] [address] [place] [address] [place] [address] documented as of this encounter Procedures Procedure Name Priority Date/Time Associated Diagnosis Comments OUTSIDE LAB (SCAN ORDER) 11/01/2022 documented in this encounter Results * OUTSIDE LAB (SCAN) (11/01/2022) 11/01/2022 us Doc Med [facility] Scanned SCANNING Final Resu lt documented in this encounter Visit Diagnoses Not on filedocumented in this encounter Care Teams Optical Lathe Operator Relationship Specialty [place] [address] [facility] [address] [place] [address] PCP - General Nurse Practitioner Family 09/15/2206/11 documented as of this encounter
--- OUTSIDE RECORDS SUMMARY | 2024-06-13 02:00 | XMS_ITS | Encounter Summary ---
Author Organization [facility] Address [address] [place] [address]. [place], [place] [address] [place] [address] Care Team Providers Care Lifeguard Name Role Phone Radha Culp NP Primary Care Provider [phone] Reason for Visit * Reason Onset Date Comments Record Request 12/20/2022 Encounter Details Date Type Department Care Team (Late st Contact Info) Description 12/20/2022 Telephone [facility] Medical Group Family & Internal Medicine [facility] [id number] [place] [address] [place] [address] [facility] [address] [place] [address] Record Request Social History Tobacco Use Types Packs/Day Years [...] as of this encounter Progress Notes * Priyanka Queen MA - 12/20/2022 10:58 AM CDT I have faxed [facility] INFECTION CONTROL SPECIALIST Dr. Titi Hollingsworth for INFECTION CONTROL SPECIALIST records Received and sent to PCP * Priyanka Queen MA - 12/20/2022 10:53 AM CDT I have faxed [facility] in [place] for records 01/02/23 = Received and sent to PCP documented in this encounter Plan of Treatment Upcoming Encounters Date Type Department Care Team (Late st Contact Info) Description 06/23/2024 2:40 PM ANNEALING OPERATOR Office Visit [facility] Medical Group Family & Internal Medicine [facility] [address] [place] [address] [place] [address] [place] [address] documented as of this encounter Visit Diagnoses Not on filedocumented in this encounter Care Teams Lifeguard Relationship Specialty [place] [address] [facility], [address] [place], [place] [id number] PCP - General Nurse Practitioner Family 09/15/2206/11 documented as of this encounter
--- OUTSIDE RECORDS SUMMARY | 2024-06-13 02:00 | XMS_ITS | Encounter Summary ---
Author Organization [facility] Address [address] [place] [address]. [place], [place] [address] [place] [address] Care Team Providers Care Continuous Process Coffee Roaster Name Role Phone Denilson Ferrara MD Primary Care Provider U rayshawn Encounter Details Date Type Department Care Team (Latest Contact Info) Description 03/15/2022 Travel Social History Tobacco Use Types Packs/Day [...] Exposure Response Date Recorded In the last 10 days, have yo u been in contact with someone who was confirmed or suspected to have Coronavirus/COVID-19? No / Unsure 03/15/2022 8:26 AM CDT documented as of this encounter Plan of Treatment Upcoming Encounters Date Type Department Care Team (Late st Contact Info) Description 06/23/2024 2:40 PM KITCHEN HELPER Office Visit [facility] Medical Group Family & Internal Medicine [address] [address] [place] [address] [place] [address] documented as of this encounter Visit Diagnoses Not on filedocumented in this encounter Care Teams Continuous Process Coffee Roaster Relationship Specialty Start Date End Date Denilson Ferrara MD PCP - General INTERNAL MEDICINE 08/22/18 09/14/22 documented as of this encounter
--- OUTSIDE RECORDS SUMMARY | 2024-06-13 02:00 | XMS_ITS | Encounter Summary ---
Author Organization [facility] Address [address] [place] [address]. [place], [place] [address] [place] [address] Care Team Providers Care Supervisor Cooler Service Name Role Phone Radha Culp NP Primary Care Provider [phone] Ravinder Ford Primary Care Provider [phone] Reason for Visit * Reason Onset Date Comments MRI/CT Orders 03/28/2023 Encounter Details Date Type Department Care Team (Late st Contact Info) Description 03/28/2023 Telephone [facility] Medical Group Family & Internal Medicine [facility] [address] [place] [address] [place]ulp [place] [id number] [place] [address], [address] [place] [address] MRI/CT Orders Social History Tobacco Use Types Packs/Day Years [...] as of this encounter Progress Notes * Shena Vega MA - 06/29/2023 4:07 PM CST Patient informed and voiced understanding. Patient states she would like to do the CAC and discuss further on Sunday with Ravinder. L PRODUCTION SPECIALIST * Radha Culp NP - 06/29/2023 3:36 PM CST Please let patient know I did peer to peer and it was still denied. She can pay for a CAC (coronary artery calcium test) out of pocket for around 100 dollars at [facility] ifshe would like or we could refer her to cardiology for further evaluation. Thanks L PRODUCTION SPECIALIST * Tamy Ramos RN - 06/28/2023 11:29 AM CST FYI L PRODUCTION SPECIALIST * Tamy Ramos RN - 06/28/2023 9:41 AM CST Please advise patient had labs completed on 06/26/2023 L PRODUCTION SPECIALIST * Mony Koch - 06/28/2023 9:35 AM CST Good Morning. I noticed that the CTA was still denied with insurance and wondering if there was an outcome on patients CTA as she is scheduled for 07/02. Please advise. Thank you, Mony L PRODUCTION SPECIALIST * Tamy Ramos RN - 06/26/2023 2:22 PM CST She had them drawn today, I do not see any results as yet. L PRODUCTION SPECIALIST * Radha Culp NP - 06/26/2023 1:11 PM CST Did she get her fasting labs drawn yet? I was thinking if she had high lipids that might give us some leverage. Thanks L PRODUCTION SPECIALIST * Tamy Ramos RN - 06/26/2023 12:40 PM CST Please advise. L PRODUCTION SPECIALIST * Rosalie Snowden - 06/26/2023 12:36 PM CSTSummary: CTA ---- Message ----- From: Alyssa Victor Sent: 05/14/2023 9:30 AM EMAIL PRODUCTION SPECIALIST To: Radha Coto Nurse; * Subject: Patient scheduled tomorrow at [facility] for CTA Co* Per [employer] portal the request is being denied as it does not meet criteria for medical necessity. At time of submission we faxed the last office note and CT Chest report but they need more information to indicate the patient has heart disease before they can approve (see clinical rationale below). To perform a peer to peer please call [phone] and reference order # [id number] Clinical Rationale: Your doctor is checking you for heart disease. Your doctor ordered a test that takes pictures of the blood vessels in your heart. This test is used to look for blocked blood vessels in the heart. This test should be used when you have heart disease symptoms, and you are at moderate or high risk forheart disease. Your risk is based on various factors such as age, gender and nature of your symptoms . We reviewed the notes we received. The notes show that you do not have heart disease symptoms. Thus, we cannot approve this request as medically necessary. We used [facility] Medical Benefits Management Clinical Guideline titled Imaging of the Heart, Coronary CT Angiography (CCTA) and CT Derived Fractional Flow [place] (FFR-CT) to make this decision. You may view this guideline at [email or web address] PATIENT IS NOW BACK ON THE SCHEDULE FOR 07/02/23. PLEASE LET US KNOW HOW YOU PLAN TO PROCEED. THANKYOU. L PRODUCTION SPECIALIST * Rd Craven RN - 03/28/2023 4:04 PM CDT Order has been updated to [facility] * Gaye Ogden - 03/28/2023 2:53 PM CDT Received a call from central scheduling as the CTA Coronary w/ Scoring can not be done here at [facility].Please change the order to have it done at [facility]. documented in this encounter Plan of Treatment Upcoming Encounters Date Type Department Care Team (Late st Contact Info) Description 06/23/2024 2:40 PM EMAIL PRODUCTION SPECIALIST Office Visit [facility] Medical Group Family & Internal Medicine [facility] [address] [place] [address] [place] [address] [place], [place] [id number] documented as of this encounter Visit Diagnoses Not on filedocumented in this encounter Care Teams Supervisor Cooler Service Relationship Specialty Start [place] [address] [facility], [address] [place], [place] [id number] PCP - General Nurse Practitioner Family 09/15/2206/11 [place] [address] [place] [address] PCP - General Physician Quality Control Operator Medical 06/29/23 documented as of this encounter
--- OUTSIDE RECORDS SUMMARY | 2024-06-13 02:00 | XMS_ITS | Encounter Summary ---
Author Organization [facility] Address [address] [place] [address]. [place], [place] [address] [place] [address] Care Team Providers Care Finishing Supervisor Name Role Phone EsperanzaemileeRadha le NP Primary Care Provider [phone] Reason for Visit * Reason Comments Lab [...] st Contact Info) Description 06/23/2024 2:40 PM SMELTER LINER Office Visit [facility] Medical Group Family & Internal Medicine [facility] [address] [place] [address] Rav[place] [address] [place] [address] documented as of this encounter Procedures Procedure Name Priority Date/Time Associated Diagnosis Comments OUTSIDE LAB (SCAN ORDER) Routine 11/01/2022 documented in this encounter Results * OUTSIDE LAB (SCAN) (11/01/2022) HGB A1C 5.3 % [facility] ONBASE 11/01/2022 us Doc Med Group Scanned SCANNING Edited Res ult - Final [facility] documented in this encounter Visit Diagnoses Not on filedocumented in this encounter Care Teams Finishing Supervisor Relationship Specialty [place] [address] [facility], [address] [place] [address] PCP - General Nurse Practitioner Family 09/15/2206/11 documented as of this encounter
--- OUTSIDE RECORDS SUMMARY | 2024-06-13 02:00 | XMS_ITS | Encounter Summary ---
Author Organization [facility] Address [address] [place] [address]. [place], [place] [address] [place] [address] Care Team Providers Care Semiconductor Assembler Name Role Phone Denilson Ferrara MD Primary Care Provider U Radha Rodríguez NP Primary Care Provider [phone] Reason for Visit * Reason Comments Pathology (SCAN) Encounter Details Date Type Department Care Team ([facility] Contact Info) Description 08/02/2020 Scan HEALTH INFO SRVCS Scanned, Doc Med Group Pathology (SCAN) Social History Tobacco Use Types Packs/Day [...] Upcoming Encounters Date Type Department Care Team ([facility] Contact Info) Description 06/23/2024 2:40 PM FLORAL MERCHANDISER Office Visit [facility] Medical Group Family & Internal Medicine [facility] [address] [place] [address] [place] [address] [place], [place] [phone] documented as of this encounter Procedures Procedure Name Priority Date/Time Associated Diagnosis Comments OUTSIDE CYTOPATH CERV/VAG IN TERPRET (PAP) 08/02/2020 documented in this encounter Results * PAP SMEAR WITH HPV (08/02/2020) 08/02/2020 us Doc Med Group Scanned SCANNING Final Resu lt documented in this encounter Visit Diagnoses Not on filedocumented in this encounter Care Teams Semiconductor Assembler Relationship Specialty Start Date End Date Denilson Ferrara MD PCP - General INTERNAL MEDICINE 08/22/18 09/14/22 [place] [address] [facility], [address] [place] [address] PCP - General Nurse Practitioner Family 09/15/2206/11 documented as of this encounter
--- OUTSIDE RECORDS SUMMARY | 2024-06-13 02:00 | XMS_ITS | Encounter Summary ---
Author Organization [facility] Address [address] [place] [address]. [place], [place] [address] [place] [address] Care Team Providers Care Analytical Strategist Name Role Phone Denilson Ferrara MD Primary Care Provider U rayshawn Encounter Details Date Type Department Care Team (Latest Contact Info) Description 07/22/2020 Scan HEALTH INFO SRVCS Scanned, Documents Social [...] COVID-19? No / Unsure 07/29/2020 4:09 PM BULLARD MACHINE OPERATOR documented as of this encounter Plan of Treatment Upcoming Encounters Date Type Department Care Team (Late st Contact Info) Description 06/23/2024 2:40 PM BULLARD MACHINE OPERATOR Office Visit [facility] Medical Group Family & Internal Medicine [address] [address] [place] [address] [address] [place], [place] [phone] documented as of this encounter Visit Diagnoses Not on filedocumented in this encounter Care Teams Analytical Strategist Relationship Specialty Start Date End Date Denilson Ferrara MD PCP - General INTERNAL MEDICINE 08/22/18 09/14/22 documented as of this encounter
--- OUTSIDE RECORDS SUMMARY | 2024-06-13 02:00 | XMS_ITS | Encounter Summary ---
Author Organization [facility] Address [address] [place] [address]. [place], [place] [address] [place] [address] Care Team Providers Care Patient Registration Specialist Name Role Phone Denilson Ferrara MD Primary Care Provider U Radha Rodríguez NP Primary Care Provider [phone] Reason for Visit * Reason Comments Pathology (SCAN) Encounter Details Date Type Department Care Team ([facility] Contact Info) Description 08/11/2021 Scan HEALTH INFO SRVCS Scanned, Doc Med [...] Upcoming Encounters Date Type Department Care Team ([facility] Contact Info) Description 06/23/2024 2:40 PM RANCH HAND LIVESTOCK Office Visit [facility] Medical Group Family & Internal Medicine [facility] [address] [place] [address] [place] [address] [place], [place] [phone] documented as of this encounter Procedures Procedure Name Priority Date/Time Associated Diagnosis Comments OUTSIDE CYTOPATH CERV/VAG IN TERPRET (PAP) 08/11/2021 documented in this encounter Results * PAP SMEAR WITH HPV (08/11/2021) 08/11/2021 us Doc Med Group Scanned SCANNING Final Resu lt documented in this encounter Visit Diagnoses Not on filedocumented in this encounter Care Teams Patient Registration Specialist Relationship Specialty Start Date End Date Denilson Ferrara MD PCP - General INTERNAL MEDICINE 08/22/18 09/14/22 [place] [address] [facility], [address] [place] [address] PCP - General Nurse Practitioner Family 09/15/2206/11 documented as of this encounter
--- OUTSIDE RECORDS SUMMARY | 2024-06-13 02:00 | XMS_ITS | Encounter Summary ---
Author Organization [facility] Address [address] [place] [address]. [place], [place] [address] [place] [address] Care Team Providers Care Solar Energy Technician Name Role Phone Radha Culp NP Primary Care Provider [phone] Ravinder Ford Primary Care Provider [phone] Encounter Details Date Type Department Care Team (Late st Contact Info) Description 12/25/2022 [employer] Message Enc [facility] Medical Group Family & Internal Medicine [address] [address] [place] [address] [place] [address] [address] [place] [address] [employer] Social History Tobacco Use Types Packs/Day Years [...] as of this encounter Progress Notes * Rd Craven RN - 12/26/2022 4:31 PM CDT FYI weight loss medications are not covered under patients plan. Please advise. documented in this encounter Plan of Treatment Upcoming Encounters Date Type Department Care Team (Late st Contact Info) Description 06/23/2024 2:40 PM FISH WORM GROWER Office Visit [facility] Medical Group Family & Internal Medicine [facility] [address] [place] [address] [place] [address] [place] [address] documented as of this encounter Visit Diagnoses Not on filedocumented in this encounter Care Teams Solar Energy Technician Relationship Specialty Start [place] [address] [facility] [address] [place], [place] [phone] PCP - General Nurse Practitioner Family 09/15/2206/11 [place] [address] [place] [address] PCP - General Physician Regulatory Assistant Medical 06/29/23 documented as of this encounter
--- OUTSIDE RECORDS SUMMARY | 2024-06-13 02:00 | XMS_ITS | Encounter Summary ---
Author Organization [facility] Address [address] [place] [address]. [place], [place] [address] [place] [address] Care Team Providers Care Crane Hoist Or Lift Operator Name Role Phone Denilson Ferrara MD Primary Care Provider U meganailable Reason for Visit * Reason Comments Image (SCAN) Encounter Details Date Type Department Care Team (Latest Contact Info) Description 04/24/2022 Scan HEALTH INFO SRVCS Scanned, Doc Med Group Image (SCAN) Social History Tobacco Use Types Packs/Day [...] st Contact Info) Description 06/23/2024 2:40 PM GROUP EXERCISE CLASS INSTRUCTOR Office Visit [facility] Medical Group Family & Internal Medicine [facility] [address] [place] [address] [place] [address] [place] [address] documented as of this encounter Procedures Procedure Name Priority Date/Time Associated Diagnosis Comments IMAGE GENERIC 04/24/2022 documented in this encounter Results * IMAGE GENERIC (04/24/2022) Anatomical Region Laterality Modality Other 04/24/2022 us Doc Med Group Scanned SCANNING Final Resu lt documented in this encounter Visit Diagnoses Not on filedocumented in this encounter Care Teams Crane Hoist Or Lift Operator Relationship Specialty Start Date End Date Denilson Ferrara MD PCP - General INTERNAL MEDICINE 08/22/18 09/14/22 documented as of this encounter
--- OUTSIDE RECORDS SUMMARY | 2024-06-13 02:00 | XMS_ITS | Encounter Summary ---
Author Organization [facility] Address [address] [place] [address]. [place], [place] [address] [place] [address] Care Team Providers Care Fabric Worker Name Role Phone Denilson Ferrara MD Primary Care Provider U rayshawn Encounter Details Date Type Department Care Team (Late st Contact Info) Description 03/11/2021 Orders Only [facility] Medical Group Family & Internal Medicine [address] [address] Denilson Ferrara MD Social History Tobacco Use Types Packs/Day Years [...] have Coronavirus / COVID-19? No / Unsure 03/04/2021 7:42 AM CDT documented as of this encounter Plan of Treatment Upcoming Encounters Date Type Department Care Team (Late st Contact Info) Description 06/23/2024 2:40 PM NATURAL RESOURCE TECHNICIAN Office Visit [facility] Medical Group Family & Internal Medicine [facility] [address] [place] [address] [place] [address] [place] [address] documented as of this encounter Visit Diagnoses Not on filedocumented in this encounter Care Teams Fabric Worker Relationship Specialty Start Date End Date Denilson Ferrara MD PCP - General INTERNAL MEDICINE 08/22/18 09/14/22 documented as of this encounter
--- OUTSIDE RECORDS SUMMARY | 2024-06-13 02:00 | XMS_ITS | Encounter Summary ---
Author Organization [facility] Address [address] [place] [address]. [place], [place] [address] [place] [address] Care Team Providers Care Public Service Director Name Role Phone Denilson Pozo MD Primary Care Provider U navailable Reason for Referral * Imaging (Routine) - Closed Specialty Diagnoses / Procedures Referred By Contac t Referred To Contact RADIOLOGY Diagnoses Multiple lung nodules on CT Procedures CT CHEST W CON Denilson Pozo MD Referral ID Status Reason Start Date Expiration Date Visits Re quested Visits Authorized [id number] Closed 03/07/2022 05/05/2022 1 1 Encounter Details Date Type Department Care Team (Late st Contact Info) Description 03/03/2022 Orders Only [facility] Medical Group Family & Internal Medicine [address] [address] Denilson Pozo MD Social History Tobacco Use Types Packs/Day [...] Notes * Tamy Ramos RN - 03/03/2022 8:[address] chest documented in this encounter Plan of Treatment Upcoming Encounters Date Type Department Care Team (Late st Contact Info) Description 06/23/2024 2:40 PM ALLERGIST/MD Office Visit [facility] Medical Group Family & Internal Medicine - [place] [address] [place] [address] [place] [address] [place] [address] documented as of this encounter Results * CT CHEST W CON (03/15/2022 9:07 AM CDT) Anatomical Region Laterality Modality Chest Computed Tomogra phy 03/15/2022 9:38 AM CDT Impressions 03/15/2022 10:05 AM CDT IMPRESSION: Small, stable pulmonary nodules as noted below with CT chest follow- up in one year to document 2 years of stability recommended. Stable 3 mm posteromedial RLL subpleural nodularity on axial image 58/131, 2 adjacent stable 3 mm posterolateral RLL peripheral pulmonary nodules on image 59, stable tiny peripheral posterolateral RLL pulmonary nodule on axial image 61 and better visualized on axial image 456/696, and stable 5 mm LLL pulmonary nodule approximately 2.5 cm from costal pleural surface on axial image 69. No new pulmonary nodules are seen. No active pulmonary infiltrates, pneumothorax, or pleural fluid collections identified. Minor postinflammatory calcification. Stable tiny 3 x 5 mm left thyroid lobe nodule incidentally noted. Mild left anterior descending coronary artery calcification. Atherosclerotic calcification of thoracic aorta without apparent thoracic aortic aneurysm or dissection. No apparent axillary, mediastinal, or hilar lymphadenopathy. Fatty infiltration of liver. Multiple bilateral intrarenal nonobstructing calculi again noted with the largest approximately 4 x 6 mm in the left upper renal pole. Cholecystectomy without biliary ductal dilatation. No mass lesions noted in visualized upper abdomen. Stable mild degenerative and hypertrophic change in thoracic spine.. Ordered By: DENILSON POZO Interpreted By: Finn Payne, 03/15/2022 9:38 AM Narrative 03/15/2022 10:05 AM CDT IMAGING STUDIES: CT CHEST WITH IV CONTRAST WITH SAGITTAL AND CORONAL RECONSTRUCTION ? DATE: 03/15/2022 8:35 AM HISTORY: Pulmonary nodule follow-up. COMPARISON: 03/04/2021 CT chest. CONTRAST: 75 mL Isovue-370 IV. Radiation dose reduction technique was utilized. Procedure Note Finn Payne MD - 03/15/2022 IMAGING STUDIES: CT CHEST WITH IV CONTRAST WITH SAGITTAL AND CORONALRECONSTRUCTION DATE: 03/15/2022 8:35 AM HISTORY: Pulmonary nodule follow-up. COMPARISON: 03/04/2021 CT chest. CONTRAST: 75 mL Isovue-370 IV. Radiation dose reduction technique was utilized. IMPRESSION: Small, stable pulmonary nodules as noted below with CT chestfollow- up in one year to document 2 years of stability recommended. Stable 3 mm posteromedial RLL subpleural nodularity on axial image 58/131,2 adjacent stable 3 mm posterolateral RLL peripheral pulmonary nodules onimage 59, stable tiny peripheral posterolateral RLL pulmonary nodule onaxial image 61 and better visualized on axial image 456/696, and stable 5mm LLL pulmonary nodule approximately 2.5 cm from costal pleural surfaceon axial image 69. No new pulmonary nodules are seen. No active pulmonary infiltrates, pneumothorax, or pleural fluidcollections identified. Minor postinflammatory calcification. Stable tiny3 x 5 mm left thyroid lobe nodule incidentally noted. Mild left anterior descending coronary artery calcification.Atherosclerotic calcification of thoracic aorta without apparent thoracicaortic aneurysm or dissection. No apparent axillary, mediastinal, or hilarlymphadenopathy. Fatty infiltration of liver. Multiple bilateral intrarenal nonobstructingcalculi again noted with the largest approximately 4 x 6 mm in the leftupper renal pole. Cholecystectomy without biliary ductal dilatation. Nomass lesions noted in visualized upper abdomen. Stable mild degenerativeand hypertrophic change in thoracic spine.. Ordered By: DENILSON POZO Interpreted By: Finn Payne, 03/15/2022 9:38 AM us Denilson Pozo MD CT Final Re sult documented in this encounter Visit Diagnoses Diagnosis Multiple lung nodules on CT- Primary Multiple lung nodules on CT documented in this encounter Care Teams Public Service Director Relationship Specialty Start Date End Date Denilson Pozo MD PCP - General INTERNAL MEDICINE 08/22/18 09/14/22 documented as of this encounter
--- OUTSIDE RECORDS SUMMARY | 2024-06-13 02:00 | XMS_ITS | Encounter Summary ---
Author Organization [facility] Address [address] [place] [address]. [place], [place] [address] [place] [address] Care Team Providers Care Conference Planner Name Role Phone Denilson Ferrara MD Primary Care Provider Rogelio bloodshaq Encounter Details Date Type Department Care Team (Latest Contact Info) Description 02/23/2021 Travel Social History Tobacco Use Types Packs/Day [...] st Contact Info) Description 06/23/2024 2:40 PM RETORT LOADER Office Visit [facility] Medical Group Family & Internal Medicine [address] [address] [place] [address] [place] [address] documented as of this encounter Visit Diagnoses Not on filedocumented in this encounter Care Teams Conference Planner Relationship Specialty Start Date End Date Denilson Ferrara MD PCP - General INTERNAL MEDICINE 08/22/18 09/14/22 documented as of this encounter
--- OUTSIDE RECORDS SUMMARY | 2024-06-13 02:00 | XMS_ITS | Encounter Summary ---
Author Organization [facility] Address [address] [place] [address]. [place], [place] [address] [place] [address] Care Team Providers Care Machining Technician Name Role Phone Denilson Ferrara MD Primary Care Provider U Radha Rodríguez NP Primary Care Provider Ravinder Ford Primary Care Provider [phone] Encounter Details Date Type Department Care Team (Late st Contact Info) Description 11/17/2020 [employer] Message Enc [facility] Medical Group Family & Internal Medicine [address] [address] [facility] Provider RE:ct scan Social History Tobacco Use Types Packs/Day Years [...] st Contact Info) Description 06/23/2024 2:40 PM NOZZLE TENDER Office Visit [facility] Medical Group Family & Internal Medicine [facility] [address] [place] [address] [place] [address] [place] [address] documented as of this encounter Visit Diagnoses Not on filedocumented in this encounter Care Teams Machining Technician Relationship Specialty Start Date End Date Denilson Ferrara MD PCP - General INTERNAL MEDICINE 08/22/18 09/14/22 [place] [address] [facility] [address] [place] [address] PCP - General Nurse Practitioner Family 09/15/2206/11 [place] [address] [place] [address] PCP - General Physician Doubler Operator Medical 06/29/23 documented as of this encounter
--- OUTSIDE RECORDS SUMMARY | 2024-06-13 02:00 | XMS_ITS | Encounter Summary ---
Author Organization [facility] Address [address] [place] [address]. [place], [place] [address] [place] [address] Care Team Providers Care Art Consultant Name Role Phone Portillo Culp NP Primary Care Provider [phone] Reason for Referral * Imaging (Routine) - Closed Specialty Diagnoses / Procedures Referred By Annemarie turner Referred To Contact RADIOLOGY Diagnoses Multiple lung nodules on CT Procedures CT CHEST [place] [address] [address], [address] [place] [address] Phone: tel: fax: Referral ID Status Reason Start Date Expiration Date Visits Re quested Visits Authorized [id number] Closed 12/19/2022 01/16/2024 1 1 * Imaging (Routine) - Closed Specialty Diagnoses / Procedures Referred By Annemarie turner Referred To Contact RADIOLOGY Diagnoses Thyroid nodule [place] [address] [address], [address] [place] [address] Phone: tel: fax: Referral ID Status Reason Start Date Expiration Date Visits Re quested Visits Authorized [id number] Closed 12/19/2022 12/20/2023 1 1 Reason for Visit * Imaging (Routine) - Closed Specialty Diagnoses / Procedures Referred By Contac t Referred To Contact RADIOLOGY Diagnoses Thyroid nodule Procedures [place] [address] [address], [address] [place] [address] Phone: tel: fax: Referral ID Status Reason Start Date Expiration Date Visits Re quested Visits Authorized [id number] Closed 12/19/2022 12/20/2023 1 1 Encounter Details Date Type Department Care Team (Latest Contact Info) Description 03/22/2023 10:00 AM CDT - 03/22/2023 11:59 PM CDT Hospital Encounter [facility] Ultrasound [address] [place] [address] [place] [address] [facility], [address] [place], [place] [id number] Discharge Disposition: Home or Self Care (Routine [...] by mouth daily. Indications: Vitamin D Deficiency Digestive Enzymes (PANCREATIN 8X OR) Bilex 4 Kelp 150 MCG Tab 12/19/2022 07/03/19 2 4 Magnesium Glycinate 100 MG Cap 11/20/2022 4 [place]-3 Fatty Acids (FISH OIL) 500 MG capsule Take 500 mg by mouth daily. ProOmega Lemon 4 Probiotic Product (FORTIFY PROBIOTIC WOMENS EX ST OR) PRO-Women 4 documented as of this encounter Progress Notes * Portillo Culp NP - 03/22/2023 10:00 AM CDT Please let patient know CT showed stable appearance to bilateral pulmonary nodules for greater than2 years. Considered benign. No further workup necessary of these nodules. CT also showed moderate coronary artery calcifications (plaque build up in the arteries around her heart). The radiologist recommends further evaluation with CT angiogram of the coronary vessels. Please order. Thanks * Portillo Culp NP - 03/22/2023 10:00 AM CDT cystic nodule in the superior right thyroid lobe. Some peripheral solid components are noted. TIRADS 3. No follow-up indicated due to size under 1.5 cm. spongiform nodule in the right thyroid as well. TIRADS 2. Not suspicious. Ok to monitor for now and repeat thyroid US in 6mo. Thanks documented in this encounter Plan of Treatment Upcoming Encounters Date Type Department Care Team (Late st Contact Info) Description 06/23/2024 2:40 PM PSYCHOLOGIST CHIEF Office Visit [facility] Medical Group Family & Internal Medicine [facility] [address] [place] [address] [place] [address] [place] [address] documented as of this encounter Procedures Procedure Name Priority Date/Time Associated Diagnosis Comments CT CHEST WO LUNG NOD FLUP Routine 03/22/2023 10:45 AM CDT Multiple lung nodules on CT US THYROID Routine 03/22/2023 10:13 AM CDT Thyroid nodule documented in this encounter Results * CT CHEST WO [...] of benefit in this 47-year-old. Ordered By: PORTILLO CULP Interpreted By: James Wilson, 03/23/2023 8:30 [...] be of benefit inthis 47-year-old. Ordered By: PORTILLO CULP Interpreted By: James Wilson, 03/23/2023 8:30 AM us Portillo Culp CHIEF ACCOUNTANT CT Final Result * US THYROID (03/22/2023 10:13 AM CDT) Anatomical Region Laterality Modality Neck Ultrasound 03/25/2023 5:48 AM CDT Impressions 03/25/2023 5:51 AM CDT IMPRESSION: ===== 1. ??No individual nodule meets TIRADS threshold recommend follow-up or FNA. 2. ??No acute abnormalities. Referred By: PORTILLO CULP Interpreted By: Phi Choudhary MD, 03/25/2023 [...] orFNA. 2. No acute abnormalities. Referred By: PORTILLO CULP Interpreted By: Phi Choudhary MD, 03/25/2023 5:48 AM us Portillo Culp NP ULTRASOUND Final Result documented in this encounter Visit Diagnoses Diagnosis Thyroid nodule Nontoxic uninodular goiter Multiple lung nodules on CT documented in this encounter Care Teams Art Consultant Relationship Specialty [place] [address] [facility], [address] [place] [address] PCP - General Nurse Practitioner Family 09/15/2206/11 documented as of this encounter
--- OUTSIDE RECORDS SUMMARY | 2024-06-13 02:00 | XMS_ITS | Encounter Summary ---
Author Organization [facility] Address [address] [place] [address]. [place], [place] [address] [place] [address] Care Team Providers Care Publications Designer Name Role Phone Denilson Ferrara MD Primary Care Provider U rayshawn Encounter Details Date Type Department Care Team (Latest Contact Info) Description 10/05/2021 Scan HEALTH INFO SRVCS Scanned, Documents Social [...] st Contact Info) Description 06/23/2024 2:40 PM THERAPEUTIC PROGRAM WORKER Office Visit [facility] Medical Group Family & Internal Medicine [facility] [address] [place] [address] [place] [address] [place] [address] documented as of this encounter Visit Diagnoses Not on filedocumented in this encounter Care Teams Publications Designer Relationship Specialty Start Date End Date Denilson Ferrara MD PCP - General INTERNAL MEDICINE 08/22/18 09/14/22 documented as of this encounter
--- OUTSIDE RECORDS SUMMARY | 2024-06-13 02:00 | XMS_ITS | Encounter Summary ---
Author Organization [facility] Address [address] [place] [address]. [place], [place] [address] [place] [address] Care Team Providers Care Trackwalker Name Role Phone Denilson Ferrara MD Primary Care Provider U navailable Reason for Referral * Imaging (Emergency) - Closed Specialty Diagnoses / Procedures Referred By Contac t Referred To Contact RADIOLOGY Diagnoses Acute right flank pain Procedures CT ABD+PEL KIDNEY STONE Denilson Ferrara MD Referral ID Status Reason Start Date Expiration Date Visits Re quested Visits Authorized [id number] Closed 07/22/2020 08/20/2020 1 1 TURNER Reason for Visit * Imaging (Emergency) - Closed Specialty Diagnoses / Procedures Referred By Contac t Referred To Contact RADIOLOGY Diagnoses Acute right flank pain Procedures CT ABD+PEL KIDNEY STONE Denilson Ferrara MD Referral ID Status Reason Start Date Expiration Date Visits Re quested Visits Authorized [id number] Closed 07/22/2020 08/20/2020 1 1 Encounter Details Date Type Department Care Team (Late st Contact Info) Description 07/22/2020 9:10 AM BOOT TURNER - 07/22/2020 11:59 PM BOOT TURNER [place] [address] [place] [address] Denilson Ferrara MD Discharge Disposition: Home or [...] have Coronavirus / COVID-19? No / Unsure 07/22/2020 8:01 AM BOOT TURNER documented as of this encounter Medications at Time of Discharge vitamin D3, cholecalciferol, 1000 UNIT Tab tabletIndication s:Vitamin D Deficiency Take 1 tablet (25 mcg total) by mouth daily. Indications: Vitamin D Deficiency cephALEXin 500 MG capsuleIndicatio ns:Urinary Tract Infection,Recurr ent UTI's through Dr. Red Take 1 capsule (500 mg total) by mouth 4 (four) times daily. Indications: Urinary Tract Infection, Recurrent UTI's through Dr. Red 3 multi vitamin/minerals tabletIndication s:Vitamin Deficiency,Ritua l Multi-Vitamin. Take 1 tablet by mouth daily. Indications: Vitamin Deficiency, Ritual Multi-Vitamin. 1 Probiotic Product (PROBIOTIC ADVANCED) Cap Take 1 capsule by mouth daily. 3 tamsulosin 0.4 MG CapIndications:K idney stone Take 1 capsule (0.4 mg total) by mouth daily. 15 capsule 1 07/22/2020 1 documented as of this encounter Progress Notes * Cordelia Rodriguez MA - 07/22/2020 12:30 PM CST JULI contacted patient and informed her of this result. Patient denies having any questions. Patient aware and v/u. TURNER documented in this encounter Plan of Treatment Upcoming Encounters Date Type Department Care Team (Late st Contact Info) Description 06/23/2024 2:40 PM BOOT TURNER Office Visit [facility] Medical Group [facility] [address] [place] [phone] [place] [address] [place], [place] [phone] documented as of this encounter Procedures Procedure Name Priority Date/Time Associated Diagnosis Comments CT ABD+PEL KIDNEY STONE STAT 07/22/2020 9:53 AM BOOT TURNER Acute right flank pain documented in this encounter Results * CT ABD+PEL KIDNEY STONE (07/22/2020 9:53 AM BOOT TURNER) Anatomical Region Laterality Modality Abdomen Computed Tomogra phy 07/22/2020 10:0 9 AM BOOT TURNER Narrative 07/22/2020 10:14 AM BOOT TURNER IMAGING STUDIES: ??CT ABD+PEL KIDNEY STONE ? DATE: ??07/22/2020 9:46 AM COMPARISON STUDIES: No previous available. ?? CLINICAL HISTORY: ??Flank pain, kidney stone suspected ?right flank pain. TECHNIQUE: ??Helical axial images were acquired from the lung bases to symphysis pubis. ??Sagittal and coronal reconstructions were obtained. Radiation dose reduction technique was utilized. FINDINGS AND IMPRESSION (Limited exam due to the lack of intravenous contrast administration): LOWER CHEST: 1. ??Lungs: There are few very small pulmonary nodules within the right lower lobe, the largest 3 mm in diameter. Recommend elective outpatient workup with CT of the chest to further evaluate. 2. ??Visible mediastinum: Coronary artery calcifications. ABDOMEN: 1. ??Liver: Mild hepatomegaly 21 cm cephalocaudal dimension. 2. ??Gallbladder: Post cholecystectomy. 3. ??Spleen: No lesions, no splenomegaly. 4. ??Pancreas: No focal lesions. 5. ??Adrenal glands: No focal lesions. 6. ??Kidneys: Numerous bilateral nonobstructive stones, the largest measures 6 mm and is located in the left kidney mid polar region. No hydronephrosis. No hydroureter or obvious distal stones. 7. ??Retroperitoneal space: The visible lymph nodes do not appear pathologically enlarged. No mesenteric lymphadenopathy or edema. 8. ??Stomach and bowel: Nonobstructive pattern. No free air. 9. ??Aorta: No significant atherosclerotic disease or aneurysmal dilation. ?? PELVIS: 1. ??Appendix: Not pathologically distended. 2. ??Colon and rectum: Mild sigmoid diverticulosis. 3. ??Uterus and adnexa: No obvious masses. 4. ??Urinary bladder: No stones or abnormal wall thickening. 5. ??Pelvic space: No free fluid. BONES AND OTHER INCIDENTAL FINDINGS: 1. ??Bones: Mild degenerative changes of the sacroiliac joints, lumbar spine worse at L5-S1. ? Voice recognition software utilized. Interpreted By: Kane Felipe, 07/22/2020 10:09 AM Procedure Note Kane Feilpe MD - 07/22/2020 IMAGING STUDIES: CT ABD+PEL KIDNEY STONE DATE: 07/22/2020 9:46 AM COMPARISON STUDIES: No previous available. CLINICAL HISTORY: Flank pain, kidney stone suspected right flankpain. TECHNIQUE: Helical axial images were acquired from the lung bases to symphysis pubis. Sagittal and coronal reconstructions were obtained. Radiation dose reduction technique was utilized. FINDINGS AND IMPRESSION (Limited exam due to the lack of intravenous contrast administration): LOWER CHEST: 1. Lungs: There are few very small pulmonary nodules within the right lower lobe, the largest 3 mm in diameter. Recommend elective outpatient workup with CT of the chest to further evaluate. 2. Visible mediastinum: Coronary artery calcifications. ABDOMEN: 1. Liver: Mild hepatomegaly 21 cm cephalocaudal dimension. 2. Gallbladder: Post cholecystectomy. 3. Spleen: No lesions, no splenomegaly. 4. Pancreas: No focal lesions. 5. Adrenal glands: No focal lesions. 6. Kidneys: Numerous bilateral nonobstructive stones, the largestmeasures 6 mm and is located in the left kidney mid polar region. Nohydronephrosis. No hydroureter or obvious distal stones. 7. Retroperitoneal space: The visible lymph nodes do not appear pathologically enlarged. No mesenteric lymphadenopathy or edema. 8. Stomach and bowel: Nonobstructive pattern. No free air. 9. Aorta: No significant atherosclerotic disease or aneurysmal dilation. PELVIS: 1. Appendix: Not pathologically distended. 2. Colon and rectum: Mild sigmoid diverticulosis. 3. Uterus and adnexa: No obvious masses. 4. Urinary bladder: No stones or abnormal wall thickening. 5. Pelvic space: No free fluid. BONES AND OTHER INCIDENTAL FINDINGS: 1. Bones: Mild degenerative changes of the sacroiliac joints, lumbarspine worse at L5-S1. Voice recognition software utilized. Interpreted By: Kane Felipe, 07/22/2020 10:09 AM us Denilson Ferrara MD CT Final Re sult documented in this encounter Visit Diagnoses Diagnosis Acute right flank pain Abdominal pain, unspecified site documented in this encounter Care Teams Trackwalker Relationship Specialty Start Date End Date Denilson Ferrara MD PCP - General INTERNAL MEDICINE 08/22/18 09/14/22 documented as of this encounter
--- OUTSIDE RECORDS SUMMARY | 2024-06-13 02:00 | XMS_ITS | Encounter Summary ---
Author Organization [facility] Address [address] [place] [address]. [place], [place] [address] [place] [address] Care Team Providers Care Glass Driller Name Role Phone Denilson Pozo MD Primary Care Provider U navailable Reason for Referral * Imaging (Routine) - Closed Specialty Diagnoses / Procedures Referred By Annemarie turner Referred To Contact RADIOLOGY Diagnoses Multiple lung nodules on CT Procedures CT CHEST W Denilson Randhawa MD [facility] [address] [place] [address] Phone: tel: Referral ID Status Reason Start Date Expiration Date Visits Re quested Visits Authorized [id number] Closed 02/23/2021 03/26/2022 1 1 Reason for Visit * Imaging (Routine) - Closed Specialty Diagnoses / Procedures Referred By Annemarie turner Referred To Contact RADIOLOGY Diagnoses Multiple lung nodules on CT Procedures CT CHEST W Denilson Randhawa MD [facility] [address] [place] [address] Phone: tel: Referral ID Status Reason Start Date Expiration Date Visits Re quested Visits Authorized [id number] Closed 02/23/2021 03/26/2022 1 1 Encounter Details Date Type Department Care Team (Late st Contact Info) Description 03/04/2021 7:42 AM CDT - 03/04/2021 11:59 PM CDT [place] [address] [place] [address] Denilson Pozo MD Discharge Disposition: Home or Self Care [...] AM CDT documented as of this encounter Medications [...] st Contact Info) Description 06/23/2024 2:40 PM WELLNESS NURSE Office Visit [facility] Family & Internal Medicine [facility] [address] [place] [address] [place] [address] [place] [address] documented as of this encounter Procedures Procedure Name Priority Date/Time Associated Diagnosis Comments CT CHEST W CON Routine 03/04/2021 8:11 AM CDT Multiple lung nodules on CT CREATININE WHOLE BLOOD Routine 03/04/2021 7:59 AM CDT Multiple lung nodules on CT documented in this encounter Results * CT CHEST W CON (03/04/2021 8:11 AM CDT) Anatomical Region Laterality Modality Chest Computed Tomogra phy 03/04/2021 8:51 AM CDT Impressions 03/04/2021 8:59 AM CDT FINDINGS AND IMPRESSION: 1. ??Trachea and airway: No endotracheal lesions. 2. ??Pleural space: No pleural effusion or pneumothorax. 3. ??Lung parenchyma: Few calcified granulomas in otherwise clear lungs. 4. ??Pulmonary nodules: There are few small pulmonary nodules in the right lower lobe of which the more conspicuous include 2 nodules measuring 3 mm on image 63, on image 65 and on the left lower lobe 5 mm on image 70; recommend follow-up in one year to assess long-term stability (Fleischner Society guidelines 2017). 5. ??Mediastinum: The visible lymph nodes do not appear pathologically enlarged. 6. ??Axillary and supraclavicular soft tissues: The visible lymph nodes do not appear pathologically enlarged. ??5 mm cyst left thyroid lobe incidentally noted. 7. ??Cardiovascular: No aneurysmal dilation. No cardiomegaly 8. ??Partially visualized upper abdomen: Bilateral nonobstructive stones, the largest is located in the left kidney and measures 5 mm. 9. ??Bones: Mild degenerative changes of the spine. Voice recognition software utilized. Referred By: DENILSON POZO Interpreted By: Kane Felipe, 03/04/2021 8:51 AM Narrative 03/04/2021 8:59 AM CDT IMAGING STUDIES: ??CT CHEST W CON ? DATE: ??03/04/2021 7:45 AM CLINICAL HISTORY: ??Abnormal xray - lung nodule, < 1 cm, mod-high risk ?? . COMPARISON STUDIES: CT abdomen pelvis 07/22/2020. ?? TECHNIQUE: ??Axial images were acquired from the thoracic inlet to the upper abdomen after administration of intravenous contrast. ??Sagittal and coronal reconstructions were evaluated. ??Radiation dose reduction technique was utilized. CONTRAST: 75mL Isovue-370 IV Procedure Note Kane Felipe MD - 03/04/2021 IMAGING STUDIES: CT CHEST W CON DATE: 03/04/2021 7:45 AM CLINICAL HISTORY: Abnormal xray - lung nodule, < 1 cm, mod-high risk. COMPARISON STUDIES: CT abdomen pelvis 07/22/2020. TECHNIQUE: Axial images were acquired from the thoracic inlet to theupper abdomen after administration of intravenous contrast. Sagittal andcoronal reconstructions were evaluated. Radiation dose reductiontechnique was utilized. CONTRAST: 75mL Isovue-370 IV FINDINGS AND IMPRESSION: 1. Trachea and airway: No endotracheal lesions. 2. Pleural space: No pleural effusion or pneumothorax. 3. Lung parenchyma: Few calcified granulomas in otherwise clear lungs. 4. Pulmonary nodules: There are few small pulmonary nodules in the rightlower lobe of which the more conspicuous include 2 nodules measuring 3 mmon image 63, on image 65 and on the left lower lobe 5 mm on image 70;recommend follow-up in one year to assess long-term stability ([facility] guidelines 2017). 5. Mediastinum: The visible lymph nodes do not appear pathologicallyenlarged. 6. Axillary and supraclavicular soft tissues: The visible lymph nodes donot appear pathologically enlarged. 5 mm cyst left thyroid lobeincidentally noted. 7. Cardiovascular: No aneurysmal dilation. No cardiomegaly 8. Partially visualized upper abdomen: Bilateral nonobstructive stones,the largest is located in the left kidney and measures 5 mm. 9. Bones: Mild degenerative changes of the spine. Voice recognition software utilized. Referred By: DENILSON POZO Interpreted By: Kane Felipe, 03/04/2021 8:51 AM Denilson Pozo MD CT Final Re sult * CREATININE WHOLE BLOOD (Radiology only) (03/04/2021 7:59 AM CDT) CREATININE WHOLE BLOOD 0.8 0.6 - 1.2 MG/DL 03/07/2021 8:46 PM CDT [facility] 03/04/2021 7:59 AM CDT Denilson Pozo MD LABORATORY Final Re sult [facility] [address] [place] [id number], documented in this encounter Visit Diagnoses Diagnosis Multiple lung nodules on CT documented in this encounter Administered Medications Inactive Administered Medications - up to 3 most recent administrations Medication Order MAR Action Action Date Dose Rate Site iopamidol (ISOVUE-370) 76 % injection 75 mL 75 mL, Intravenous, IMG once as needed, Contrast, 1 dose, Starting on Sun03/04/21 at 0811, Until Sun03/04/21 at 0801 Given 03/04/2021 8:01 AM CDT 75 mLs Right Arm documented in this encounter Care Teams Glass Driller Relationship Specialty Start Date End Date Denilson Pozo MD PCP - General INTERNAL MEDICINE 08/22/18 09/14/22 documented as of this encounter
--- OUTSIDE RECORDS SUMMARY | 2024-06-13 02:00 | XMS_ITS | Encounter Summary ---
Author Organization [facility] Address [address] [place] [address]. [place], [place] [address] [place] [address] Care Team Providers Care Glue Specialty Supervisor Name Role Phone Denilson Ferrara MD Primary Care Provider U Radha Rodríguez NP Primary Care Provider [phone] Reason for Visit * Reason Comments Pathology (SCAN) Encounter Details Date Type Department Care Team (Late Contact Info) Description 08/15/2022 Scan HEALTH INFO SRVCS Scanned, Doc Med [...] Encounters Date Type Department Care Team (Late Contact Info) Description 06/23/2024 2:40 PM AGRICULTURAL SCIENCE PROFESSOR Office Visit [facility] Family & Internal Medicine [facility] [id number] [place] [address] [place] [address] [facility] [place] [place] [address] documented as of this encounter Procedures Procedure Name Priority Date/Time Associated Diagnosis Comments OUTSIDE CYTOPATH CERV/VAG IN TERPRET (PAP) 08/15/2022 documented in this encounter Results * PAP SMEAR WITH HPV (08/15/2022) 08/15/2022 us Doc Med Group Scanned SCANNING Final Resu lt documented in this encounter Visit Diagnoses Not on filedocumented in this encounter Care Teams Glue Specialty Supervisor Relationship Specialty Start Date End Date Denilson Ferrara MD PCP - General INTERNAL MEDICINE 08/22/18 09/14/22 [place] [address] [address], [address] [place] [address] PCP - General Nurse Practitioner Family 09/15/2206/11 documented as of this encounter
--- OUTSIDE RECORDS SUMMARY | 2024-06-13 02:00 | XMS_ITS | Encounter Summary ---
Author Organization [facility] Address [address] [place] [address]. [place], [place] [address] [place] [address] Care Team Providers Care Wall Steamer Name Role Phone Denilson Ferrara MD Primary Care Provider Rogelio bloodshaq Encounter Details Date Type Department Care Team (Latest Contact Info) Description 03/04/2021 Travel Social History Tobacco Use Types Packs/Day [...] st Contact Info) Description 06/23/2024 2:40 PM VETERINARY VIROLOGIST Office Visit [facility] Medical Group Family & Internal Medicine [address] [address] [place] [address] [place] [address] documented as of this encounter Visit Diagnoses Not on filedocumented in this encounter Care Teams Wall Steamer Relationship Specialty Start Date End Date Denilson Ferrara MD PCP - General INTERNAL MEDICINE 08/22/18 09/14/22 documented as of this encounter
--- OUTSIDE RECORDS SUMMARY | 2024-06-13 02:00 | XMS_ITS | Encounter Summary ---
Author Organization [facility] Address [facility]. [place], [place] [address] [place] [address] Care Team Providers Care Partition Notcher Name Role Phone Denilson Pozo MD Primary Care Provider U navailable Reason for Referral * Imaging (Routine) - Closed Specialty Diagnoses / Procedures Referred By Annemarie turner Referred To Contact RADIOLOGY Diagnoses Multiple lung nodules on CT Procedures CT CHEST W Denilson Randhawa MD Referral ID Status Reason Start Date Expiration Date Visits Re quested Visits Authorized [id number] Closed 03/07/2022 05/05/2022 1 1 Reason for Visit * Imaging (Routine) - Closed Specialty Diagnoses / Procedures Referred By Annemarie t Referred To Contact RADIOLOGY Diagnoses Multiple lung nodules on CT Procedures CT CHEST W Denislon Randhawa MD Referral ID Status Reason Start Date Expiration Date Visits Re quested Visits Authorized [id number] Closed 03/07/2022 05/05/2022 1 1 Encounter Details Date Type Department Care Team (Late st Contact Info) Description 03/15/2022 8:28 AM CDT - 03/15/2022 11:59 PM CDT [place] [address] [place] [address] Denilson Pozo MD Discharge Disposition: Home or [...] daily. 3 documented as of this encounter Progress Notes * Bel Hays MA - 03/15/2022 9:00 AM CDT Patient aware of these results. Pt V/U and has no questions at this time. documented in this encounter Plan of Treatment Upcoming Encounters Date Type Department Care Team (Late st Contact Info) Description 06/23/2024 2:40 PM UPPERS EDGE BURNISHER Office Visit [facility] Family & Internal Medicine - [address] [address] [place] [address] [place] [address] documented as of this encounter Procedures Procedure Name Priority Date/Time Associated Diagnosis Comments CT CHEST W CON Routine 03/15/2022 9:07 AM CDT Multiple lung nodules on CT CREATININE WHOLE BLOOD Routine 03/15/2022 7:56 AM CDT Multiple lung nodules on CT [...] sult * CREATININE WHOLE BLOOD (Radiology only) (03/15/2022 7:56 AM CDT) CREATININE WHOLE BLOOD 0.8 0.6 - 1.2 MG/DL 03/15/2022 4:23 PM CDT [facility] 03/15/2022 7:56 AM CDT us Denilson Pozo MD LABORATORY Final Re sult [facility] [address] [place] [address], documented in this encounter Visit Diagnoses Diagnosis Multiple lung nodules on CT documented in this encounter Administered Medications Inactive Administered Medications - up to 3 most recent administrations Medication Order MAR Action Action Date Dose Rate Site iopamidol (ISOVUE-370) 76 % injection 75 mL 75 mL, Intravenous, IMG once as needed, Contrast, 1 dose, Starting on Sun03/15/22 at 0907, Until Sun03/15/22 at 0857 Given 03/15/2022 8:57 AM CDT 75 mLs Right Arm documented in this encounter Care Teams Partition Notcher Relationship Specialty Start Date End Date Denilson Pozo MD PCP - General INTERNAL MEDICINE 08/22/18 09/14/22 documented as of this encounter
--- OUTSIDE RECORDS SUMMARY | 2024-06-13 02:00 | XMS_ITS | Encounter Summary ---
Author Organization [facility] Address [address] [place] [address]. [place], [place] [address] [place] [address] Care Team Providers Care Brick Washer Name Role Phone Denilson Pozo MD Primary Care Provider U navailable Reason for Referral * Imaging (Routine) - Closed Specialty Diagnoses / Procedures Referred By Contac t Referred To Contact RADIOLOGY Diagnoses Multiple lung nodules on CT Procedures CT CHEST W CON Denilson Pozo MD [address] [address] Phone: tel: Referral ID Status Reason Start Date Expiration Date Visits Re quested Visits Authorized [id number] Closed 02/23/2021 03/26/2022 1 1 Reason for Visit * Reason Comments Physical Here for Annual Phys ical. Discuss lab work. Encounter Details Date Type Department Care Team (Late st Contact Info) Description 02/23/2021 4:00 PM CDT Office Visit [facility] Family & Internal Medicine [facility] [address] [place] [address] Denilson Pozo MD Physical (Here for Annual Physical. Discuss lab work. ) Social History Tobacco Use Types Packs/Day Years Used Date Smoking Tobacco: Former Cigarettes 0.5 15 0 07/11/1998 - 07/11/2013 Smokeless Tobacco: Never Tobacco Cessation:Counseling Given: No Alcohol Use Standard Drinks/Week Comments Yes 0 [...] PM CDT documented as of this encounter Last Filed Vital Signs Vital Sign Reading Time Taken Comments Blood Pressure 122/78 02/23/2021 4:02 PM CDT Pulse 66 02/23/2021 4:02 PM CDT Temperature 36.7 ??C (98 ??F) 02/23/2021 4:02 PM CDT Respiratory Rate 18 02/23/2021 4:02 PM CDT Oxygen Saturation 98% 02/23/2021 4:02 PM CDT Inhaled Oxygen Concentration - - Weight 96.4 kg (212 lb 9.6 oz) 02/23/2021 4:02 P M CDT Height 170.2 cm (5' 7 ) 02/23/2021 4:02 PM CDT Body Mass Index 33.3 02/23/2021 4:02 PM CDT documented in this encounter Progress Notes * Denilson Pooz MD - 02/23/2021 4:00 PM CDT Reason for Visit: Physical (Here for Annual Physical. Discuss lab work. ) Filed Vitals: 02/23/21 1602 BP: 122/78 Pulse: 66 Resp: 18 Temp: 98 ??F (36.7 ??C) TempSrc: Temporal SpO2: 98% Weight: 96.4 kg (212 lb 9.6 oz) Height: 5' 7 (1.702 m) Body mass index is 33.3 kg/m??. History of Present Illness: HPI good afternoon office visit and Mrs. Jay 45-year-old lady with a history of breast cancer andrecurrent kidney stones obesity with a BMI of 33.3 she has been losing weight and doing the best she can to do better she is trying to exercise every morning she does not smoke. He said that she doesnot believe in the vaccination for Covid so consequently and she is not getting the vaccination I told her what my thought was about it but she has her mindset. ROS: Review of Systems Constitutional: Negative. Respiratory: Negative. Cardiovascular: Negative. Gastrointestinal: Negative. Genitourinary: Negative. Musculoskeletal: Positive for joint pain. Left elbow pain consistent with epicondylitis Neurological: Negative. Psychiatric/Behavioral: Negative. Medications: Current Outpatient Medications: ??? cephALEXin 500 MG capsule, Take 500 mg by mouth 4 (four) times daily. Indications: Urinary Tract Infection, Recurrent UTI's through Dr. Red, Disp: , Rfl: ??? Multiple Vitamin (MULTIVITAMIN) capsule, Take 1 capsule by mouth daily., Disp: , Rfl: ??? Probiotic Product (PROBIOTIC ADVANCED) Cap, Take 1 capsule by mouth daily., Disp: , Rfl: ??? vitamin D3, cholecalciferol, 1000 UNIT Tab tablet, Take 1 tablet by mouth daily. Indications: Vitamin D Deficiency, Disp: , Rfl: Allergies Allergen Reactions ??? Sulfur Rash and Hives ??? Sulfa Antibiotics Unknown Past Medical History: Diagnosis Date ??? Chronic UTI ??? Influenza vaccine refused ??? Shoulder pain, right Past Surgical History: Procedure Laterality Date ??? BREAST LUMPECTOMY Right 11/2020 ??? SECTION ??? GALLBLADDER SURGERY ??? HYSTERECTOMY ??? OTHER PROCEDURE Renal Lithotripsy Social History Socioeconomic History ??? Marital status: Spouse name: Not on file ??? Number of children: Not on file ??? Years of education: Not on file ??? Highest education level: Not on file Occupational History ??? Not on file Tobacco Use ??? Smoking status: Former Smoker Packs/day: 0.50 Years: 15.00 Pack years: 7.50 Types: Cigarettes Quit date: 07/11/2013 Years since quittin.6 ??? Smokeless tobacco: Never Used Substance and Sexual Activity ??? Alcohol use: Yes Comment: occasional ??? Drug use: No ??? Sexual activity: Not on file Other Topics Concern [...] Social History Narrative ??? Not on file Social Determinants of Health Financial Resource Strain: ??? Difficulty of Paying Living Expenses: Food Insecurity: ??? Worried About Running Out of Food in the Last Year: ??? Ran Out of Food in the Last Year: Transportation Needs: ??? Lack of Transportation (Medical): ??? Lack of Transportation (Non-Medical): Physical Activity: ??? Days of Exercise per Week: ??? Minutes of Exercise per Session: Stress: ??? Feeling of Stress : Social Connections: ??? Frequency of Communication with Friends and Family: ??? Frequency of Social Gatherings with Friends and Family: ??? Attends [employer] Services: ??? Active Member of Clubs or Organizations: ??? Attends Club or Organization Meetings: ??? Marital Status: Intimate Partner Violence: ??? Fear of Current or Ex-Partner: ??? Emotionally Abused: ??? Physically Abused: ??? Sexually Abused: Family History Problem Relation Name Age of Onset ??? None Mother Family Status Relation Name Status ??? Mother (Not Specified) Physical Exam Constitutional: She is oriented to person, place, and time. She appears well- developed and well-nourished. BMI is 33.3 Cardiovascular: Normal rate and regular rhythm. Pulmonary/Chest: Effort normal and breath sounds normal. Musculoskeletal: General: Normal range of motion. Cervical back: Normal range of motion and neck supple. Comments: Symptoms suggestive of lateral epicondylitis in the left elbow we discussed and I gave her some advise how to deal with that including Aleve 2 pills twice a day for 2 weeks in the brace. Neurological: She is alert and oriented to person, place, and time. Psychiatric: She has a normal mood and affect. Assessment Encounter Diagnose(s) ICD-10-CM ICD-9-CM SNOMED CT(R) 1. Multiple lung nodules on CT R91.8 793.19 [address] OF LUNG CT CHEST W CON 2. Vitamin D deficiency E55.9 268.9 VITAMIN D DEFICIENCY VITAMIN D, 25 OH VITAMIN D, 25 OH 3. Health care maintenance Z00.00 V70.0 PATIENT ENCOUNTER STATUS CBC W/DIFF AUTOMATED COMPREHENSIVE METABOLIC PANEL LIPID PANEL TSH W/REFLEX CBC W/DIFF AUTOMATED COMPREHENSIVE METABOLIC PANEL LIPID PANEL TSH W/REFLEX 4. BMI 33.0-33.9,adult Z68.33 V85.33 BODY MASS INDEX 30+ - OBESITY Plan in one of the CT scans of the abdomen were noted few nodules and the base of the right lung soI am going to proceed with a CT scan of the chest with contrast to address that issue she is not a smoker she used to smoke few years ago on discontinuing 2014. She has a history of low vitamin D 17 so encouraged her to continue with the supplementation and wewill check the blood tests coming up she sees a specialist for her kidney stones recurrence and shesees an oncologist for her breast cancer monitoring they cannot be doing them very close monitoringevery 6 months for now this is her 2nd surgery. Orders Placed This Encounter ??? CBC W/DIFF AUTOMATED ??? COMPREHENSIVE METABOLIC PANEL ??? LIPID PANEL ??? TSH W/REFLEX ??? VITAMIN D, 25 OH ??? CT CHEST W CON ??? Multiple Vitamin (MULTIVITAMIN) capsule ??? DISCONTD: Docusate Sodium (DSS) 100 MG Cap Follow up FU 1 YEARS DENILSON POZO MD 02/23/2021 4:47 PM documented in this encounter Plan of Treatment Upcoming Encounters Date Type Department Care Team (Late st Contact Info) Description 06/23/2024 2:40 PM ELECTRICAL TECHNICIAN INSTRUCTOR Office Visit [facility] Family & Internal Medicine [facility] [address] [place] [address] [place] [address] [place] [address] Scheduled Orders Name Type Priority Associated Diagnoses Orde r Schedule CBC W/DIFF AUTOMATED Lab Routine Health care maintenance Expected: 02/24/2021, Expires: 02/23/2022 COMPREHENSIVE METABOLIC PANEL Lab Routine Health care maintenance Expected: 02/24/2021, Expires: 02/23/2022 LIPID PANEL Lab Routine Health care maintenance Expected: 02/24/2021, Expires: 02/23/2022 TSH W/REFLEX Lab Routine Health care maintenance Expected: 02/24/2021, Expires: 02/23/2022 VITAMIN D, 25 OH Lab Routine Vitamin D deficiency Expected: 02/24/2021, Expires: 02/23/2022 documented as of this encounter Results * [...] in one year to assess long-term stability ([facility] 2017). 5. Mediastinum: The visible lymph [...] Interpreted By: Kane Felipe, 03/04/2021 8:51 AM us Denilson Pozo MD CT Final Re sult documented in this encounter Visit Diagnoses Diagnosis Multiple lung nodules on CT- Primary Vitamin D deficiency Unspecified vitamin D deficiency Health care maintenance Unspecified general medical examination BMI 33.0-33.9,adult Body Mass Index 33.0-33.9, adult Multiple lung nodules on CT documented in this encounter Care Teams Brick Washer Relationship Specialty Start Date End Date Denilson Pozo MD PCP - General INTERNAL MEDICINE 08/22/18 09/14/22 documented as of this encounter
--- OUTSIDE RECORDS SUMMARY | 2024-06-13 02:00 | XMS_ITS | Encounter Summary ---
Author Organization [facility] Address [address] [place] [address]. [place], [place] [address] [place] [address] Care Team Providers Care Apprenticeship Consultant Name Role Phone Denilson Ferrara MD Primary Care Provider U rayshawn Reason for Visit * Reason Onset Date Comments Question 07/28/2020 Encounter Details Date Type Department Care Team (Late st Contact Info) Description 07/28/2020 Telephone [facility] Family & Internal Medicine [address] [address] Denilson Ferrara MD Question Social History Tobacco Use Types Packs/Day Years [...] COVID-19? No / Unsure 07/22/2020 8:01 AM PROGRESSIVE CARE UNIT REGISTERED NURSE documented as of this encounter Progress Notes * Tamy Ramos RN - 07/29/2020 8:36 AM CST Patient informed and appointment made today with Veronique Villagran RESSIVE CARE UNIT REGISTERED NURSE * TASNEEM Rodriguez - 07/29/2020 8:27 AM CST She will either have to use the ER or be seen sooner by another provider that has availability. I would not call anything out or order testing without evaluation RESSIVE CARE UNIT REGISTERED NURSE * Chastity Cardenas - 07/29/2020 8:20 AM CST Appt miriam'd on 08/10 RESSIVE CARE UNIT REGISTERED NURSE * Tamy Ramos RN - 07/29/2020 8:19 AM CST Patient did make an appointment for 08/11 but is complaining of severe pain to her right side under ribs with radiating to the back (she does not have her gall bladder) States it goes away if she lays down and if she takes 4 Motrin-it seems to help-she says it is constant-please advise RESSIVE CARE UNIT REGISTERED NURSE * Miya Vargas RN - 07/29/2020 7:43 AM CST . RESSIVE CARE UNIT REGISTERED NURSE * Rosalie Lemus MA - 07/28/2020 4:32 PM CST Please get the patient an appointment per provider about a lung nodule. RESSIVE CARE UNIT REGISTERED NURSE * TASNEEM Rodriguez - 07/28/2020 4:23 PM CST She should make a follow up appt. She does have a nodule in her lung that needs addressed but her liver looks ok and she has multiple stones RESSIVE CARE UNIT REGISTERED NURSE * Tamy Ramos RN - 07/28/2020 4:02 PM CST Please advise RESSIVE CARE UNIT REGISTERED NURSE * Chastity Cardenas - 07/28/2020 3:48 PM CST Pt called stating she had CT last week and she is wanting to make sure everything is ok with her liver and all she knows they found kidney stones but she doesn't think that is why she is still in so much pain please advise c/b # [phone] RESSIVE CARE UNIT REGISTERED NURSE documented in this encounter Plan of Treatment Upcoming Encounters Date Type Department Care Team (Late st Contact Info) Description 06/23/2024 2:40 PM PROGRESSIVE CARE UNIT REGISTERED NURSE Office Visit [facility] Family & Internal Medicine [facility] [address] [place] [phone] [place] [phone] [place] [address] documented as of this encounter Visit Diagnoses Not on filedocumented in this encounter Care Teams Apprenticeship Consultant Relationship Specialty Start Date End Date Denilson Ferrara MD PCP - General INTERNAL MEDICINE 08/22/18 09/14/22 documented as of this encounter
--- OUTSIDE RECORDS SUMMARY | 2024-06-13 02:01 | XMS_ITS | Encounter Summary ---
Author Organization [facility] Address [address] [place] [address]. [place], [place] [address] [place] [address] Care Team Providers Care Behavioral Instructor Name Role Phone Unavailable Primary Care Provider Unavailabl e Encounter Details Date Type Department Care Team (Late st Contact Info) Description 04/22/2012 Abstract [facility] [address] [place], [place] [id number] Tanner Red MD [address] [place] [address] Social History Tobacco Use Types Packs/Day Years Used Date Smoking Tobacco: Never Assessed Comments Unknown Sex and Gender Information Value Date Recorded Sex Assigned at Not on file Legal Sex Female 7:01 PM CDT Gender Identity Not on file Sexual Orientation Not on file documented as of this encounter Plan of Treatment Upcoming Encounters Date Type Department Care Team (Late st Contact Info) Description 06/23/2024 2:40 PM HEALTH DATA ADMINISTRATOR Office Visit [facility] Family & Internal Medicine [facility] [address] [place] [address] [place] [address] [place] [address] documented as of this encounter Visit Diagnoses Diagnosis Calculus of kidney documented in this encounter
--- OUTSIDE RECORDS SUMMARY | 2024-06-13 02:01 | XMS_ITS | Encounter Summary ---
Author Organization [facility] Address [address] [place] [address]. [place], [place] [address] [place] [address] Care Team Providers Care Sleeve Sewer Name Role Phone Unavailable Primary Care Provider Unavailabl e Encounter Details Date Type Department Care Team (Late st Contact Info) Description 07/10/2014 Abstract [facility] Family & Internal Medicine [address] [phone] Denilson Ferrara MD Social History [...] Sign Reading Time Taken Comments Blood Pressure 134/78 07/10/2014 1:34 PM SLIDE FASTENER CHAIN ASSEMBLER Pulse 72 07/10/2014 1:34 PM SLIDE FASTENER CHAIN ASSEMBLER Temperature - - Respiratory Rate - - Oxygen Saturation - - Inhaled Oxygen Concentration - - Weight 108.4 kg (239 lb) 07/10/2014 1:34 PM SLIDE FASTENER CHAIN ASSEMBLER Height - - Body Mass Index 37.43 10/23/2013 2:32 PM CDT documented in this encounter Progress Notes * Denilson Ferrara MD - 07/10/2014 1:15 PM CST Reason For Visit Acute Visit Chief Complaint 1. Abdominal Pain C/O abdominal pain, bloating at times, nausea and occ. diarrhea History of Present Illness A 39-year-old lady, very pleasant lady, has been my patient for many years. She is actually taking no medications; however, her weight has been going up and up 239 lbs., BMI 37. She is only 5 feet 7 inches tall. She is about 60 pounds overweight. So, we had a long conversation. She is interested intrying to lose some weight. She said that she is having some abdominal pains suggestive of heartburn perhaps or acidity, sometimes, it looks could be gallbladder and also sometimes, she feels like she has some palpitations. We had a long conversation and she got motivated to the fact that she thinks that she is going to try to lose some weight and see all these solve some of her problems. Karena Jay presents with complaints of gradual onset of intermittent episodes of moderate epigastric abdominal pain, described as crampy. Episodes started 2 years ago. Associated symptoms include nausea and diarrhea. Review of Systems See HPI for pertinent positives. Constitutional: no fever, no chills and no headache. ENT: no earache, no sore throat, no hearing loss and no nasal discharge. Cardiovascular: palpitations, but no chest pain, no intermittent leg claudication and no lower extremity edema. Respiratory: no shortness of breath, no cough, no wheezing, no shortness of breath during exertion and no PND. Gastrointestinal: heartburn, but no abdominal pain, no constipation, no vomiting, no diarrhea and no melena (Gastroesophageal reflux). Genitourinary: no dysuria and no incontinence. Integumentary: no skin lesions and no skin rash. Musculoskeletal: no arthralgias, no joint swelling, no limb pain, no joint pain and no joint stiffness. Neurological: no confusion, no dizziness, no limb weakness and no difficulty walking. Psychiatric: no anxiety, no ideation and no depression. Active Problems 1. Abdominal pain (789.00) (R10.9) 2. Shoulder pain, right (719.41) (M25.511) Surgical History 1. History of Section 2. History of Gallbladder Surgery 3. History of Hysterectomy 4. History of Lithotripsy Family History Mother 1. No pertinent family history Father 2. No pertinent family history Social History ?? Former smoker (V15.82) (Z87.891) ? Occasional alcohol use Current Meds 1. No Reported Medications Recorded ALESSANDRO = N; Record; Last Updated By: Chastity Soto; 10/23/2013 2:37:48 PM Allergies 1. Sulfa Drugs Recorded By: Chastity Soto; 10/23/2013 2:37:48 PM Vitals Signs [Data Includes: Current Encounter] Recorded by : Jodi Breen at 10Jul2014 01:34PM Weight: 239 lb BMI Calculated: 37.43 BSA Calculated: 2.18 Heart Rate: 72 Systolic: 134 Diastolic: 78 O2 Saturation: 98, RA Physical Exam Constitutional General appearance: Abnormal. Her BMI of 37, 239 lbs. pretty overweight. Eyes Conjunctiva and lids: No swelling, erythema or discharge. Pupils and irises: Equal, round and reactive to light. Ears, Nose, Mouth, and Throat External inspection of ears and nose: Normal. Oropharynx: Normal with no erythema, edema, exudate or lesions. Pulmonary Respiratory effort: No increased work of breathing or signs of respiratory distress. Auscultation of lungs: Clear to auscultation. Cardiovascular Auscultation of heart: Normal rate and rhythm, normal S1 and S2, without murmurs. Examination of extremities for edema and/or varicosities: Normal. Abdomen Abdomen: Abnormal. Prominent, soft and nontender. Lymphatic Palpation of lymph nodes in neck: No lymphadenopathy. Musculoskeletal Gait and station: Normal. Inspection/palpation of joints, bones, and muscles: Normal. Skin Skin and subcutaneous tissue: Normal without rashes or lesions. Neurologic Cranial nerves: Cranial nerves 2-12 intact. Reflexes: 2+ and symmetric. Psychiatric Orientation to person, place, and time: Normal. Mood and affect: Normal. Assessment 1. Palpitations (785.1) (R00.2) 2. Abdominal pain (789.00) (R10.9) 3. BMI 37.0-37.9, adult (V85.37) (Z68.37) Discussion/Summary We had a long conversation about her situation. I tried to encourage her to cut down 300 calories every single day. I explained to her that the way she got there with the weight was one day at a time, so one day at a time, she can get rid of those pounds, cutting the calories every single day, so she is going to try that before we try anything else. She is going to try to go to the health fair and see what the calories are and all those things which is in September. She is going to try diet first. Signatures Electronically signed by : Denilson Ferrara M.D.; Jul 14 2014 6:32PM SLIDE FASTENER CHAIN ASSEMBLER (Author) Electronically signed by : Denilson Ferrara M.D.; Jul 14 2014 6:32PM SLIDE FASTENER CHAIN ASSEMBLER (Author) documented in this encounter Plan of Treatment Upcoming Encounters Date Type Department Care Team (Late st Contact Info) Description 06/23/2024 2:40 PM SLIDE FASTENER CHAIN ASSEMBLER Office Visit [facility] Family & Internal Medicine [facility] [phone] [place] [phone] [place] [address] [place] [address] documented as of this encounter Visit Diagnoses Not on filedocumented in this encounter
--- OUTSIDE RECORDS SUMMARY | 2024-06-13 02:01 | XMS_ITS | Encounter Summary ---
Author Organization [facility] Address [address] [place] [address]. [place], [place] [address] [place] [address] Care Team Providers Care Metal Bending Machine Operator Name Role Phone Unavailable Primary Care Provider Unavailabl e Encounter Details Date Type Department Care Team (Latest Contact Info) Description 09/16/2013 Abstract [facility] Social History Tobacco Use Types Packs/Day [...] st Contact Info) Description 06/23/2024 2:40 PM LIVESTOCK COMMISSION AGENT Office Visit [facility] Family & Internal Medicine [facility] [address] [place] [address] [place] [address] [place] [address] documented as of this encounter Visit Diagnoses Not on filedocumented in this encounter
--- OUTSIDE RECORDS SUMMARY | 2024-06-13 02:01 | XMS_ITS | Encounter Summary ---
Author Organization [facility] Address [address] [place] [address]. [place] [address] [place] [address] Care Team Providers Care Trading Floor Operator Name Role Phone Unavailable Primary Care Provider Unavailabl e Encounter Details Date Type Department Care Team (Late st Contact Info) Description 10/02/2017 Abstract [facility] [address] [place], [place] [id number] Monica Fuller MD [address] [place], [place] [id number] Social History Tobacco Use Types Packs/Day Years [...] Contact Info) Description 06/23/2024 2:40 PM SURVEY MANAGER Office Visit [facility] Family & Internal Medicine [facility] [address] [place] [address] [place] [address] [place] [address] documented as of this encounter Procedures Procedure Name Priority Date/Time Associated Diagnosis Comments HEALTH FAIR WITH LIPID Routine 10/02/2017 12:10 AM CDT VITAMIN D, 25 OH Routine 10/02/2017 12:1 0 AM CDT documented in this encounter Results * VITAMIN D, 25 OH (10/02/2017 12:10 AM CDT) Pathologist [facility] VITAMIN D 25 HYDROXY S/P/B 17 30 - 100 NG/ML 10/03/2017 4:12 PM CDT [facility] Comment: ?INTERPRETATION ?DEFICIENT ??<20 ? INSUFFICIENT 20-29 ?SUFFICIENT 30-100 10/02/2017 12:1 0 AM CDT 10/02/2017 2:27 AM CDT us Generic Conversion Md [facility] Final R esult [facility] [address] [place] [address], [place] [phone] * (ABNORMAL) HEALTH FAIR WITH LIPID (10/02/2017 12:10 AM CDT) [facility] WBC 7.4 4.4 - 11.0 x10'3/uL 10/02/2017 10:34 AM CDT [facility] RBC 4.64 4.50 - 5.10 x10'6/uL 10/02/2017 10:34 AM CDT [facility] HGB 14.5 12.3 - 15.3 G/DL 10/02/2017 10:34 AM CDT [facility] HCT 42.9 35.9 - 44.6 % 10/02/2017 10:34 AM CDT [facility] MCV 92.5 80.0 - 96.0 FL 10/02/2017 10:34 AM CDT [facility] MCH 31.3(H) 25.3 - 30.9 PG 10/02/2017 10:34 AM [facility] MCHC 33.8 31.0 - 34.1 G/DL 10/02/2017 10:34 AM [facility] RDW 12.2(L) 12.4 - 15.1 % 10/02/2017 10:34 AM [facility] PLT 242 151 - 353 x10'3/uL 10/02/2017 10:34 AM [facility] MPV 9.7 9.6 - 12.0 FL 10/02/2017 10:34 AM [facility] RBC MORPHOLOGY NORMAL 10/02/2017 10:34 AM [facility] PLT MORPH. NORMAL 10/02/2017 10:34 AM [facility] WBC MORPHOLOGY NORMAL 10/02/2017 10:34 AM [facility] LYMPHOCYTES % 36.7 15.8 - 45.0 % 10/02/2017 10:34 AM [facility] NEUTROPHILS % 51.7 42.1 - 71.9 % 10/02/2017 10:34 AM [facility] MONOCYTES % 7.0 5.7 - 12.5 % 10/02/2017 10:34 AM [facility] EOSINOPHILS 3.1 0.0 - 5.6 % 10/02/2017 10:34 AM [facility] BASOPHILS 1.1 0.0 - 1.3 % 10/02/2017 10:34 AM [facility] ABS. NEUTROPHILS TOTAL 3.83 1.40 - 6.00 x10'3/uL 10/02/2017 10:34 AM [facility] IMMATURE GRANS % 0.4 0.0 - 0.5 % 10/02/2017 10:34 AM [facility] ABS. LYMPHOCYTES 2.72 0.80 - 4.70 x10'3/uL 10/02/2017 10:34 AM [facility] GLUCOSE 88 70 - 99 MG/DL 10/03/2017 4:12 AM [facility] BUN 12 7 - 18 MG/DL 10/03/2017 4:12 AM [facility] CREATININE S/P/B 0.79 0.55 - 1.02 MG/DL 10/03/2017 4:12 AM [facility] SODIUM S/P/B 141 136 - 145 MMOL/L 10/03/2017 4:12 AM [facility] POTASSIUM S/P/B 4.7 3.5 - 5.1 MMOL/L 10/03/2017 4:12 AM [facility] CHLORIDE S/P/B 104 100 - 108 MMOL/L 10/03/2017 4:12 AM [facility] CO2 28.2 21 - 32 MMOL/L 10/03/2017 4:12 AM [facility] CALCIUM S/P/B 9.0 8.5 - 10.1 MG/DL 10/03/2017 4:12 AM [facility] BILIRUBIN TOTAL S/P/B 0.7 0.2 - 1.2 MG/DL 10/03/2017 4:12 AM [facility] TOTAL PROTEIN S/P/B 7.6 6.4 - 8.2 G/DL 10/03/2017 4:12 AM [facility] ALBUMIN S/P/B 4.3 3.4 - 5.0 G/DL 10/03/2017 4:12 AM [facility] AST 8(L) 15 - 37 U/L 10/03/2017 4:12 AM [facility] ALT 22 U/L 10/03/2017 4:12 AM [facility] ALKALINE PHOSPHATASE S/P/B 55 50 - 136 U/L 10/03/2017 4:12 AM [facility] ANION GAP 13.5 8 - 20 MMOL/L 10/03/2017 4:12 AM [facility] BUN CREATININE RATIO 15.2 6 - 26 10/03/2017 4:12 AM [facility] A/G RATIO 1.3 1.0 - 2.0 RATIO 10/03/2017 4:12 AM [facility] EGFR NON-AFR. AMER. >90 >90 ML/MIN/1. 73 M2 10/03/2017 4:12 AM [facility] EGFR AFR. AMER. >90 >90 ML/MIN/1. 73 M2 10/03/2017 4:12 AM [facility] Comment: NOTE: eGFR is not calculated for patients <18 years of age. This is an estimated GFR (CKD EPI) and should not be used for calculating drug doses. CHOLESTEROL 172 0.0 - 199.0 MG/DL 10/03/2017 4:12 AM [facility] TRIGLYCERIDES 185(H) <150 MG/DL 10/03/2017 4:12 AM [facility] HDL 45(H) >40.0 MG/DL 10/03/2017 4:12 AM [facility] LDL (CALCULATED) 90.0 <100 MG/L 10/04/19 18 4:12 AM [facility] NON HDL CHOLESTEROL 127 0 - 129 MG/DL 10/03/2017 4:12 AM [facility] CHOL/HDL RATIO 3.8 0.0 - 4.5 10/03/2017 4:12 AM [facility] VLDL CALCULATION 37 5 - 55 MG/DL 10/03/2017 4:12 AM CDT [facility] LIPID INTERPRETATION 10/03/2017 4:12 AM CDT [facility] Comment: NIH CONCENSUS REPORT RECOMMENDATIONS: ?ADULT ? CHILD ??LOW RISK: ?CHOLESTEROL ? <200 ? <170 ? TRIGLYCERIDE ?<150 ?--- ?HDL ? >=60 ?--- ?LDL ? <100 ? <110 ?? BORDERLINE: ?CHOLESTEROL ? 200-239 ?? 170-199 ?TRIGLYCERIDE ?150-199 ? --- ?HDL ? 40-59 ?--- ?LDL ? 100-159 ?? 110- 129 ?? HIGH RISK: ? CHOLESTEROL ? >=240 ?>=200 ?TRIGLYCERIDE ?>=200 ? --- ?HDL ?<40 ?--- ?LDL ? >=160 ?>=130 TSH 3.269 0.358 - 3.74 uIU/ML 10/03/2017 4:12 AM CDT [facility] Comment: HIGH DOSES OF BIOTIN MAY INTERFERE WITH THIS TEST RESULT. CORRELATION TO CLINICAL HISTORY AND PRESENTATION RECOMMENDED. OTHER (type in comments) 10/02/2017 12:10 AM CDT 10/02/2017 2:27 AM CDT Comment:WHOLE BLOOD SAMPLE ~ ~ACELLULAR BLOOD (SERUM OR PLASMA) SPECIMEN us Generic Conversion Md [facility] Final R esult [facility] [address] [place] [address], [place] [phone] documented in this encounter Visit Diagnoses Not on filedocumented in this encounter
--- OUTSIDE RECORDS SUMMARY | 2024-06-13 02:01 | XMS_ITS | Encounter Summary ---
Author Organization [facility] Address [address] [place] [address]. [place], [place] [address] [place] [address] Care Team Providers Care Associate Merchant Name Role Phone Unavailable Primary Care Provider Unavailabl e Encounter Details Date Type Department Care Team (Late st Contact Info) Description 03/24/2014 Abstract [facility] [address] [place], [place] [id number] Tanner Red MD [address] [place] [address] Social History Tobacco Use Types Packs/Day Years [...] st Contact Info) Description 06/23/2024 2:40 PM REPAIRER ART OBJECTS Office Visit [facility] Family & Internal Medicine [facility] [address] [place] [address] [place] [address] [place] [address] documented as of this encounter Visit Diagnoses Diagnosis Other specified disorders of kidney and ureter documented in this encounter
--- OUTSIDE RECORDS SUMMARY | 2024-06-13 02:01 | XMS_ITS | Encounter Summary ---
Author Organization [facility] Address [address] [place] [address]. [place], [place] [address] [place] [address] Care Team Providers Care Vinyl Installer Name Role Phone Unavailable Primary Care Provider Unavailabl e Encounter Details Date Type Department Care Team (Late st Contact Info) Description 11/04/2014 Abstract [facility] Family & Internal Medicine [address] [address] Denilson Ferrara MD Social History [...] Sign Reading Time Taken Comments Blood Pressure 122/70 11/04/2014 11:45 AM CDT Pulse 88 11/04/2014 11:45 AM CDT Temperature - - Respiratory Rate - - Oxygen Saturation - - Inhaled Oxygen Concentration - - Weight 102.1 kg (225 lb) 11/04/2014 11:45 AM CDT Height - - Body Mass Index 35.24 10/23/2013 2:32 PM CDT documented in this encounter Progress Notes * Denilson Ferrara MD - 11/04/2014 11:45 AM CDT Reason For Visit Chronic Recheck Visit Chief Complaint Routine check up, discuss the results of Health Fair labs. No complaints History of Present Illness A 39-year-old lady brought her health fair results today; cholesterol 207, HDL 42, triglycerides 204, LDL 124, her non-HDL cholesterol 165, sugar 85. Chem 14 all normal. TSH 2.58, white count all normal. Everything normal. Everything came back pretty good but the most important interesting and exciting thing is the fact that she lost few pounds and she is very excited about continuing losing it. In June, she was 239 lbs. almost 240. Now is 225. She is dressed nice and she seems to be doing very well and excited about continue working with that. She is doing a diet and exercising, so that is very exciting. I gave her all my support on that. Her vital signs are stable. She is not taking any current medications. Review of Systems See HPI for pertinent positives. Constitutional: no fever, no chills and no headache. ENT: no earache, no sore throat, no hearing loss and no nasal discharge. Cardiovascular: no chest pain, no intermittent leg claudication, no palpitations and no lower extremity edema. Respiratory: no shortness of breath, no cough, no wheezing, no shortness of breath during exertion and no PND. Gastrointestinal: no abdominal pain, no constipation, no heartburn, no vomiting, no diarrhea and nomelena. Genitourinary: no dysuria and no incontinence. Integumentary: no skin lesions and no skin rash. Musculoskeletal: no arthralgias, no joint swelling, no limb pain, no joint pain and no joint stiffness. Neurological: no confusion, no dizziness, no limb weakness and no difficulty walking. Psychiatric: no anxiety, no ideation and no depression. Active Problems 1. Abdominal pain (789.00) (R10.9) 2. Palpitations (785.1) (R00.2) 3. Shoulder pain, right (719.41) (M25.511) Surgical History 1. History of Section 2. History of Gallbladder Surgery 3. History of Hysterectomy 4. History of Renal Lithotripsy Family History 1. No pertinent family history 2. No pertinent family history Social History ?? Former smoker (V15.82) (Z87.891) ? Occasional alcohol use Current Meds 1. No Reported Medications Recorded Allergies 1. Sulfa Drugs Vitals Recorded: 04Nov2014 11:45AM Heart Rate 88 Systolic 122 Diastolic 70 O2 Saturation 98, RA Weight 225 lb BMI Calculated 35.24 BSA Calculated 2.13 Physical Exam Constitutional General appearance: Abnormal. Obesity. BMI is down to 35. Her weight is 225 and she is only 5'7 . Eyes Conjunctiva and lids: No swelling, erythema or discharge. Ears, Nose, Mouth, and Throat External inspection [...] for edema and/or varicosities: Normal. Abdomen Abdomen: Non-tender, no masses. Lymphatic Palpation of lymph nodes in neck: No lymphadenopathy. Musculoskeletal Gait and station: Normal. Inspection/palpation of joints, bones, and muscles: Normal. Skin Skin and subcutaneous tissue: Normal without rashes or lesions. Neurologic Cranial nerves: Cranial nerves 2-12 intact. Reflexes: 2+ and symmetric. Psychiatric Orientation to person, place, and time: Normal. Mood and affect: Normal. Assessment 1. BMI 35.0-35.9,adult (V85.35) (Z68.35) Discussion/Summary She is going to continue working with that and I would like to see her back in 6 months. We are thinking the possibility of repeating cholesterol somehow later on. However as long as she is continuing losing weight, I rather not check the cholesterol unless she insists. The only diagnosis we have is obesity right now and she is improving. Signatures Electronically signed by : Denilson Ferrara M.D.; Nov 08 2014 7:15PM AUTOCAD DESIGNER (Author) CAD DESIGNER documented in this encounter Plan of Treatment Upcoming Encounters Date Type Department Care Team (Late st Contact Info) Description 06/23/2024 2:40 PM AUTOCAD DESIGNER Office Visit [facility] Family & Internal Medicine [address] [address] [place] [address] [place] [address] documented as of this encounter Visit Diagnoses Not on filedocumented in this encounter
--- OUTSIDE RECORDS SUMMARY | 2024-06-13 02:01 | XMS_ITS | Encounter Summary ---
Author Organization [facility] Address [address] [place] [address]. [place], [place] [address] [place] [address] Care Team Providers Care Pharmacy Technology Instructor Name Role Phone Unavailable Primary Care Provider Unavailabl e Encounter Details Date Type Department Care Team (Latest Contact Info) Description 09/14/2015 Abstract [facility] Denilson Ferrara MD Social History Tobacco Use [...] st Contact Info) Description 06/23/2024 2:40 PM POLICE LIAISON OFFICER Office Visit [facility] Family & Internal Medicine [facility] [address] [place] [address] Ravinder Ford PA [address] [place] [address] documented as of this encounter Visit Diagnoses Not on filedocumented in this encounter
--- OUTSIDE RECORDS SUMMARY | 2024-06-13 02:01 | XMS_ITS | Encounter Summary ---
Author Organization [facility] Address [address] [place] [address]. [place], [place] [address] [place] [address] Care Team Providers Care Interstate Bus Driver Name Role Phone Denilson Ferrara MD Primary Care Provider U rayshawn Reason for Visit * Reason Onset Date Comments Follow Up Call 09/16/2018 Encounter Details Date Type Department Care Team (Late st Contact Info) Description 09/16/2018 Telephone [facility] Family & Internal Medicine [address] [address] Denilson Ferrara MD Follow Up Call Social History Tobacco Use Types Packs/Day Years Used Date Smoking Tobacco: Former Cigarettes 0.5 15 0 07/11/1998 - 07/11/2013 Smokeless Tobacco: Never Alcohol Use Standard Drinks/Week Comments Yes 0 (1 standard drink = 0.6 oz pur e alcohol) AUDIT-C Answer Date Recorded Frequency of Alcohol Consumption Monthly or less 08/22/2018 Average Number of Drinks 1 or 2 019 Frequency of Binge Drinking Never 08/09 Comments Unknown Sex and Gender Information Value Date Recorded Sex Assigned at Not on file Legal Sex Female 7:01 PM CDT Gender Identity Not on file Sexual Orientation Not on file documented as of this encounter Progress Notes * Bel Galeana RN - 09/16/2018 9:36 AM CDT Pt made an appt for 09/18 at 9:30 to see the INSPECTOR WEIGHTS AND MEASURES at Dr. Sofia's office. Please complete referral by then. documented in this encounter Plan of Treatment Upcoming Encounters Date Type Department Care Team (Late st Contact Info) Description 06/23/2024 2:40 PM BLACK AND WHITE PRINTER OPERATOR Office Visit [facility] Medical Group Family & Internal Medicine [facility] [address] [place] [address] [place] [address] [place] [address] documented as of this encounter Visit Diagnoses Not on filedocumented in this encounter Care Teams Interstate Bus Driver Relationship Specialty Start Date End Date Denilson Ferrara MD PCP - General INTERNAL MEDICINE 08/22/18 09/14/22 documented as of this encounter
--- OUTSIDE RECORDS SUMMARY | 2024-06-13 02:01 | XMS_ITS | Encounter Summary ---
Author Organization [facility] Address [address] [place] [address]. [place], [place] [address] [place] [address] Care Team Providers Care School Health Aide Name Role Phone Unavailable Primary Care Provider Unavailabl e Encounter Details Date Type Department Care Team (Late st Contact Info) Description 06/25/2012 Abstract [facility] [address] [place], [place] [phone] Tanner Red MD [address] [place] [address] Social History Tobacco Use Types Packs/Day Years [...] st Contact Info) Description 06/23/2024 2:40 PM CUSTOM SEAMSTRESS Office Visit [facility] Family & Internal Medicine [facility] [address] [place] [address] [place] [address] [place] [address] documented as of this encounter Visit Diagnoses Diagnosis Pre-operative examination Preoperative examination, unspecified documented in this encounter
--- OUTSIDE RECORDS SUMMARY | 2024-06-13 02:01 | XMS_ITS | Encounter Summary ---
Author Organization [facility] Address [address] [place] [address]. [place], [place] [address] [place] [address] Care Team Providers Care Retread Mold Operator Name Role Phone Unavailable Primary Care Provider Unavailabl e Encounter Details Date Type Department Care Team (Latest Contact Info) Description 02/14/2017 Abstract [facility] Social History Tobacco Use [...] st Contact Info) Description 06/23/2024 2:40 PM SKIDWAY MAN [facility] Family & Internal Medicine [facility] [address] [place] [address] [place] [address] [place] [address] documented as of this encounter Visit Diagnoses Not on filedocumented in this encounter
--- OUTSIDE RECORDS SUMMARY | 2024-06-13 02:01 | XMS_ITS | Encounter Summary ---
Author Organization [facility] Address [facility] [place] [address] [place] [address] Care Team Providers Care Wire Stretcher Name Role Phone Unavailable Primary Care Provider Unavailabl e Encounter Details Date Type Department Care Team (Late st Contact Info) Description 10/23/2013 Abstract [facility] Family & Internal Medicine [address] [address] Torsten Barriga MD [address] [place] [address] Social History Tobacco Use Types Packs/Day Years Used Date Smoking Tobacco: Never Assessed Comments Unknown Sex and Gender Information Value Date Recorded Sex Assigned at Not on file Legal Sex Female 7:01 PM CDT Gender Identity Not on file Sexual Orientation Not on file documented as of this encounter Last Filed Vital Signs Vital Sign Reading Time Taken Comments Blood Pressure 134/88 10/23/2013 2:32 PM CDT Pulse 78 10/23/2013 2:32 PM CDT Temperature - - Respiratory Rate - - Oxygen Saturation - - Inhaled Oxygen Concentration - - Weight 109.3 kg (241 lb) 10/23/2013 2:32 PM CDT Height 170.2 cm (5' 7 ) 10/23/2013 2:32 PM CDT Body Mass Index 37.75 10/23/2013 2:32 PM CDT documented in this encounter Progress Notes * Torsten Barriga MD - 10/23/2013 2:30 PM CDT Reason For Visit Reason For Visit: Acute Visit Chief Complaint 1. Shoulder Pain Chief Complaint Free Text: Pt c/o right shoulder pain, no known injury History of Present Illness Shoulder Pain: Karena Jay presents with complaints of gradual onset of intermittent episodes of moderate rightshoulder pain, described as dull and aching, radiating to the right neck. Episodes started 1-2 weeks ago. Symptoms are improved by restricted activity and non-opioid analgesics. Symptoms are made worse by shoulder elevation and lifting. Symptoms are unchanged. Pertinent Medical History: no osteoarthritis, no shoulder pain, no shoulder dislocation and no shoulder surgery. Associated symptoms include decreased range of motion and pain in the arm, but no swelling, no warmth, no numbness in the arm, no weakness in the arm and no fever. Abdominal Pain (Non-Malignant) (Brief): The patient is being seen for an initial evaluation of non-malignancy related abdominal pain. Symptoms: diarrhea, but no nausea and no vomiting The patient presents with complaints of gradual onset of intermittent episodes of mild right lower quadrant abdominal pain, described as crampy and dull, non- radiating. Episodes started 1 month ago. Her symptoms are caused by travel and new medication. Symptoms are unchanged. Pertinent Medical History: abdominal surgery, but not GERD, inflammatory bowel disease and irritable bowel syndrome. The patient is not currently being treated for this problem. Review of Systems Complete ROS Female: Constitutional: no fever and no chills. Cardiovascular: no palpitations and no chest pain. Respiratory: no shortness of breath and no cough. Gastrointestinal: abdominal pain and diarrhea. Surgical History 1. History of Section 2. [...] By: Chastity Soto; 10/23/2013 2:37:48 PM Vitals Vital Signs [Data Includes: Current Encounter] Recorded by : Chastity Soto at [id number] 02:32PM Temperature 98.7 F Heart Rate 78 Respiration 18 Systolic 134 Diastolic 88 O2 Saturation 95 Height 5 ft 7 in Weight 241 lb BMI Calculated 37.75 BSA Calculated 2.19 Physical Exam Constitutional General appearance: No acute distress, well appearing and well nourished. Neck Thyroid: Normal, no thyromegaly. Pulmonary Respiratory effort: No increased work of breathing or signs of respiratory distress. Auscultation of lungs: Clear to auscultation. Cardiovascular Auscultation of heart: Normal rate and rhythm, normal S1 and S2, no murmurs. Peripheral vascular exam: Normal pulses Throughout. Abdomen Abdomen: Normal, non-tender, and no organomegaly noted. Liver and spleen: No hepatomegaly or splenomegaly. Skin Skin and subcutaneous tissue: Normal skin turgor and no rashes. Right Shoulder: Appearance: Normal. Tenderness: None. Forward flexion: painful. External rotation: painful. External rotation was 4/5. Special Tests: positive Painful Arc, positive Hawkin's test and positive Empty Can test, but negative Alicea's test and negative Speed's test. Assessment 1. Abdominal pain (789.00) (R10.9) 2. Shoulder pain, right (719.41) (M25.511) Plan 1. Follow-up visit in 6 weeks Outpatient Follow-up Status: Hold For - Scheduling Requested for: [id number] Ordered; For: Abdominal pain; Ordered By: Torsten Barriga Performed: Due: [id number] Discussion/Summary Discussion Summary Free Text: 1. Abdominal pain. Nonspecific RLQ pain, intermittent. Symptoms improved over last week. No more diarrhea associated. No significant findings on exam today. No other risk factors. continue to monitorclosely, keep symptom diary. FU 4-6 weeks 2. Shoulder pain. likely rotator cuff in origin. Started after UE workout last week. No previous history. Valentine and empty can positive. Handout with exercises provided. Discussed protective body mechanics. FU 6 weeks. Signatures Electronically signed by : Torsten Barriga M.D.; Oct 23 2013 3:36PM IT WEB DEVELOPMENT CONSULTANT (Author) documented in this encounter Plan of Treatment Upcoming Encounters Date Type Department Care Team (Late st Contact Info) Description 06/23/2024 2:40 PM IT WEB DEVELOPMENT CONSULTANT Office Visit [facility] Family & Internal Medicine - [place] [id number] [place] [address] [place] [address] [place], [place] [phone] documented as of this encounter Visit Diagnoses Not on filedocumented in this encounter
--- OUTSIDE RECORDS SUMMARY | 2024-06-13 02:01 | XMS_ITS | Encounter Summary ---
Author Organization [facility] Address [address] [place] [address]. [place], [place] [address] [place] [address] Care Team Providers Care Farm Equipment Engine Mechanic Name Role Phone Unavailable Primary Care Provider Unavailabl e Encounter Details Date Type Department Care Team (Late st Contact Info) Description 07/26/2015 Abstract [facility] [address] [place], [place] [id number] Tanner Red MD [address] [place] [address] Social History Tobacco Use Types Packs/Day Years [...] st Contact Info) Description 06/23/2024 2:40 PM FIELD CARE MANAGER Office Visit [facility] Family & Internal Medicine [facility] [address] [place] [address] [place] [address] [place] [address] documented as of this encounter Visit Diagnoses Diagnosis Calculus of kidney documented in this encounter
--- OUTSIDE RECORDS SUMMARY | 2024-06-13 02:01 | XMS_ITS | Encounter Summary ---
Author Organization [facility] Address [address] [place] [address]. [place], [place] [address] [place] [address] Care Team Providers Care Health Informatics Advisor Name Role Phone Denilson Ferrara MD Primary Care Provider U meganailable Reason for Visit * Reason Comments Image (SCAN) Encounter Details Date Type Department Care Team (Latest Contact Info) Description 07/17/2020 Scan [facility] SRVCS Scanned, Documents Image (SCAN) Social History Tobacco Use Types [...] COVID-19? No / Unsure 07/29/2020 4:09 PM LAND DEPARTMENT HEAD documented as of this encounter Plan of Treatment Upcoming Encounters Date Type Department Care Team (Late st Contact Info) Description 06/23/2024 2:40 PM LAND DEPARTMENT HEAD Office Visit [facility] Family & Internal Medicine [place] [id number] [place] [phone] [place] [address] [place] [address] documented as of this encounter Procedures Procedure Name Priority Date/Time Associated Diagnosis Comments IMAGE GENERIC 07/17/2020 documented in this encounter Results * IMAGE GENERIC (07/17/2020) Anatomical Region Laterality Modality Other 07/17/2020 Narrative 07/17/2020 Ordered by an unspecified provider. us Documents Scanned SCANNING Final Result documented in this encounter Visit Diagnoses Not on filedocumented in this encounter Care Teams Health Informatics Advisor Relationship Specialty Start Date End Date Denilson Ferrara MD PCP - General INTERNAL MEDICINE 08/22/18 09/14/22 documented as of this encounter
--- OUTSIDE RECORDS SUMMARY | 2024-06-13 02:01 | XMS_ITS | Encounter Summary ---
Author Organization [facility] Address [address] [place] [address]. [place], [place] [address] [place] [address] Care Team Providers Care Security Alarm Technician Name Role Phone Unavailable Primary Care Provider Unavailabl e Encounter Details Date Type Department Care Team (Late st Contact Info) Description 05/15/2012 Abstract [facility] [address] [place], [place] [phone] Tanner Red MD [address] [place] [address] Social History Tobacco Use Types Packs/Day Years [...] (Late Contact Info) Description 06/23/2024 2:40 PM LIQUID WASTE TREATMENT PLANT OPERATOR Office Visit [facility] Family & Internal Medicine [facility] [address] [place] [address] [place] [address] [place] [address] documented as of this encounter Visit Diagnoses Diagnosis Calculus of kidney documented in this encounter
--- OUTSIDE RECORDS SUMMARY | 2024-06-13 02:01 | XMS_ITS | Encounter Summary ---
Author Organization [facility] Address [address] [place] [address]. [place] [address] [place] [address] Care Team Providers Care Director Dermatology Name Role Phone Denilson Ferrara MD Primary Care Provider U meganailable Reason for Visit * Reason Comments Report (SCAN) Encounter Details Date Type Department Care Team (Latest Contact Info) Description 09/11/2018 Scan HEALTH INFO SRVCS Scanned, Documents Report (SCAN) Social History Tobacco Use Types Packs/Day [...] st Contact Info) Description 06/23/2024 2:40 PM TRANSFER ENGINEER Office Visit [facility] Family & Internal Medicine [facility] [address] [place] [address] [place] [address] [place] [address] documented as of this encounter Visit Diagnoses Not on filedocumented in this encounter Care Teams Director Dermatology Relationship Specialty Start Date End Date Denilson Ferrara MD PCP - General INTERNAL MEDICINE 08/22/18 09/14/22 documented as of this encounter
--- OUTSIDE RECORDS SUMMARY | 2024-06-13 02:01 | XMS_ITS | Encounter Summary ---
Author Organization [facility] Address [address] [place] [address]. [place], [place] [address] [place] [address] Care Team Providers Care Spear Fisher Name Role Phone Unavailable Primary Care Provider Unavailabl e Encounter Details Date Type Department Care Team (Late st Contact Info) Description 09/22/2014 Abstract [facility] [address] [place], [place] [phone] Tanner Red MD [address] [place] [address] Social History Tobacco Use Types Packs/Day Years [...] Contact Info) Description 06/23/2024 2:40 PM RN TELEPHONE TRIAGE Office Visit [facility] Medical Group Family & Internal Medicine [facility] [address] [place] [address] [place] [address] [place] [address] documented as of this encounter Visit Diagnoses Diagnosis Calculus of kidney documented in this encounter
--- OUTSIDE RECORDS SUMMARY | 2024-06-13 02:01 | XMS_ITS | Encounter Summary ---
Author Organization [facility] Address [address] [place] [address]. [place], [place] [address] [place] [address] Care Team Providers Care Psychological Operations Officer Name Role Phone Unavailable Primary Care Provider Unavailabl e Encounter Details Date Type Department Care Team (Latest Contact Info) Description 03/04/2013 Abstract [facility] Social History Tobacco Use Types [...] st Contact Info) Description 06/23/2024 2:40 PM TRACK MACHINE OPERATOR REPAIRER Office Visit [facility] Family & Internal Medicine [facility] [address] [place] [address] [place] [address] [place] [address] documented as of this encounter Visit Diagnoses Not on filedocumented in this encounter
--- OUTSIDE RECORDS SUMMARY | 2024-06-13 02:01 | XMS_ITS | Encounter Summary ---
Author Organization [facility] Address [address] [place] [address]. [place], [place] [address] [place] [address] Care Team Providers Care Business Applications Manager Name Role Phone Unavailable Primary Care Provider Unavailabl e Encounter Details Date Type Department Care Team (Late st Contact Info) Description 02/15/2013 Abstract [facility] [address] [place], [place] [phone] Susana Ceja, VISCERA WASHER [address] [facility] [address] [address] Social History Tobacco Use Types Packs/Day Years [...] st Contact Info) Description 06/23/2024 2:40 PM LIAISON ENGINEER Office Visit [facility] Family & Internal Medicine [facility] [address] [place] [address] [place] [address] [place] [address] documented as of this encounter Visit Diagnoses Diagnosis Open wound of finger Open wound of finger(s) , without mention of complication documented in this encounter
--- OUTSIDE RECORDS SUMMARY | 2024-06-13 02:01 | XMS_ITS | Encounter Summary ---
Author Organization [facility] Address [address] [place] [address]. [place], [place] [address] [place] [address] Care Team Providers Care Outsoles Channel Opener Name Role Phone Denilson Pozo MD Primary Care Provider U navailable Reason for Referral * Consultation (Urgent) - Closed Specialty Diagnoses / Procedures Referred By Contac t Referred To Contact OTOLARYNGOLOGY Diagnoses Otitis of right ear Denilson Pozo MD Lee, Carl W, MD [address] [place] [address] Phone: tel: fax: Referral ID Status Reason Start Date Expiration Date Visits Re quested Visits Authorized [id number] Closed 09/12/2018 10/13/2019 100 100 Reason for Visit * Reason Comments Follow Up Was seen in Urgent C are 2 weeks ago for right ear pain, was given steriod and antibiotics and it didnt help Encounter Details Date Type Department Care Team (Late st Contact Info) Description 09/12/2018 2:40 PM CDT Office Visit [facility] Family & Internal Medicine [address] [address] Denilson Pozo MD Follow Up (Was seen in Urgent Care 2 weeks ago for right ear pain, was given steriod and antibiotics and it didnt help) Social History Tobacco Use Types Packs/Day Years [...] Sign Reading Time Taken Comments Blood Pressure 118/78 09/12/2018 2:39 PM CDT Pulse 83 09/12/2018 2:39 PM CDT Temperature 36.8 ??C (98.3 ??F) 09/12/2018 2:39 PM CD T Respiratory Rate 22 09/12/2018 2:39 PM CDT Oxygen Saturation 98% 09/12/2018 2:39 PM CDT Inhaled Oxygen Concentration - - Weight 103.4 kg (228 lb) 09/12/2018 2:39 PM CDT Height 170.2 cm (5' 7 ) 09/12/2018 2:39 PM CDT Body Mass Index 35.71 09/12/2018 2:39 PM CDT documented in this encounter Progress Notes * Denilson Pozo MD - 09/12/2018 2:40 PM CDT Reason for Visit: Follow Up (Was seen in Urgent Care 2 weeks ago for right ear pain, was given steriod and antibiotics and it didnt help) Filed Vitals: 09/12/18 1439 BP: 118/78 Pulse: 83 Resp: 22 Temp: 98.3 ??F (36.8 ??C) SpO2: 98% Weight: 103.4 kg (228 lb) Height: 5' 7 (1.702 m) Body mass index is 35.71 kg/m??. History of Present Illness: HPI she is a pleasant 43-year-old lady has been dealing with otitis in the right side for the last almost a month she finished antibiotics and eardrops and still she removed a big debris this morningwill very occluded with this whitish material and tender and she is not able to hear anything from there so I am going to refer her to have to see an ear nose and throat for further treatment she also had a breast cancer last year had surgery and recently had a mammogram and they told her that she needs to go back to have further tests done so she is worried about that we do not have any results of those x-rays at this current time. This patient is Mrs. Jay ROS: Review of Systems Constitutional: Negative. HENT: Positive for hearing loss. Who hearing loss in the right ear so far has been dealing with the infection in that ear for the last almost month Respiratory: Negative. Cardiovascular: Negative. Gastrointestinal: Negative. Genitourinary: Negative. Musculoskeletal: Negative. Skin: Negative. Neurological: Negative. Psychiatric/Behavioral: Negative. Medications: No current outpatient medications on file. Allergies Allergen Reactions ??? Sulfa Antibiotics Unknown ??? Sulfur Rash Past Medical History: Diagnosis Date ??? Shoulder pain, right Past Surgical History: [...] resource strain: Not on file ??? Food insecurity: Worry: Not on file Inability: Not on file ??? Transportation needs: Medical: Not on file Non-medical: Not on file Tobacco Use ??? Smoking status: Former Smoker Packs/day: 0.50 Years: 15.00 Pack years: 7.50 Types: Cigarettes Last attempt to quit: 07/11/2013 Years since quittin.1 ??? Smokeless tobacco: Never Used Substance and Sexual Activity ??? Alcohol use: Yes Frequency: Monthly or less Drinks per session: 1 or 2 Binge frequency: Never ??? Drug use: No ??? Sexual activity: Not on file Lifestyle ??? Physical activity: Days per week: Not on file Minutes per session: Not on file ??? Stress: Not on file Relationships ??? Social connections: Talks on phone: Not on file Gets together: Not on file Attends anglican service: Not on file Active member of club or organization: Not on file Attends meetings of clubs or organizations: Not on file Relationship status: Not on file ??? Intimate partner violence: Fear of current or ex partner: Not [...] Social History Narrative ??? Not on file Family History Problem Relation Name Age of Onset ??? None Mother Family Status Relation Name Status ??? Mother (Not Specified) Physical Exam Constitutional: She is oriented to person, place, and time. She appears well- developed and well-nourished. HENT: Head: Normocephalic and atraumatic. Left Ear: External ear normal. Mouth/Throat: Oropharynx is clear and moist. Right ear external otitis unable to see the tympanic membrane secondary to the amount of debris andinflammation Eyes: EOM are normal. Pupils are equal, round, and reactive to light. Neck: Normal range of motion. Neck supple. Cardiovascular: Normal rate, regular rhythm and normal heart sounds. Exam reveals no gallop and no friction rub. No murmur heard. Pulmonary/Chest: Effort normal and breath sounds normal. No respiratory distress. She has no wheezes. She has no rales. She exhibits no tenderness. Abdominal: Soft. Bowel sounds are normal. She exhibits no distension and no mass. There is no tenderness. There is no rebound and no guarding. Musculoskeletal: Normal range of motion. She exhibits no edema, tenderness or deformity. Neurological: She is alert and oriented to person, place, and time. She has normal reflexes. No cranial nerve deficit. Coordination normal. Skin: Skin is warm and dry. No rash noted. No erythema. Psychiatric: She has a normal mood and affect. Her behavior is normal. Judgment and thought contentnormal. Nursing note and vitals reviewed. Assessment Encounter Diagnose(s) ICD-10-CM ICD-9-CM SNOMED CT(R) 1. Otitis of right ear H66.91 382.9 OTITIS AMB REFERRAL TO ENT Plan Orders Placed This Encounter ??? Ambulatory referral to ENT I am going to refer her to see an ear nose and throat within the next 2-3 days she still has some ofloxacin otic solution so she will continue with that Follow up FU PRN referral to ENT DENILSON POZO MD 09/12/2018 5:23 PM documented in this encounter Plan of Treatment Upcoming Encounters Date Type Department Care Team (Late st Contact Info) Description 06/23/2024 2:40 PM IMAGING MANAGER Office Visit [facility] Family & Internal Medicine [address] [address] Ravinder Ford PA [address] [place] [address] Scheduled Referrals Name Type Priority Associated Diagnoses Orde r Schedule Ambulatory referral to ENT Referral Routine Otitis of right ear Ordered: 09/12/2018 documented as of this encounter Visit Diagnoses Diagnosis Otitis of right ear- Primary Acute diffuse otitis externa of right ear documented in this encounter Care Teams Outsoles Channel Opener Relationship Specialty Start Date End Date Denilson Pozo MD PCP - General INTERNAL MEDICINE 08/22/18 09/14/22 documented as of this encounter
--- OUTSIDE RECORDS SUMMARY | 2024-06-13 02:01 | XMS_ITS | Encounter Summary ---
Author Organization [facility] Address [address] [place] [address]. [place], [place] [address] [address] Care Team Providers Care Fatback Trimmer Name Role Phone Unavailable Primary Care Provider Unavailabl e Encounter Details Date Type Department Care Team (Late st Contact Info) Description 05/11/2012 Abstract [facility] [address] [place], [place] [id number] Tanner Red MD [address] [place] [address] Social History Tobacco Use Types Packs/Day Years [...] st Contact Info) Description 06/23/2024 2:40 PM ENTRY LEVEL PROJECT COORDINATOR Office Visit [facility] Medical [facility] Family & Internal Medicine [facility] [address] [place] [address] [place] [address] [place] [address] documented as of this encounter Visit Diagnoses Diagnosis Pre-operative examination Preoperative examination, unspecified documented in this encounter
--- OUTSIDE RECORDS SUMMARY | 2024-06-13 02:01 | XMS_ITS | Encounter Summary ---
Author Organization [facility] Address [address] [place] [address]. [place], [place] [address] [place] [address] Care Team Providers Care In Home Sales Representative Name Role Phone Unavailable Primary Care Provider Unavailabl e Encounter Details Date Type Department Care Team (Late st Contact Info) Description 01/06/2013 Abstract [facility] [address] [place], [place] [id number] Tanner Red MD [address] [place] [address] Social History Tobacco Use Types Packs/Day Years [...] st Contact Info) Description 06/23/2024 2:40 PM DEVELOPMENT DIRECTOR Office Visit [facility] Family & Internal Medicine [facility] [address] [place] [address] [place] [address] [place] [address] documented as of this encounter Visit Diagnoses Diagnosis Calculus of kidney documented in this encounter
--- OUTSIDE RECORDS SUMMARY | 2024-06-13 02:01 | XMS_ITS | Encounter Summary ---
Author Organization [facility] Address [address] [place] [address]. [place], [place] [address] [place] [address] Care Team Providers Care Regional Coordinator Name Role Phone Denilson Ferrara MD Primary Care Provider U rayshawn Encounter Details Date Type Department Care Team (Latest Contact Info) Description 04/16/2019 Scan HEALTH INFO SRVCS Scanned, Documents Social [...] Frequency of Binge Drinking Never 08/09 Comments No Sex and Gender Information Value Date Recorded Sex Assigned at Not on file Legal Sex Female 7:01 PM CDT Gender Identity Not on file Sexual Orientation Not on file documented as of this encounter Plan of Treatment Upcoming Encounters Date Type Department Care Team (Late st Contact Info) Description 06/23/2024 2:40 PM MULTIMEDIA ENGINEER Office Visit [facility] Family & Internal Medicine [facility] [address] [place] [address] [place] [address] [place] [address] documented as of this encounter Visit Diagnoses Not on filedocumented in this encounter Care Teams Regional Coordinator Relationship Specialty Start Date End Date Denilson Ferrara MD PCP - General INTERNAL MEDICINE 08/22/18 09/14/22 documented as of this encounter
--- OUTSIDE RECORDS SUMMARY | 2024-06-13 02:01 | XMS_ITS | Encounter Summary ---
Author Organization [facility] Address [address] [place] [address]. [place], [place] [address] [place] [address] Care Team Providers Care Foam Cutting Supervisor Name Role Phone Denilson Ferrara MD Primary Care Provider U meganailable Reason for Visit * Reason Comments Conjunctivitis to the left eye, hardik inage from the eye, no matting shut, noticed it starting yesterday afternoon Encounter Details Date Type Department Care Team (Late st Contact Info) Description 01/22/2020 10:20 AM CDT Office Visit [facility] Family & Internal Medicine [address] [address] Veronique Villagran, LOG OPERATIONS COORDINATOR [address] [place] [phone] Conjunctivitis (to the left eye, drainage from the eye, no matting shut, noticed it starting yesterday afternoon) Social History Tobacco Use Types Packs/Day Years [...] 08/09 PHQ-2 Answer Date Recorded PHQ-2 Score 0 01/22/2020 Comments No Sex and Gender Information Value Date Recorded Sex Assigned at Not on file Legal Sex Female 7:01 PM CDT Gender Identity Not on file Sexual Orientation Not on file COVID-19 Exposure Response Date Recorded In the last month, have you been in contact with someone who was confirmed or suspected to have Coronavirus / COVID-19? No / Unsure 01/22/2020 10:09 AM CDT documented as of this encounter Last Filed Vital Signs Vital Sign Reading Time Taken Comments Blood Pressure 136/88 01/22/2020 10:19 AM CDT Pulse 67 01/22/2020 10:19 AM CDT Temperature 36.6 ??C (97.9 ??F) 01/22/2020 10:19 AM C DT Respiratory Rate 18 01/22/2020 10:19 AM CDT Oxygen Saturation 98% 01/22/2020 10:19 AM CDT Inhaled Oxygen Concentration - - Weight 102.5 kg (226 lb) 01/22/2020 10:19 AM CDT Height 170.2 cm (5' 7 ) 01/22/2020 10:19 AM CDT Body Mass Index 35.4 01/22/2020 10:19 AM CDT documented in this encounter Patient Instructions * Patient Instructions* MARIAN Sorensen - 01/22/2020 10:20 AM CDT Images from the original note were not included. - discard current contacts - do not wear contacts for 14 days - wash hands after instilling eye drops - discard all eye makeup and brushes. - call for any new or worsening symptoms Patient Education Conjunctivitis (Pinkeye) Discharge Instructions About this topic Your conjunctiva is a thin layer that covers your eye. It also lines your eyelids. When you have conjunctivitis, this layer is swollen and red. There are many causes of this illness. Some of them are: ?? Infections ?? Allergies ?? Things that bother your eyes like smoke or pollution This illness may spread from person to person easily, based on what is causing it. What care is needed at home? ?? Ask your doctor what you need to do when you go home. Make sure you ask questions if you do not understand what the doctor says. This way you will know what you need to do. ?? Take your drugs as ordered by your doctor. ?? If you wear contact lenses, take them out. If the contacts are disposable contacts, throw them away. If they are not disposable, clean them well. You may need to stop wearing them for a short while. Talk to your doctor about when you can wear contacts again. Wearing glasses is OK. ?? If your eyes are draining or have a discharge, wash it away with a clean cotton ball or paper towel. Be sure to throw it away after using it. Always wash your hands before and after touching your eyes. ?? Take care when you wash your face or hair. Keep soap and shampoo out of your eyes. ?? Put cold compress on your eyes. ?? Stay away from things that you are allergic to if your conjunctivitis is caused by an allergic reaction. Protect your eyes from dirt and other harmful substances. What follow-up care is needed? Your doctor may ask you to make visits to the office to check on your progress. Be sure to keep these visits. What drugs may be needed? The doctor may order drugs based on the cause of your health problem. Talk to your doctor about what drugs you need to take. Will physical activity be limited? Your physical activities will not be limited. Remember, this infection spreads easily from person to person. Ask your doctor when you can go back to work or school. What problems could happen? You may be infected again from someone in your house, workplace, or school. What can be done to prevent this health problem? Good hygiene can help prevent the spread of this infection. ?? Change your pillowcases often. ?? Do not share eye make-up or eye drops with others. ?? Do not share pillows or towels with others. ?? Clean contact lenses daily. Do not sleep in them unless your eye doctor says it is OK. ?? Do not use eye drops or ointments in an eye that is not infected. Ask your doctor about other ways to prevent conjunctivitis. ?? Throw away eye make-up previously used on affected eye ?? You may want to get a new contact lens case. When do I need to call the doctor? ?? Signs of infection. These include a fever of 100.4??F (38??C) or higher, chills, very bad sore throat, ear or sinus pain, cough, more sputum or change in color of sputum. ?? Eye pain that is worse or does not get better with the drugs you are taking to help with pain ?? Blurry eyesight or spots of blood in your eye ?? You are not feeling better in 2 to 3 days or you are feeling worse Teach Back: Helping You Understand The Teach Back Method helps you understand the information we are giving you. The idea is simple. After talking with the staff, tell them in your own words what you were just told. This helps to makesure the staff has covered each thing clearly. It also helps to explain things that may have been abit confusing. Before going home, make sure you are able to do these: ?? I can tell you about my condition. ?? I can tell you how to care for my eye. ?? I can tell you what I will do if I have eye pain or blurry eyesight. Where can I learn more? FamilyDoctor.org http://familydoctor.org/familydoctor/en/diseases-conditions/allergic-conjunctivi tis.html Kids Health http://kidshealth.org/en/parents/conjunctivitis.html?ref=search&WT.ac=msh-p-dtop -ll-pzzbnb-yhc NHS Choices https://www.nhs.uk/conditions/conjunctivitis/ Last Reviewed Date 2017-09-19 Consumer Information Use and Disclaimer This information is not specific medical advice and does not replace information you receive from your health care provider. This is only a brief summary of general information. It does NOT include all information about conditions, illnesses, injuries, tests, procedures, treatments, therapies, discharge instructions or life-style choices that may apply to you. You must talk with your health care provider for complete information about your health and treatment options. This information should not be used to decide whether or not to accept your health care provider???s advice, instructions or recommendations. Only your health care provider has the knowledge and training to provide advice that is right for you. Copyright Copyright ?? 2020 [employer]. and its affiliates and/or licensors. All rights reserved. documented in this encounter Progress Notes * MARIAN Sorensen - 01/22/2020 10:20 AM CDT Reason for Visit: Conjunctivitis (to the left eye, drainage from the eye, no matting shut, noticed it starting yesterday afternoon) History of Present Illness: Karena Jay is a 44-year-old female who presents to the office with complaints of left eye drainage, itching, and redness. Karena reports that yesterday she started with the above symptoms. She reports feeling like she has sand in her eye. She typically wears contacts and has removed them as of yesterday. She has noticed clear watery drainage and her eye was not matted shut this AM when she awoke. She denies eye pain, visual change or sensitivity to light. She denies fever, chills, headache or dizziness. She has no additional concerns at this time. Conjunctivitis This is a new problem. The current episode started yesterday. The problem occurs constantly. The problem has been unchanged. Pertinent negatives include no chills, fever or headaches. She has tried nothing for the symptoms. ROS: Review of Systems Constitutional: Negative for chills and fever. Eyes: Positive for discharge and redness. Negative for blurred vision, double vision, photophobia and pain. Eye itching Neurological: Negative for dizziness and headaches. Medications: Current Outpatient Medications: ??? cephALEXin 500 MG capsule, Take 500 mg by mouth daily. Indications: from Dr. Red/get UTI's often, Disp: , Rfl: ??? moxifloxacin 0.5 % ophthalmic solution, Place 1 drop into the left eye 3 (three) times daily for 7 days., Disp: 3 mL, Rfl: 0 Allergies Allergen Reactions ??? Sulfa Antibiotics Unknown ??? Sulfur Rash Past Medical History: Diagnosis Date ??? Chronic UTI ??? Shoulder pain, right Past Surgical History: [...] Last attempt to quit: 07/11/2013 Years since quittin.5 ??? Smokeless tobacco: Never Used Substance and [...] file Gets together: Not on file Attends religion service: Not on file Active member of [...] time. She appears well- developed and well-nourished. She is cooperative. She does not appear ill. No distress. HENT: Head: Normocephalic and atraumatic. Right Ear: Hearing and external ear normal. Left Ear: Hearing and external ear normal. Eyes: Pupils are equal, round, and reactive to light. EOM are normal. Left eye exhibits discharge. Left eye exhibits no chemosis, no exudate and no hordeolum. No foreign body present in the left eye.Right conjunctiva is not injected. Right conjunctiva has no hemorrhage. Left conjunctiva is injected. Left conjunctiva has no hemorrhage. Neck: Normal range of motion. Pulmonary/Chest: Effort normal. No accessory muscle usage. No respiratory distress. Musculoskeletal: Normal range of motion. Neurological: She is alert and oriented to person, place, and time. Skin: Skin is warm, dry and intact. Psychiatric: She has a normal mood and affect. Her speech is normal and behavior is normal. Judgment and thought content normal. Cognition and memory are normal. Nursing note and vitals reviewed. Filed Vitals: 01/22/20 1019 BP: 136/88 Pulse: 67 Resp: 18 Temp: 97.9 ??F (36.6 ??C) TempSrc: Temporal SpO2: 98% Weight: 102.5 kg (226 lb) Height: 5' 7 (1.702 m) Assessment Encounter Diagnose(s) ICD-10-CM ICD-9-CM SNOMED CT(R) 1. Acute conjunctivitis of left eye, unspecified acute conjunctivitis type H10.32 372.00 ACUTE CONJUNCTIVITIS OF LEFT EYE moxifloxacin 0.5 % ophthalmic solution Recommendations and Plan: 1. Acute conjunctivitis of left eye, unspecified acute conjunctivitis type - discussed with patient need to discard current contacts, container, eye makeup and eye brushes. She should not wear her contacts for two weeks. - moxifloxacin 0.5 % ophthalmic solution; Place 1 drop into the left eye 3 (three) times daily for 7 days. Dispense: 3 mL; Refill: 0 Return to clinic with new, persistent, or worsening symptoms. Karena Jay is in agreement to and verbalized understanding of treatment plan with no further questions at this time. MARIAN SORENSEN 01/22/2020 10:53 AM Cosigned by Joseph Addison MD at 01/22/2020 11:05 AM CDT documented in this encounter Plan of Treatment Upcoming Encounters Date Type Department Care Team (Late st Contact Info) Description 06/23/2024 2:40 PM PUBLIC HEALTH Office Visit [facility] Family & Internal Medicine [facility] [address] [place] [address] [place] [address] [place] [address] documented as of this encounter Visit Diagnoses Diagnosis Acute conjunctivitis of left eye, unspecified acute conjunctivitis type- Primary documented in this encounter Care Teams Foam Cutting Supervisor Relationship Specialty Start Date End Date Denilson Ferrara MD PCP - General INTERNAL MEDICINE 08/22/18 09/14/22 documented as of this encounter
--- OUTSIDE RECORDS SUMMARY | 2024-06-13 02:01 | XMS_ITS | Encounter Summary ---
Author Organization [facility] Address [address] [place] [address]. [place] [address] [place] [address] Care Team Providers Care Chef De Partie Name Role Phone Denilson Ferrara MD Primary Care Provider U meganlex Encounter Details Date Type Department Care Team (Late st Contact Info) Description 08/20/2018 Abstract [facility] [address] [place] [address] Monica Fuller MD [address] [place], [place] [id number] Social History Tobacco Use Types Packs/Day Years Used Date Smoking Tobacco: Never Assessed AUDIT-C Answer Date Recorded Frequency of Alcohol [...] st Contact Info) Description 06/23/2024 2:40 PM BUSINESS ANALYST MANAGER Office Visit [facility] Family & Internal Medicine [facility] [address] [place] [address] [place] [address] [place] [address] documented as of this encounter Procedures Procedure Name Priority Date/Time Associated Diagnosis Comments HEALTH FAIR WITH LIPID Routine 10/01/2018 12:00 AM CDT VITAMIN D, 25 OH Routine 10/01/2018 12:0 0 AM CDT documented in this encounter Results * (ABNORMAL) VITAMIN D, 25 OH (10/01/2018 12:00 AM CDT) VITAMIN D 25 HYDROXY S/P/B 17(L) 30 - 100 NG/ML 10/01/2018 8:14 PM CDT [facility] Comment: ?INTERPRETATION ?DEFICIENT ??<20 ? INSUFFICIENT 20-29 ?SUFFICIENT 30-100 10/01/2018 10/01/2018 5:0 1 AM CDT us Generic Conversion Md [facility] Final R esult [facility] [address] [place] [address], * (ABNORMAL) HEALTH FAIR WITH LIPID (10/01/2018 12:00 AM CDT) WBC 7.8 4.4 - 11.0 x10'3/uL 10/01/2018 9:[address] [facility] RBC 4.46(L) 4.50 - 5.10 x10'6/uL 10/01/2018 9:[address] [facility] HGB 13.9 12.3 - 15.3 G/DL 10/01/2018 9:[address] [facility] HCT 40.5 35.9 - 44.6 % 10/01/2018 9:[address] [facility] MCV 90.8 80.0 - 96.0 FL 10/01/2018 9:[address] [facility] MCH 31.2(H) 25.3 - 30.9 PG 10/01/2018 9:[address] [facility] MCHC 34.3(H) 31.0 - 34.1 G/DL 10/01/2018 9:[address] [facility] RDW 12.2(L) 12.4 - 15.1 % 10/01/2018 9:[address] [facility] PLT 233 151 - 353 x10'3/uL 10/01/2018 9:53 AM [facility] MPV 9.6 9.6 - 12.0 FL 10/01/2018 9:53 AM [facility] RBC MORPHOLOGY NORMAL 10/01/2018 9:53 AM [facility] PLT MORPH. NORMAL 10/01/2018 9:53 AM [facility] WBC MORPHOLOGY NORMAL 10/01/2018 9:53 AM [facility] LYMPHOCYTES % 36.2 15.8 - 45.0 % 10/01/2018 9:53 AM [facility] NEUTROPHILS % 52.6 42.1 - 71.9 % 10/01/2018 9:[address] [facility] MONOCYTES % 7.3 5.7 - 12.5 % 10/01/2018 9:53 AM [facility] EOSINOPHILS 2.4 0.0 - 5.6 % 10/01/2018 9:53 AM [facility] BASOPHILS 1.0 0.0 - 1.3 % 10/01/2018 9:53 AM [facility] ABS. NEUTROPHILS TOTAL 4.12 1.40 - 6.00 x10'3/uL 10/01/2018 9:[address] [facility] IMMATURE GRANS % 0.5 0.0 - 0.5 % 10/01/2018 9:53 AM [facility] ABS. LYMPHOCYTES 2.84 0.80 - 4.70 x10'3/uL 10/01/2018 9:53 AM [facility] GLUCOSE 90 70 - 99 MG/DL 10/01/2018 7:[address] [facility] BUN 14 7 - 18 MG/DL 10/01/2018 7:55 PM [facility] CREATININE S/P/B 0.95 0.55 - 1.02 MG/DL 10/01/2018 7:55 PM [facility] SODIUM S/P/B 141 136 - 145 MMOL/L 10/01/2018 7:55 PM [facility] POTASSIUM S/P/B 4.5 3.5 - 5.1 MMOL/L 10/01/2018 7:55 PM [facility] CHLORIDE S/P/B 105 100 - 108 MMOL/L 10/01/2018 7:55 PM [facility] CO2 24.9 21 - 32 MMOL/L 10/01/2018 7:55 PM [facility] CALCIUM S/P/B 9.6 8.5 - 10.1 MG/DL 10/01/2018 7:[address] [facility] BILIRUBIN TOTAL S/P/B 0.6 0.2 - 1.2 MG/DL 10/01/2018 7:55 PM [facility] TOTAL PROTEIN S/P/B 7.3 6.4 - 8.2 G/DL 10/01/2018 7:55 PM [facility] ALBUMIN S/P/B 4.0 3.4 - 5.0 G/DL 10/01/2018 7:55 PM [facility] AST 16 15 - 37 U/L 10/01/2018 7:55 PM [facility] ALT 36 14 - 55 U/L 10/01/2018 7:55 PM [facility] ALKALINE PHOSPHATASE S/P/B 58 50 - 136 U/L 10/01/2018 7:55 PM [facility] ANION GAP 15.6 8 - 20 MMOL/L 10/01/2018 7:55 PM [facility] BUN CREATININE RATIO 14.7 6 - 26 10/01/2018 7:55 PM [facility] A/G RATIO 1.2 1.0 - 2.0 RATIO 10/01/2018 7:55 PM [facility] EGFR NON-AFR. AMER. 74(L) >90 ML/MIN/1. 73 M2 10/01/2018 7:55 PM [facility] EGFR AFR. AMER. 86(L) >90 ML/MIN/1. 73 M2 10/01/2018 7:55 PM [facility] Comment: NOTE: eGFR is not calculated for patients <18 years of age. This is an estimated GFR (CKD EPI) and should not be used for calculating drug doses. CHOLESTEROL 175 <200.0 MG/DL 10/01/2018 7:55 PM [facility] TRIGLYCERIDES 121 <150 MG/DL 10/01/2018 7:55 PM [facility] HDL 42 >40.0 MG/DL 10/01/2018 7:55 PM [facility] LDL (CALCULATED) 109(H) <100 MG/DL 10/01/2018 7:55 PM [facility] NON HDL CHOLESTEROL 133(H) <130 MG/DL 10/01/2018 7:[address] [facility] CHOL/HDL RATIO 4.2 0.0 - 4.5 10/01/2018 7:[address] [facility] VLDL CALCULATION 24 5 - 55 MG/DL 10/01/2018 7:[address] [facility] LIPID INTERPRETATION 10/01/2018 7:[address] [facility] Comment: NIH CONCENSUS REPORT RECOMMENDATIONS: [...] ?<40 ?--- ?LDL ? >=160 ?>=130 TSH 3.617 0.358 - 3.74 uIU/ML 10/01/2018 7:[address] [facility] Comment: HIGH DOSES OF BIOTIN MAY INTERFERE WITH THIS TEST RESULT. CORRELATION TO CLINICAL HISTORY AND PRESENTATION RECOMMENDED. OTHER (type in comments) 10/01/2018 10/01/2018 5:01 AM CDT Comment:WHOLE BLOOD SAMPLE ~ ~ACELLULAR BLOOD (SERUM OR PLASMA) SPECIMEN us Generic Conversion Md [facility] Final R esult [facility] [address] [place] [address], documented in this encounter Visit Diagnoses Not on filedocumented in this encounter Care Teams Chef De Partie Relationship Specialty Start Date End Date Denilson Ferrara MD PCP - General INTERNAL MEDICINE 08/22/18 09/14/22 documented as of this encounter
--- OUTSIDE RECORDS SUMMARY | 2024-06-13 02:01 | XMS_ITS | Encounter Summary ---
Author Organization [facility] Address [address] [place] [address]. [place], [place] [id number] [place] [address] Care Team Providers Care Night Manager Name Role Phone Denilson Ferrara MD Primary Care Provider U rayshawn Encounter Details Date Type Department Care Team (Latest Contact Info) Description 10/15/2018 Scan HEALTH INFO SRVCS Scanned, Documents Social [...] st Contact Info) Description 06/23/2024 2:40 PM MANAGER STRATEGIC DEVELOPMENT Office Visit [facility] Family & Internal Medicine [facility] [address] [place] [address] [place] [address] [place] [address] documented as of this encounter Visit Diagnoses Not on filedocumented in this encounter Care Teams Night Manager Relationship Specialty Start Date End Date Denilson Ferrara MD PCP - General INTERNAL MEDICINE 08/22/18 09/14/22 documented as of this encounter
--- OUTSIDE RECORDS SUMMARY | 2024-06-13 02:01 | XMS_ITS | Encounter Summary ---
Author Organization [facility] Address [address] [place] [address]. [place], [place] [address] [place] [address] Care Team Providers Care Vacuum Drier Operator Name Role Phone Unavailable Primary Care Provider Unavailabl e Encounter Details Date Type Department Care Team (Late st Contact Info) Description 04/17/2012 Abstract [facility] [address] [place], [place] [id number] Tanner Red MD [address] [place] [address] Social History Tobacco Use Types Packs/Day Years [...] st Contact Info) Description 06/23/2024 2:40 PM SPINNER HAND Office Visit [facility] Family & Internal Medicine [facility] [address] [place] [address] [place] [address] [place] [address] documented as of this encounter Visit Diagnoses Diagnosis Calculus of kidney documented in this encounter
--- OUTSIDE RECORDS SUMMARY | 2024-06-13 02:01 | XMS_ITS | Encounter Summary ---
Author Organization [facility] Address [address] [place] [address]. [place], [place] [address] [place] [address] Care Team Providers Care Etl Informatica Architect Name Role Phone Unavailable Primary Care Provider Unavailabl e Encounter Details Date Type Department Care Team (Latest Contact Info) Description 09/12/2015 Abstract [facility] Denilson Ferrara MD Social History [...] st Contact Info) Description 06/23/2024 2:40 PM ROLL FORMER Office Visit [facility] Family & Internal Medicine [facility] [address] [place] [address] Ravinder Ford PA [address] [place] [address] documented as of this encounter Visit Diagnoses Not on filedocumented in this encounter
--- OUTSIDE RECORDS SUMMARY | 2024-06-13 02:01 | XMS_ITS | Encounter Summary ---
Author Organization [facility] Address [address] [place] [address]. [place], [place] [address] [place] [address] Care Team Providers Care Nonprofit Fundraiser Name Role Phone Unavailable Primary Care Provider Unavailabl e Reason for Visit * Reason Comments Lab (SCAN) Encounter Details Date Type Department Care Team (Latest Contact Info) Description 02/05/2018 Scan [facility] INFO SRVCS Scanned, Documents Lab (SCAN) Social History Tobacco Use Types [...] st Contact Info) Description 06/23/2024 2:40 PM FLARER Office Visit [facility] Family & Internal Medicine [facility] [address] [place] [address] Ravinder Ford PA [address] [place] [phone] documented as of this encounter Visit Diagnoses Not on filedocumented in this encounter
--- OUTSIDE RECORDS SUMMARY | 2024-06-13 02:01 | XMS_ITS | Encounter Summary ---
Author Organization [facility] Address [address] [place] [address]. [place], [place] [address] [place] [address] Care Team Providers Care Route Delivery Manager Name Role Phone Unavailable Primary Care Provider Unavailabl e Encounter Details Date Type Department Care Team (Latest Contact Info) Description 10/06/2014 Abstract [facility] Social History Tobacco Use [...] st Contact Info) Description 06/23/2024 2:40 PM OYSTER TONGER Office Visit [facility] Family & Internal Medicine [facility] [address] [place] [address] [place] [address] [place] [address] documented as of this encounter Visit Diagnoses Not on filedocumented in this encounter
--- OUTSIDE RECORDS SUMMARY | 2024-06-13 02:01 | XMS_ITS | Encounter Summary ---
Author Organization [facility] Address [address] [place] [address]. [place], [place] [address] [place] [address] Care Team Providers Care Ring Packer Name Role Phone Unavailable Primary Care Provider Unavailabl e Encounter Details Date Type Department Care Team (Late st Contact Info) Description 02/14/2017 Abstract [facility] Emergency Room [address] [place] [address] Social History Tobacco Use Types [...] st Contact Info) Description 06/23/2024 2:40 PM SANDBLASTER PAINT SPRAYER Office Visit [facility] Medical Group Family & Internal Medicine [facility] [phone] [place] [phone] [place] [address] [place], [place] [phone] documented as of this encounter Procedures Procedure Name Priority Date/Time Associated Diagnosis Comments URINALYSIS WI REFLEX TO CULTURE STAT 02/14/2017 7:15 AM CDT URINE BACTERIA CULTURE Routine 02/14/2017 7:15 AM CDT documented in this encounter Results * CULTURE URINE (02/14/2017 7:15 AM CDT) SPEC DESCRIPTION URINE CLEAN CATCH 02/14/2017 7:31 AM CDT [facility] SPECIAL REQUESTS NO SPECIAL REQUEST 02/14/2017 7:31 AM CDT [facility] CULTURE RESULT NO GROWTH 2 DAYS 02/16/2017 10:02 AM CDT [facility] CULTURE RESULT TESTING PERFORMED AT [facility], [address] [place] [phone] 02/16/2017 10:02 AM CDT [facility] URINE SPECIMEN OBTAINED BY CLEAN CATCH PROCEDURE / Unknown 02/14/2017 7:15 AM CDT 02/14/2017 7:31 AM CDT us Generic Conversion Md MERAZ MICROBIOLOGY - GENERAL ORDERABLES Final Result Performing Organization Address City/State/[facility] de Phone Number [facility] [place] [address], [place] [phone] [facility] [address] [place] [address], [place] [phone] * (ABNORMAL) URINALYSIS WI REFLEX TO CULTURE (02/14/2017 7:15 AM CDT) COLOR (U) YELLOW 02/14/2017 7:30 AM CDT [facility] TRANSPARENCY CLEAR 02/14/2017 7:30 AM CDT [facility] SPECIFIC GRAVITY (U) <1.005 1.000 - 1.030 02/14/2017 7:30 AM CDT [facility] U PH 7.0 5.0 - 9.0 02/14/2017 7:30 AM CDT [facility] LEUKOCYTES (U) 3+(A) NEGATIVE 02/14/2017 7:30 AM CDT [facility] NITRITES POSITIVE(A) NEGATIVE 02/14/2017 7:30 AM CDT [facility] PROTEIN (U) 2+(A) NEGATIVE 02/14/2017 7:30 AM T [facility] URINE GLUCOSE NEGATIVE NEGATIVE 02/14/2017 7:30 AM T [facility] KETONES MG/DL (U) NEGATIVE NEGATIVE 02/14/2017 7:30 AM T [facility] BILIRUBIN (U) 1+(A) NEGATIVE 02/14/2017 7:30 AM T [facility] BLOOD (U) 3+(A) NEGATIVE 02/14/2017 7:30 AM T [facility] WBC/HPF 50-100 0 - 5 /HPF 02/14/2017 7:30 AM T [facility] RBC/HPF 50-100 0 - 5 /HPF 02/14/2017 7:30 AM [facility] EPI/HPF MODERATE /HPF 02/14/2017 7:30 AM [facility] CULTURE & SENSITIVITY INDICATED? SPECIMEN SETUP FOR CULTURE 02/14/2017 7:30 AM [facility] BACTERIA (U) FEW /HPF 02/14/2017 7:30 AM [facility] 02/14/2017 7:15 AM CDT 02/14/2017 7:19 AM CDT us Generic Conversion Md MERAZ URINE ORDERABLES Final Result [facility] [address] [place] [address], [place] [phone] documented in this encounter Visit Diagnoses Diagnosis Hematuria Hematuria, unspecified documented in this encounter
--- OUTSIDE RECORDS SUMMARY | 2024-06-13 02:01 | XMS_ITS | Encounter Summary ---
Author Organization [facility] Address [address] [place] [address]. [place], [place] [address] [place] [address] Care Team Providers Care Housing Director Name Role Phone Denilson Ferrara MD Primary Care Provider U meganailable Reason for Visit * Reason Comments Mammogram (SCAN) Encounter Details Date Type Department Care Team (Late Contact Info) Description 09/15/2019 Scan [facility] Scanned, Documents [...] Upcoming Encounters Date Type Department Care Team ([facility] Contact Info) Description 06/23/2024 2:40 PM PROSTHETIST Office Visit [facility] Medical Group Family & Internal Medicine [facility] [address] [place] [address] [place] [address] [place] [address] documented as of this encounter Procedures Procedure Name Priority Date/Time Associated Diagnosis Comments MAMMOGRAM GENERIC (SCAN ORDER) Routine 09/15/2019 documented in this encounter Results * MAMMOGRAM (09/15/2019) Anatomical Region Laterality Modality Other us Documents Scanned SCANNING Edited Result - Final documented in this encounter Visit Diagnoses Not on filedocumented in this encounter Care Teams Housing Director Relationship Specialty Start Date End Date Denilson Ferrara MD PCP - General INTERNAL MEDICINE 08/22/18 09/14/22 documented as of this encounter
--- OUTSIDE RECORDS SUMMARY | 2024-06-13 02:01 | XMS_ITS | Encounter Summary ---
Author Organization [facility] Address [address] [place] [address]. [place], [place] [address] [place] [address] Care Team Providers Care Lunch Truck Driver Name Role Phone Unavailable Primary Care Provider Unavailabl e Encounter Details Date Type Department Care Team (Latest Contact Info) Description 09/25/2016 Abstract [facility] Medical Group Denilson Ferrara MD Social History [...] st Contact Info) Description 06/23/2024 2:40 PM LIGHT AIR DEFENSE ARTILLERY CREWMEMBER Office Visit [facility] Medical Group Family & Internal Medicine [facility] [address] [place] [address] Ravinder Ford PA [address] [place] [address] documented as of this encounter Visit Diagnoses Not on filedocumented in this encounter
--- OUTSIDE RECORDS SUMMARY | 2024-06-13 02:01 | XMS_ITS | Encounter Summary ---
Author Organization [facility] Address [address] [place] [address]. [place], [place] [address] [place] [address] Care Team Providers Care Staff Sonographer Name Role Phone Unavailable Primary Care Provider Unavailabl e Encounter Details Date Type Department Care Team (Late st Contact Info) Description 03/19/2018 Abstract [facility] Medical Group Family & Internal Medicine [address] [address] Denilson Ferrara MD Social History [...] Sign Reading Time Taken Comments Blood Pressure 130/90 03/19/2018 9:59 AM CDT Pulse 85 03/19/2018 9:59 AM CDT Temperature - - Respiratory Rate - - Oxygen Saturation - - Inhaled Oxygen Concentration - - Weight 103.6 kg (228 lb 8 oz) 03/19/2018 9:59 AM CDT Height 170.2 cm (5' 7 ) 03/19/2018 9:59 AM CDT Body Mass Index 35.79 03/19/2018 9:59 AM CDT documented in this encounter Progress Notes * Denilson Ferrara MD - 03/19/2018 9:40 AM CDT Chief Complaint c/o bladder issues. She sees Dr. Red, but not sure if he is getting the information to him that she is having issues yet. burning, urgency and pain with urination. hx of blood in her urine. she had a KUB- show some stones. History of Present Illness A 42-year-old lady comes today complaining of some bladder issues with some frequency, burning urination. She has been dealing with this for a while. In fact, she has seen Dr. Red who is the urologist, but she is frustrated with his office. He seems to give her different messages and does not seem to be following through with different things. So today she comes here and she is having some urinary symptoms with some pressure. We did an UA that showed specific gravity of 1015, 2+ blood, pH7 with leukocytes of 1+. I am going to go ahead and do a culture. So evidently there are some abnormalities in the urine. Review of Systems See HPI for pertinent positives. Constitutional: no fever, no chills and no headache. ENT: no earache, no sore throat, no hearing loss and no nasal discharge. Cardiovascular: no chest pain, no intermittent leg claudication, no lower extremity edema and no palpitations. Respiratory: no shortness of breath, no cough, no PND, no shortness of breath during exertion and no wheezing. Gastrointestinal: no abdominal pain, no constipation, no heartburn, no melena, no diarrhea and no vomiting. Genitourinary: see HPI. Integumentary: no skin lesions and no skin rash. Musculoskeletal: no arthralgias, no joint swelling, no limb pain, no joint stiffness and no joint pain. Neurological: no confusion, no dizziness, no limb weakness and no difficulty walking. Psychiatric: no anxiety, no suicidal ideation and no depression. Active Problems 1. Abdominal pain (789.00) (R10.9) 2. Acute bronchitis (466.0) (J20.9) 3. BMI 35.0-35.9,adult (V85.35) (Z68.35) 4. Palpitations (785.1) (R00.2) 5. Shoulder pain, right (719.41) (M25.511) Surgical History 1. History of Section 2. History of Gallbladder Surgery 3. History of Hysterectomy 4. History of Renal Lithotripsy Family History Mother 1. No pertinent family history Father 2. No pertinent family history Social History ?? Former smoker (V15.82) (Z87.891) ? Occasional alcohol use Current Meds 1. Fluconazole 150 MG Oral Tablet; Take 1 tablet daily; Therapy: [id number] to (Evaluate:35Cfm4722) Requested for: [id number]; Last Rx:[id number] Ordered Rx By: Denilson Ferrara; Dispense: 2 Days ; #:2 Tablet; Refill: 1; For: Acute bronchitis; ALESSANDRO = N; Verified Transmission to [facility] 48035; Last Updated By: [employer]Care; 03/19/2018 10:05:07 AM 2. LevoFLOXacin 750 MG Oral Tablet; TAKE 1 TABLET ONCE DAILY; Therapy: [id number] to (Evaluate:24Zxf9750) Requested for: 01Jdu1929; Last Rx:[id number] Ordered Rx By: Denilson Ferrara; Dispense: 7 Days ; #:7 Tablet; Refill: 0; For: Acute bronchitis; ALESSANDRO = N; Verified Transmission to [facility] 97535; Last Updated By: [employer]; 03/19/2018 10:05:07 AM Allergies 1. Sulfa Drugs Recorded By: Chastity Soto; 10/23/2013 2:37:48 PM Vitals Recorded: 19Mar2018 09:59AM Temperature 98.2 F Heart Rate 85 Respiration 18 Systolic 130 Diastolic 90 O2 Saturation 98 Height 5 ft 7 in Weight 228 lb 8 oz BMI Calculated 35.79 BSA Calculated 2.14 Physical Exam Constitutional General appearance: No acute distress, well appearing and well nourished. Eyes Conjunctiva and lids: No swelling, erythema [...] extremities for edema and/or varicosities: Normal. Abdomen Percussion of the flanks was negative. Abdomen was soft, but tender in the suprapubic area,but not that remarkable... Lymphatic Palpation of lymph nodes in neck: No lymphadenopathy. Musculoskeletal Gait and station: Normal. Inspection/palpation of joints, bones, and muscles: Normal. Skin Skin and subcutaneous tissue: Normal without rashes or lesions. Neurologic Cranial nerves: Cranial nerves 2-12 intact. Reflexes: 2+ and symmetric. Psychiatric Orientation to person, place, and time: Normal. Mood and affect: Normal. Results/Data *Urine dip auto In Office 19Mar2018 10:12AM Denilson Ferrara Test Name Result Flag Reference Color Yellow Clarity Slightly cloudy Glucose Negative Bilirubin Negative Ketones Negative Specific [place] 1.015 Blood 2+(Moderate) pH 7.0 5.0 - 7.0 Protein Negative Urobilinogen 0.2 E.U./dL Nitrites Negative Leukocytes Small-1+ 19 Mar 2018 10:12 AM *Urine dip auto In Office Color Yellow Clarity Slightly cloudy Glucose Negative Bilirubin Negative Ketones Negative Specific [place] 1.015 Blood 2+(Moderate) pH 7.0 Protein Negative Urobilinogen 0.2 E.U./dL Nitrites Negative Leukocytes Small-1+ Counseling The patient was counseled regarding diagnostic results, instructions for management, risk factor reductions, prognosis, impressions, risks and benefits of treatment options, importance of compliance with treatment and recommended to drink plenty of fluids and take vit C 500 mgs bid.. Assessment 1. BMI 35.0-35.9,adult (V85.35) (Z68.35) 2. UTI (urinary tract infection) (599.0) (N39.0) Plan Burning with urination 1. LevoFLOXacin 250 MG Oral Tablet; TAKE 1 TABLET DAILY Rx By: Denilson Ferrara; Dispense: 7 Days ; #:7 Tablet; Refill: 0; For: Burning with urination; ALESSANDRO = N; Verified Transmission to [facility] 13806; Last Updated By: Chris Walker; 03/19/2018 10:31:17 AM 2. *Urine dip auto In Office; Status:Complete; Done: 19Mar2018 10:12AM Performed:In Office; Due:18Apr2018;Ordered; For:Burning with urination; Ordered By:Denilson Ferrara; 3. Urine Culture; Status:In Progress - Specimen/Data Collected; Done: 19Mar2018 Perform:[facility]; Due:18Apr2018; Last Updated By:Willa Vargas; 03/19/2018 10:12:58 AM;Ordered; For:Burning with urination; Ordered By:Denilson Ferrara; Source: : Clean Catch Health Maintenance 4. Stop: Fluzone Quadrivalent 0.5 ML Intramuscular Suspension Prefilled Syringe For: Health Maintenance; Ordered By:Denilson Ferrara; Effective Date:19Mar2018; Last Updated By:Fatou Kohli; 03/19/2018 10:07:17 AM Discussion/Summary At this time what I am going to do, I am going to start her on Levaquin 250 mg once a day for the next 7 days. I am going to obtain a urine culture and go from there. At the same time because this has been going on for quite a long time, I encouraged her to make an appointment with Dr. Red and follow up with him. It is possible that she may need cysto. They know that she has some kidney stones, but she does not have any back pain, so this is not exactly clear if this is related to that. At the same time, I encouraged her to try to lose some weight. She is 220 pounds. She is only [age], so she is definitely overweight about probably 50 pounds and she will benefit from weight loss. Of course, I spoke to her about the intermittent fasting which will be an excellent option for her. We will see how she does and we will go from there. Signatures Electronically signed by : Denilson Ferrara M.D.; Mar 20 2018 1:32PM ASSISTANT PROFESSOR OF SPANISH (Author) documented in this encounter Plan of Treatment Upcoming Encounters Date Type Department Care Team (Late st Contact Info) Description 06/23/2024 2:40 PM ASSISTANT PROFESSOR OF SPANISH Office Visit [facility] Medical Group Family & Internal Medicine [facility] [id number] [place] [phone] [place] [phone] [place] [address] documented as of this encounter Procedures Procedure Name Priority Date/Time Associated Diagnosis Comments URINE BACTERIA CULTURE Routine 03/19/2018 10:12 AM CDT URINALYSIS AUTO DIP Routine 03/19/2018 1 0:12 AM CDT documented in this encounter Results * CULTURE URINE (03/19/2018 10:12 AM CDT) CULTURE URINE SPECIMEN DESCRIPTION ? - URINE CLEAN CATCH SPECIAL REQUESTS ? - NO SPECIAL REQUEST CULTURE ?- 10,000-49,000 COL/ML ESCHERICHIA COLI REPORT STATUS ?- FINAL 03/21/2018 ORGANISM ? - 10,000-49,000 COL/ML ESCHERICHIA COLI METHOD ? - WARNER AMPICILLIN ? - <=2 SUSCEPTIBLE AMP/SULBACTAM ?- <=2 SUSCEPTIBLE CEFTRIAXONE ?- <=1 SUSCEPTIBLE CEFTAZIDIME ?- <=1 SUSCEPTIBLE CEFAZOLIN ?- <=4 SUSCEPTIBLE ESBL ? - NEG NITROFURANTOIN ? - <=16 SUSCEPTIBLE GENTAMICIN ? - <=1 SUSCEPTIBLE LEVOFLOXACIN ? - <=0.12 SUSCEPTIBLE PIPRACIL/TAZO ?- <=4 SUSCEPTIBLE TRIMETH-SULFAME THOXAZOLE - <=20 SUSCEPTIBLE [facility] TO EPIC CONVERSION 03/19/2018 10:1 2 AM CDT 03/19/2018 10:12 AM CDT Narrative [facility] TO EPIC CONVERSION - 03/21/2018 10:10 AM CDT Result Communication: No patient communication needed at this time us Denilson Ferrara MD MICROBIOLOGY - GENERAL O RDERABLES Final Result Performing Organization Address [facility] Co de Phone Number [facility] TO EPIC CONVERSION * URINALYSIS AUTO DIP (03/19/2018 10:12 AM CDT) COLOR (U) Yellow [facility] T O EPIC CONVERSION TRANSPARENCY Slightly cloudy [facility] TO EPIC CONVERSION GLUCOSE Negative [facility] T O EPIC CONVERSION BILIRUBIN (U) Negative [facility] UP TO EPIC CONVERSION KETONE (U) Negative [facility] TO EPIC CONVERSION SPECIFIC GRAVITY (U) 1.015 [facility] TO EPIC CONVERSION BLOOD (U) 2+(Moderate) [facility] P TO EPIC CONVERSION PH (U) 7.0 5.0 - 7.0 [facility] T O EPIC CONVERSION PROTEIN (ELP) (U) Negative [facility] TO EPIC CONVERSION UROBILINOGEN 0.2 E.U./dL [facility] OUP TO EPIC CONVERSION NITRITES Negative [facility] T O EPIC CONVERSION LEUKOCYTES (U) Small-1+ [facility] OUP TO EPIC CONVERSION 03/19/2018 10:1 2 AM CDT 03/19/2018 10:12 AM CDT Narrative [facility] TO EPIC CONVERSION - 03/19/2018 10:12 AM CDT Result Communication: No patient communication needed at this time us Denilson Ferrara MD URINE ORDERABLES Final R esult Performing Organization Address [facility]/ZIP Co de Phone Number [facility] TO EPIC CONVERSION documented in this encounter Visit Diagnoses Not on filedocumented in this encounter
--- OUTSIDE RECORDS SUMMARY | 2024-06-13 02:01 | XMS_ITS | Encounter Summary ---
Author Organization [facility] Address [address] [place] [address]. [place], [place] [address] [place] [address] Care Team Providers Care Gardening Instructor Name Role Phone Unavailable Primary Care Provider Unavailabl e Encounter Details Date Type Department Care Team (Late st Contact Info) Description 04/12/2012 Abstract [facility] [address] [place] [address] Denilson Ferrara MD Social History Tobacco Use [...] st Contact Info) Description 06/23/2024 2:40 PM SUPERINTENDENT OPERATIONS DIVISION Office Visit [facility] Medical Group Family & Internal Medicine [facility] [address] [place] [address] [place] [address] [place] [address] documented as of this encounter Visit Diagnoses Diagnosis Calculus of kidney documented in this encounter
--- OUTSIDE RECORDS SUMMARY | 2024-06-13 02:01 | XMS_ITS | Encounter Summary ---
Author Organization [facility] Address [address] [place] [address]. [place], [place] [address] [place] [address] Care Team Providers Care Assembly Line Brazer Name Role Phone Unavailable Primary Care Provider Unavailabl e Encounter Details Date Type Department Care Team (Latest Contact Info) Description 02/15/2018 Scan [facility] Medical Group Denilson Ferrara MD Social [...] st Contact Info) Description 06/23/2024 2:40 PM MANUFACTURING SHIFT SUPERVISOR Office Visit [facility] Medical [facility] Family & Internal Medicine [facility] [id number] [place] [phone] Ravinder Ford PA [address] [place] [address] documented as of this encounter Visit Diagnoses Not on filedocumented in this encounter
--- OUTSIDE RECORDS SUMMARY | 2024-06-13 02:01 | XMS_ITS | Encounter Summary ---
Author Organization [facility] Address [address] [place] [address]. [place] [address] [place] [address] Care Team Providers Care Mold Runner Name Role Phone Denilson Ferrara MD Primary Care Provider U rayshawn Reason for Visit * Reason Comments Letter (SCAN) [facility] Encounter Details Date Type Department Care Team (Late Contact Info) Description 09/18/2018 Scan HEALTH INFO SRVCS Scanned, Documents Letter (SCAN) ([facility] ) Social History Tobacco Use Types Packs/Day [...] Upcoming Encounters Date Type Department Care Team ([facility] Contact Info) Description 06/23/2024 2:40 PM LOCAL [place] TRUCK DRIVER Office Visit [facility] Medical Group Family & Internal Medicine [facility] [address] [place] [phone] [place] [address] [place] [address] documented as of this encounter Visit Diagnoses Not on filedocumented in this encounter Care Teams Mold Runner Relationship Specialty Start Date End Date Denilson Ferrara MD PCP - General INTERNAL MEDICINE 08/22/18 09/14/22 documented as of this encounter
--- OUTSIDE RECORDS SUMMARY | 2024-06-13 02:01 | XMS_ITS | Encounter Summary ---
Author Organization [facility] Address [address] [place] [address]. [place], [place] [address] [place] [address] Care Team Providers Care Interpersonal Communications Professor Name Role Phone Unavailable Primary Care Provider Unavailabl e Encounter Details Date Type Department Care Team (Late st Contact Info) Description 07/10/2012 Abstract [facility] [address] [place], [place] [id number] Tanner Red MD [address] [place] [address] Social History Tobacco Use Types Packs/Day Years [...] Contact Info) Description 06/23/2024 2:40 PM MANAGER CLIENT SUPPORT Office Visit [facility] Medical Group Family & Internal Medicine [facility] [address] [place] [address] [place] [address] [place] [address] documented as of this encounter Visit Diagnoses Diagnosis Calculus of kidney documented in this encounter
--- OUTSIDE RECORDS SUMMARY | 2024-06-13 02:01 | XMS_ITS | Encounter Summary ---
Author Organization [facility] Address [address] [place] [address]. [place], [place] [address] [place] [address] Care Team Providers Care Snack Bar Cook Name Role Phone Denilson Ferrara MD Primary Care Provider U rayshawn Encounter Details Date Type Department Care Team (Latest Contact Info) Description 01/22/2020 Travel Social History Tobacco Use Types Packs/Day [...] st Contact Info) Description 06/23/2024 2:40 PM RECYCLER FORKLIFT DRIVER TRUCK DRIVER Office Visit [facility] Medical Group Family & Internal Medicine [facility] [address] [place] [phone] [place] [address] [place] [address] [place] [address] documented as of this encounter Visit Diagnoses Not on filedocumented in this encounter Care Teams Snack Bar Cook Relationship Specialty Start Date End Date Denilson Ferrara MD PCP - General INTERNAL MEDICINE 08/22/18 09/14/22 documented as of this encounter
--- OUTSIDE RECORDS SUMMARY | 2024-06-13 02:01 | XMS_ITS | Encounter Summary ---
Author Organization [facility] Address [address] [place] [address]. [place], [place] [address] [place] [address] Care Team Providers Care Lighting Adviser Name Role Phone Unavailable Primary Care Provider Unavailabl e Encounter Details Date Type Department Care Team (Latest Contact Info) Description 02/27/2014 Abstract [facility] Medical Group Social History Tobacco Use [...] Contact Info) Description 06/23/2024 2:40 PM MANAGER PRIVATE Office Visit [facility] Medical Group Family & Internal Medicine [facility] [address] [place] [address] [place] [address] [place] [address] documented as of this encounter Visit Diagnoses Not on filedocumented in this encounter
--- OUTSIDE RECORDS SUMMARY | 2024-06-13 02:01 | XMS_ITS | Encounter Summary ---
Author Organization [facility] Address [facility]. [place], [place] [address] [place] [address] Care Team Providers Care Egg Candler Name Role Phone Denilson Ferrara MD Primary Care Provider U navailable Reason for Referral * Imaging (Emergency) - Closed Specialty Diagnoses / Procedures Referred By Contac t Referred To Contact RADIOLOGY Diagnoses Flank pain History of kidney stones Procedures CT ABD+PEL WWO CON Jose Wiley NP [facility] [address] [place] [address] Phone: tel: fax: Referral ID Status Reason Start Date Expiration Date Visits Re quested Visits Authorized [id number] Closed 11/15/2018 12/16/2019 1 1 Reason for Visit * Reason Comments UTI possible UTI, pain w ith urination and after x 4 days - has taken left over Keflex and AZO- ran out of Keflex today and states she needs more- has a urologist (Dr. Winn) is trying to get an upcoming appointment Kidney Stones hx of kidney stones Encounter Details Date Type Department Care Team (Late st Contact Info) Description 11/15/2018 11:00 AM CDT Office Visit [facility] Family & Internal Medicine [facility] [address] [place] [address] Jose Wiley NP UTI (possible UTI, pain with urination and after x 4 days - has taken left over Keflex and AZO- ran out of Keflex today and states she needs more- has a urologist (Dr. Winn) is trying to get an upcoming appointment ); Kidney Stones (hx of kidney stones ) Social History Tobacco Use Types Packs/Day [...] Sign Reading Time Taken Comments Blood Pressure 122/88 11/15/2018 11:05 AM CDT Pulse 88 11/15/2018 11:05 AM CDT Temperature 37 ??C (98.6 ??F) 11/15/2018 11:05 AM CDT Respiratory Rate 16 11/15/2018 11:05 AM CDT Oxygen Saturation 96% 11/15/2018 11:05 AM CDT Inhaled Oxygen Concentration - - Weight 102.1 kg (225 lb) 11/15/2018 11:05 AM CDT Height 170.2 cm (5' 7 ) 11/15/2018 11:05 AM CDT Body Mass Index 35.24 11/15/2018 11:05 AM CDT documented in this encounter Progress Notes * Carrillo Mcarthur MA - 11/15/2018 11:00 AM CDTAddended by: CARRILLO MCARTHUR on: 11/15/2018 02:27 PM Modules accepted: Orders * Jose Wiley NP - 11/15/2018 11:00 AM CDT Reason for Visit: UTI (possible UTI, pain with urination and after x 4 days - has taken left over Keflex and AZO- ranout of Keflex today and states she needs more- has a urologist (Dr. Winn) is trying to get an upcoming appointment ) and Kidney Stones (hx of kidney stones ) History of Present Illness: Lena Baron is a 43-year-old female who presents to the office with complaints of possible UTI. She has been having burning with urination for the last 2 days along with low abdominal pain and low back pain on right side. Started talking keflex when she felt the symptoms and tried to call Dr. Red For appt but they have not returned her call. ROS: Review of Systems Constitutional: Negative. HENT: Negative. Eyes: Negative. Respiratory: Negative. Cardiovascular: Negative. Gastrointestinal: Negative. Genitourinary: Positive for dysuria, flank pain, frequency and urgency. Musculoskeletal: Positive for back pain. Skin: Negative. Neurological: Negative. Psychiatric/Behavioral: Negative. Medications: [...] Last attempt to quit: 07/11/2013 Years since quittin.3 ??? Smokeless tobacco: Never Used Substance and [...] file Gets together: Not on file Attends taoist service: Not on file Active member of [...] appears well- developed and well-nourished. HENT: Head: Normocephalic. Eyes: Conjunctivae are normal. Neck: Neck supple. Cardiovascular: Normal rate, regular rhythm and normal heart sounds. Pulmonary/Chest: Effort normal and breath sounds normal. Abdominal: Soft. There is no CVA tenderness. Musculoskeletal: Normal range of motion. Neurological: She is alert and oriented to person, place, and time. Skin: Skin is warm and dry. Psychiatric: She has a normal mood and affect. Her behavior is normal. Judgment and thought contentnormal. Nursing note and vitals reviewed. Filed Vitals: 11/15/18 1105 BP: 122/88 Pulse: 88 Resp: 16 Temp: 98.6 ??F (37 ??C) TempSrc: Oral SpO2: 96% Weight: 102.1 kg (225 lb) Height: 5' 7 (1.702 m) Body mass index is 35.24 kg/m??. Assessment Encounter Diagnose(s) ICD-10-CM ICD-9-CM SNOMED CT(R) 1. UTI symptoms R39.9 788.99 URINARY SYMPTOMS URINALYSIS AUTO DIP 2. Flank pain R10.[address] ABD+PEL WWO CON 3. History of kidney stones Z87.442 V13.01 HISTORY OF CALCULUS OF KIDNEY CT ABD+PEL WWO CON Recommendations and Plan: Orders Placed This Encounter ??? URINALYSIS AUTO DIP ??? CT ABD+PEL WWO CON ??? DISCONTD: clotrimazole 1 % external solution Urine dip shows positive blood and protein. Not sent for culture. Will send her for STAT CT of abdomen and pelvis to rule out kidney stone. Continue to schedule appt with Dr. Neda WILEY NP 11/15/2018 11:33 AM documented in this encounter Plan of Treatment Upcoming Encounters Date Type Department Care Team (Late st Contact Info) Description 06/23/2024 2:40 PM GANG TAILER Office Visit [facility] Family & Internal Medicine [facility] [address] [place] [phone] Ravinder Ford PA [address] [place] [address] documented as of this encounter Procedures Procedure Name Priority Date/Time Associated Diagnosis Comments CT ABD+PEL WWO CON STAT 11/15/2018 1: 11 PM CDT Flank pain History of kidney stones URINALYSIS AUTO DIP Routine 11/15/2018 UTI symptoms documented in this encounter Results * CT ABD+PEL WWO CON (11/15/2018 1:11 PM CDT) Anatomical Region Laterality Modality Abdomen Computed Tomogra phy 11/15/2018 1:11 PM CDT Narrative 11/15/2018 12:00 AM CDT LENA BARON ? ADMIT/SERVICE DATE: 11/15/18 ?? ACCT: [id number] ?DISCHARGE DATE: ?? : 1975 ??SEX: F ?ORD SITE: [facility] ?? PT TYPE: REG CLI ? ORDERING MD: JOSE WILEY INSPECTOR RAW QUARTZ ? STUDY DATE ? REPORT # ?ORDER # ? EXT ORDER ID ?? 11/15/18 ? [id number] ? [id number] ?[id number] ? PROC CODE: ? [id number] ? PROCEDURE DESCRIPTION: ?? CT ABDOMEN PELVIS WWO ? IMAGING STUDIES: ??CT ABDOMEN PELVIS WWO ? DATE: ??11/15/2018 1:11 PM ? COMPARISON STUDIES: 02/14/2017. ? HISTORY: ??OTHER - FLANK PAIN ??. RIGHT FLANK PAIN, HEMATURIA, HISTORY OF BREAST CA. ? TECHNIQUE: ??HELICAL AXIAL IMAGES WERE ACQUIRED FROM THE LUNG BASES TO THE SYMPHYSIS PUBIS BEFORE AND AFTER THE ADMINISTRATION OF INTRAVENOUS CONTRAST. ??SAGITTAL AND CORONAL RECONSTRUCTIONS WERE OBTAINED. ??RADIATION DOSE REDUCTION TECHNIQUE WAS UTILIZED. ? CONTRAST: 75 [address] IV ? FINDINGS AND IMPRESSION: ? LOWER CHEST: ? 1. ??LUNGS: SMALL PULMONARY NODULES IN THE RIGHT LOWER LOBE, THE LARGEST MEASURES 3 MM, STABLE SINCE 2017 THEREFORE PROBABLY BENIGN. ? 2. ??VISIBLE MEDIASTINUM: NO LESIONS. ? ABDOMEN: ? 1. ??LIVER: HEPATIC STEATOSIS. NO DISCRETE LESIONS. HEPATOMEGALY, 23 CM CEPHALOCAUDAL DIMENSION. ? 2. ??GALLBLADDER: POST CHOLECYSTECTOMY. ? 3. ??SPLEEN: NO LESIONS, NO SPLENOMEGALY. ? 4. ??PANCREAS: NO FOCAL LESIONS. ? 5. ??ADRENAL GLANDS: NO FOCAL LESIONS. ? 6. ??KIDNEYS: NUMEROUS BILATERAL NONOBSTRUCTIVE STONES AVERAGING 4 MM. NO HYDRONEPHROSIS. ?NO HYDROURETER OR OBVIOUS DISTAL STONES. ? 7. ??RETROPERITONEAL SPACE: THE VISIBLE LYMPH NODES DO NOT APPEAR PATHOLOGICALLY ENLARGED. NO MESENTERIC LYMPHADENOPATHY OR EDEMA. ? 8. ??STOMACH AND BOWEL: NONOBSTRUCTIVE PATTERN. NO FREE AIR. ? 9. ??AORTA: NO SIGNIFICANT ATHEROSCLEROTIC DISEASE OR ANEURYSMAL DILATION. ? PELVIS: ? 1. ??APPENDIX: NOT PATHOLOGICALLY DISTENDED. ? 2. ??COLON AND RECTUM: NOT OBSTRUCTED. NO ACUTE DIVERTICULITIS.. ? 3. ??UTERUS AND ADNEXA: NO OBVIOUS MASSES. ? 4. ??URINARY BLADDER: NO STONES OR ABNORMAL WALL THICKENING. ? 5. ??PELVIC SPACE: NO FREE FLUID. ? BONES AND OTHER INCIDENTAL FINDINGS: ? 1. ??BONES: DEGENERATIVE CHANGES L5-S1. ? VOICE RECOGNITION SOFTWARE UTILIZED. ? ELECTRONICALLY SIGNED BY KANE FELIPE MD ON 11/15/2018 1:49 PM ? Procedure Note Kane Felipe MD - 11/15/2018 LENA BARON ADMIT/SERVICE DATE:11/15/18 ACCT: [id number] DISCHARGE DATE: : 1975 SEX: F ORD SITE: [facility] PT TYPE: REG CLI ORDERING MD:JOSE WILEY NP STUDY DATE REPORT # ORDER # EXT ORDER ID 11/15/18 [id number] PROC CODE: [id number] PROCEDURE DESCRIPTION: CT ABDOMEN PELVIS WWO IMAGING STUDIES: CT ABDOMEN PELVIS WWO DATE: 11/15/2018 1:11 PM COMPARISON STUDIES: 02/14/2017. HISTORY: OTHER - FLANK PAIN . RIGHT FLANK PAIN, HEMATURIA, HISTORY OFBREAST CA. TECHNIQUE: HELICAL AXIAL IMAGES WERE ACQUIRED FROM THE LUNG BASES TO THESYMPHYSIS PUBIS BEFORE AND AFTER THE ADMINISTRATION OF INTRAVENOUS CONTRAST. SAGITTAL ANDCORONAL RECONSTRUCTIONS WERE OBTAINED. RADIATION DOSE REDUCTION TECHNIQUE WAS UTILIZED. CONTRAST: [address] IV FINDINGS AND IMPRESSION: LOWER CHEST: 1. LUNGS: SMALL PULMONARY NODULES IN THE RIGHT LOWER LOBE, THE LARGESTMEASURES 3 MM, STABLE SINCE 2017 THEREFORE PROBABLY BENIGN. 2. VISIBLE MEDIASTINUM: NO LESIONS. ABDOMEN: 1. LIVER: HEPATIC STEATOSIS. NO DISCRETE LESIONS. HEPATOMEGALY, 23 CMCEPHALOCAUDAL DIMENSION. 2. GALLBLADDER: POST CHOLECYSTECTOMY. 3. SPLEEN: NO LESIONS, NO SPLENOMEGALY. 4. PANCREAS: NO FOCAL LESIONS. 5. ADRENAL GLANDS: NO FOCAL LESIONS. 6. KIDNEYS: NUMEROUS BILATERAL NONOBSTRUCTIVE STONES AVERAGING 4 MM. NOHYDRONEPHROSIS. NO HYDROURETER OR OBVIOUS DISTAL STONES. 7. RETROPERITONEAL SPACE: THE VISIBLE LYMPH NODES DO NOT APPEARPATHOLOGICALLY ENLARGED. NO MESENTERIC LYMPHADENOPATHY OR EDEMA. 8. STOMACH AND BOWEL: NONOBSTRUCTIVE PATTERN. NO FREE AIR. 9. AORTA: NO SIGNIFICANT ATHEROSCLEROTIC DISEASE OR ANEURYSMAL DILATION. PELVIS: 1. APPENDIX: NOT PATHOLOGICALLY DISTENDED. 2. COLON AND RECTUM: NOT OBSTRUCTED. NO ACUTE DIVERTICULITIS.. 3. UTERUS AND ADNEXA: NO OBVIOUS MASSES. 4. URINARY BLADDER: NO STONES OR ABNORMAL WALL THICKENING. 5. PELVIC SPACE: NO FREE FLUID. BONES AND OTHER INCIDENTAL FINDINGS: 1. BONES: DEGENERATIVE CHANGES L5-S1. VOICE RECOGNITION SOFTWARE UTILIZED. ELECTRONICALLY SIGNED BY KANE FELIPE MD ON 11/15/2018 1:[address] Wiley NP [address] Edited Result - Final * URINALYSIS AUTO DIP (11/15/2018) COLOR (U) YELLOW [address] ([address]), [facility] TRANSPARENC[facility] OTHER [address] ([address]), [facility] GLU[facility]SE (U) NEGATIVE NEGATIVE MG/DL [address] ([address]), [facility] BILIRUBIN (U) NEGATIVE NEGATIVE [address] ([address]), [place] KETONES MG/DL (U) NEGATIVE NEGATIVE MG/DL [address] ([address]), [place] SPECIFIC GRAVITY (U) 1.015 1.001 - 1.[address] ([address]), [place] BLOOD (U) MODERATE (2+ Hemolyzed, About 50 rbc/uL) NEGATIVE [address] ([address]), [place] U PH 7.0 5.0 - 9.[address] ([address]), [place] PROTEIN (U) NEGATIVE NEGATIVE mg/dL [address] ([address]), [place] UROBILINOGEN 0.2 0.2 - 1.0 EU/dL = mg/dL [address] ([address]), [place] NITRITES NEGATIVE NEGATIVE MG/DL [address] ([address]), [place] LEUKOCYTES (U) NEGATIVE NEGATIVE [address] ([address]), [place] URINE SPECIMEN OBTAINED BY CLEAN CATCH PROCEDURE / Unknown 11/15/2018 us Jose Wiley NP URINE ORDERABLES Final Result [address] ([address]), [place] [address] [place] [address], [place] [phone] documented in this encounter Visit Diagnoses Diagnosis UTI symptoms- Primary Flank pain Abdominal pain, unspecified site History of kidney stones Personal history of urinary calculi documented in this encounter Care Teams Egg Candler Relationship Specialty Start Date End Date Denilson Ferrara MD PCP - General INTERNAL MEDICINE 08/22/18 09/14/22 documented as of this encounter
--- OUTSIDE RECORDS SUMMARY | 2024-06-13 02:01 | XMS_ITS | Encounter Summary ---
Author Organization [facility] Address [address] [place] [address]. [place], [place] [address] [place] [address] Care Team Providers Care Radio Artist Name Role Phone Unavailable Primary Care Provider Unavailabl e Encounter Details Date Type Department Care Team (Late st Contact Info) Description 12/27/2015 Abstract [facility] Family & Internal Medicine [address] [address] Denilson Ferrara MD Social History [...] Sign Reading Time Taken Comments Blood Pressure 124/70 12/27/2015 3:29 PM CDT Pulse 98 12/27/2015 3:29 PM CDT Temperature - - Respiratory Rate - - Oxygen Saturation - - Inhaled Oxygen Concentration - - Weight 89.4 kg (197 lb) 12/27/2015 3:29 PM CDT Height - - Body Mass Index 30.85 10/23/2013 2:32 PM CDT documented in this encounter Progress Notes * Denilson Ferrara MD - 12/27/2015 3:30 PM CDT Reason For Visit Acute Visit Chief Complaint 1. Cold Symptoms C/O sore throat, cough , congestion , History of Present Illness HPI Free Text: A 40-year-old lady comes today because she has been having some fever and chills for the last 4 to 5 days. Today, temperature is a little bit elevated 99. The lungs sound a little congested especially at the right side with some fine wheeze. She has bronchitis, cough with some yellow phlegm. Pulse oximetry 96% room air. She is not a smoker. In fact, she has been doing very well. She has lost a lot of weight, 241 pounds on October 22 and now is 197 and she will continue losing as she is working hardon that. She definitely has some bronchitis. Cold Symptoms: Karena Jay presents with complaints of sudden onset of constant episodes of moderate cold symptoms. Episodes started December 16, 2015. Associated symptoms include post nasal drainage, sore throat, hoarseness, dry cough, headache, wheezing, shortness of breath, fatigue and fever. Review of Systems See HPI for pertinent positives. Constitutional: fever and chills. ENT: no earache, no sore throat, no hearing loss and no nasal discharge. Cardiovascular: no chest pain, no intermittent leg claudication, no palpitations and no lower extremity edema. Respiratory: see HPI. Gastrointestinal: no abdominal pain, no constipation, no [...] Problems 1. Abdominal pain (789.00) (R10.9) 2. BMI 35.0-35.9,adult (V85.35) (Z68.35) 3. Palpitations (785.1) (R00.2) 4. Shoulder pain, right (719.41) (M25.511) Surgical History 1. History of Section 2. History of Gallbladder Surgery 3. History of Hysterectomy 4. History of Renal Lithotripsy Family History Mother 1. No pertinent family history Father 2. No pertinent family history Social History ?? Former smoker (V15.82) (Z87.891) ? Occasional alcohol use Current Meds 1. No Reported Medications Recorded Allergies 1. Sulfa Drugs Vitals Recorded: [id number] 03:29PM Temperature 99 F Heart Rate 98 Systolic 124 Diastolic 70 O2 Saturation 96, RA Weight 197 lb BMI Calculated 30.85 BSA Calculated 2.01 Physical Exam Constitutional General appearance: No acute distress, well appearing and well nourished. Eyes Conjunctiva and lids: No swelling, erythema or discharge. Pupils and irises: Equal, round and reactive to light. Ears, Nose, Mouth, and Throat External inspection of ears and nose: Normal. Oropharynx: Normal with no erythema, edema, exudate or lesions. Pulmonary See HPI. Cardiovascular Auscultation of heart: Normal rate and [...] Normal. Mood and affect: Normal. Assessment 1. Acute bronchitis (466.0) (J20.9) Plan Acute bronchitis 1. Fluconazole 150 MG Oral Tablet; Take 1 tablet daily Rx By: Denilson Ferrara; Dispense: 2 Days ; #:2 Tablet; Refill: 1; For: Acute bronchitis; ALESSANDRO = N; Verified Transmission to [facility] [address]; Last Updated By: [employer]; 12/27/2015 3:43:46 PM 2. Levofloxacin 750 MG Oral Tablet; TAKE 1 TABLET ONCE DAILY Rx By: Denilson Ferrara; Dispense: 7 Days ; #:7 Tablet; Refill: 0; For: Acute bronchitis; ALESSANDRO = N; Verified Transmission to [facility] [address]199; Last Updated By: [employer]; 12/27/2015 3:43:47 PM Discussion/Summary She has bronchitis with some wheezing especially in the right side. Recommended some Mucinex-DM or Robitussin DM, plenty of fluids, hot shower at night time with a lot of steam. Started on Levaquin at 750 per day for 7 days. Signatures Electronically signed by : Denilson Ferrara M.D.; Dec 28 2015 7:41AM CLINICAL SAFETY SPECIALIST (Author) documented in this encounter Plan of Treatment Upcoming Encounters Date Type Department Care Team (Late st Contact Info) Description 06/23/2024 2:40 PM CLINICAL SAFETY SPECIALIST Office Visit [facility] Family & Internal Medicine - [place] [id number] [place] [phone] [place] [address] [place] [address] documented as of this encounter Visit Diagnoses Not on filedocumented in this encounter
--- OUTSIDE RECORDS SUMMARY | 2024-06-13 02:01 | XMS_ITS | Encounter Summary ---
Author Organization [facility] Address [address] [place] [address]. [place], [place] [address] [place] [address] Care Team Providers Care Cloth Washer Operator Name Role Phone Denilson Ferrara MD Primary Care Provider Rogelio tabares Reason for Visit * Reason Onset Date Comments Follow Up Call 08/27/2018 Encounter Details Date Type Department Care Team (Late st Contact Info) Description 08/27/2018 Telephone [facility] Family & Internal Medicine [address] [address] Tri Jeffery, SINCERE Follow Up Call Social History Tobacco Use [...] as of this encounter Progress Notes * Miya Vargas RN - 08/27/2018 2:32 PM CDT Called pharm to cancel Keflex rx. * Miya Vargas RN - 08/27/2018 2:29 PM CDT Medrol dose pack escribed & pt notified, v/u. * Miya Vargas RN - 08/27/2018 2:27 PM CDTAddended by: MIYA VARGAS on: 08/27/2018 02:27 PM Modules accepted: Orders * iMya Vargas RN - 08/27/2018 2:25 PM CDT Per Tri start medrol-dose pack. * Miya Vargas RN - 08/27/2018 1:31 PM CDT Informed Karena of Keflex being sent out and she states that she is currently taking that, informed that will have to discuss with Tri and call her back, v/u. * Miya Vargas RN - 08/27/2018 1:23 PM CDT Per Tri Keflex 500mg TID for 7days. * Iris Chew LPN - 08/27/2018 8:14 AM CDT Patient called, seen Tri last week. Told if her ears did not feel any better to call back. Statesher ears feel worse. Right ear is worse than the left. Gilberto Talbot documented in this encounter Plan of Treatment Upcoming Encounters Date Type Department Care Team (Late st Contact Info) Description 06/23/2024 2:40 PM MOTOR CARRIER INSPECTOR Office Visit [facility] Family & Internal Medicine - [place] [address] [place] [address] [place] [address] [place], [place] [phone] documented as of this encounter Visit Diagnoses Diagnosis Ear infection- Primary Unspecified otitis media documented in this encounter Care Teams Cloth Washer Operator Relationship Specialty Start Date End Date Denilson Ferrara MD PCP - General INTERNAL MEDICINE 08/22/18 09/14/22 documented as of this encounter
--- OUTSIDE RECORDS SUMMARY | 2024-06-13 02:01 | XMS_ITS | Encounter Summary ---
Author Organization [facility] Address [facility] [place] [address] [place] [address] Care Team Providers Care Security Incident Handler Name Role Phone Unavailable Primary Care Provider Unavailabl e Encounter Details Date Type Department Care Team (Late st Contact Info) Description 03/25/2018 Abstract [facility] Family & Internal Medicine - [place] [address] [place] [address] Leslie Ferrara [place] [id number] [place] [address] Social History Tobacco Use Types Packs/Day Years Used Date Smoking Tobacco: Never Assessed Comments Unknown Sex and Gender Information Value Date Recorded Sex Assigned at Not on file Legal Sex Female 7:01 PM CDT Gender Identity Not on file Sexual Orientation Not on file documented as of this encounter Progress Notes * Generic Conversion MD Rich - 03/25/2018 9:12 AM CDT Message Recorded as Task Date: 03/25/2018 08:48 AM, Created By: Gege Colon Task Name: Results Inquiry Assigned To: [facility] Ferr[facility] Nurse Team Regarding Patient: Karena Jay, Status: Active Comment: Gege Colon - 25 Mar 2018 8:48 AM TASK CREATED Pt called requesting results from urine culture. She also wants results sent to Dr. Red. Please f/u. Adele Garcia - 25 Mar 2018 9:12 AM TASK EDITED pt. called and informed of urine culture results, and results faxed to Dr. Red as requested. Signatures Electronically signed by : Adele Garcia, ; Mar 25 2018 9:12AM CONSTRUCTION SERVICES TECHNICIAN (Author) documented in this encounter Plan of Treatment Upcoming Encounters Date Type Department Care Team (Late st Contact Info) Description 06/23/2024 2:40 PM CONSTRUCTION SERVICES TECHNICIAN Office Visit [facility] Family & Internal Medicine - [address] [phone] Ravinder Ford PA [address] [place] [address] documented as of this encounter Visit Diagnoses Not on filedocumented in this encounter
--- OUTSIDE RECORDS SUMMARY | 2024-06-13 02:01 | XMS_ITS | Encounter Summary ---
Author Organization [facility] Address [address] [place] [address]. [place], [place] [address] [place] [address] Care Team Providers Care Rn Hospice Name Role Phone Unavailable Primary Care Provider Unavailabl e Encounter Details Date Type Department Care Team (Latest Contact Info) Description 04/04/2018 Abstract [facility] Denilson Ferrara MD Social History [...] st Contact Info) Description 06/23/2024 2:40 PM HEAD CHARRER Office Visit [facility] Family & Internal Medicine [facility] [address] [place] [phone] Ravinder Ford PA [address] [place] [address] documented as of this encounter Visit Diagnoses Not on filedocumented in this encounter
--- OUTSIDE RECORDS SUMMARY | 2024-06-13 02:01 | XMS_ITS | Encounter Summary ---
Author Organization [facility] Address [address] [place] [address]. [place], [place] [address] [place] [address] Care Team Providers Care Electrical Prospecting Observer Name Role Phone Unavailable Primary Care Provider Unavailabl e Encounter Details Date Type Department Care Team (Latest Contact Info) Description 09/22/2014 Abstract [facility] Denilson Ferrara MD Social [...] st Contact Info) Description 06/23/2024 2:40 PM BUHR DRESSER Office Visit [facility] Family & Internal Medicine [place] [facility] [address] [place] [phone] Ravinder Ford PA [address] [place] [address] documented as of this encounter Visit Diagnoses Not on filedocumented in this encounter
--- OUTSIDE RECORDS SUMMARY | 2024-06-13 02:01 | XMS_ITS | Encounter Summary ---
Author Organization [facility] Address [address] [place] [address]. [place], [place] [address] [place] [address] Care Team Providers Care Lens Dotter Name Role Phone Denilson Ferrara MD Primary Care Provider U meganailable Reason for Visit * Reason Comments Earache Bilateral ear pain, started Sunday, hurts down into neck and jaw. Encounter Details Date Type Department Care Team (Late st Contact Info) Description 08/22/2018 10:20 AM CDT Office Visit [facility] Family & Internal Medicine [address] [address] Tri Edgar NP Earache (Bilateral ear pain, started Sunday, hurts down into neck and jaw. ) Social History Tobacco Use Types Packs/Day [...] Sign Reading Time Taken Comments Blood Pressure 138/90 08/22/2018 10:32 AM CDT Pulse 71 08/22/2018 10:32 AM CDT Temperature 37.2 ??C (99 ??F) 08/22/2018 10:32 AM CDT Respiratory Rate 18 08/22/2018 10:32 AM CDT Oxygen Saturation 98% 08/22/2018 10:32 AM CDT Inhaled Oxygen Concentration - - Weight 103.4 kg (228 lb) 08/22/2018 10:32 AM CDT Height 170.2 cm (5' 7 ) 08/22/2018 10:32 AM CDT Body Mass Index 35.71 08/22/2018 10:32 AM CDT documented in this encounter Patient Instructions * Patient Instructions* Tri Edgar NP - 08/22/2018 10:20 AM CDT Use over the counter analgesic as directed Ice to area on neck that are tender couple times per day Return if not improved. Take antibiotic as directed Diflucan was for prevention of fungal infection documented in this encounter Progress Notes * Tri Edgar NP - 08/22/2018 10:20 AM CDT Images from the original note were not included. Reason for Visit: Earache (Bilateral ear pain, started Sunday, hurts down into neck and jaw. ) History of Present Illness: Pt has had ear pain and pressure for the past 48 hours. Seems to be progressively worsening 4 out Of 10 pain level most of the time. Pt states had some dental work about 4 days ago and had water fromher mouth drain into her ear. Pt reports jaw pain on the right and submandibular pain bilaterally. Pt has tried over the counter pain medication And it has improved the pain but comes right back whenit wears off. Pt reports that when has use of antibiotic gets yeast infection very easily. ROS: Review of Systems Constitutional: Negative. HENT: Positive for congestion and ear pain. Eyes: Negative. Respiratory: Negative. Cardiovascular: Negative. Gastrointestinal: Negative. Genitourinary: Negative. Musculoskeletal: Negative. Skin: Negative. Neurological: Negative. Endo/Heme/Allergies: Negative. Psychiatric/Behavioral: Negative. Medications: No current outpatient [...] file Gets together: Not on file Attends nondenominational service: Not on file Active member of [...] well- developed and well-nourished. HENT: Head: Normocephalic. Right Ear: Tympanic membrane is injected and bulging. A middle ear effusion is present. Left Ear: Tympanic membrane is injected and bulging. A middle ear effusion is present. Ears: Mouth/Throat: Oropharynx is clear and moist. Eyes: Conjunctivae and EOM are normal. Pupils are equal, round, and reactive to light. Neck: Normal range of motion. Cardiovascular: Normal rate, regular rhythm and normal heart sounds. Pulmonary/Chest: Effort normal and breath sounds normal. Abdominal: Soft. Musculoskeletal: Normal range of motion. Neurological: She is alert and oriented to person, place, and time. Skin: Skin is warm and dry. Psychiatric: She has a normal mood and affect. Her behavior is normal. Filed Vitals: 08/22/18 1032 BP: 138/90 Pulse: 71 Resp: 18 Temp: 99 ??F (37.2 ??C) TempSrc: Oral SpO2: 98% Weight: 103.4 kg (228 lb) Height: 5' 7 (1.702 m) Assessment Encounter Diagnose(s) ICD-10-CM ICD-9-CM SNOMED CT(R) 1. Acute otitis media, unspecified otitis media type H66.90 382.9 ACUTE OTITIS MEDIA Recommendations and Plan: No outpatient encounter medications on file as of 08/22/2018. No facility-administered encounter medications on file as of 08/22/2018. Karena was seen today for earache. Diagnoses and all orders for this visit: Acute otitis media, unspecified otitis media type Use over the counter analgesic as directed Ice to area on neck that are tender couple times per day Return if not improved. TRI EDGAR NP 08/22/2018 10:43 AM documented in this encounter Plan of Treatment Upcoming Encounters Date Type Department Care Team (Late st Contact Info) Description 06/23/2024 2:40 PM MEDICAL ANTHROPOLOGIST Office Visit [facility] Family & Internal Medicine [address] [address] [place] [address] [place] [address] documented as of this encounter Visit Diagnoses Diagnosis Acute otitis media, unspecified otitis media type- Primary documented in this encounter Care Teams Lens Dotter Relationship Specialty Start Date End Date Denilson Ferrara MD PCP - General INTERNAL MEDICINE 08/22/18 09/14/22 documented as of this encounter
--- OUTSIDE RECORDS SUMMARY | 2024-06-13 02:01 | XMS_ITS | Encounter Summary ---
Author Organization [facility] Address [address] [place] [address]. [place], [place] [address] [place] [address] Care Team Providers Care Frame Aligner Name Role Phone Unavailable Primary Care Provider Unavailabl e Encounter Details Date Type Department Care Team (Latest Contact Info) Description 03/13/2013 Abstract [facility] Social History Tobacco [...] st Contact Info) Description 06/23/2024 2:40 PM CAREER AGENT Office Visit [facility] Family & Internal Medicine [facility] [address] [place] [address] [place] [address] [place] [address] documented as of this encounter Visit Diagnoses Not on filedocumented in this encounter
--- OUTSIDE RECORDS SUMMARY | 2024-06-13 02:01 | XMS_ITS | Encounter Summary ---
Author Organization [facility] Address [address] [place] [address]. [place], [place] [address] [place] [address] Care Team Providers Care Dumper Operator Name Role Phone Unavailable Primary Care Provider Unavailabl e Encounter Details Date Type Department Care Team (Late st Contact Info) Description 03/09/2010 Abstract [facility] [address] [place], [place] [id number] Tanner Red MD [address] [place] [address] Social History Tobacco Use Types Packs/Day Years [...] (Late Contact Info) Description 06/23/2024 2:40 PM GROUND WORKER Office Visit [facility] Family & Internal Medicine [facility] [address] [place] [address] [place] [address] [place] [address] documented as of this encounter Visit Diagnoses Not on filedocumented in this encounter
--- OUTSIDE RECORDS SUMMARY | 2024-06-13 02:01 | XMS_ITS | Encounter Summary ---
Author Organization [facility] Address [address] [place] [address]. [place], [place] [address] [place] [address] Care Team Providers Care Heavy Antiarmor Weapons Infantryman Name Role Phone Denilson Pozo MD Primary Care Provider U navailable Reason for Referral * Imaging (Emergency) - Closed Specialty Diagnoses / Procedures Referred By Contac t Referred To Contact RADIOLOGY Diagnoses Acute right flank pain Procedures CT ABD+PEL KIDNEY STONE Denilson Pozo MD Referral ID Status Reason Start Date Expiration Date Visits Re quested Visits Authorized [id number] Closed 07/22/2020 08/20/2020 1 1 NEERING SYSTEMS ANALYST Reason for Visit * Reason Comments Follow Up Follow up from ER vi sit. States she was exercising and the next AM it felt like something was pulled. Patient states the pain worsens as day progresses, states it is now becoming more constant, directly in the mid area of back, which radiates to the front. Encounter Details Date Type Department Care Team (Late st Contact Info) Description 07/22/2020 8:20 AM ENGINEERING SYSTEMS ANALYST Office Visit [facility] [address] [place] [address] Denilson Pozo MD Follow Up (Follow up from ER visit. States she was exercising and the next AM it felt like something was pulled. Patient states the pain worsens as day progresses, states it is now becoming more constant, directly in the mid area of back, which radiates to the front. ) Social History Tobacco Use Types Packs/Day [...] COVID-19? No / Unsure 07/22/2020 8:01 AM ENGINEERING SYSTEMS ANALYST documented as of this encounter Last Filed Vital Signs Vital Sign Reading Time Taken Comments Blood Pressure 142/98 07/22/2020 8:14 AM ENGINEERING SYSTEMS ANALYST Pulse 100 07/22/2020 8:14 AM ENGINEERING SYSTEMS ANALYST Temperature 36.7 ??C (98 ??F) 07/22/2020 8:14 AM ENGINEERING SYSTEMS ANALYST Respiratory Rate 18 07/22/2020 8:14 AM ENGINEERING SYSTEMS ANALYST Oxygen Saturation 97% 07/22/2020 8:14 AM ENGINEERING SYSTEMS ANALYST Inhaled Oxygen Concentration - - Weight 96.6 kg (213 lb) 07/22/2020 8:14 AM ENGINEERING SYSTEMS ANALYST Height 170.2 cm (5' 7 ) 07/22/2020 8:14 AM ENGINEERING SYSTEMS ANALYST Body Mass Index 33.36 07/22/2020 8:14 AM ENGINEERING SYSTEMS ANALYST documented in this encounter Progress Notes * Denilson oPzo MD - 07/22/2020 8:20 AM CST Reason for Visit: Follow Up (Follow up from ER visit. States she was exercising and the next AM it felt like something was pulled. Patient states the pain worsens as day progresses, states it is now becoming more constant, directly in the mid area of back, which radiates to the front. ) Filed Vitals: 07/22/20 0814 BP: (!) 142/98 Pulse: 100 Resp: 18 Temp: 98 ??F (36.7 ??C) TempSrc: Temporal SpO2: 97% Weight: 96.6 kg (213 lb) Height: 5' 7 (1.702 m) PainSc: 6 Moderate Pain (0-10 Scale) Body mass index is 33.36 kg/m??. History of Present Illness: HPI morning office visit and Mrs. Karena Jay 45-year-old lady with a history of kidney stones comes today with pain in the right flank radiating to the front very suggestive of a kidney stone again the urinalysis showed traces of blood the pain is not unbearable but is very persistent she is stressed out because she just found a new job and now she is on training and she is having this pain. Pain started the other day and she went eventually to the emergency room they did not do x-rays of the abdomen but they did a chest x-ray that was fine. ROS: Review of Systems Constitutional: Negative. Negative for chills, fever, malaise/fatigue and weight loss. HENT: Negative. Eyes: Negative. Respiratory: Negative. Cardiovascular: Negative. Gastrointestinal: Negative. Genitourinary: Negative. She denies any blood in the urine or urinary symptoms Musculoskeletal: Negative. Pain in her right flank radiated to the front Skin: Negative. Neurological: Negative. Psychiatric/Behavioral: Negative. Medications: Current Outpatient [...] file Gets together: Not on file Attends confucianism service: Not on file Active member of [...] time. She appears well- developed and well-nourished. Neck: Normal range of motion. Neck supple. [...] distension and no mass. There is no abdominal tenderness. There is no rebound and no guarding. Musculoskeletal: Normal range of motion. General: No tenderness, deformity or edema. Comments: Percussion of the flanks were negative there was no evidence of shingles in her back it does not look like a muscular issue Neurological: She is alert and oriented to person, place, and time. She has normal reflexes. No cranial nerve deficit. Coordination normal. Skin: Skin is warm and dry. No rash noted. No erythema. Psychiatric: She has a normal mood and affect. Nursing note and vitals reviewed. Results for orders placed or performed in visit on 07/22/20 URINALYSIS AUTO DIP Result Value Ref Range COLOR (U) PALE YELLOW TRANSPARENCY TURBID GLUCOSE (U) NEGATIVE NEGATIVE MG/DL BILIRUBIN (U) NEGATIVE NEGATIVE U KETONES NEGATIVE NEGATIVE MG/DL Specific [place] (U) 1.015 1.001 - 1.035 BLOOD SMALL (1+, Hemolyzed) NEGATIVE U PH 7.0 5.0 - 9.0 PROTEIN (U) NEGATIVE NEGATIVE mg/dL UROBILINOGEN 0.2 0.2 - 1.0 EU/dL = mg/dL NITRITES NEGATIVE NEGATIVE MG/DL LEUKOCYTE ESTERASE NEGATIVE NEGATIVE Assessment Encounter Diagnose(s) ICD-10-CM ICD-9-CM SNOMED CT(R) 1. UTI symptoms R39.9 788.99 URINARY SYMPTOMS URINALYSIS AUTO DIP CULTURE URINE CULTURE URINE 2. Hematuria, unspecified type R31.9 599.70 BLOOD IN URINE CULTURE URINE CULTURE URINE 3. Acute right flank pain R10.[address] ABD+PEL KIDNEY STONE 338.19 4. Kidney stone N20.0 592.0 KIDNEY STONE tamsulosin 0.4 MG Cap Plan at this time I going to proceed with a CT scan of the abdomen and pelvis with stone protocol since she has a previous history of kidney stones we are going to prescribe also tamsulosin to take once a day 0.4 and will go from there if the CAT scan showed that she has an stone passing she is going to try to pass it if not she is ready has seen the urologist and she will give them a call. If the problem does not improve I want to see her back again to reassess the situation she does not have any fever or chills she is taking cephalexin that she has taken in the past and she has at home for as needed usage for recurrent UTIs especially after intercourse. I told her if the pain gets severe she may need to go to emergency room again encouraged her to drink plenty of water Orders Placed This Encounter ??? URINALYSIS AUTO DIP ??? CT ABD+PEL KIDNEY STONE ??? cephALEXin 500 MG capsule ??? Probiotic Product (PROBIOTIC ADVANCED) Cap ??? vitamin D3, cholecalciferol, 1000 UNIT Tab tablet ??? multi vitamin/minerals tablet ??? tamsulosin 0.4 MG Cap ??? CULTURE URINE Follow up FU PRN DENILSON POZO MD 07/22/2020 2:51 PM NEERING SYSTEMS ANALYST documented in this encounter Plan of Treatment Upcoming Encounters Date Type Department Care Team (Late st Contact Info) Description 06/23/2024 2:40 PM ENGINEERING SYSTEMS ANALYST Office Visit [facility] Family & Internal Medicine [facility] [address] [place] [address] [place] [address] [place] [address] documented as of this encounter Procedures Procedure Name Priority Date/Time Associated Diagnosis Comments URINE BACTERIA CULTURE Routine 07/22/2020 8:51 AM ENGINEERING SYSTEMS ANALYST UTI symptoms Hematuria, unspecified type URINALYSIS AUTO DIP Routine 07/22/2020 UTI symptoms documented in this encounter Results * CT ABD+PEL KIDNEY STONE (07/22/2020 9:53 AM ENGINEERING SYSTEMS ANALYST) Anatomical Region Laterality Modality Abdomen Computed Tomogra phy 07/22/2020 10:0 9 AM ENGINEERING SYSTEMS ANALYST Narrative 07/22/2020 10:14 AM ENGINEERING SYSTEMS ANALYST IMAGING STUDIES: ??CT ABD+PEL KIDNEY STONE ? [...] Felipe, 07/22/2020 10:09 AM Procedure Note Kane Felipe MD - 07/22/2020 IMAGING STUDIES: CT ABD+PEL [...] Interpreted By: Kane Felipe, 07/22/2020 10:09 AM Denilson Pozo MD CT Final Re sult * CULTURE URINE (07/22/2020 8:51 AM ENGINEERING SYSTEMS ANALYST) CULTURE RESULT [facility] Comment: ??CULTURE, URINE, ROUTINE ?Micro Number: ?[id number] ??Test Status: ? Final ??Specimen Source: ?? URINE ??Specimen Quality: ??Adequate ??Result: ?No Growth URINE SPECIMEN OBTAINED BY CLEAN CATCH PROCEDURE / Unknown 07/22/2020 8:51 AM ENGINEERING SYSTEMS ANALYST 07/23/2020 1:02 AM ENGINEERING SYSTEMS ANALYST Denilson Pozo MD MICROBIOLOGY - GENERAL O RDERABLES Final Result [facility] [address] [place] [address] * (ABNORMAL) URINALYSIS AUTO DIP (07/22/2020) COLOR (U) PALE YELLOW [id number], [place] Comment:light yellow TRANSPARENCY TURBID MG-[id number] GLU[facility]SE (U) NEGATIVE NEGATIVE MG/DL [id number], [place] BILIRUBIN (U) NEGATIVE NEGATIVE MG-[address], [facility] KETONES MG/DL (U) NEGATIVE NEGATIVE MG/DL MG-[address], [facility] SPECIFIC GRAVITY (U) 1.015 1.001 - 1.035 MG-[address], [place] BLOOD (U) SMALL (1+, Hemolyzed) NEGATIVE MG-[address], [place] U PH 7.0 5.0 - 9.0 MG-[address], [facility] PROTEIN (U) NEGATIVE NEGATIVE mg/dL MG-[address] UROBILINOGEN 0.2 0.2 - 1.0 EU/dL = mg/dL MG-[address], [facility] NITRITES NEGATIVE NEGATIVE MG/DL MG-[address], [facility] LEUKOCYTES (U) NEGATIVE NEGATIVE MG-[address], [place] URINE SPECIMEN OBTAINED BY CLEAN CATCH PROCEDURE / Unknown 07/22/2020 us Denilson Pozo MD URINE ORDERABLES Final R esult -[id number], [place] [address] [place] [address], [place] [phone] documented in this encounter Visit Diagnoses Diagnosis Acute right flank pain- Primary Abdominal pain, unspecified site UTI symptoms Hematuria, unspecified type Kidney stone Calculus of kidney Acute right flank pain Abdominal pain, unspecified site documented in this encounter Care Teams Heavy Antiarmor Weapons Infantryman Relationship Specialty Start Date End Date Denilson Pozo MD PCP - General INTERNAL MEDICINE 08/22/18 09/14/22 documented as of this encounter
--- OUTSIDE RECORDS SUMMARY | 2024-06-13 02:01 | XMS_ITS | Encounter Summary ---
Author Organization [facility] Address [address] [place] [address]. [place], [place] [address] [place] [address] Care Team Providers Care Project Systems Engineer Name Role Phone Denilson Ferrara MD Primary Care Provider U caitieshaq Encounter Details Date Type Department Care Team (Late st Contact Info) Description 11/15/2018 Orders Only [facility] Family & Internal Medicine [facility] [address] [place] [address] Rosalie Wiley NP Social History Tobacco Use Types Packs/Day Years [...] st Contact Info) Description 06/23/2024 2:40 PM CROZE CUTTER HELPER Office Visit [facility] Family & Internal [facility] [address] [place] [address] [place] [address] [place] [address] documented as of this encounter Visit Diagnoses Not on filedocumented in this encounter Care Teams Project Systems Engineer Relationship Specialty Start Date End Date Denilson Ferrara MD PCP - General INTERNAL MEDICINE 08/22/18 09/14/22 documented as of this encounter
--- OUTSIDE RECORDS SUMMARY | 2024-06-13 02:01 | XMS_ITS | Encounter Summary ---
Author Organization [facility] Address [address] [place] [address]. [place], [place] [address] [place] [address] Care Team Providers Care Juvenile Correctional Officer Name Role Phone Denilson Ferrara MD Primary Care Provider U rayshawn Encounter Details Date Type Department Care Team (Latest Contact Info) Description 11/15/2018 Scan HEALTH INFO SRVCS Scanned, Documents Social [...] st Contact Info) Description 06/23/2024 2:40 PM PURIFICATION DIRECTOR Office Visit [facility] Family & Internal Medicine [facility] [address] [place] [address] [place] [address] [place] [address] documented as of this encounter Visit Diagnoses Not on filedocumented in this encounter Care Teams Juvenile Correctional Officer Relationship Specialty Start Date End Date Denilson Ferrara MD PCP - General INTERNAL MEDICINE 08/22/18 09/14/22 documented as of this encounter
--- OUTSIDE RECORDS SUMMARY | 2024-06-13 02:01 | XMS_ITS | Encounter Summary ---
Author Organization [facility] Address [address] [place] [address]. [place], [place] [address] [place] [address] Care Team Providers Care Nuclear Scientist Name Role Phone Unavailable Primary Care Provider Unavailabl e Encounter Details Date Type Department Care Team (Late st Contact Info) Description 03/19/2018 Abstract [facility] [address] [place], [place] [phone] Denilson Ferrara MD Social History Tobacco Use [...] st Contact Info) Description 06/23/2024 2:40 PM TANK INSPECTOR Office Visit [facility] Medical Group Family & Internal Medicine [facility] [address] [place] [address] [place] [address] [place], [place] [phone] documented as of this encounter Procedures Procedure Name Priority Date/Time Associated Diagnosis Comments URINE BACTERIA CULTURE Routine 03/19/2018 10:12 AM CDT documented in this encounter Results * CULTURE URINE (03/19/2018 10:12 AM CDT) SPEC DESCRIPTION URINE CLEAN CATCH 03/19/2018 1:16 PM CDT [facility] SPECIAL REQUESTS NO SPECIAL REQUEST 03/19/2018 1:16 PM CDT [facility] CULTURE RESULT 10,000-49,0 00 COL/MLESCHE RICHIA COLI 03/21/2018 10:10 AM CDT [facility] URINE SPECIMEN OBTAINED BY CLEAN CATCH PROCEDURE / Unknown 03/19/2018 10:12 AM CDT 03/19/2018 1:19 PM CDT Narrative Organism Antibiotic Method Susceptibility Unknown AMPICILLIN WARNER (VITEK) <=2: Sensitive Unknown AMPICILLIN/SULBACTAM WARNER (VITEK) <=2: Sensitive Unknown CEFTRIAXONE WARNER (VITEK) <=1: Sensitive Unknown CEFTAZIDIME WARNER (VITEK) <=1: Sensitive Unknown CEFAZOLIN WARNER (VITEK) <=4: Sensitive Unknown ESBL WARNER (VITEK) NEG: Sensitive Unknown NITROFURANTOIN WARNER (VITEK) <=16: Sensitive Unknown GENTAMICIN WARNER (VITEK) <=1: Sensitive Unknown LEVOFLOXACIN WARNER (VITEK) <=0.12: Sensitive Unknown PIPRACIL/TAZO WARNER (VITEK) <=4: Sensitive Unknown TRIMETH-SULFAMETH. WARNER (VITEK) <=20: Sensitive Comment: Organism code(s) sent by the ancillary, '10,000-49,000 COL/MLESCHERICHIA COLI', not recognized. Organism 'UNKNOWN' was substituted in its place. us Generic Conversion Md [facility] MICROBIOLOGY - GENERAL ORDERABLES Final Result Performing Organization Address City/State/[facility] Co de Phone Number [facility] [address] [place] [address], [place] [phone] [facility] [address] [place] [address], [place] [phone] documented in this encounter Visit Diagnoses Diagnosis Dysuria documented in this encounter
--- OUTSIDE RECORDS SUMMARY | 2024-06-13 02:01 | XMS_ITS | Encounter Summary ---
Author Organization [facility] Address [address] [place] [address]. [place] [address] [place] [address] Care Team Providers Care Timber Framer Helper Name Role Phone Denilson Ferrara MD Primary Care Provider U caitieshaq Encounter Details Date Type Department Care Team (Late st Contact Info) Description 11/15/2018 Abstract [facility] Diagnostic Imaging [address] [place] [address] Rosalie Wiley NP Social History Tobacco Use [...] st Contact Info) Description 06/23/2024 2:40 PM WAXER OPERATOR Office Visit [facility] Medical Group Family & Internal Medicine [facility] [address] [place] [address] [place] [address] [place] [address] documented as of this encounter Procedures Procedure Name Priority Date/Time Associated Diagnosis Comments CREATININE WHOLE BLOOD Routine 11/15/2018 12:44 PM CDT documented in this encounter Results * CREATININE WHOLE BLOOD (11/15/2018 12:44 PM CDT) CREATININE WHOLE BLOOD 0.7 0.6 - 1.2 MG/DL 11/15/2018 4:[address] [facility] WHOLE BLOOD SPECIMEN / Unknown 11/15/2018 12:44 PM CDT 11/15/2018 4:21 PM CDT us Generic Conversion Md [facility] Final R esult [facility] [address] [place] [address], [place] [phone] documented in this encounter Visit Diagnoses Not on filedocumented in this encounter Care Teams Timber Framer Helper Relationship Specialty Start Date End Date Denilson Ferrara MD PCP - General INTERNAL MEDICINE 08/22/18 09/14/22 documented as of this encounter
--- OUTSIDE RECORDS SUMMARY | 2024-06-13 02:01 | XMS_ITS | Encounter Summary ---
Author Organization [facility] Address [address] [place] [address]. [place] [address] [place] [address] Care Team Providers Care Helmet Binder Name Role Phone eDnilson Ferrara MD Primary Care Provider U meganailable Reason for Visit * Reason Comments Report (SCAN) Encounter Details Date Type Department Care Team (Latest Contact Info) Description 09/23/2018 Scan HEALTH INFO SRVCS Scanned, Documents Report [...] st Contact Info) Description 06/23/2024 2:40 PM CHIEF SCHOOL FINANCE OFFICER Office Visit [facility] Medical Group Family & Internal Medicine [facility] [address] [place] [address] [place] [address] [place] [address] documented as of this encounter Visit Diagnoses Not on filedocumented in this encounter Care Teams Helmet Binder Relationship Specialty Start Date End Date Denilson Ferrara MD PCP - General INTERNAL MEDICINE 08/22/18 09/14/22 documented as of this encounter
--- OUTSIDE RECORDS SUMMARY | 2024-06-13 02:01 | XMS_ITS | Encounter Summary ---
Author Organization [facility] Address [address] [place] [address]. [place], [place] [address] [place] [address] Care Team Providers Care Seafood Preparer Name Role Phone Denilson Ferrara MD Primary Care Provider Rogelio bloodshaq Encounter Details Date Type Department Care Team (Latest Contact Info) Description 07/22/2020 Travel Social History Tobacco Use Types Packs/Day [...] COVID-19? No / Unsure 07/22/2020 8:01 AM EYELET MACHINE OPERATOR documented as of this encounter Plan of Treatment Upcoming Encounters Date Type Department Care Team (Late st Contact Info) Description 06/23/2024 2:40 PM EYELET MACHINE OPERATOR Office Visit [facility] Medical Group Family & Internal Medicine [address] [address] [place] [address] [place] [address] documented as of this encounter Visit Diagnoses Not on filedocumented in this encounter Care Teams Seafood Preparer Relationship Specialty Start Date End Date Denilson Ferrara MD PCP - General INTERNAL MEDICINE 08/22/18 09/14/22 documented as of this encounter
--- OUTSIDE RECORDS SUMMARY | 2024-06-13 02:02 | XMS_ITS | Encounter Summary ---
Author Organization [facility] Address [address] [place] [address]. [place], [place] [address] [place] [address] Care Team Providers Care Patents Examiner Name Role Phone Unavailable Primary Care Provider Unavailabl e Encounter Details Date Type Department Care Team (Late st Contact Info) Description 03/08/2010 Abstract [facility] [address] [place], [place] [id number] Denilson Ferrara MD Social History Tobacco Use [...] st Contact Info) Description 06/23/2024 2:40 PM ALTERATIONS MANAGER Office Visit [facility] Medical Group Family & Internal Medicine [facility] [address] [place] [address] [place] [address] [place] [address] documented as of this encounter Visit Diagnoses Not on filedocumented in this encounter
--- OUTSIDE RECORDS SUMMARY | 2024-06-13 02:02 | XMS_ITS | Encounter Summary ---
Author Organization [facility] Address [address] [place] [address]. [place], [place] [address] [place] [address] Care Team Providers Care Grader Patrol Name Role Phone Unavailable Primary Care Provider Unavailabl e Encounter Details Date Type Department Care Team (Late st Contact Info) Description 08/01/2006 Abstract [facility] CONVERSION [address] [place] [address] Dennis Beltrán MD [address] [place] [address] Social History Tobacco Use Types Packs/Day Years [...] (Late Contact Info) Description 06/23/2024 2:40 PM MAILROOM ASSOCIATE Office Visit [facility] Medical Group Family & Internal Medicine [facility] [address] [place] [address] [place] [address] [place] [address] documented as of this encounter Visit Diagnoses Not on filedocumented in this encounter
--- OUTSIDE RECORDS SUMMARY | 2024-06-13 02:02 | XMS_ITS | Encounter Summary ---
Author Organization [facility] Address [address] [place] [address]. [place], [place] [address] [place] [address] Care Team Providers Care Sales Architect Name Role Phone Unavailable Primary Care Provider Unavailabl e Encounter Details Date Type Department Care Team (Late st Contact Info) Description 07/29/2008 Abstract [facility] CONVERSION [address] [place] [address] Social History Tobacco Use Types [...] st Contact Info) Description 06/23/2024 2:40 PM SUPERVISOR METER SHOP Office Visit [facility] Medical Group Family & Internal Medicine [facility] [address] [place] [address] [place] [address] [place], [place] [phone] documented as of this encounter Visit Diagnoses Not on filedocumented in this encounter
--- OUTSIDE RECORDS SUMMARY | 2024-06-13 02:02 | XMS_ITS | Encounter Summary ---
Author Organization [facility] Address [address] [place] [address]. [place], [place] [address] [place] [address] Care Team Providers Care Cyber Security Instructor Name Role Phone Unavailable Primary Care Provider Unavailabl e Encounter Details Date Type Department Care Team (Late st Contact Info) Description 07/18/2006 Abstract [facility] CONVERSION [address] [place] [address] Dennis Beltrán MD 8 [place] [address] Social History Tobacco Use Types Packs/Day Years [...] (Late Contact Info) Description 06/23/2024 2:40 PM MANUFACTURING ASSISTANT Office Visit [facility] Medical Group Family & Internal Medicine [facility] [address] [place] [address] [place] [address] [place] [address] documented as of this encounter Visit Diagnoses Not on filedocumented in this encounter
--- OUTSIDE RECORDS SUMMARY | 2024-06-13 02:02 | XMS_ITS | Encounter Summary ---
Author Organization [facility] Address [address] [place] [address]. [place], [place] [address] [place] [address] Care Team Providers Care Special Education Preschool Teacher Name Role Phone Unavailable Primary Care Provider Unavailabl e Encounter Details Date Type Department Care Team (Late Contact Info) Description 09/28/2008 Abstract [facility] CONVERSION [address] [place] [address] Alex Ayala MD [address] [place] [address] Social History Tobacco Use Types Packs/Day Years [...] (Late Contact Info) Description 06/23/2024 2:40 PM NEW CAR GET READY MECHANIC Office Visit [facility] Medical Group Family & Internal Medicine [facility] [address] [place] [address] [place] [address] [place] [address] documented as of this encounter Visit Diagnoses Not on filedocumented in this encounter
--- OUTSIDE RECORDS SUMMARY | 2024-06-13 02:02 | XMS_ITS | Encounter Summary ---
Author Organization [facility] Address [address] [place] [address]. [place], [place] [address] [place] [address] Care Team Providers Care Dancing Teacher Name Role Phone Unavailable Primary Care Provider Unavailabl e Encounter Details Date Type Department Care Team (Late st Contact Info) Description 11/27/1995 Abstract [facility] CONVERSION [address] [place] [address] , Generic Conversion, Social History Tobacco Use Types Packs/Day Years [...] st Contact Info) Description 06/23/2024 2:40 PM LICENSED ARCHITECT Office Visit [facility] Medical Group Family & Internal Medicine [facility] [address] [place] [address] [place] [address] [place], [place] [phone] documented as of this encounter Visit Diagnoses Not on filedocumented in this encounter
--- OUTSIDE RECORDS SUMMARY | 2024-06-13 02:02 | XMS_ITS | Encounter Summary ---
Author Organization [facility] Address [address] [place] [address]. [place], [place] [address] [place] [address] Care Team Providers Care Mechanical Engineering Specialist Name Role Phone Unavailable Primary Care Provider Unavailabl e Encounter Details Date Type Department Care Team (Late st Contact Info) Description 09/30/2008 Abstract [facility] CONVERSION [address] [place] [address] Social History Tobacco Use Types [...] Contact Info) Description 06/23/2024 2:40 PM ENGINEERING GROUP LEADER Office Visit [facility] Medical Group Family & Internal Medicine [facility] [address] [place] [address] [place] [address] [place], [place] [phone] documented as of this encounter Visit Diagnoses Not on filedocumented in this encounter
--- OUTSIDE RECORDS SUMMARY | 2024-06-13 02:02 | XMS_ITS | Encounter Summary ---
Author Organization [facility] Address [address] [place] [address]. [place], [place] [address] [place] [address] Care Team Providers Care Multilith Operator Name Role Phone Unavailable Primary Care Provider Unavailabl e Encounter Details Date Type Department Care Team (Late st Contact Info) Description 03/08/2007 Abstract [facility] CONVERSION [address] [place] [address] Social History Tobacco Use Types [...] st Contact Info) Description 06/23/2024 2:40 PM SALES AGENT PEST CONTROL SERVICE Office Visit [facility] Medical Group Family & Internal Medicine [facility] [address] [place] [address] [place] [address] [place], [place] [phone] documented as of this encounter Visit Diagnoses Not on filedocumented in this encounter
--- OUTSIDE RECORDS SUMMARY | 2024-06-13 02:02 | XMS_ITS | Encounter Summary ---
Author Organization [facility] Address [address] [place] [address]. [place], [place] [address] [place] [address] Care Team Providers Care Web Design Intern Name Role Phone Unavailable Primary Care Provider Unavailabl e Encounter Details Date Type Department Care Team (Late st Contact Info) Description 08/19/2008 Abstract [facility] CONVERSION [address] [place] [address] Social History Tobacco Use Types [...] st Contact Info) Description 06/23/2024 2:40 PM DYE WEIGHER HELPER Office Visit [facility] Family & Internal Medicine [facility] [address] [place] [address] [place] [address] [place], [place] [phone] documented as of this encounter Visit Diagnoses Not on filedocumented in this encounter
--- OUTSIDE RECORDS SUMMARY | 2024-06-13 02:02 | XMS_ITS | Encounter Summary ---
Author Organization [facility] Address [address] [place] [address]. [place], [place] [address] [place] [address] Care Team Providers Care Information Systems Security Analyst Name Role Phone Unavailable Primary Care Provider Unavailabl e Encounter Details Date Type Department Care Team (Late st Contact Info) Description 07/28/2008 Abstract [facility] CONVERSION [address] [place] [address] Social History Tobacco Use Types [...] st Contact Info) Description 06/23/2024 2:40 PM POWER PLANT MANAGER Office Visit [facility] Medical Group Family & Internal Medicine [facility] [address] [place] [address] [place] [address] [place], [place] [phone] documented as of this encounter Visit Diagnoses Not on filedocumented in this encounter
--- OUTSIDE RECORDS SUMMARY | 2024-06-13 02:02 | XMS_ITS | Encounter Summary ---
Author Organization [facility] Address [address] [place] [address]. [place], [place] [address] [place] [address] Care Team Providers Care Concrete Curer Name Role Phone Unavailable Primary Care Provider Unavailabl e Encounter Details Date Type Department Care Team (Late st Contact Info) Description 04/07/2009 Abstract [facility] CONVERSION [address] [place] [address] Social History Tobacco Use Types [...] Contact Info) Description 06/23/2024 2:40 PM MACHINE MARKER Office Visit [facility] Medical Group Family & Internal Medicine [facility] [address] [place] [address] [place] [address] [place], [place] [phone] documented as of this encounter Visit Diagnoses Not on filedocumented in this encounter
--- OUTSIDE RECORDS SUMMARY | 2024-06-13 02:02 | XMS_ITS | Encounter Summary ---
Author Organization [facility] Address [address] [place] [address]. [place], [place] [address] [place] [address] Care Team Providers Care Station Worker Name Role Phone Unavailable Primary Care Provider Unavailabl e Encounter Details Date Type Department Care Team (Late st Contact Info) Description 09/09/2008 Abstract [facility] CONVERSION [address] [place] [address] Social History Tobacco Use Types [...] st Contact Info) Description 06/23/2024 2:40 PM SENIOR MEDIA BUYER Office Visit [facility] Medical Group Family & Internal Medicine [facility] [address] [place] [address] [place] [address] [place], [place] [phone] documented as of this encounter Visit Diagnoses Not on filedocumented in this encounter
--- OUTSIDE RECORDS SUMMARY | 2024-06-13 02:02 | XMS_ITS | Encounter Summary ---
Author Organization [facility] Address [address] [place] [address]. [place], [place] [address] [place] [address] Care Team Providers Care Pararescue Craftsman Name Role Phone Unavailable Primary Care Provider Unavailabl e Encounter Details Date Type Department Care Team (Late st Contact Info) Description 09/15/2009 Abstract [facility] CONVERSION [address] [place] [address] Social History Tobacco Use Types [...] st Contact Info) Description 06/23/2024 2:40 PM RADIATOR CLEANER [facility] Family [facility] Internal Medicine [facility] [address] [place] [address] [place] [address] [place], [place] [phone] documented as of this encounter Visit Diagnoses Not on filedocumented in this encounter
--- OUTSIDE RECORDS SUMMARY | 2024-06-13 02:02 | XMS_ITS | Encounter Summary ---
Author Organization [facility] Address [address] [place] [address]. [place], [place] [address] [place] [address] Care Team Providers Care Make Up Operator Name Role Phone Unavailable Primary Care Provider Unavailabl e Encounter Details Date Type Department Care Team (Late st Contact Info) Description 07/30/2008 Abstract [facility] CONVERSION [address] [place] [address] Social History Tobacco Use Types [...] st Contact Info) Description 06/23/2024 2:40 PM BREAD JOCKEY Office Visit [facility] Medical Group Family & Internal Medicine [facility] [address] [place] [address] [place] [address] [place], [place] [phone] documented as of this encounter Visit Diagnoses Not on filedocumented in this encounter
--- OUTSIDE RECORDS SUMMARY | 2024-06-13 02:02 | XMS_ITS | Encounter Summary ---
Author Organization [facility] Address [address] [place] [address]. [place], [place] [address] [place] [address] Care Team Providers Care Creative Strategist Name Role Phone Unavailable Primary Care Provider Unavailabl e Encounter Details Date Type Department Care Team (Late st Contact Info) Description 09/22/[address] [facility] CONVERSION [address] [place] [address] Social History Tobacco Use Types [...] st Contact Info) Description 06/23/2024 2:40 PM JIG MILL OPERATOR Office Visit [facility] Medical Group Family & Internal Medicine [facility] [address] [place] [address] [place] [address] [place], [place] [phone] documented as of this encounter Visit Diagnoses Not on filedocumented in this encounter
--- OUTSIDE RECORDS SUMMARY | 2024-06-13 02:02 | XMS_ITS | Encounter Summary ---
Author Organization [facility] Address [address] [place] [address]. [place], [place] [address] [place] [address] Care Team Providers Care Apprentice Name Role Phone Unavailable Primary Care Provider Unavailabl e Encounter Details Date Type Department Care Team (Late st Contact Info) Description 03/30/1994 Abstract [facility] CONVERSION [address] [place] [address] , Generic Conversion, Social History [...] st Contact Info) Description 06/23/2024 2:40 PM MGMT SPECIALIST Office Visit [facility] Medical Group Family & Internal Medicine [facility] [address] [place] [address] [place] [address] [place], [place] [phone] documented as of this encounter Visit Diagnoses Not on filedocumented in this encounter
--- OUTSIDE RECORDS SUMMARY | 2024-06-13 02:02 | XMS_ITS | Encounter Summary ---
Author Organization [facility] Address [address] [place] [address]. [place], [place] [address] [place] [address] Care Team Providers Care Training Manager Name Role Phone Denilson Ferrara MD Primary Care Provider U caitieshaq Encounter Details Date Type Department Care Team (Late st Contact Info) Description 01/20/2002 Abstract [facility] [address] [place] [address] Nir Kraft MD [address] [place] [address] Social History Tobacco Use Types Packs/Day Years Used Date Smoking Tobacco: Never Assessed AUDIT-C Answer Date Recorded Frequency of Alcohol Consumption Monthly or less 08/22/2018 Average Number of Drinks 1 or 2 019 Frequency of Binge Drinking Never 08/09 PHQ-2 Answer Date Recorded PHQ-2 Score - If the patient scores above 3, please move on to questions 3-9 0 07/22/2020 Comments Unknown Sex and Gender Information Value [...] (Late Contact Info) Description 06/23/2024 2:40 PM BRICKMASON SUPERVISOR Office Visit [facility] Medical Group Family & Internal Medicine [facility] [place] [address] [place] [address] [place] [address] [place] [address] documented as of this encounter Visit Diagnoses Not on filedocumented in this encounter Care Teams Training Manager Relationship Specialty Start Date End Date Denilson Ferrara MD PCP - General INTERNAL MEDICINE 08/22/18 09/14/22 documented as of this encounter
--- OUTSIDE RECORDS SUMMARY | 2024-06-13 02:02 | XMS_ITS | Encounter Summary ---
Author Organization [facility] Address [address] [place] [address]. [place], [place] [address] [place] [address] Care Team Providers Care Spanish Speaking Babysitter Name Role Phone Unavailable Primary Care Provider Unavailabl e Encounter Details Date Type Department Care Team (Late Contact Info) Description 08/17/2008 Abstract [facility] CONVERSION [address] [place], [place] [address] Tanner Red MD [address] [place] [address] Social History Tobacco Use Types Packs/Day Years [...] (Late Contact Info) Description 06/23/2024 2:40 PM PROGRAM ADMINISTRATOR Office Visit [facility] Medical Group Family & Internal Medicine [facility] [address] [place] [address] [place] [address] [place] [address] documented as of this encounter Visit Diagnoses Not on filedocumented in this encounter
--- OUTSIDE RECORDS SUMMARY | 2024-06-13 02:02 | XMS_ITS | Encounter Summary ---
Author Organization [facility] Address [address] [place] [address]. [place], [place] [address] [place] [address] Care Team Providers Care Home And Family Living Professor Name Role Phone Unavailable Primary Care Provider Unavailabl e Encounter Details Date Type Department Care Team (Late st Contact Info) Description 08/26/2007 Abstract [facility] CONVERSION [address] [place] [address] Denilson Ferrara MD Social History Tobacco Use [...] st Contact Info) Description 06/23/2024 2:40 PM MIDDLE OR INTERMEDIATE SCHOOL PRINCIPAL Office Visit [facility] Medical Group Family & Internal Medicine [facility] [address] [place] [address] [place] [address] [place], [place] [phone] documented as of this encounter Visit Diagnoses Not on filedocumented in this encounter
--- OUTSIDE RECORDS SUMMARY | 2024-06-13 02:02 | XMS_ITS | Encounter Summary ---
Author Organization [facility] Address [address] [place] [address]. [place], [place] [address] [place] [address] Care Team Providers Care Data Processing Operator Name Role Phone Unavailable Primary Care Provider Unavailabl e Encounter Details Date Type Department Care Team (Late st Contact Info) Description 07/22/2008 Abstract [facility] CONVERSION [address] [place] [address] Social History Tobacco Use Types [...] st Contact Info) Description 06/23/2024 2:40 PM DYED RAW STOCK BLOWER FEEDER Office Visit [facility] Medical Group Family & Internal Medicine [facility] [address] [place] [address] [place] [address] [place], [place] [phone] documented as of this encounter Visit Diagnoses Not on filedocumented in this encounter
--- OUTSIDE RECORDS SUMMARY | 2024-06-13 02:02 | XMS_ITS | Encounter Summary ---
Author Organization [facility] Address [address] [place] [address]. [place], [place] [address] [place] [address] Care Team Providers Care Marketing Production Coordinator Name Role Phone Unavailable Primary Care Provider Unavailabl e Encounter Details Date Type Department Care Team (Late st Contact Info) Description 12/23/1999 Abstract [facility] CONVERSION [address] [place] [address] , Generic Conversion, Social History [...] st Contact Info) Description 06/23/2024 2:40 PM PROPERTY AND CASUALTY INSURANCE AGENT Office Visit [facility] Group Family & Internal Medicine [facility] [address] [place] [address] [place] [address] [place], [place] [phone] documented as of this encounter Visit Diagnoses Not on filedocumented in this encounter
--- OUTSIDE RECORDS SUMMARY | 2024-06-13 02:02 | XMS_ITS | Encounter Summary ---
Author Organization [facility] Address [address] [place] [address]. [place], [place] [address] [place] [address] Care Team Providers Care Creche Attendant Name Role Phone Unavailable Primary Care Provider Unavailabl e Encounter Details Date Type Department Care Team (Late st Contact Info) Description 07/16/2006 Abstract [facility] CONVERSION [address] [place], [place] [address] Danny Bay MD [address] [place] [address] Social History Tobacco Use Types Packs/Day Years [...] st Contact Info) Description 06/23/2024 2:40 PM MUSICAL PERFORMER Office Visit [facility] Medical Group Family & Internal Medicine [facility] [address] [place] [address] [place] [address] [place] [address] documented as of this encounter Visit Diagnoses Not on filedocumented in this encounter
--- OUTSIDE RECORDS SUMMARY | 2024-06-13 02:02 | XMS_ITS | Encounter Summary ---
Author Organization [facility] Address [address] [place] [address]. [place], [place] [id number] [place] [address] Care Team Providers Care Banquet Server Name Role Phone Unavailable Primary Care Provider Unavailabl e Encounter Details Date Type Department Care Team (Late st Contact Info) Description 09/07/1997 Abstract [facility] CONVERSION [address] [place] [address] , Generic Conversion, Social History [...] st Contact Info) Description 06/23/2024 2:40 PM RELIEF PILOT Office Visit [facility] Family & [facility] [address] [place] [address] [place] [address] [place], [place] [id number] documented as of this encounter Visit Diagnoses Not on filedocumented in this encounter
--- OUTSIDE RECORDS SUMMARY | 2024-06-13 02:02 | XMS_ITS | Encounter Summary ---
Author Organization [facility] Address [address] [place] [address]. [place], [place] [address] [place] [address] Care Team Providers Care Nurse Quality Name Role Phone Unavailable Primary Care Provider Unavailabl e Encounter Details Date Type Department Care Team (Late st Contact Info) Description 04/08/1994 Abstract [facility] CONVERSION [address] [place] [address] , Generic Conversion, Social History [...] st Contact Info) Description 06/23/2024 2:40 PM COIN TELLER Office Visit [facility] Medical [facility] Family & Internal Medicine [facility] [address] [place] [address] [place] [address] [place], [place] [id number] documented as of this encounter Visit Diagnoses Not on filedocumented in this encounter
--- OUTSIDE RECORDS SUMMARY | 2024-06-13 02:02 | XMS_ITS | Encounter Summary ---
Author Organization [facility] Address [address] [place] [address]. [place], [place] [address] [place] [address] Care Team Providers Care Hook Up Name Role Phone Unavailable Primary Care Provider Unavailabl e Encounter Details Date Type Department Care Team (Late st Contact Info) Description 10/07/2009 Abstract [facility] CONVERSION [address] [place] [address] Social History Tobacco Use Types [...] st Contact Info) Description 06/23/2024 2:40 PM AUDIO VISUAL FACILITIES ENGINEER Office Visit [facility] Medical [facility] Family & Internal Medicine [facility] [address] [place] [address] [place] [address] [place], [place] [id number] documented as of this encounter Visit Diagnoses Not on filedocumented in this encounter
--- OUTSIDE RECORDS SUMMARY | 2024-06-13 02:11 | XMS_ITS | Encounter Summary ---
Author Organization [facility] Address [address] [place] [address] Care Team Providers Care Regulatory Coordinator Name Role Phone Denilson Ferrara MD Primary Care Provider [phone]- [phone] Encounter Details Date Type Department Care Team (Late st Contact Info) Description 09/09/2018 Orders Only [facility] BREAST SURGERY [address], [address] [address] Provider, Abstract NO ADDRESS ON FILE Social History Tobacco Use Types Packs/Day Years Used Date Smoking Tobacco: Never Smokeless Tobacco: Never Sex and Gender Information Value Date Recorded Sex Assigned at Not on file Gender Identity Not on file Sexual Orientation Not on file documented as of this encounter Plan of Treatment Not on file documented as of this encounter Procedures Procedure Name Priority Date/Time Associated Diagnosis Comments PATHOLOGY Routine 09/25/2016 MRI BREAST DIAGNOSTIC WWO CO NTRAST BILATERAL Routine 08/29/2016 PATHOLOGY Routine 08/08/2016 documented in this encounter Results * PATHOLOGY (09/25/2016) Tissue Abstract Provider PATHOLOGY/CYTOLOGY O RDERABLES Performing Organization Address [facility] Co de Phone Number [facility] * MRI BREAST W WO CONT BILAT (08/29/2016) Anatomical Region Laterality Modality Breast Bilateral Other Abstract Provider MR ORDERABLES * PATHOLOGY (08/08/2016) Tissue Abstract Provider PATHOLOGY/CYTOLOGY O RDERABLES Performing Organization Address [facility]/State/ZIP Co de Phone Number [facility] documented in this encounter Visit Diagnoses Not on filedocumented in this encounter Care Teams Regulatory Coordinator Relationship Specialty Start [place] [address] [address] PCP - General Internal Medicine 10/03/17 documented as of this encounter
--- OUTSIDE RECORDS SUMMARY | 2024-06-13 02:11 | XMS_ITS | Encounter Summary ---
Author Organization [facility] Address [address] [place] [address] Care Team Providers Care Lumber Hacker Name Role Phone Denilson Ferrara MD Primary Care Provider [phone]- [phone] Encounter Details Date Type Department Care Team (Late st Contact Info) Description 10/07/2018 Orders Only [facility] BREAST SURGERY [address], [address] [address] Nivia Castrejon, NO ADDRESS ON FILE Abnormal mammogram; Screening for breast cancer Social History Tobacco Use Types Packs/Day Years Used Date Smoking Tobacco: Never Smokeless Tobacco: Never Sex and Gender Information Value Date Recorded Sex Assigned at Not on file Gender Identity Not on file Sexual Orientation Not on file documented as of this encounter Plan of Treatment Not on file documented as of this encounter Visit Diagnoses Diagnosis Abnormal mammogram Abnormal mammogram, unspecified Screening for breast cancer Breast screening, unspecified documented in this encounter Care Teams Lumber Hacker Relationship Specialty [place] [address] [address] PCP - General Internal Medicine 10/03/17 documented as of this encounter
--- OUTSIDE RECORDS SUMMARY | 2024-06-13 02:11 | XMS_ITS | Encounter Summary ---
Author Organization [facility] Address [facility] [place] [address] Care Team Providers Care Fiberglass Fabricator Name Role Phone Kathy Lee MD Unavailable [phone] Ravinder Ford Primary Care Provider [phone]- [phone] Reason for Referral * Diagnostic Imaging (Routine) - Closed Specialty Diagnoses / Procedures Referred By Annemarie turner Referred To Contact Diagnoses Mammogram abnormal Procedures Screening Mammogram Bilateral W Ravinder Clement NP Phone: tel: fax: [address] [address] Referral ID Status Reason Start Date Expiration Date Visits Re quested Visits Authorized [id number] Closed 10/05/2022 11/04/2023 1 1 Reason for Visit * Diagnostic Imaging (Routine) - Closed Specialty Diagnoses / Procedures Referred By Annemarie turner Referred To Contact Diagnoses Mammogram abnormal Procedures Screening Mammogram Bilateral W Ravinder Clement NP Phone: tel: fax: [address] [address] Referral ID Status Reason Start Date Expiration Date Visits Re quested Visits Authorized [id number] Closed 10/05/2022 11/04/2023 1 1 Encounter Details Date Type Department Care Team (Latest Contact Info) Description 10/08/2023 8:41 AM CDT - 10/08/2023 11:59 PM CDT Hospital Encounter [facility] Advanced Medicine Breast Imaging [facility] ([facility]) [address] [place] [address] Mammogram abnormal Discharge Disposition: Discharge to home or self care Social History Tobacco Use Types Packs/Day Years Used Date Smoking Tobacco: Former Cigarettes 0.3 24.3 1 990 - 10/06/2013 Smokeless Tobacco: Never AUDIT-C Answer Date Recorded Q1: How often do you have a drink containing alc ohol? 2-4 times a month 11/25/2020 Q2: How many drinks containi ng alcohol do you have on a typical day when you are drinking? 1 or 2 11/25/2020 Q3: How often do you have si x or more drinks on one occasion? Monthly 11/25/2020 Comments No Sex and Gender Information Value Date Recorded Sex Assigned at Not on file Legal Sex Female 1:59 PM CDT Gender Identity Not on file Sexual Orientation Not on file documented as of this encounter Medications at Time of Discharge cephalexin (KEFLEX) 500 mg capsuleIndications :Urinary Tract/Genitourinar y Infection,uses after intercourse Take 1 capsule (500 mg total) by mouth as needed cholecalciferol (VITAMIN D-3) 25 mcg (1,000 unit) tabletIndications: Vitamin D Deficiency Take 1 tablet (1,000 Units total) by mouth nightly multivitamin capsuleIndications :Vitamin Deficiency Prevention Take 1 capsule by mouth nightly documented as of this encounter Discharge Disposition Disposition Code Departure Means Destination Discharge to home or self care documented in this encounter Plan of Treatment Not on file documented as of this encounter Procedures Procedure Name Priority Date/Time Associated Diagnosis Comments SCREENING MAMMOGRAM BILATERAL W KI Schedule Routine, Read Routine (OP Routine) 10/08/2023 8:54 AM CDT Mammogram abnormal documented in this encounter Results * Screening Mammogram Bilateral W Ki (10/08/2023 8:54 AM CDT) Anatomical Region Laterality Modality Breast Bilateral Mammography Narrative 10/09/2023 12:36 PM CDT Mammogram Technique: Bilateral Digital Breast Tomosynthesis, Bilateral C-view 2D Screening mammogram. ??Views obtained: ??bilateral craniocaudal and bilateral mediolateral oblique. ??Computer Aided Detection was performed. Mammogram Findings: The present examination has been compared to prior imaging studies performed at [facility]. ??[facility] on 09/15/2019, 09/16/2020 and 10/04/2020, and at [facility] on 10/05/2021 and 10/05/2022. There are scattered areas of fibroglandular density. There is a post-surgical scar in the right breast. Finding remains unchanged from the prior study. There is no suspicious abnormality in either breast. Impression: Post-surgical scar in the right breast is benign. Annual screening mammography is recommended. OVERALL FINAL ASSESSMENT: BI-RADS CATEGORY 2: ??Benign. Procedure Note Jessenia Colunga MD - 10/09/2023 Mammogram Technique: Bilateral Digital Breast Tomosynthesis, Bilateral C-view 2D Screening mammogram. Views obtained: bilateral craniocaudal and bilateral mediolateral oblique. Computer Aided Detection was performed. Mammogram Findings: The present examination has been compared to prior imaging studies performed at [facility]. [facility] on 09/15/2019, 09/16/2020 and 10/04/2020, and at [facility] on 10/05/2021nd 10/05/2022. There are scattered areas of fibroglandular density. There is a post-surgical scar in the right breast. Finding remains unchanged from the prior study. There is no suspicious abnormality in either breast. Impression: Post-surgical scar in the right breast is benign. Annual screening mammography is recommended. OVERALL FINAL ASSESSMENT: BI-RADS CATEGORY 2: Benign. Ravinder Candelaria NP IMG MAMMO PROCEDURES Final Result documented in this encounter Visit Diagnoses Diagnosis Mammogram abnormal Abnormal mammogram, unspecified documented in this encounter Care Teams Fiberglass Fabricator Relationship Specialty Start Date End Date Ravinder Ford PA [address] [place] [address] PCP - General Pack Master 09/25/23 Kathy Lee MD [address] [place] [address] Referring Physician Obstetrics and Gynecology 10/28/20 documented as of this encounter
--- OUTSIDE RECORDS SUMMARY | 2024-06-13 02:11 | XMS_ITS | Encounter Summary ---
Author Organization [facility] Address [address] [place] [address] Care Team Providers Care Charge Lpn Name Role Phone Denilson Ferrara MD Primary Care Provider [phone]- [phone] Reason for Visit * Reason Comments Follow Up bx f/u Encounter Details Date Type Department Care Team (Late st Contact Info) Description 10/15/2018 9:55 AM CDT Office Visit [facility] BREAST SURGERY [address] [address], [address] [address] Nivia Castrejon DO NO ADDRESS ON FILE Duct ectasia of breast, left (Primary Dx) Social History Tobacco Use Types Packs/Day Years Used Date Smoking Tobacco: Never Smokeless Tobacco: Never Sex and Gender Information Value Date Recorded Sex Assigned at Not on file Gender Identity Not on file Sexual Orientation Not on file documented as of this encounter Last Filed Vital Signs Vital Sign Reading Time Taken Comments Blood Pressure 140/81 10/15/2018 9:51 AM CDT Pulse 100 10/15/2018 9:51 AM CDT Temperature 36.9 ??C (98.5 ??F) 10/15/2018 9:51 AM CD T Respiratory Rate - - Oxygen Saturation 98% 10/15/2018 9:51 AM CDT Inhaled Oxygen Concentration - - Weight 103.6 kg (228 lb 6.4 oz) 10/15/2018 9:51 AM CDT Height 170.2 cm (5' 7 ) 10/15/2018 9:51 AM CDT Body Mass Index 35.77 10/15/2018 9:51 AM CDT documented in this encounter Progress Notes * Nivia Castrejon DO - 10/15/2018 10:22 AM CDT Chief Complaint Patient presents with ??? Follow Up bx f/u Subjective: The patient states she is feeling well with no complaints. She has had no pain, no fevers since the procedure. She had some mild bruising at the biopsy site. She is here today accompaniedby her . A post-biopsy mammogram was done with the coil marker in the left breast is at the site of the original concern. There are multiple air bubbles at the area as well. PROCEDURE(s): 10/07/2018: Left retroareolar 2:00 ultrasound-guided core biopsy Pathology: Stromal fibrosis, duct ectasia and periductal fibrosis. Adenosis. No atypical or malignant findings. 09/25/2016: Right, Partial Mastectomy, Oncoplastic mammaplasty, Left, Mastopexy, symmetrizing procedure Pathology: Ductal Carcinoma in situ, Lobular Carcinoma in situ (LCIS) ?? 08/08/2016: right stereotactic biopsy 12:00 Pathology: DCIS, ER positive, TX positive ?? FHx: No breast cancer, no ovarian cancer, no other cancers ?? Menarche 12 partial hysterectomy 35yo due to endometriosis. Still feels cycling monthly. FFTB 22; breast feeding 7 months total; OCPs 14 yrs until partial hysterectomy ?? Size: 40D ?? No Ashkenazi heritage ?? Former smoker, quit 2013, smoked 1/2ppd for 22 yrs BP (!) 140/81 (BP Location: Left arm, Patient Position (BP): Sitting, BP Cuff Size: Adult) Pulse 100 Temp 98.5 ??F (36.9 ??C) (Oral) Ht 5' 7 (1.702 m) Wt 103.6 kg (228 lb 6.4 oz) LMP 11/10/2007 (Approximate) SpO2 98% BMI 35.77 kg/m?? Current Outpatient Medications Medication Sig Dispense Refill ??? cephALEXin (KEFLEX) 500 mg capsule No current facility-administered medications for this visit. Allergies Allergen Reactions ??? Sulfur Hives and Rash No past medical history on file. Past Surgical History: Procedure Laterality Date ??? HX HYSTERECTOMY 2007 partial ??? HX MASTECTOMY 09/25/2016 R Breast Partial Mx ROS: Constitutional: Negative for fever, weight loss and malaise/fatigue. Respiratory: Negative for cough. Cardiovascular: Negative for chest pain and leg swelling. Gastrointestinal: Negative for abdominal pain. Genitourinary: Negative for dysuria. Musculoskeletal: Negative for myalgias and joint pain. Skin: Negative for rash. Neurological: Negative for dizziness and headaches. Psychiatric/Behavioral: Negative for depression Female: OB History 4 Para 3 Term 3 AB Living 3 SAB TAB Ectopic Multiple Live Births Obstetric Comments Bra size 38C The remainder of the review of systems including cardiovascular, pulmonary, GI/, neurologic, and endocrine are negative except as noted above. Immunizations: non-contributory PHYSICAL EXAM: BP (!) 140/81 (BP Location: Left arm, Patient Position (BP): Sitting, BP Cuff Size: Adult) Pulse 100 Temp 98.5 ??F (36.9 ??C) (Oral) Ht 5' 7 (1.702 m) Wt 103.6 kg (228 lb 6.4 oz) LMP 11/10/2007 (Approximate) SpO2 98% BMI 35.77 kg/m?? Breasts: The patient was examined in the seated and supine positions today. no cervical, supraclavicular, axillary lymphadenopathy. Breast symmetry: Left breast larger than right Other findings: Minimal ecchymosis at the biopsy site at the left lateral breast with no signs of infection. The biopsy site is healing nicely. There are no palpable abnormalities. General: well-developed, well-nourished HEENT: normocephalic/atraumatic. Extra-occular movements are intact. Sclera anicteric. Neck is supple without masses. No thyroid nodules. No lymphadenopathy. Cardiovascular: regular rate, rhythm. S1, S2 without murmur. No palpable thrill. 2+ radial pulses. Lungs - clear to auscultation bilaterally. No wheezes. Abdomen: Soft, non-tender. No masses. No palpable liver edge. Extremities: no edema Neurologic: sensory and motor grossly intact. Alert and oriented x 3. Most recent imaging was: Postbiopsy mammogram was done on 10/07/2018. The coil biopsy marker is at the site of concern in the left central breast Bilateral screening mammogram was done at [facility] on 09/11/2018. Left diagnostic imaging was done on 09/23/2018. Comparison films are available from 09/18/2017. The breasts bilaterally are quite dense, with very similar density bilaterally. There is a developing density whichis seen at the level of the nipple in the left breast. This is not easily ascertained on CC views. However, it does appear to be new compared to imaging from September 2017. BI-RADS 4 per radiology. An ultrasound will be done with the exam. ?? Bilateral breast screening mammogram on September 18, 2017. The patient previously had a right breast mammogram in March. Surgical clips are again noted in the right central breast. The breasts bilaterally are homogenous with about 60-70% density. There are no calcifications, no abnormalities noted bilaterally. Comparison is made to the right breast mammogram from March 13, 2017. Future imaging is to be done: Bilateral screening mammogram on or after September 13, 2019 ASSESSMENT AND PLAN: Encounter Diagnosis Name Primary? Duct ectasia of breast, left Yes Pathology and pathophysiology of stromal fibrosis and duct ectasia was discussed in detail. The patient understands that these are benign findings, and do not necessitate further work-up. She also understands that these are very common findings in women in their 40s. Per my routine, I would like to continue to see her every 6 months. I may repeat another ultrasoundat that time of the left upper outer breast. I will then plan to repeat a bilateral screening mammogram in September of next year. Questions were solicited and answered. The patient stated her understanding. documented in this encounter Plan of Treatment Not on file documented as of this encounter Visit Diagnoses Diagnosis Duct ectasia of breast, left- Primary documented in this encounter Care Teams Charge Lpn Relationship Specialty [place] [address] [id number] PCP - General Internal Medicine 10/03/17 documented as of this encounter
--- OUTSIDE RECORDS SUMMARY | 2024-06-13 02:11 | XMS_ITS | Encounter Summary ---
Author Organization [facility] Address [address] [place] [address] Care Team Providers Care Gas Load Dispatcher Name Role Phone Denilson Ferrara MD Primary Care Provider [phone]- [phone] Reason for Referral * Radiology Services (Routine) - Closed Specialty Diagnoses / Procedures Referred By Annemarie turner Referred To Contact Diagnoses Screening for breast cancer Procedures MAMMO SCREEN BILAT W OR WO CAD Nivia Castrejon DO NO ADDRESS ON FILE [address] [address] Referral ID Status Reason Start Date Expiration Date Visits Requested Visits Authorized [id number] Closed Ordering Department To Schedule 04/04/2018 05/05/2019 1 1 Reason for Visit * Reason Comments Follow Up 6 month FU Encounter Details Date Type Department Care Team (Late st Contact Info) Description 04/04/2018 10:00 AM CDT Office Visit [facility] [place] [address], [facility] [place] [address] [place] [address] Nivia Castrejon DO NO ADDRESS ON FILE 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); Screening for breast cancer; Estrogen receptor positive status (ER+); Obesity (BMI 35.0-39.9 without comorbidity) Social History Tobacco Use Types Packs/Day Years Used Date Smoking Tobacco: Never Smokeless Tobacco: Never Sex and Gender Information Value Date Recorded Sex Assigned at Not on file Gender Identity Not on file Sexual Orientation Not on file documented as of this encounter Last Filed Vital Signs Vital Sign Reading Time Taken Comments Blood Pressure 141/102 04/04/2018 10:00 AM CDT Pulse 81 04/04/2018 10:00 AM CDT Temperature 37.1 ??C (98.8 ??F) 04/04/2018 1 0:00 AM CDT Respiratory Rate - - Oxygen Saturation 96% 04/04/2018 10: 00 AM CDT Inhaled Oxygen Concentration - - Weight 103.6 kg (228 lb 4.8 oz) 018 10:00 AM CDT Height 170.2 cm (5' 7 ) 04/04/2018 10:0 0 AM CDT Body Mass Index 35.76 04/04/2018 10:00 AM CDT documented in this encounter Progress Notes * Nivia Castrejon, DO - 04/04/2018 10:13 AM CDT Chief Complaint Patient presents with ??? Follow Up 6 month FU Subjective: Pt is here for follow-up. She states that she is experiencing no new issues referable to her breasts. She states that she does have some twinges of discomfort from time to time, but this is very rare and quickly resolves. Pt currently with UTI, starts Keflex today. Procedure(s): 08/08/2016: right stereotactic biopsy 09/25/2016: Right, Partial Mastectomy, Oncoplastic mammaplasty, Left, Mastopexy, symmetrizing procedure Pathology: Ductal Carcinoma in situ, Lobular Carcinoma in situ (LCIS) Menarche 12 partial hysterectomy 35yo due to endometriosis. Still feels cycling monthly. FFTB 21; breast feeding 7 months total; OCPs 14 yrs until partial hysterectomy Former smoker, quit 2013, smoked 1/2ppd for 22 yrs Allergies Allergen Reactions ??? Sulfur Hives and Rash Current Outpatient Prescriptions: ??? cephALEXin (KEFLEX) 500 mg capsule, , Disp: , Rfl: Former smoker, quit 2013, smoked 1/2ppd for 22 yrs ROS: Constitutional: Negative for fever, weight loss and malaise/fatigue. Respiratory: Negative for cough. Cardiovascular: Negative for chest pain and leg swelling. Gastrointestinal: Negative for abdominal pain. Genitourinary: Negative for dysuria. Musculoskeletal: Negative for myalgias and joint pain. Skin: Negative for rash. Neurological: Negative for dizziness and headaches. Psychiatric/Behavioral: Negative for depression Female: Menarche 12 partial hysterectomy 35yo due to endometriosis. Still feels cycling monthly. FFTB 21; breast feeding 7 months total; OCPs 14 yrs until partial hysterectomy OB History Para Term AB Living 4 3 3 3 SAB TAB Ectopic Multiple Live Births Obstetric Comments Bra size 38C The remainder of the review of systems including cardiovascular, pulmonary, GI/, neurologic, and endocrine are negative except as noted above. Immunizations: non-contributory PHYSICAL EXAM: BP (!) 141/102 (BP Location: Left arm, Patient Position (BP): Sitting, BP Cuff Size: Adult) Pulse81 Temp 98.8 ??F (37.1 ??C) (Oral) Ht 5' 7 (1.702 m) Wt 103.6 kg (228 lb 4.8 oz) LMP 11/10/2007 (Approximate) SpO2 96% ? No BMI 35.76 kg/m?? Breasts: no cervical, supraclavicular, axillary lymphadenopathy. Breast symmetry: Left breast larger than right Other findings: The patient was examined in the seated and supine positions today. There are no skin changes, nipple discharge, or suspicious areas of skin change or rashes in either breast. The right breast is without dominant palpable masses. The nipples are bilaterally everted with no discharge.At the left lower inner breast, there is some tenderness to palpation and what on palpation appearsto be scar tissue. Ultrasound done left breast 7:00 showing simply dense tissue and scar with no abnormalities within. General: well-developed, well-nourished HEENT: normocephalic/atraumatic. Extra-occular movements [...] grossly intact. Alert and oriented x 3. Pathology: DCIS and LCIS Biomarkers: Estrogen Receptor greater than 90%, positive progesterone Receptor 80%, positive her2 not done ki67 not done Tumor Size: 3 mm on surgical excision with no invasive focus. Original biopsy showed multiple coreswith 4 mm of tumor. There was associated lobular carcinoma in situ with DCIS. Lymph nodes involved/ how many removed: Lymph nodes not sampled Lymphovascular invasion: no Extracapsular extension: no Other notes: August 15, 2016: BRCA plus testing was done, showing no detected mutations in BRCA1, BRCA2, CDH1, PALB2, PTEN nor TP53 Most recent imaging: Bilateral breast screening mammogram on September 18, 2017. The patient previouslyhad a right breast mammogram in March. Surgical clips are again noted in the right central breast. The breasts bilaterally are homogenous with about 60-70% density. There are no calcifications, no abnormalities noted bilaterally. Comparison is made to the right breast mammogram from March 13, 2017. Future imaging: Bilateral breast mammogram September 2018 Time spent: 45 minutes spent counseling and coordinating care ASSESSMENT AND PLAN: Encounter Diagnoses Name Primary? Screening for breast cancer ??? 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 Estrogen receptor positive status (ER+) ??? Obesity (BMI 35.0-39.9 without comorbidity) The patient is doing very well. She has decided on no adjuvant therapy: no endocrine therapy, no radiation therapy. I continue to feel that in her case, this was a good choice. I will continue with yearly mammography, and the patient will be due for a bilateral mammogram in September. I will see her back once this is done. We had a very long discussion about her diet and her concern about weight gain. We discussed the role of sugar and highly processed flour and the role of weight gain and obesity. We also discussed atlength reading nutrition facts on food labels. The patient states she is very interested in making these changes, and having a healthier lifestyle. Again, I will plan to see her back with her mammogram in September. The patient understands to call to see me sooner, if there is any problem or concern. Questions were solicited and fully answered. Patient stated understanding. documented in this encounter Miscellaneous Notes * Patient Instructions - Nivia Castrejon DO - 04/04/2018 10:33 AM CDT Lactobacillus/ acidophillus documented in this encounter Plan of Treatment Scheduled Orders Name Type Priority Associated Diagnoses Orde r Schedule MAMMO SCREEN BILAT W OR WO CAD Imaging Routine Screening for breast cancer Expected: 09/19/2018, Expires: 04/04/2019 documented as of this encounter Procedures Procedure Name Priority Date/Time Associated Diagnosis Comments US BREAST UNI LT LTD Routine 04/04/2018 Screening for breast cancer documented in this encounter Results * US BREAST UNI LT LTD (04/04/2018) Anatomical Region Laterality Modality Left Other Impressions 04/04/2018 See note. Nivia RAMIREZ ORDERABLES documented in this encounter Visit Diagnoses Diagnosis Ductal carcinoma in situ of right breast- Primary Carcinoma in situ of breast Screening for breast cancer Breast screening, unspecified Estrogen receptor positive status (ER+) Estrogen receptor positive status [ER+] Obesity (BMI 35.0-39.9 without comorbidity) Obesity, unspecified documented in this encounter Care Teams Gas Load Dispatcher Relationship Specialty Start [place] [id number] [address] PCP - General Internal Medicine 10/03/17 documented as of this encounter
--- OUTSIDE RECORDS SUMMARY | 2024-06-13 02:11 | XMS_ITS | Encounter Summary ---
Author Organization [facility] Address [address] [place] [address] Care Team Providers Care Pump Rebuilder Name Role Phone Kathy Lee MD Unavailable [phone] Ravinder Ford Primary Care Provider [phone]- [phone] Reason for Referral * MRI/CAT/PET Scan (Routine) - Closed Specialty Diagnoses / Procedures Referred By Annemarie turner Referred To Contact Radiology Diagnoses Atypical lobular hyperplasia (ALH) of breast Procedures MRI Breast Bilateral W WO Contrast Ravinder Candelaria NP Phone: tel: fax: [address] [address] Referral ID Status Reason Start Date Expiration Date Visits Re quested Visits Authorized [id number] Closed 10/08/2023 11/06/2024 1 1 Reason for Visit * MRI/CAT/PET Scan (Routine) - Closed Specialty Diagnoses / Procedures Referred By Annemarie turner Referred To Contact Radiology Diagnoses Atypical lobular hyperplasia (ALH) of breast Procedures MRI Breast Bilateral W WO Contrast Ravinder Candelaria NP Phone: tel: fax: [address] [address] Referral ID Status Reason Start Date Expiration Date Visits Re quested Visits Authorized [id number] Closed 10/08/2023 11/06/2024 1 1 Encounter Details Date Type Department Care Team (Latest Contact Info) Description 04/11/2024 10:15 AM CDT - 04/11/2024 11:59 PM CDT Hospital Encounter [facility] [address] [place] [address] Atypical lobular hyperplasia (ALH) of breast Discharge Disposition: Discharge to home or self [...] Priority Date/Time Associated Diagnosis Comments MRI BREAST BILATERAL W WO CONTRAST Schedule Routine, Read Routine (OP Routine) 04/11/2024 12:15 PM CDT Atypical lobular hyperplasia (ALH) of breast documented in this encounter Results * MRI Breast Bilateral W WO Contrast (04/11/2024 12:15 PM CDT) Anatomical Region Laterality Modality Breast Bilateral Magnetic Resonan ce 04/11/2024 2:09 PM CDT Impressions 04/11/2024 2:13 PM CDT Post surgical changes in the RIGHT breast without MR evidence of malignancy in EITHER breast. OVERALL FINAL ASSESSMENT: BI-RADS Category 2: Benign. RECOMMENDATION: Continued clinical and oncologic management of known malignancy. Dictated by: Henry Goddard M.D. The radiology attending physician has personally reviewed this study, and had reviewed and/or edited this written report and agrees with it. Electronically signed by: Veronique Saldivar M.D. Narrative 04/11/2024 2:13 PM CDT EXAMINATION: 1. MRI EXAMINATION OF THE BREASTS WITH AND WITHOUT CONTRAST 2. 3D POST PROCESSING ON A DEDICATED 3D WORKSTATION HISTORY: High-risk Screening. 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 DATE OF LAST MENSTRUAL PERIOD: Patient is status post partial hysterectomy and 2010. TECHNIQUE: MRI examination of the breasts per breast tumor protocol with and without gadolinium contrast. ??A dedicated breast imaging coil was used. ??The images were transferred to a breast CAD system for 3D post processing and contrast kinetics analysis. ?? CONTRAST: Gadoterate meglumine, 18 ml COMPARISON: Comparison is made to prior MR is, most recently dated 10/28/2022 and dating back to 10/26/2020. ??Comparison is made to mammograms most recently dated 10/08/2023, dating back to 2019. BREAST COMPOSITION: Scattered fibroglandular tissue BACKGROUND PARENCHYMAL ENHANCEMENT: Mild FINDINGS: Postsurgical changes are again seen in the RIGHT breast. ??There is no suspicious enhancing mass or non-mass enhancement in EITHER breast. No abnormally enlarged lymph nodes are identified in the visualized portions of either axilla. Procedure Note Veronique Saldivar MD - 04/11/2024 EXAMINATION: 1. MRI EXAMINATION OF THE BREASTS WITH AND WITHOUT CONTRAST 2. 3D POST PROCESSING ON A DEDICATED 3D WORKSTATION HISTORY: High-risk Screening. 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 DATE OF LAST MENSTRUAL PERIOD: Patient is status post partial hysterectomy and 2009. TECHNIQUE: MRI examination of the breasts per breast tumor protocol with and without gadolinium contrast. A dedicated breast imaging coil was used. The images were transferred to a breast CAD system for 3D post processing and contrast kinetics analysis. CONTRAST: Gadoterate meglumine, 18 ml COMPARISON: Comparison is made to prior MR is, most recently dated 10/28/2022 and dating back to 10/26/2020. Comparison is made to mammograms most recently dated 10/08/2023, dating back to 2019. BREAST COMPOSITION: Scattered fibroglandular tissue BACKGROUND PARENCHYMAL ENHANCEMENT: Mild FINDINGS: Postsurgical changes are again seen in the RIGHT breast. There is no suspicious enhancing mass or non-mass enhancement in EITHER breast. No abnormally enlarged lymph nodes are identified in the visualized portions of either axilla. IMPRESSION: Post surgical changes in the RIGHT breast without MR evidence of malignancy in EITHER breast. OVERALL FINAL ASSESSMENT: BI-RADS Category 2: Benign. RECOMMENDATION: Continued clinical and oncologic management of known malignancy. Dictated by: Henry Goddard M.D. The radiology attending physician has personally reviewed this study, and had reviewed and/or edited this written report and agrees with it. Electronically signed by: Veronique Saldivar M.D. Ravinder Candelaria LIBRARY HELPER IMG MRI PROCEDURES Fi nal Result documented in this encounter Visit Diagnoses Diagnosis Atypical lobular hyperplasia (ALH) of breast documented in this encounter Administered Medications Inactive Administered Medications - up to 3 most recent administrations Medication Order MAR Action Action Date Dose Rate Site gadoterate meglumine injection 18 mL 18 mL, intravenous, Once in imaging, contrast, Starting on Sun04/11/24 at 1156, For 1 dose Contrast Given 04/11/2024 12:11 PM CDT 18 mL documented in this encounter Orders Medications Ordered That Calin ht Not Have Been Administered Count Last Ordered Date First Ordered Date gadoterate meglumine injection 18 mL 1 06/2023 documented in this encounter Care Teams Pump Rebuilder Relationship Specialty Start Date End Date Ravinder Ford PA [address] [place] [address] PCP - General Dial Screw Assembler 09/25/23 Kathy Lee MD [address] [facility] [place] [address] Referring Physician Obstetrics and Gynecology 10/28/20 documented as of this encounter
--- OUTSIDE RECORDS SUMMARY | 2024-06-13 02:11 | XMS_ITS | Encounter Summary ---
Author Organization [facility] Address [address] [place] [address] Care Team Providers Care Law Firm Partner Name Role Phone Denilson Ferrara MD Primary Care Provider [phone] Encounter Details Date Type Department Care Team (Late st Contact Info) Description 09/12/2018 Orders Only [facility] [place] [address], [address] [address] Nivia Castrejon, DO NO ADDRESS ON FILE Social History Tobacco [...] on filedocumented in this encounter Care Teams Law Firm Partner Relationship Specialty [place] [address] [address] PCP - General Internal Medicine 10/03/17 documented as of this encounter
--- OUTSIDE RECORDS SUMMARY | 2024-06-13 02:11 | XMS_ITS | Encounter Summary ---
Author Organization [facility] Address [address] [place] [address] Care Team Providers Care Certified Nursing Assistant Instructor Name Role Phone Denilson Ferrara MD Primary Care Provider [phone]- [phone] Encounter Details Date Type Department Care Team (Late st Contact Info) Description 10/02/2017 Orders Only [facility] [place] [address], [address] [address] Provider, Abstract NO ADDRESS ON [...] Name Priority Date/Time Associated Diagnosis Comments MAMMOGRAM REPORT Routine 03/13/2017 MAMMOGRAM REPORT Routine 09/25/2016 MRI BREAST Routine 08/29/2016 MAMMOGRAM REPORT Routine 08/08/2016 IMAGING REPORT Routine 08/03/2016 MAMMOGRAM REPORT Routine 07/26/2016 MAMMOGRAM REPORT Routine 07/20/2016 documented in this encounter Results * MAMMOGRAM REPORT (03/13/2017) Anatomical Region Laterality Modality Other Abstract Provider MAMMO ORDERABLES * MAMMOGRAM REPORT (09/25/2016) Anatomical Region Laterality Modality Other Abstract Provider MAMMO ORDERABLES * MRI BREAST (08/29/2016) Anatomical Region Laterality Modality Other Abstract Provider MR ORDERABLES * MAMMOGRAM REPORT (08/08/2016) Anatomical Region Laterality Modality Other Abstract Provider MAMMO ORDERABLES * IMAGING REPORT (08/03/2016) Anatomical Region Laterality Modality Other Abstract Provider DIAGNOSTIC IMAGING O RDERABLES * MAMMOGRAM REPORT (07/26/2016) Anatomical Region Laterality Modality Other Abstract Provider MAMMO ORDERABLES * MAMMOGRAM REPORT (07/20/2016) Anatomical Region Laterality Modality Other Abstract Provider MAMMO ORDERABLES documented in this encounter Visit Diagnoses Not on filedocumented in this encounter Care Teams Certified Nursing Assistant Instructor Relationship Specialty Start [place] [address] [address] PCP - General Internal Medicine 10/03/17 documented as of this encounter
--- OUTSIDE RECORDS SUMMARY | 2024-06-13 02:11 | XMS_ITS | Encounter Summary ---
Author Organization [facility] Address [address] [place] [address] Care Team Providers Care Coal Getter Name Role Phone Unavailable Primary Care Provider Unavailabl e Encounter Details Date Type Department Care Team (Late st Contact Info) Description 09/21/2017 Orders Only [facility] [place] [address], [address] [address] Provider, Abstract NO ADDRESS ON [...] Date/Time Associated Diagnosis Comments MAMMOGRAM REPORT Routine 09/18/2017 documented in this encounter Results * MAMMOGRAM REPORT (09/18/2017) Anatomical Region Laterality Modality Other Abstract Provider MAMMO ORDERABLES documented in this encounter Visit Diagnoses Not on filedocumented in this encounter
--- OUTSIDE RECORDS SUMMARY | 2024-06-13 02:11 | XMS_ITS | Encounter Summary ---
Author Organization [facility] Address 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 Unable to assess 01/28/2020 11:23 AM CDT documented as of this encounter Plan of Treatment Not on file documented as of this encounter Visit Diagnoses Diagnosis Ductal carcinoma in situ of right breast- Primary Carcinoma in situ of breast Estrogen receptor positive status (ER+) Estrogen receptor positive status [ER+] documented in this encounter Care Teams Sporting Goods Sales Manager Relationship Specialty [place] [address] [address] PCP - General Internal Medicine 10/03/17 documented as of this encounter
--- OUTSIDE RECORDS SUMMARY | 2024-06-13 02:11 | XMS_ITS | Encounter Summary ---
Author Organization [facility] Address [address] [place] [address] Care Team Providers Care Social Media Job Titles Name Role Phone Denilson Ferrara MD Primary Care Provider [phone]- [phone] Reason for Referral * Outpatient Services (Routine) - Closed Specialty Diagnoses / Procedures Referred By Annemarie turner Referred To Contact Diagnoses Abnormal mammogram Procedures MAMMO DIAG UNI LEFT 3D PRABHU W OR WO CAD CHG DIAGNOSTIC MAMMOGRAPHY COMPUTER-AIDED DETCJ UNI CHG DIGITAL BREAST TOMOSYNTHESIS UNILATERAL Nivia Castrejon DO NO ADDRESS ON FILE [address] [address] Referral ID Status Reason Start Date Expiration Date Visits Requested Visits Authorized [id number] Closed Ordering Department To Schedule 10/03/2018 11/03/2019 1 1 Reason for Visit * Reason Comments Follow Up MMG FU Encounter Details Date Type Department Care Team (Late st Contact Info) Description 10/03/2018 1:30 PM CDT Office Visit [facility] BREAST SURGERY [place] [address] [address], [facility] [address] [place] [address] Nivia Castrejon DO NO ADDRESS ON FILE Abnormal mammogram (Primary Dx); Ductal carcinoma in situ of right breast; Estrogen receptor positive status (ER+); Sign and symptom in breast; Abnormal ultrasound of breast Social History Tobacco Use Types Packs/Day Years Used Date Smoking Tobacco: Never Smokeless Tobacco: Never Sex and Gender Information Value Date Recorded Sex Assigned at Not on file Gender Identity Not on file Sexual Orientation Not on file documented as of this encounter Last Filed Vital Signs Vital Sign Reading Time Taken Comments Blood Pressure 145/91 10/03/2018 1:23 PM CDT Pulse 87 10/03/2018 1:23 PM CDT Temperature 37 ??C (98.6 ??F) 10/03/2018 1:23 PM CDT Respiratory Rate - - Oxygen Saturation 97% 10/03/2018 1:23 PM CDT Inhaled Oxygen Concentration - - Weight 104.6 kg (230 lb 8 oz) 10/03/2018 1:23 PM CDT Height 170.2 cm (5' 7 ) 10/03/2018 1:23 PM CDT Body Mass Index 36.1 10/03/2018 1:23 PM CDT documented in this encounter Progress Notes * Nivia Castrejon, DO - 10/03/2018 1:22 PM CDT Chief Complaint Patient presents with ??? Follow Up MMG FU Subjective: Pt is here for mammogram follow-up. She states that she is experiencing no new issues referable to her breasts. The patient is again on Keflex for urinary tract infection. She started the medication 4 days ago. She also had a UTI last March. She states additionally she had a fungal infection in her right earwhich lasted several months until she saw an ear nose and throat doctor who finally appropriately diagnosed her and started her on antifungals. PROCEDURE(s): 09/25/2016: Right, Partial Mastectomy, Oncoplastic mammaplasty, Left, Mastopexy, symmetrizing procedure Pathology: Ductal Carcinoma in situ, Lobular Carcinoma in situ (LCIS) 08/08/2016: right stereotactic biopsy 12:00 Pathology: DCIS, ER positive, MI positive FHx: No breast cancer, no ovarian cancer, no other cancers Menarche 12 partial hysterectomy 35yo due to endometriosis. Still feels cycling monthly. FFTB 21; breast feeding 7 months total; OCPs 14 yrs until partial hysterectomy Size: 40D No Ashkenazi heritage Former smoker, quit 2013, smoked 1/2ppd for 22 yrs Allergies Allergen Reactions ??? Sulfur Hives and Rash Current Outpatient Medications: ??? cephALEXin (KEFLEX) 500 mg capsule, , [...] 14 yrs until partial hysterectomy OB History 4 Para 3 Term 3 AB Living 3 SAB TAB Ectopic Multiple Live Births Obstetric Comments Bra size 38C The remainder of the review of systems including cardiovascular, pulmonary, GI/, neurologic, and endocrine are negative except as noted above. Immunizations: non-contributory PHYSICAL EXAM: BP (!) 145/91 (BP Location: Right arm, Patient Position (BP): Sitting, BP Cuff Size: Adult) Pulse87 Temp 98.6 ??F (37 ??C) (Oral) Ht 5' 7 (1.702 m) Wt 104.6 kg (230 lb 8 oz) LMP 11/10/2007 (Approximate) SpO2 97% BMI 36.10 kg/m?? Breasts: no cervical, supraclavicular, axillary lymphadenopathy. Breast symmetry: Left breast larger than right Other findings: On visual exam, there are no areas of skin dimpling, no skin tenting, no erythema, no rashes, and generally no skin changes. On palpation, there are no nodular densities nor suspicious dominant palpable masses in either breast. The nipples are bilaterally normal, everted and withoutdischarge. Bilateral surgical scars have healed very nicely. Ultrasound done left breast targeted to the retroareolar at 2:00, showing a somewhat irregularly-shaped, shadowing, avascular, heteroechoic lesion measuring 0.83 x 0.74 x 0.77 cm. General: well-developed, well-nourished HEENT: normocephalic/atraumatic. Extra-occular movements [...] August 15, 2016: BRCA plus testing was done. The following genes were analyzed for sequencing and deletion/duplication: BERNICE, BRCA1, BRCA2, CDH1, CHEK2, PALB2, PTEN, and TP53 and showed no detected mutations, no variants of unknown significance, no deletions or duplications. Most recent imaging: Bilateral screening mammogram was done at [facility] on 09/11/2018. Left diagnostic imaging was done on 09/23/2018. Comparison films are available from 09/18/2017. The breasts bilaterally are quite dense, with very similar density bilaterally. There is a developing density which is seen at the level of the nipple in the left breast. This is not easily ascertained on CC views. However, it does appear to be new compared to imaging from September 2017. BI-RADS 4 per radiology. An ultrasound will be done with the exam. Bilateral breast screening mammogram on September 18, 2017. The patient previously had a right breast mammogram in March. Surgical clips are again noted in the right central breast. The breasts bilaterally are homogenous with about 60-70% density. There are no calcifications, no abnormalities noted bilaterally. Comparison is made to the right breast mammogram from March 13, 2017. Future imaging: To be determined ASSESSMENT AND PLAN: Encounter Diagnoses Name Primary? Abnormal mammogram Yes ??? Ductal carcinoma in situ of right breast ??? Estrogen receptor positive status (ER+) ??? Sign and symptom in breast ??? Abnormal ultrasound of breast I explained to the patient that it is possible that this finding in the left breast is simply densebreast tissue. However, it is new and necessitates a biopsy, especially with her history of DCIS and LCIS. Ultrasound guided biopsy procedure, alternatives, common and uncommon risks, benefits and expected outcomes were explained. The patient was given literature of the same, and would like to move ahead with scheduling. Questions were solicited and fully answered. Patient stated understanding. documented in this encounter Miscellaneous Notes * Addendum Note - Charlene Collins RN - 10/03/2018 3:34 PM CDTAddended by: CHARLENE COLLINS on: 10/03/2018 03:34 PM Modules accepted: Orders documented in this encounter Plan of Treatment Scheduled Orders Name Type Priority Associated Diagnoses Orde r Schedule MAMMO DIAG UNI LEFT 3D PRABHU W OR WO CAD Imaging Routine Abnormal mammogram Expected: 10/07/2018, Expires: 11/02/2018 documented as of this encounter Procedures Procedure Name Priority Date/Time Associated Diagnosis Comments US BREAST UNI LT LTD Routine 10/03/2018 Abnormal mammogram Abnormal ultrasound of breast documented in this encounter Results * US BREAST UNI LT LTD (10/03/2018) Anatomical Region Laterality Modality Left Other Impressions 10/03/2018 See note. Nivia Castrejon DO US ORDERABLES documented in this encounter Visit Diagnoses Diagnosis Abnormal mammogram- Primary Abnormal mammogram, unspecified Ductal carcinoma in situ of right breast Carcinoma in situ of breast Estrogen receptor positive status (ER+) Estrogen receptor positive status [ER+] Sign and symptom in breast Other sign and symptom in breast Abnormal ultrasound of breast Other (abnormal) findings on radiological examination of breast documented in this encounter Care Teams Social Media Job Titles Relationship Specialty Start [place] [id number] [address] PCP - General Internal Medicine 10/03/17 documented as of this encounter
--- OUTSIDE RECORDS SUMMARY | 2024-06-13 02:11 | XMS_ITS | Encounter Summary ---
Author Organization [facility] Address [address] [place] [address] Care Team Providers Care Ocean Lifeguard Specialist Name Role Phone Denilson Ferrara MD Primary Care Provider [phone]- [phone] Reason for Visit * Reason Comments Follow Up possible L US in off ice Encounter Details Date Type Department Care Team (Late st Contact Info) Description 04/16/2019 9:00 AM MOLDED GRID AND PARTS INSPECTOR Office Visit [facility] [place] [address] [facility] [address] [address] Nivia Castrejon DO NO ADDRESS ON FILE 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2 ??F) 04/16/2019 8:46 AM CS T Respiratory Rate - - Oxygen Saturation 98% 04/16/2019 8:46 AM MOLDED GRID AND PARTS INSPECTOR Inhaled Oxygen Concentration - - Weight 100.8 kg (222 lb 4.8 oz) 04/16/2019 8:46 AM MOLDED GRID AND PARTS INSPECTOR Height 170.2 cm (5' 7 ) 04/16/2019 8:46 AM MOLDED GRID AND PARTS INSPECTOR Body Mass Index 34.82 04/16/2019 8:46 AM MOLDED GRID AND PARTS INSPECTOR documented in this encounter Progress Notes * Nivia Castrejon, - 04/16/2019 9:00 AM CST Chief Complaint Patient presents with ??? Follow Up possible L US in office Subjective: The patient is here unaccompanied for continued follow-up. The patient notes no changesin her breasts, no palpable lumps, no nipple discharge, no nipple inversion. 10/15/2018: The patient states she is feeling well with no complaints. She has had no pain, no feverssince the procedure. She had some mild bruising at the biopsy site. She is here today accompanied by her . A post-biopsy mammogram was done with the coil marker in the left breast is at the site of the original concern. There are multiple air bubbles at the area as well. PROCEDURE(s): 10/07/2018: Left retroareolar 2:00 ultrasound-guided core biopsy (coil marker) Pathology: Stromal fibrosis, duct ectasia and periductal fibrosis. Adenosis. No atypical or malignant findings. 09/25/2016: Right, Partial Mastectomy, Oncoplastic mammaplasty, Left, Mastopexy, symmetrizing procedure Pathology: Ductal Carcinoma in situ, Lobular Carcinoma in situ (LCIS) ?? 08/08/2016: right stereotactic biopsy 12:00 Pathology: DCIS, ER positive, ID positive ?? FHx: No breast cancer, no ovarian cancer, no other cancers ?? Menarche 12 partial hysterectomy 35yo due to endometriosis. Still feels cycling monthly. FFTB 21; breast feeding 7 months total; OCPs 14 yrs until partial hysterectomy ?? Size: 40D ?? No Ashkenazi heritage ?? Former smoker, quit 2013, smoked 1/2ppd for 22 yrs BP (!) 138/100 (BP Location: Right arm, Patient Position (BP): Sitting, BP Cuff Size: Adult) Pulse 84 Temp 98.2 ??F (36.8 ??C) (Oral) Ht 5' 7 (1.702 m) Wt 100.8 kg (222 lb 4.8 oz) LMP 11/10/2007 (Approximate) SpO2 98% BMI 34.82 kg/m?? Current Outpatient Medications Medication Sig Dispense Refill ??? cephALEXin (KEFLEX) 500 mg capsule Continuous as needed. No current facility-administered medications for this visit. Allergies Allergen Reactions ??? Sulfur Hives and Rash No past medical history on file. Past Surgical History: Procedure Laterality Date ??? HX HYSTERECTOMY 2008 partial ??? HX MASTECTOMY 09/25/2016 R Breast [...] above. Immunizations: non-contributory PHYSICAL EXAM: BP (!) 138/100 (BP Location: Right arm, Patient Position (BP): Sitting, BP Cuff Size: Adult) Pulse 84 Temp 98.2 ??F (36.8 ??C) (Oral) Ht 5' 7 (1.702 m) Wt 100.8 kg (222 lb 4.8 oz) LMP 11/10/2007 (Approximate) SpO2 98% BMI 34.82 kg/m?? Breasts: The patient was examined in [...] nipples are bilaterally normal, everted and withoutdischarge. Targeted ultrasound left breast 2:00 retroareolar was done, showing the area of original concern with the biopsy marker within. The site is slightly smaller on today's exam, avascular, nonshadowing. General: well-developed, well-nourished HEENT: normocephalic/atraumatic. Extra-occular movements [...] breast Bilateral screening mammogram was done at [facility] on 09/11/2018. Left diagnostic imaging [...] September 13, 2019 ASSESSMENT AND PLAN: Encounter Diagnoses Name Primary? 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 Estrogen receptor positive status (ER+) ??? Obesity (BMI 30.0-34.9) The patient understands that on today's exam, there are no abnormalities. A targeted ultrasound wasalso done, showing no changes in the left retroareolar space. The patient will be due for a bilateral screening mammogram on or after September 13, 2019, and should follow-up thereafter. TOBACCO COUNSELING She is not a tobacco user. Questions were solicited and answered. The patient stated her understanding. This note was transcribed using Speech Recognition software. As a result, there may be grammatical and spelling errors that are unintended. If there are any questions or major inaccuracies, please contact me. ED GRID AND PARTS INSPECTOR documented in this encounter Miscellaneous Notes * Addendum Note - Charlene Collins RN - 04/16/2019 11:48 AM CSTAddended by: CHARLENE COLLINS on: 04/16/2019 11:48 AM Modules accepted: Orders ED GRID AND PARTS INSPECTOR documented in this encounter Plan of Treatment Not on file documented as of this encounter Procedures Procedure Name Priority Date/Time Associated Diagnosis Comments US BREAST UNI LT LTD Routine 04/16/2019 Ductal carcinoma in situ of right breast documented in this encounter Results * US BREAST UNI LT LTD (04/16/2019) Anatomical Region Laterality Modality Left Other Impressions 04/16/2019 See note. Nivia RAMIREZ ORDERABLES documented in this encounter Visit Diagnoses Diagnosis Ductal carcinoma in situ of right breast- Primary Carcinoma in situ of breast Estrogen receptor positive status (ER+) Estrogen receptor positive status [ER+] Obesity (BMI 30.0-34.9) Obesity, unspecified Breast cancer screening by mammogram documented in this encounter Care Teams Ocean Lifeguard Specialist Relationship Specialty Start [place] [address] [address] PCP - General Internal Medicine 10/03/17 documented as of this encounter
--- OUTSIDE RECORDS SUMMARY | 2024-06-13 02:11 | XMS_ITS | Encounter Summary ---
Author Organization [facility] Address [address] [place] [address] Care Team Providers Care Media Specialist Name Role Phone Denilson Ferrara MD Primary Care Provider +1- [phone] Reason for Visit * Reason Comments Follow Up Mammogram F/U Encounter Details Date Type Department Care Team (Late st Contact Info) Description 10/03/2017 10:00 AM CDT Office Visit [facility] BREAST SURGERY [place] [address], [address] [address] Nivia Castrejon, NO ADDRESS ON FILE Ductal carcinoma in [...] Sign Reading Time Taken Comments Blood Pressure 136/96 10/03/2017 10:01 AM CDT Pulse 70 10/03/2017 10:01 AM CDT Temperature 37.1 ??C (98.8 ??F) 10/03/2017 1 0:01 AM CDT Respiratory Rate - - Oxygen Saturation 96% 10/03/2017 10: 01 AM CDT Inhaled Oxygen Concentration - - Weight 101.8 kg (224 lb 6.4 oz) 018 10:01 AM CDT Height 170.2 cm (5' 7 ) 10/03/2017 10:0 1 AM CDT Body Mass Index 35.15 10/03/2017 10:01 AM CDT documented in this encounter Progress Notes * Joselyn White - 10/03/2017 10:05 AM CDT Patient states that she has no pain /discomfort Patient states that she has no Nipple discharge Patient states that she has no concerns. * Nivia Castrejon - 10/03/2017 9:57 AM CDT Chief Complaint Patient presents with ??? Follow Up Mammogram F/U Subjective: Pt is here for follow-up. She states that she is experiencing no new issues referable to her breasts. She states that she does have some twinges of discomfort from time to time, but thisis very rare and quickly resolves. Procedure(s): 08/08/2016: right stereotactic biopsy 09/25/2016: Right, Partial Mastectomy, Oncoplastic mammaplasty, Left, Mastopexy, symmetrizing procedure Pathology: Ductal Carcinoma in situ, Lobular Carcinoma in situ (LCIS) Allergies Allergen Reactions ??? Sulfur Hives and Rash No current outpatient prescriptions on file. Former smoker, quit 2013, smoked 1/2ppd for [...] 14 yrs until partial hysterectomy OB History No data available The remainder of the review of systems including cardiovascular, pulmonary, GI/, neurologic, and endocrine are negative except as noted above. Immunizations: non-contributory PHYSICAL EXAM: BP (!) 136/96 (BP Location: Left arm, Patient Position (BP): Sitting, BP Cuff Size: Adult) Pulse 70 Temp 98.8 ??F (37.1 ??C) (Oral) Ht 5' 7 (1.702 m) Wt 101.8 kg (224 lb 6.4 oz) SpO2 96% ? No BMI 35.15 kg/m?? Breasts: no cervical, supraclavicular, axillary lymphadenopathy. Breast symmetry: Left breast larger than right Other findings: The patient was examined in the seated and supine positions today. There are no skin changes, nipple discharge, or suspicious dominant palpable masses in either breast. The nipples are bilaterally everted with no discharge. General: well-developed, well-nourished HEENT: normocephalic/atraumatic. Extra-occular movements [...] Future imaging: Bilateral breast mammogram September 2018 ASSESSMENT AND PLAN: Encounter Diagnoses Name Primary? 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 Estrogen receptor positive status (ER+) The patient is doing very well. She has decided on no adjuvant therapy: no endocrine therapy, no radiation therapy. I feel that in her case, this was a good choice. We discussed her future surveillance. I explained that normally, I do continue with alternating affected breast and bilateral breast mammograms for 2 years, then go to a yearly mammogram. However, inher case, her right breast has been completely normal these last 2 mammograms. The patient states she wishes to go to a yearly mammogram. I will plan for a mammogram in September of next year; however, I would like to continue seeing her every 6 months. The patient understands to call to see me sooner, if there is any problem or concern. Questions were solicited and fully answered. Patient stated understanding. documented in this encounter Plan of Treatment Not on file documented as of this encounter Visit Diagnoses Diagnosis Ductal carcinoma in situ of right breast- Primary Carcinoma in situ of breast Estrogen receptor positive status (ER+) Estrogen receptor positive status [ER+] documented in this encounter Care Teams Media Specialist Relationship Specialty Start [place] [address] [address] PCP - General Internal Medicine 10/03/17 documented as of this encounter
--- OUTSIDE RECORDS SUMMARY | 2024-06-13 02:11 | XMS_ITS | Referral Summary ---
Author Organization [facility] Address [address] [facility] [address] [place] [address] Phone Care Team Providers Care Laboratory Helper Name Role Phone Kathy Lee MD Unavailable [phone] Ravinder Ford Primary Care Provider [phone]- [phone] Encounters Date Type Department Care Team Description 04/11/2024 10:15 AM CDT - 04/11/2024 11:59 PM CDT Hospital Encounter [facility] [address] [place] [address] [id number] Atypical lobular hyperplasia (ALH) of breast Discharge Disposition: Discharge to home or self care from Last 3 Months Allergies Active Allergy Reactions Criticality Noted Date Comments Sulfa (Sulfonamide Antibiotics) Hives,Rash Medium 10/09 Medications cholecalciferol (VITAMIN D-3) 25 mcg (1,000 unit) tabletIndication s:Vitamin D Deficiency Take 1 tablet (1,000 Units total) by mouth nightly Active cephalexin (KEFLEX) 500 mg capsuleIndicatio ns:Urinary Tract/Genitourin mariam Infection,uses after intercourse Take 1 capsule (500 mg total) by mouth as needed Active multivitamin capsuleIndicatio ns:Vitamin Deficiency Prevention Take 1 capsule by mouth nightly Active Active Problems Problem Noted Date Diagnosed Date Ductal carcinoma in situ (DCIS) of right breast 12/08/2020 Atypical lobular hyperplasia (ALH) of breast Breast mass, right 10/18/2020 Overview (10/18/2020): Added automatically from request for surgery [id number] Mammogram abnormal 10/12/2020 Social History Tobacco Use Types Packs/Day Years Used Date Smoking Tobacco: Former Cigarettes 0.3 24.3 1 990 - 10/06/2013 Smokeless Tobacco: Never Tobacco Cessation:Counseling Given: Not Answered AUDIT-C Answer Date Recorded Q1: How often [...] Sign Reading Time Taken Comments Blood Pressure 134/86 11/25/2020 3:40 PM CDT Pulse 56 11/25/2020 3:40 PM CDT Temperature 36.3 ??C (97.3 ??F) 11/25/2020 2:55 PM CD T Respiratory Rate 16 11/25/2020 3:40 PM CDT Oxygen Saturation 97% 11/25/2020 3:40 PM CDT Inhaled Oxygen Concentration - - Weight 93.9 kg (207 lb 0.2 oz) 10/08/2023 8:18 A M CDT Height 168.9 cm (5' 6.5 ) 10/08/2023 8:18 AM CDT Body Mass Index 32.92 10/08/2023 8:18 AM CDT Plan of Treatment Not on file Procedures Procedure Name Priority Date/Time Associated Diagnosis Comments MRI BREAST BILATERAL W WO CONTRAST Schedule Routine, Read Routine (OP Routine) 04/11/2024 12:15 PM CDT Atypical lobular hyperplasia (ALH) of breast SCREENING MAMMOGRAM BILATERAL W PRABHU Schedule Routine, Read Routine (OP Routine) 10/08/2023 8:54 AM CDT Mammogram abnormal from Last 3 Months or Most Recently Relevant to Health Maintenance Results * MRI Breast Bilateral W WO [...] lobular carcinoma in situ post lumpectomy in 2016. DATE OF LAST MENSTRUAL PERIOD: Patient is [...] lobular carcinoma in situ post lumpectomy in 2016. DATE OF LAST MENSTRUAL PERIOD: Patient is [...] signed by: Veronique Saldivar M.D. Ravinder Candelaria NP IMG MRI PROCEDURES Fi nal Result * Screening Mammogram Bilateral W Prabhu (10/08/2023 8:54 AM CDT) Anatomical Region Laterality Modality Breast Bilateral Mammography Narrative 10/09/2023 12:36 PM CDT Mammogram Technique: Bilateral Digital Breast Tomosynthesis, Bilateral C-view 2D Screening mammogram. ??Views obtained: ??bilateral craniocaudal and bilateral mediolateral oblique. ??Computer Aided Detection was performed. Mammogram Findings: The present examination has been compared to prior imaging studies performed at [facility]. [facility] on 09/15/2019, 09/16/2020 and 10/04/2020, and at [facility] on 10/05/2021 and 10/05/2022. There are scattered [...] compared to prior imaging studies performed at [facility]. [facility] on 09/15/2019, 09/16/2020 and 10/04/2020, and at [facility] on 10/05/2021nd 10/05/2022. There are scattered areas of fibroglandular density. There is a post-surgical scar in the right breast. Finding remains unchanged from the prior study. There is no suspicious abnormality in either breast. Impression: Post-surgical scar in the right breast is benign. Annual screening mammography is recommended. OVERALL FINAL ASSESSMENT: BI-RADS CATEGORY 2: Benign. Ravinder Candelaria NP IM MAMMO PROCEDURES Final Result from Last 3 Months or Most Recently Relevant to Health Maintenance Insurance [facility] [employer] [place] [place] [employer] [place] Care Teams Laboratory Helper Relationship Specialty Start Date End Date Ravinder Ford PA [address] [place] [address] PCP - General Property Consultant 09/25/23 Kathy Lee MD [address] [address] Referring Physician Obstetrics and Gynecology 10/28/20
--- OUTSIDE RECORDS SUMMARY | 2024-06-13 02:11 | XMS_ITS | Encounter Summary ---
Author Organization [facility] Address [address] [place] [address] Care Team Providers Care Help Desk Intern Name Role Phone Denilson Ferrara MD Primary Care Provider [phone]- [phone] Encounter Details Date Type Department Care Team (Late st Contact Info) Description 10/16/[address] [facility] BREAST SURGERY [address] [address], [address] [address] Provider, Abstract NO ADDRESS ON [...] Priority Date/Time Associated Diagnosis Comments PATHOLOGY Routine 10/07/2018 documented in this encounter Results * PATHOLOGY (10/07/2018) Tissue Abstract Provider PATHOLOGY/CYTOLOGY O RDERABLES Performing Organization Address City/State/[facility] Co de Phone Number [facility] documented in this encounter Visit Diagnoses Not on filedocumented in this encounter Care Teams Help Desk Intern Relationship Specialty [place] [address] [address] PCP - General Internal Medicine 10/03/17 documented as of this encounter
--- OUTSIDE RECORDS SUMMARY | 2024-06-13 02:11 | XMS_ITS | Encounter Summary ---
Author Organization [facility] Address [address] [place] [address] Care Team Providers Care Pulvi Mixer Operator Name Role Phone Denilson Ferrara MD Primary Care Provider [phone]- [phone] Encounter Details Date Type Department Care Team (Late st Contact Info) Description 09/16/2018 Orders Only [facility] BREAST SURGERY [address] [address], [address] [address] Nivia Castrejon, DO NO ADDRESS ON FILE Abnormal mammogram (Primary Dx) Social History Tobacco Use Types Packs/Day Years Used Date Smoking Tobacco: Never Smokeless Tobacco: Never Sex and Gender Information Value Date Recorded Sex Assigned at Not on file Gender Identity Not on file Sexual Orientation Not on file documented as of this encounter Plan of Treatment Not on file documented as of this encounter Visit Diagnoses Diagnosis Abnormal mammogram- Primary Abnormal mammogram, unspecified documented in this encounter Care Teams Pulvi Mixer Operator Relationship Specialty [place] [address] [address] PCP - General Internal Medicine 10/03/17 documented as of this encounter
--- OUTSIDE RECORDS SUMMARY | 2024-06-13 02:11 | XMS_ITS | Encounter Summary ---
Author Organization [facility] Address [address] [place]ravon: Epic Prelude ADT [place] [address] Care Team Providers Care Screw Machine Tender Name Role Phone Denilson Ferrara MD Primary Care Provider [phone]- [phone] Encounter Details Date Type Department Care Team (Latest Contact Info) Description 01/28/2020 Travel Social History Tobacco Use Types Packs/Day [...] on filedocumented in this encounter Care Teams Screw Machine Tender Relationship Specialty [place] [address] [address] PCP - General Internal Medicine 10/03/17 documented as of this encounter
--- OUTSIDE RECORDS SUMMARY | 2024-06-13 02:11 | XMS_ITS | Encounter Summary ---
Author Organization [facility] Address [address] [place] [address] Care Team Providers Care Regional Forester Name Role Phone Denilson Ferrara MD Primary Care Provider [phone]- [phone] Reason for Referral * Radiology Services (Routine) - Closed Specialty Diagnoses / Procedures Referred By Annemarie turner Referred To Contact Diagnoses Abnormal mammogram Procedures US BREAST UNI LT LTD Nivia Castrejon DO NO ADDRESS ON FILE [address] [address] Referral ID Status Reason Start Date Expiration Date Visits Requested Visits Authorized [id number] Closed Ordering Department To Schedule 09/17/2018 10/18/2019 1 1 Reason for Visit * Reason Onset Date Comments Needs Orders Written 09/16/2018 Encounter Details Date Type Department Care Team (Late st Contact Info) Description 09/16/2018 Telephone [facility] BREAST SURGERY [place] [address] [address], [address] [address] Nivia Castrejon DO NO ADDRESS ON FILE Needs Orders Written Social History Tobacco Use Types Packs/Day Years Used Date Smoking Tobacco: Never Smokeless Tobacco: Never Sex and Gender Information Value Date Recorded Sex Assigned at Not on file Gender Identity Not on file Sexual Orientation Not on file documented as of this encounter Plan of Treatment Scheduled Orders Name Type Priority Associated Diagnoses Orde r Schedule US BREAST UNI LT LTD Imaging Routine Abnormal mammogram Expected: 09/23/2018, Expires: 09/17/2019 documented as of this encounter Visit Diagnoses Diagnosis Abnormal mammogram- Primary Abnormal mammogram, unspecified documented in this encounter Care Teams Regional Forester Relationship Specialty [place] [address] [address] PCP - General Internal Medicine 10/03/17 documented as of this encounter
--- OUTSIDE RECORDS SUMMARY | 2024-06-13 02:11 | XMS_ITS | Clinical Summary ---
Author Organization [facility] Address [address] [place] [address] Care Team Providers Care Break Out Worker Name Role Phone Denilson Ferrara MD Primary Care Provider [phone]- [phone] Allergies Active Allergy Reactions Criticality Noted Date Comments Sulfur Hives,Rash High 10/03/2017 Medications Medication Sig Dispensed Refills Start Date End Date Status cephALEXin (KEFLEX) 500 mg capsule Continuous as needed. 04/03/2018 Active Active Problems Problem Noted Date Diagnosed Date Obesity (BMI 30.0-34.9) 04/16/2019 Ductal carcinoma in situ of right breast 018 Estrogen receptor positive status (ER+) 10/04/19 18 Resolved Problems Problem Noted Date Diagnosed Date Resolved Date Sign and symptom in breast 10/03/2018 1 06/16/2018 Abnormal ultrasound of breast 10/03/2018 04/16/2019 Obesity (BMI 35.0-39.9 without comorbidity) 04/07/2018 04/16/2019 Social History Tobacco Use Types Packs/Day Years Used Date Smoking Tobacco: Never Smokeless Tobacco: Never Sex and Gender Information Value Date Recorded Sex Assigned at Not on file Gender Identity Not on file Sexual Orientation Not on file Last Filed Vital Signs Vital Sign Reading Time Taken Comments Blood Pressure 138/100 04/16/2019 8:46 AM SOFTWARE EDUCATOR Pulse 84 04/16/2019 8:46 AM SOFTWARE EDUCATOR Temperature 36.8 ??C (98.2 ??F) 04/16/2019 8:46 AM CS T Respiratory Rate - - Oxygen Saturation 98% 04/16/2019 8:46 AM SOFTWARE EDUCATOR Inhaled Oxygen Concentration - - Weight 100.8 kg (222 lb 4.8 oz) 04/16/2019 8:46 AM SOFTWARE EDUCATOR Height 170.2 cm (5' 7 ) 04/16/2019 8:46 AM SOFTWARE EDUCATOR Body Mass Index 34.82 04/16/2019 8:46 AM SOFTWARE EDUCATOR Plan of Treatment Health Maintenance Due Date Last Done Comments DTAP/TDAP/TD VACCINES (1 - Tdap) 1995 HEPATITIS B VACCINES (1 of 3 - 19+ 3-dose series) 1995 CERVICAL CANCER SCREENING 2006 BREAST CANCER SCREENING 09/18/2018 09/19/19 18, 03/13/2017, 09/25/2016, Additional history exists COLORECTAL SCREENING 2021 Colorectal Cancer Screening 2021 FIT-DNA Q 3 years 2021 FIT/FOBT Q 1 year 2021 Flex Sig/CT Colonography Q 5 years 2021 INFLUENZA VACCINE (#1) 2024 PNEUMOCOCCAL VACCINE 0-64 YEARS Aged Out No longer eligible based on patient's age to complete this topic Procedures Procedure Name Priority Date/Time Associated Diagnosis Comments MAMMOGRAM REPORT Routine 09/18/2017 from Last 3 Months or Most Recently Relevant to Health Maintenance Results * MAMMOGRAM REPORT (09/18/2017) Anatomical Region Laterality Modality Other Abstract Provider MAMMO ORDERABLES from Last 3 Months or Most Recently Relevant to Health Maintenance Care Teams Break Out Worker Relationship Specialty [place] [address] [address] PCP - General Internal Medicine 10/03/17
--- OUTSIDE RECORDS SUMMARY | 2024-06-13 02:11 | XMS_ITS | Encounter Summary ---
Author Organization [facility] Address [address] [place] [address] Care Team Providers Care Mud Logger Name Role Phone Denilson Ferrara MD Primary Care Provider +1- [phone] Encounter Details Date Type Department Care Team (Late st Contact Info) Description 10/15/[address] [facility] BREAST SURGERY [place] [address], [address] [address] Nivia Castrejon, DO NO ADDRESS ON FILE Abnormal mammogram Social History Tobacco Use Types Packs/Day Years Used Date Smoking Tobacco: Never Smokeless Tobacco: Never Sex and Gender Information Value Date Recorded Sex Assigned at Not on file Gender Identity Not on file Sexual Orientation Not on file documented as of this encounter Plan of Treatment Not on file documented as of this encounter Visit Diagnoses Diagnosis Abnormal mammogram Abnormal mammogram, unspecified documented in this encounter Care Teams Mud Logger Relationship Specialty [place] [address] [address] PCP - General Internal Medicine 10/03/17 documented as of this encounter
--- OUTSIDE RECORDS SUMMARY | 2024-06-13 02:11 | XMS_ITS | Encounter Summary ---
Author Organization [facility] Address [address] [place] [address] Phone Care Team Providers Care Steersman Name Role Phone Kathy Lee MD Unavailable [phone] Ravinder Ford Primary Care Provider [phone]- [phone] Reason for Referral * MRI/CAT/PET Scan (Routine) - Closed Specialty Diagnoses / Procedures Referred By Annemarie turner Referred To Contact Radiology Diagnoses Atypical lobular hyperplasia (ALH) of breast Procedures MRI Breast Bilateral W WO Contrast Ravinder Candelaria NP Phone: tel: fax: [address] [address] Referral ID Status Reason Start Date Expiration Date Visits Re quested Visits Authorized [id number] Closed 10/08/2023 11/06/2024 1 1 * Diagnostic Imaging (Routine) - Authorized Specialty Diagnoses / Procedures Referred By Annemarie turner Referred To Contact Diagnoses Atypical lobular hyperplasia (ALH) of breast Procedures Screening Mammogram Bilateral W Ki Ravinder Candelaria NP Phone: tel: fax: [address] [address] Referral ID Status Reason Start Date Expiration Date V isits Requested Visits Authorized [id number] Authorized 10/08/2023 11/06/2024 1 1 Reason for Visit * Reason Comments Follow-up Encounter Details Date Type Department Care Team (Lamont botello Contact Info) Description 10/08/2023 8:30 AM CDT Office Visit [facility] Surgery [address] 5[address] [place] [address] [place] [address] Ravinder Candelaria NP [address] [facility] [address] [place] [address] Atypical lobular hyperplasia (ALH) of breast (Primary Dx) Social History Tobacco Use Types [...] Sign Reading Time Taken Comments Blood Pressure - - Pulse - - Temperature - - Respiratory Rate - - Oxygen Saturation - - Inhaled Oxygen Concentration - - Weight 93.9 kg (207 lb 0.2 oz) 10/08/2023 8:18 A M CDT Height 168.9 cm (5' 6.5 ) 10/08/2023 8:18 AM CDT Body Mass Index 32.92 10/08/2023 8:18 AM CDT documented in this encounter Progress Notes * Ravinder Candelaria NP - 10/08/2023 8:30 AM CDT NAME: Karena Jay : 1975 DATE: 10/08/2023 CONSULTING PROVIDERS: Surgeon: Adele Montilla Primary Care Physician: Rvainder Ford PA CHIEF COMPLAINT: Follow-up for right breast atypical lobular hyperplasia HISTORY OF PRESENT ILLNESS: Ms. Jay is a 48 y.o. female She had initially presented after undergoing imaging at [facility] on 10/08/2020 where they noted an abnormality of her right breast. She underwent a biopsy which demonstrated atypical lobular hyperplasia. 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 She underwent excisional biopsy and underwent no further treatment. She returns today for her routine visit andstates that she is doing well. She denies any masses in either breast. She denies any change in theappearance of her breasts or the skin of her breasts. She denies bilateral nipple discharge. She has no other systemic complaints and otherwise feels well today. Please note that her past medical history, surgical history, medications, allergies, review of systems, family history, and social history were all reviewed with them again today. Past Medical History: Diagnosis Date PONV (postoperative nausea and vomiting) Urinary tract infection Past Surgical History: Procedure Laterality Date BREAST BIOPSY Right 10/11/2020 BREAST BIOPSY Left 2019 BREAST BIOPSY Right 2017 BREAST LUMPECTOMY Right 2017 bilateral reconstruction SECTION 1997 CHOLECYSTECTOMY 2008 LAPAROSCOPY 1995, 2008 LITHOTRIPSY 2011, 2014 x2 PARTIAL HYSTERECTOMY 2009 Prior to Admission medications Medication Sig Start Date End Date Taking? Authorizing Provider cephalexin (KEFLEX) 500 mg capsule Take 1 capsule (500 mg total) by mouth as needed Yes Terrance Castellano MD cholecalciferol (VITAMIN D-3) 25 mcg (1,000 unit) tablet Take 1 tablet (1,000 Units total) by mouthnightly Yes Terrance Castellano MD multivitamin capsule Take 1 capsule by mouth nightly Yes Terrance Castellano MD Allergies Allergen Reactions Sulfa (Sulfonamide Antibiotics) Hives and Rash Social History Tobacco Use Smoking status: Former Current packs/day: 0.00 Average packs/day: 0.3 packs/day for 24.3 years (6.1 ttl pk-yrs) Types: Cigarettes Start date: 1989 Quit date: 10/06/2013 Years since quittin.0 Smokeless tobacco: Never Substance and Sexual Activity Drug use: Never Sexual activity: Defer Alcohol Use: Alcohol Misuse (11/25/2020) AUDIT-C Frequency of Alcohol Consumption: 2-4 times a month Average Number of Drinks: 1 or 2 Frequency of Binge Drinking: Monthly Family History Problem Relation Age of Onset Testicular cancer Mother's Brother REVIEW OF SYSTEMS: Please see HPI. PHYSICAL EXAMINATION: GENERAL: She is a well-developed, well-nourished woman in no acute distress. HEENT: Within normal limits. NECK: Neck is supple without lymphadenopathy or thyromegaly. LUNGS: Respirations non-labored HEART: Regular. ABDOMEN: Soft without organomegaly. EXTREMITIES: Warm without edema. NEUROLOGICAL: She is alert and oriented x 3. BREAST EXAMINATION: Bilateral breast examination reveals normal ptotic breasts bilaterally. Bilateral breasts have well healed reduction incisions. The right breast is without any dominant masses, skin changes, nipple discharge, or axillary adenopathy. The right breast has a well-healed circum areola incision. The left breast is without any dominant masses, skin changes, nipple discharge, or axillary adenopathy. IMAGING: The patient underwent a bilateral screening mammogram today. The final interpretation is pending. IMPRESSION/RECOMMENDATION: Karena Jay is a 48 y.o. female who is now 3 years years status-post right incisional biopsy for atypical lobular hyperplasia. I reassured her that her clinical examination today did not reveal evidence of any recurrent disease or new abnormalities. Today she underwent a bilateral screening mammogram and I will contact her with the imaging results once they are final. I also want to continue following her with MRI I will plan for an MRI in six months and will contact her with those results. I encouraged her to resume her breast self-examinations on a monthly basis and to alert me of any changes. I reviewed self-exam technique with her today. I answered all ofher questions today and she is in agreement with our plan. I encouraged her to contact me if any new questions or concerns arise. PLAN: She will return to clinic in 1 year which time she will be due for clinical exam and bilateral screening mammogram. We will continue the surveillance with MRIs as well. She will return in 6 months to complete the MRI and I will notify her of the results. Ravinder Candelaria NP Portions of this note were dictated using SEAT 4a Fluency Direct speech recognition software. Please excuse any contract modeler errors. documented in this encounter Plan of Treatment Scheduled Orders Name Type Priority Associated Diagnoses Orde r Schedule Screening Mammogram Bilateral W Ki Imaging Schedule Routine, Read Routine (OP Routine) Atypical lobular hyperplasia (ALH) of breast Expected: 04/08/2024, Expires: 04/08/2025 documented as of this encounter Results * MRI Breast Bilateral [...] NP IMG MRI PROCEDURES Fi nal Result documented in this encounter Visit Diagnoses Diagnosis Atypical lobular hyperplasia (ALH) of breast- Primary Atypical lobular hyperplasia (ALH) of breast documented in this encounter Care Teams Steersman Relationship Specialty Start Date End Date Ravinder Ford PA [address] [place] [address] PCP - General Book Sewing Machine Operator 09/25/23 Kathy Lee MD [address] [facility] [address] [place] [address] Referring Physician Obstetrics and Gynecology 10/28/20 documented as of this encounter
--- OUTSIDE RECORDS SUMMARY | 2024-06-13 02:11 | XMS_ITS | Clinical Summary ---
Author Organization [facility] Address [address] [facility] [address] [place] [address] Phone Care Team Providers Care Orthotist/Prosthetist Name Role Phone Kathy Lee MD Unavailable [phone] Ravinder Ford Primary Care Provider [phone] Allergies Active Allergy Reactions Criticality Noted Date [...] (10/18/2020): Added automatically from request for surgery [id number] Mammogram abnormal 10/12/2020 Encounters Date Type Department Care Team Description 04/11/2024 10:15 AM CDT - 04/11/2024 11:59 PM CDT Hospital Encounter [facility] [address] [place] [address] Atypical lobular hyperplasia (ALH) of breast Discharge Disposition: Discharge to home or self care from Last 3 Months Surgical History Surgery Date Site/Laterality Comments BREAST LUMPECTOMY 06/11/2016 - 06/10/2017 Right bilateral reconstruction PARTIAL HYSTERECTOMY 06/11/2009 - 06/10/2010 CHOLECYSTECTOMY 06/11/2008 - 06/10/2009 LITHOTRIPSY 2011, 2014 x2 SECTION 06/11/1997 - 06/10/1998 BREAST BIOPSY 10/11/2020 Right BREAST BIOPSY 06/11/2018 - 06/10/2019 Left BREAST BIOPSY 06/11/2016 - 06/10/2017 Right LAPAROSCOPY 2008 Medical History Medical History Date Comments PONV (postoperative nausea and vomiting) Urinary tract infection Family History Medical History Relation Name Comments Testicular cancer Mother's Brother Relation Name Status Comments Mother's Brother Social History Tobacco Use Types Packs/Day Years [...] on file Sexual Orientation Not on file Obstetrics History Last Filed Vital Signs Vital Sign Reading [...] 10/08/2023 8:18 AM CDT Plan of Treatment Health Maintenance Due Date Last Done Comments Colon Cancer Screening-Colonoscopy 1976 Depression Screening 1976 Hepatitis C Screening 1976 Hepatitis B Screening 1994 Regular Well Visit/Exam 18-64 1994 DTaP/Tdap/Td Vaccine (1 - Tdap) 02/16/2013 02/15/2013 Influenza Vaccine (#1) 2024 Breast Cancer Screening-Mammogram 10/07/2024 10/08/2023, 10/05/2022, 10/05/2021 Pneumococcal vaccine <65 Aged Out No longer eligible based on [...] Electronically signed by: Veronique Saldivar M.D. Ravinder Keitadavid Candelaria CREW BOAT OPERATOR IMG MRI PROCEDURES Fi nal Result * [...] compared to prior imaging studies performed at [facility]. [facility] on 09/15/2019, 09/16/2020 and 10/04/2020, and at [facility] on 10/05/2021 and 10/05/2022. There are scattered [...] compared to prior imaging studies performed at [facility] on 09/15/2019, 09/16/2020 and 10/04/2020, and at [facility] on 10/05/2021nd 10/05/2022. There are scattered areas of fibroglandular density. There is a post-surgical scar in the right breast. Finding remains unchanged from the prior study. There is no suspicious abnormality in either breast. Impression: Post-surgical scar in the right breast is benign. Annual screening mammography is recommended. OVERALL FINAL ASSESSMENT: BI-RADS CATEGORY 2: Benign. Ravinder Candelaria NP IMG MAMMO PROCEDURES Final Result from Last 3 Months or Most Recently Relevant to Health Maintenance [place] [employer] [place] [employer] [place] [facility] Care Teams Orthotist/Prosthetist Relationship Specialty Start Date End Date Ravinder Ford PA [address] [place] [address] PCP - General [employer] Geography Teacher 09/25/23 Kathy Lee MD [address] [facility] [address] [place] [address] Referring Physician Obstetrics and Gynecology 10/28/20
--- OUTSIDE RECORDS SUMMARY | 2024-06-13 02:11 | XMS_ITS | Encounter Summary ---
Author Organization [facility] Healthcare Address [facility] [place] [address] Care Team Providers Care Senior Product Manager Name Role Phone Denilson Ferrara MD Primary Care Provider Kathy Lee MD Unavailable [phone] Reason for Referral * MRI/CAT/PET Scan (Routine) - Closed Specialty Diagnoses / Procedures Referred By Annemarie turner Referred To Contact Radiology Diagnoses Mammogram abnormal Procedures MRI Breast Bilateral W WO Contrast Ravinder Candelaria NP Phone: tel: fax: [address] [address] Referral ID Status Reason Start Date Expiration Date Visits Re quested Visits Authorized [id number] Closed 10/05/2022 11/04/2023 1 1 Reason for Visit * MRI/CAT/PET Scan (Routine) - Closed Specialty Diagnoses / Procedures Referred By Annemarie turner Referred To Contact Radiology Diagnoses Mammogram abnormal Procedures MRI Breast Bilateral W WO Contrast Ravinder Candelaria NP Phone: tel: fax: [address] [address] Referral ID Status Reason Start Date Expiration Date Visits Re quested Visits Authorized [id number] Closed 10/05/2022 11/04/2023 1 1 Encounter Details Date Type Department Care Team (Latest Contact Info) Description 04/13/2023 7:15 AM CDT - 04/13/2023 11:59 PM CDT Hospital Encounter [facility] [place] [address] Mammogram abnormal Discharge Disposition: Discharge to home [...] CONTRAST Schedule Routine, Read Routine (OP Routine) 04/13/2023 8:28 AM CDT Mammogram abnormal documented in this encounter Results * MRI Breast Bilateral W WO Contrast (04/13/2023 8:28 AM CDT) Anatomical Region Laterality Modality Breast Bilateral Magnetic Resonan ce 04/13/2023 11:1 1 AM CDT Impressions 04/13/2023 11:22 AM CDT Postsurgical changes in the RIGHT breast without MR evidence of malignancy in either breast. OVERALL FINAL ASSESSMENT: BI-RADS Category 2: Benign. RECOMMENDATION: Annual screening mammography, with screening breast MRI if clinically indicated, are recommended. Dictated by: Meri Anderson M.D. The radiology attending physician has personally reviewed this study, and had reviewed and/or edited this written report and agrees with it. Electronically signed by: Karen Mcdermott M.D. Narrative 04/13/2023 11:22 AM CDT EXAMINATION: 1. MRI EXAMINATION OF THE BREASTS WITH AND WITHOUT CONTRAST 2. 3D POST PROCESSING ON A DEDICATED 3D WORKSTATION HISTORY: High-risk Screening. 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 ?? DATE OF LAST MENSTRUAL PERIOD: Hysterectomy in 2009 TECHNIQUE: MRI examination of the breasts per breast tumor protocol with and without gadolinium contrast. ??A dedicated breast imaging coil was used. ??The images were transferred to a breast CAD system for 3D post processing and contrast kinetics analysis. ?? CONTRAST: Gadoterate meglumine, 18 ml COMPARISON: MRI breast 10/10/2022, 04/10/2022, 10/26/2020, and screening mammogram 10/05/2022 BREAST COMPOSITION: Scattered fibroglandular tissue BACKGROUND PARENCHYMAL ENHANCEMENT: Mild FINDINGS: Stable postsurgical changes in the RIGHT breast. ??There is no suspicious enhancing mass or non-mass enhancement in either breast. No abnormally enlarged lymph nodes are identified in the visualized portions of either axilla. Procedure Note Karen Mcdermott MD - 04/13/2023 EXAMINATION: 1. MRI EXAMINATION OF THE BREASTS WITH AND WITHOUT CONTRAST 2. 3D POST PROCESSING ON A DEDICATED 3D WORKSTATION HISTORY: High-risk Screening. 47-year-old woman with personal history of right breast atypical lobular hyperplasia status post excision in 2020 and right breast ductal carcinoma in situ with lobular carcinoma in situ status post lumpectomy in 2016. DATE OF LAST MENSTRUAL PERIOD: Hysterectomy in 2009 TECHNIQUE: MRI examination of the breasts per breast tumor protocol with and without gadolinium contrast. A dedicated breast imaging coil was used. The images were transferred to a breast CAD system for 3D post processing and contrast kinetics analysis. CONTRAST: Gadoterate meglumine, 18 ml COMPARISON: MRI breast 10/10/2022, 04/10/2022, 10/26/2020, and screening mammogram 10/05/2022 BREAST COMPOSITION: Scattered fibroglandular tissue BACKGROUND PARENCHYMAL ENHANCEMENT: Mild FINDINGS: Stable postsurgical changes in the RIGHT breast. There is no suspicious enhancing mass or non-mass enhancement in either breast. No abnormally enlarged lymph nodes are identified in the visualized portions of either axilla. IMPRESSION: Postsurgical changes in the RIGHT breast without MR evidence of malignancy in either breast. OVERALL FINAL ASSESSMENT: BI-RADS Category 2: Benign. RECOMMENDATION: Annual screening mammography, with screening breast MRI if clinically indicated, are recommended. Dictated by: Meri Anderson M.D. The radiology attending physician has personally reviewed this study, and had reviewed and/or edited this written report and agrees with it. Electronically signed by: Karen Mcdermott M.D. Ravinder Candelaria NP IMG MRI PROCEDURES Fi nal Result documented in this encounter Visit Diagnoses Diagnosis Mammogram abnormal Abnormal mammogram, unspecified documented in this encounter Administered Medications Inactive Administered Medications - up to 3 most recent administrations Medication Order MAR Action Action Date Dose Rate Site gadoterate meglumine injection 18 mL 18 mL, intravenous, Once in imaging, contrast, Starting on Sun04/13/23 at 0803, For 1 dose Contrast Given 04/13/2023 8:03 AM CDT 18 mL documented in this encounter Orders Medications Ordered That Calin ht Not Have Been Administered Count Last Ordered Date First Ordered Date gadoterate meglumine injection 18 mL 1 08/2022 documented in this encounter Care Teams Senior Product Manager Relationship Specialty Start [place] [address] [place] [address] PCP - General Internal Medicine 09/28/20 09/24/23 Kathy Lee MD [address] [address] Referring Physician Obstetrics and Gynecology 10/28/20 documented as of this encounter
--- OUTSIDE RECORDS SUMMARY | 2024-06-13 02:11 | XMS_ITS | Encounter Summary ---
Author Organization [facility] Address [address] [place] [address] Care Team Providers Care Carpenter Mine Name Role Phone Denilson Ferrara MD Primary Care Provider [phone] Reason for Visit * Reason Comments Biopsy L USG Vac Bx Encounter Details Date Type Department Care Team (Latest Contact Info) Description 10/07/2018 10:30 AM CDT Procedure visit [facility] [address], [address] [address] Nivia Castrejon, NO ADDRESS ON FILE Abnormal mammogram (Primary Dx); Sign and symptom in breast; Abnormal ultrasound of breast; Ductal carcinoma in situ of right breast Social History Tobacco Use Types Packs/Day Years Used Date Smoking Tobacco: Never Smokeless Tobacco: Never Sex and Gender Information Value Date Recorded Sex Assigned at Not on file Gender Identity Not on file Sexual Orientation Not on file documented as of this encounter Last Filed Vital Signs Vital Sign Reading Time Taken Comments Blood Pressure 142/89 10/07/2018 10:57 AM CDT Pulse 80 10/07/2018 10:57 AM CDT Temperature 36.9 ??C (98.5 ??F) 10/07/2018 1 0:57 AM CDT Respiratory Rate - - Oxygen Saturation 97% 10/07/2018 10: 57 AM CDT Inhaled Oxygen Concentration - - Weight 104.1 kg (229 lb 9.6 oz) 019 10:57 AM CDT Height 170.2 cm (5' 7 ) 10/07/2018 10:5 7 AM CDT Body Mass Index 35.96 10/07/2018 10:57 AM CDT documented in this encounter Progress Notes * Malia Collins RN - 10/07/2018 12:56 PM CDT Lretroareolar2:00 - 12g VAC - 21g - coil SenoMark UltraCor Breast Tissue Marker, [id number] Lot: [id number] Exp: [id number] Lidocaine 1% (50mg/5mL) Lot: [id number] Exp: [id number] Dose: 5mL Sensorcaine 0.25% (50mL) Lot: [id number] Exp: [id number] Dose: 1mL * Nivia Castrejon DO - 10/07/2018 11:07 AM CDT The patient is here for left ultrasound guided vacuum-assisted core biopsy. Encounter Diagnoses Name Primary? Abnormal mammogram Yes ??? Sign and symptom in breast ??? Abnormal ultrasound of breast ??? Ductal carcinoma in situ of right breast Consent was reviewed with the patient and signed. 12-gauge vacuum-assisted core ultrasound guided procedure was done. The location of the biopsy was at left retroareolar 2:00 at areolar border characteristics : Irregularly-shaped, hypoechoic, minimally shadowing BIRADS: 4 Needle approach: Inferolateral A marker was placed. yes and Coil-shaped placement: Marker in perfect position within the lesion. Anesthetic used: Lidocaine 1% 5 mL, Marcaine 0.25% 1 mL Specimen: multiple cores PROCEDURE: The area of concern was localized with ultrasonography, and the skin was prepped and draped in the standard surgical fashion. The skin was infiltrated with anesthetic, as were the deep tissues. A small incision was made in the skin, and the biopsy needle was advanced into the breast under direct visualization. Multiple cores were taken under direct visualization as specimen and sent to pathology. Photo do cumentation was taken throughout. Pressure was applied for hemostasis, and steri strips and gauze were applied. A post-biopsy mammogram was done. yes the coil marker in the left breast is at the site of the original concern. There are multiple air bubbles at the area as well. Pt was given discharge instructions and a follow up appointment. Questions were solicited and answered. The patient stated her understanding. documented in this encounter Procedure Notes * Nivia Castrejon DO - 10/07/2018 2:14 PM CDTAssociated Order(s): BIOPSY BREAST Procedure(s): OK BX BREAST W/DEVICE 1ST LESION ULTRASOUND GUID Pre-Procedure Diagnose(s): Abnormal mammogram; Sign and symptom in breast; Abnormal ultrasound of breast See note, left documented in this encounter Plan of Treatment Not on file documented as of this encounter Procedures Procedure Name Priority Date/Time Associated Diagnosis Comments OK BX BREAST W/DEVICE 1ST LESION ULTRASOUND GUID Routine 10/07/2018 2:14 PM CDT Abnormal mammogram Sign and symptom in breast Abnormal ultrasound of breast documented in this encounter Results * OK BX BREAST W/DEVICE 1ST LESION ULTRASOUND GUID (10/07/2018 2:14 PM CDT) Narrative [facility] - 10/07/2018 2:14 PM CDT Nivia Castrejon DO ? 10/07/2018 ??5:08 PM See note, left Nivia Castrejon DO PROCEDURE/MINOR MARCO GICAL ORDERABLES [facility] documented in this encounter Visit Diagnoses Diagnosis Abnormal mammogram- Primary Abnormal mammogram, unspecified Sign and symptom in breast Other sign and symptom in breast Abnormal ultrasound of breast Other (abnormal) findings on radiological examination of breast Ductal carcinoma in situ of right breast Carcinoma in situ of breast documented in this encounter Care Teams Carpenter Mine Relationship Specialty Start [place] [address] [address] PCP - General Internal Medicine 10/03/17 documented as of this encounter
--- OUTSIDE RECORDS SUMMARY | 2024-06-13 02:12 | XMS_ITS | Encounter Summary ---
Author Organization [facility] Healthcare Address [address] [place] [address] Care Team Providers Care Window Treatment Installer Name Role Phone Denilson Ferrara MD Primary Care Provider Kathy Lee MD Unavailable [phone] Encounter Details Date Type Department Care Team (Late st Contact Info) Description 11/25/2020 2:00 PM CDT Anesthesia Event [facility] ([facility]) [address] [place] [address] Andrés Corbin MD [address] [facility] [address] [place] [address] Linda Vargas NP [address] [facility] [id number] [place] [address] Anesthesia Record Procedure Summary Procedure Name Responsible Anesthesiologist Anesthesia Start Time Anesthesia Stop Time BIOPSY BREAST NEEDLE LOCALIZATION (Right: Breast) Andrés Corbin MD 11/25/20 1400 11/25/20 1458 Events Date Time Event Comment 11/25/2020 0641 In Preop 0728 1400 An Start 1403 In Room 1404 An Start Data 1404 Start Supplemental O2 1411 An Induction The patient was reevaluated immediately before moderate or deep sedation use and before anesthesia induction. 1413 Anesthesia Ready 1421 Proc Start 1421 Incision Start 1446 Proc Fin 1451 an stop data 1453 Out of Room 1458 Handoff to RN I completed my handoff to the receiving nurse during which we: 1. Patient identified 2. Responsible provider identified 3. Pertinent medical history reviewed 4. Procedure type and surgical course discussed 5. Intraoperative anesthetic management and any significant issues discussed 6. Expectations and concerns for postop period discussed 7. Questions solicited from receiving nurse 8. Patient disposition at the time of handoff: PACU 1458 An Stop Meds Name Total midazolam PF 2 mg lidocaine (cardiac) syringe 2 % 40 mg propofol 70 mg propofol 259.63 mg fentaNYL 100 mcg ceFAZolin 2,000 mg dexamethasone 4 mg/ml 4 mg ondansetron PF (ZOFRAN) 2 mg/mL injectio n 4 mg Lactated Ringer's (LR) infusion 300 mL * Agents Name O2% N2O O2 Sevoflurane * Blood No blood administrations on file. Lines, Drains, and Airways Type Details Placement Removal Peripheral IV Placement Date: 11/25/20; Placement Time: 0708; Catheter Size: 20 G; Orientation: Right, Posterior; Location: Hand; Site Prep: Chlorhexidine; Technique: Anatomical landmarks; Inserted by: GINGER Perez; Insertion Attempts: 1; Patient Tolerance: Tolerated well; Removal Date: 11/25/20; Removal Time: 1549; Removal Reason: Discharge 11/25/20 0708 by Karla Angel RN 11/25/20 1549 by Karla Angel RN RETIRED Surgical Site 11/25/20; 1446; Ri ght; Breast; 05/13/24 (Retired LDA, Removed/Completed by E-Blink with LDA Utility); 1213 (Retired LDA, Removed/Completed by E-Blink with LDA Utility) 11/25/20 1446 by Maria Del Carmen Ospina RN 05/13/24 1213 by Discharge Provider, Automatic documented in this encounter Social History Tobacco Use Types Packs/Day Years [...] on file documented as of this encounter OR Notes * Anesthesia Postprocedure Evaluation - Tiffany Powell MD - 11/25/2020 3:15 PM CDT Patient: Karena Jay Procedure Summary Date: 11/25/20 Room / Location: [facility] CAM OR POD 4 ROOM C / [facility] CAM OR POD 4 Anesthesia Start: 1400 Anesthesia Stop: 1458 Procedures: BIOPSY BREAST NEEDLE LOCALIZATION (Right Breast) EXCISION MASS - BREAST (Right Breast) Diagnosis: Breast mass, right (Breast mass, right [N63.10]) Surgeons: Adele Montilla MD PhD Responsible Provider: Andrés Corbin MD Anesthesia Type: MAC ASA Status: 2 Anesthesia Type: MAC Last vitals BP 133/83 Pulse 65 Temp 36.3 ??C (97.3 ??F) (Temporal) Resp 19 SpO2 100% Anesthesia Post Evaluation Patient location during evaluation: PACU Patient participation: complete - patient participated Level of consciousness: fully awake Pain management: adequate Airway patency: adequate Evidence of recall: no Cardiovascular status: acceptable Respiratory status: acceptable Hydration status: acceptable Pt is: normothermic Nausea/Vomiting status: none No complications documented. * Anesthesia Preprocedure Evaluation - Andrés Corbin MD - 11/19/2020 12:56 PM CDT Images from the original note were not included. [facility] Planning Preoperative Evaluation Record Evaluation type/location: [facility] Planned procedure site: [facility] CAM OR (Pod 4) Date: 11/19/20 NOTE: This note represents a preoperative evaluation initiated via telephone interview. NO PHYSICALEXAM was performed at the time of initial assessment. A physical exam may be added to this note anddocumented below. Anesthesia Evaluation Karena Jay is a 45 y.o. female Procedure(s): BIOPSY BREAST NEEDLE LOCALIZATION EXCISION MASS - BREAST Pre-Op Diagnosis Codes: * Breast mass, right [N63.10] HISTORY HPI Karena Jay is a 45 year old female with hx of right breast cancer is planned to excision of mass. Past Medical History Information obtained from: patient and chart. Neurological Pertinent negatives: seizures; neuromuscular disease; CVA/stroke; TIA; CEA; ICA stenosis; dementia/mild cognitive impairment and carotid artery stent Cardiovascular Pertinent negatives: hypertension ; CAD ; GA ; CABG ; valvular heart disease; valve replacement; atrial fibrillation; arrhythmia; pacemaker/ICD; PVD; DVT/PE; negative for CHF; drug-eluting stent(s); bare metal stent(s) and coronary angioplasty Respiratory Pertinent negatives: COPD; asthma; sleep apnea (DINH); pulmonary hypertension; no O2 use outside thehospital and non-smoker Hepatic / Heme Pertinent negatives: liver disease; history of anemia; history of thrombocytopenia and history of Isaura positive Gastrointestinal Pertinent negatives: GERD and hiatal hernia Renal / + Nephrolithiasis (hx of stones ) Pertinent negatives: renal disease and dialysis Musculoskeletal/Pain Pertinent negatives: chronic pain; chronic opioid use and previous treatment for opioid use disorder Endocrine / Other + Obesity (BMI >30) (BMI 32) + Cancer history- current cancer. Cancer type: right breast cancer. Pertinent negatives: diabetes mellitus; thyroid disease; rheumatological disease and transplanted organ Infectious disease: hx of UTI's Functional Capacity Functional capacity: 4-6 METs Review of Systems + vision loss (glasses ) Pertinent negatives: productive cough; wheezing; SOB; recent cold/flu; fever; chest pain; palpitations; orthopnea; pedal edema; PND; heavy menses; Sickle Cell disease/trait; previous transfusion; transfusion reaction; melena/hematochezia; easy bruising; bleeding problems; syncope; dizziness; muscleweakness; chronic pain; numbness/tingling; hard of hearing; heartburn; nausea; dysphagia; diarrhea;dentures/partials; chipped/loose teeth; abdominal pain; diaphoresis and no unexpected weight change PAT Summary and Plans Cardiac risk classification of planned procedure: low cardiac risk. Preoperative assessment status: complete. Additional comments: Karena Jay is a 45 y.o. female who is being evaluated prior to undergoing a low cardiac risk surgery. Revised Cardiac Risk Index factors are (none) for a total RCRI of 0 out of 6. Functional capacity is 4-6 METs. Obstructive sleep apnea (DINH) screening status is STOP-Bang=0 suggesting low risk for DINH. This assessment was performed via telephone. Therefore the physical exam has been deferred to the day of surgery team. The patient was provided with preoperative instructions for their medications. The patient was instructed to shower/bathe the night prior and the morning of the planned procedure using an antibacterial soap. Patient instructions were provided in writing sent via [employer] mail. Patient verbalized understanding of preoperative plan. Blood bank needs for day of procedure: No type and screen needed Pending labs/tests include: POC Hcg Urine Patient's COVID19 status is: Unexposed. The patient currently has no concerning symptoms of COVID19. . Patient's COVID-19 vaccination status is Not vaccinated.. Plan for pre-procedure COVID19 testing: Surgery date greater than 4 days from today. Request placed for pre-procedure COVID19 testing to be performed on 11/22/2020. [facility] will place the order for testing. Result to be reviewed by surgeon's office. . Preoperative evaluation performed by Linda Major NP on 11/19/20 at 1:04 PM TPAP complete. . Patient Active Problem List Diagnosis ??? Mammogram abnormal ??? Breast mass, right No past medical history on file. Past Surgical History: Procedure Laterality Date ??? BREAST BIOPSY Right 10/11/2020 ??? BREAST BIOPSY Left 2018 ??? BREAST BIOPSY Right 2016 ??? BREAST LUMPECTOMY Right 2017 bilateral reconstruction ??? SECTION 1998 ??? CHOLECYSTECTOMY 2009 ??? LAPAROSCOPY 1996, 2009 ??? LITHOTRIPSY 2011, 2015 x2 ??? PARTIAL HYSTERECTOMY 2010 OB History No obstetric history on file. Allergies Allergen Reactions ??? Sulfa (Sulfonamide Antibiotics) Hives and Rash Med List Status: Nurse Complete Set By: Moon Irizarry RN at 11/18/2020 11:40 AM Taking? Last Dose Start Date End Date Provider cephalexin (KEFLEX) 500 mg capsule Past Week -- -- Provider, MD Terrance cholecalciferol (VITAMIN D-3) 25 mcg (1,000 unit) tablet 11/17/2020 -- -- Terrance Castellano MD Lacto.acidophilus-Bif.animalis 32 billion cell capsule 11/17/2020 -- -- Terrance Castellano MD multivitamin capsule Past Week -- -- Terrance Castellano MD No current facility-administered medications for this encounter. Current Outpatient Medications: ??? cephalexin (KEFLEX) 500 mg capsule ??? cholecalciferol (VITAMIN D-3) 25 mcg (1,000 unit) tablet ??? Lacto.acidophilus-Bif.animalis 32 billion cell capsule ??? multivitamin capsule Social History Tobacco Use Smoking Status Former Smoker ??? Packs/day: 0.25 ??? Years: 18.00 ??? Pack years: 4.50 ??? Types: Cigarettes ??? Start date: 1989 ??? Quit date: 10/06/2013 ??? Years since quittin.1 Smokeless Tobacco Never Used Substance and Sexual Activity Alcohol Use Not on file Substance and Sexual Activity Drug Use Never Family History Problem Relation Age of Onset ??? Testicular cancer Mother's Brother There were no vitals filed for this visit. Raul index score: 100 DOS Physical Exam Medical history, medications, and allergies reviewed. Attestation: I endorse the findings of the anesthesia pre-evaluation assessment dated: 11/19/2020. Airway Exam: Mallampati: I Cervical ROM: FROM TM distance: normal Jaw ROM: full Cardiovascular Exam: Rate: regular Rhythm: regular Pulmonary Exam: LCTA, bilat EENT Exam: trachea midline Dental Exam: Appears intact Skin Exam: Skin is warm. Turgor is normal. Abdominal Exam: Abdomen is soft. Current state: Patient's current state is cooperative and interactive. Anesthesia Plan ASA 2 My patient is approved for the Anesthesia Controlled Medication protocol when under care of a PEDIATRICIAN/MEDICAL DOCTOR Planned anesthesia: MAC Induction: Induction: intravenous. Postoperative Plan: Postoperative administration opioids intended. No postoperative mechanical ventilation intended. Patient's planned disposition post procedure is Outpatient. No trial extubation planned. Informed Consent: Discussed plan with PEDIATRICIAN/MEDICAL DOCTOR. Anesthesia plan and risks discussed with patient. Consent and Attending signature: I and/or my designee have discussed the anesthesia plan, benefits, possible alternatives, parental presence at time of induction (if indicated), and clinically relevant risks that may include dental injury, unintentional awareness, and/or other complications. The patient and/or parent/legal guardian understand, and agree to proceed. All questions answered. documented in this encounter Plan of Treatment Not on file documented as of this encounter Visit Diagnoses Not on filedocumented in this encounter Administered Medications Inactive Administered Medications - up to 3 most recent administrations Medication Order MAR Action Action Date Dose Rate Site ceFAZolin (ANCEF) injection intravenous, Administer over 3 Minutes, As needed, Starting on Tricia 11/25/20 at 1410, Anesthesia Intra-op Given 11/25/2020 2:10 PM CDT 2,000 mg dexAMETHasone (DECADRON) 4 mg/mL injection intravenous, Administer over 2 Minutes, As needed, Starting on Tricia 11/25/20 at 1429, Anesthesia Intra-op Given 11/25/2020 2:29 PM CDT 4 mg fentaNYL (SUBLIMAZE) preservative free injection intravenous, As needed, Starting on Tricia 11/25/20 at 1410, Anesthesia Intra-op Given 11/25/2020 2:31 PM CDT 25 mcg Given 11/25/2020 2:23 PM CDT 25 mcg Given 11/25/2020 2:20 PM CDT 25 mcg Lactated Ringer's (LR) infusion 30 mL/hr, intravenous, Continuous, Starting on Tricia 11/25/20 at 0730, Pre-Op Restarted 11/25/2020 2:30 PM CDT Rate/Dose Verify 11/25/2020 2:00 PM CDT 30 mL/h r New Bag 11/25/2020 9:57 AM CDT 30 mL/hr 30 mL/hr lidocaine (cardiac) (XYLOCAINE) preservative free injection intravenous, As needed, Starting on Tricia 11/25/20 at 1411, Anesthesia Intra-op, Indications: Ventricular ArrhythmiasIndications:Ventricular Arrhythmias Given 11/25/2020 2: 11 PM CDT 40 mg midazolam (VERSED) 1 mg/mL preservative free injection intravenous, Administer over 2 Minutes, As needed, Starting on Tricia 11/25/20 at 1401, Anesthesia Intra-op Given 11/25/2020 2:01 PM CDT 2 mg ondansetron (ZOFRAN) injection intravenous, Administer over 2 Minutes, As needed, Starting on Tricia 11/25/20 at 1429, Anesthesia Intra-op Given 11/25/2020 2:29 PM CDT 4 mg propofoL (DIPRIVAN) 10 mg/mL IV intravenous, As needed, Starting on Tricia 11/25/20 at 1411, Anesthesia Intra-op Given 11/25/2020 2:44 PM CDT 10 mg Given 11/25/2020 2:42 PM CDT 10 mg Given 11/25/2020 2:40 PM CDT 10 mg propofoL (DIPRIVAN) 10 mg/mL IV intravenous, Continuous PRN, Starting on Tricia 11/25/20 at 1411, Anesthesia Intra-op Rate/Dose Change 11/25/2020 2:31 PM CDT 60 mcg/kg/min 33.804 mL/hr Rate/Dose Change 11/25/2020 2:28 PM CDT 75 mcg/kg/min 42.2 55 mL/hr New Bag 11/25/2020 2:11 PM CDT 100 mcg/kg/min 56.34 mL/ hr documented in this encounter Care Teams Window Treatment Installer Relationship Specialty Start [place] [address] [place] [address] PCP - General Internal Medicine 09/28/20 09/24/23 Kathy Lee MD [address] [address] Referring Physician Obstetrics and Gynecology 10/28/20 documented as of this encounter
--- OUTSIDE RECORDS SUMMARY | 2024-06-13 02:12 | XMS_ITS | Encounter Summary ---
Author Organization [facility] Address [address] [place] [address] Phone Care Team Providers Care Record Center Specialist Name Role Phone Denilson Ferrara MD Primary Care Provider Kathy Lee MD Unavailable [phone] Reason for Referral * Diagnostic Imaging (Routine) - Closed Specialty Diagnoses / Procedures Referred By Annemarie turner Referred To Contact Diagnoses Breast screening Procedures Screening Mammogram Bilateral W Ki Adele Montilla MD PhD [address] [place] [address] Phone: tel: fax: [address] [phone] Referral ID Status Reason Start Date Expiration Date Visits Re quested Visits Authorized [id number] Closed 08/09/2021 09/08/2022 1 1 PLANNING CONSULTANT SALESPERSON Encounter Details Date Type Department Care Team (Late st Contact Info) Description 08/09/2021 Orders Only [facility] Surgery [address] [facility] [address] [place] [address] Adele Montilla MD PhD [address] [place], [place] [id number] Mammogram abnormal (Primary Dx); Breast screening Social History Tobacco Use Types Packs/Day Years [...] on file documented as of this encounter Results * Screening Mammogram Bilateral W Ki (10/05/2021 1:28 PM CDT) Anatomical Region Laterality Modality Breast Bilateral Mammography Narrative 10/06/2021 9:11 AM CDT Mammogram Technique: Bilateral Digital Breast Tomosynthesis, Bilateral C-view 2D Screening mammogram. ??Views obtained: ??bilateral craniocaudal and bilateral mediolateral oblique. ??Computer Aided Detection was performed. Mammogram Findings: The present examination has been compared to prior imaging studies performed at [facility]. ??[facility] on 09/15/2019, 09/16/2020 and 10/04/2020. The breasts are heterogeneously dense, which may obscure small masses. There is no suspicious abnormality in either breast. Impression: There is no mammographic evidence of malignancy. Annual screening mammography is recommended. OVERALL FINAL ASSESSMENT: BI-RADS CATEGORY 1: ??Negative. Procedure Note Isabella Bah MD - 10/06/2021 Mammogram Technique: Bilateral Digital Breast Tomosynthesis, Bilateral C-view 2D Screening mammogram. Views obtained: bilateral craniocaudal and bilateral mediolateral oblique. Computer Aided Detection was performed. Mammogram Findings: The present examination has been compared to prior imaging studies performed at [facility]. [facility] on 09/15/2019, 09/16/2020 and 10/04/2020. The breasts are heterogeneously dense, which may obscure small masses. There is no suspicious abnormality in either breast. Impression: There is no mammographic evidence of malignancy. Annual screening mammography is recommended. OVERALL FINAL ASSESSMENT: BI-RADS CATEGORY 1: Negative. us Adele Montilla MD PhD IMG MAMMO PROCEDURES Final Result documented in this encounter Visit Diagnoses Diagnosis Mammogram abnormal- Primary Abnormal mammogram, unspecified Breast screening Breast screening, unspecified Breast screening Breast screening, unspecified documented in this encounter Care Teams Record Center Specialist Relationship Specialty Start [place] [address] [place] [address] PCP - General Internal Medicine 09/28/20 09/24/23 Kathy Lee MD [address] [facility] [address] [place] [address] Referring Physician Obstetrics and Gynecology 10/28/20 documented as of this encounter
--- OUTSIDE RECORDS SUMMARY | 2024-06-13 02:12 | XMS_ITS | Encounter Summary ---
Author Organization [facility] Address [address] [place] [address] Phone Care Team Providers Care Edi Programmer Name Role Phone Denilson Ferrara MD Primary Care Provider Kathy Lee MD Unavailable Reason for Referral * Diagnostic Imaging (Routine) - Closed Specialty Diagnoses / Procedures Referred By Annemarie turner Referred To Contact Diagnoses Mammogram abnormal Procedures Screening Mammogram Bilateral W Ki Ravinder Candelaria NP Phone: tel: fax: [address] [phone] Referral ID Status Reason Start Date Expiration Date Visits Re quested Visits Authorized [id number] Closed 10/05/2022 11/04/2023 1 1 * MRI/CAT/PET Scan (Routine) - Closed Specialty Diagnoses / Procedures Referred By Annemarie turner Referred To Contact Radiology Diagnoses Mammogram abnormal Procedures MRI Breast Bilateral W WO Contrast Ravinder Candelaria NP Phone: tel: fax: [address] [phone] Referral ID Status Reason Start Date Expiration Date Visits Re quested Visits Authorized [id number] Closed 10/05/2022 11/04/2023 1 1 Encounter Details Date Type Department Care Team (Late st Contact Info) Description 10/05/2022 Orders Only [facility] Surgery [address] [facility] [address] [place] [address] [place] [address] Ravinder Candelaria NP [address] [facility] [address] [place] [address] Mammogram abnormal (Primary Dx) Social History Tobacco Use Types [...] compared to prior imaging studies performed at [facility]. [facility] on 09/15/2019, 09/16/2020 and 10/04/2020, and at [...] compared to prior imaging studies performed at [facility] on 09/15/2019, 09/16/2020 and 10/04/2020, and at [...] Candelaria NP IMG MAMMO PROCEDURES Final Result * MRI Breast Bilateral W WO Contrast [...] carcinoma in situ status post lumpectomy in 2017. ?? DATE OF LAST MENSTRUAL PERIOD: Hysterectomy [...] carcinoma in situ status post lumpectomy in 2017. DATE OF LAST MENSTRUAL PERIOD: Hysterectomy in [...] agrees with it. Electronically signed by: Karen Mcedrmott M.D. Ravinder Candelaria NP IMG MRI PROCEDURES Fi nal Result documented in this encounter Visit Diagnoses Diagnosis Mammogram abnormal- Primary Abnormal mammogram, unspecified Mammogram abnormal Abnormal mammogram, unspecified Mammogram abnormal Abnormal mammogram, unspecified documented in this encounter Care Teams Edi Programmer Relationship Specialty Start [place] [address] [place] [address] PCP - General Internal Medicine 09/28/20 09/24/23 Kathy Lee MD [address] [address] Referring Physician Obstetrics and Gynecology 10/28/20 documented as of this encounter
--- OUTSIDE RECORDS SUMMARY | 2024-06-13 02:12 | XMS_ITS | Encounter Summary ---
Author Organization [facility] Healthcare Address [address] [place] [address] Care Team Providers Care Brusher Operator Name Role Phone Denilson Ferrara MD Primary Care Provider Kathy Lee MD Unavailable [phone] Encounter Details Date Type Department Care Team (Late st Contact Info) Description 11/22/2020 5:30 PM CDT Lab [address] [address] Pre-operative laboratory examination Social History Tobacco Use Types Packs/Day Years [...] drinks on one occasion? Monthly 11/25/2020 Comments Unknown Sex and Gender Information Value Date Recorded Sex Assigned at Not on file Legal Sex Female 1:59 PM CDT Gender Identity Not on file Sexual Orientation Not on file documented as of this encounter Plan of Treatment Not on file documented as of this encounter Procedures Procedure Name Priority Date/Time Associated Diagnosis Comments COVID-19 CORONAVIRUS RNA Routine 11/22/2020 8:14 AM CDT documented in this encounter Results * COVID-19 Coronavirus RNA Nasopharyngeal (11/22/2020 8:14 AM CDT) COVID-19 RNA Not Detected Not Detected CERMARCUS CH Comment: Interpretive Data Synonyms for this test include: PCR and NAAT . ??Testing performed at [facility]. ??The [employer] Simplex[employer] COVID-19 Direct assay is for in vitro diagnostic use under FDA emergency use authorization only. A negative RT-PCR result does not preclude infection with COVID-19 and should not be used as the sole basis for treatment or other patient management decisions. Additional sample types have been validated according to CLIA regulations. Current Interpretative Data was last reviewed July 15, 2020. Testing performed by: [facility], [address] [place] [address], [id number] First COVID-19 test? Unknown CERNER CH Comment:Testing performed by : [facility], [address] [place] [address], [id number] Employeed in healthcare? Unknown CERNER CH Comment:Testing performed by : [facility], [address] [place] [address], [id number] status? Unknown CERNER CH Comment:Testing performed by : [facility], [address] [place] [address], [id number] Group care resident? Unknown CERNER CH Comment:Testing performed by : [facility], [address] [place] [address], [address] Hospitalized? Unknown CERNER CH Comment:Testing performed by : [facility], [address] [place] [address], [address] Is patient in ICU? Unknown CERNER CH Comment:Testing performed by : [facility], [address] [place] [address], [id number] Symptomatic as defined by CDC? Unknown CERNER CH Comment:Testing performed by : [address], [address] Nasopharyngeal 11/22/2020 8: 14 AM CDT 11/22/2020 10:26 PM CDT us Adele Montilla MD PhD LAB MICROBIOLOGY - GENERAL ORDERABLES Final Result [facility] [address] [place] [address] documented in this encounter Visit Diagnoses Diagnosis Pre-operative laboratory examination Pre-procedural laboratory examination documented in this encounter Care Teams Brusher Operator Relationship Specialty Start [place] [address] [place] [address] PCP - General Internal Medicine 09/28/20 09/24/23 Kathy Lee MD [address] [facility] [address] [place] [address] Referring Physician Obstetrics and Gynecology 10/28/20 documented as of this encounter
--- OUTSIDE RECORDS SUMMARY | 2024-06-13 02:12 | XMS_ITS | Encounter Summary ---
Author Organization [facility] Healthcare Address [address] [place] [address] Care Team Providers Care Logistics Loss Prevention Manager Name Role Phone Denilson Ferrara MD Primary Care Provider Kathy Lee MD Unavailable [phone] Encounter Details Date Type Department Care Team (Latest Contact Info) Description 11/25/2020 6:15 AM CDT - 11/25/2020 4:07 PM CDT Hospital Encounter [facility] Operating Room [facility] [address] [place] [id number] Aft, Adele Palomino MD PhD [address] [place] [id number] Breast mass, right Discharge Disposition: Discharge to home or self [...] Concentration - - Weight 93.9 kg (207 lb) 11/18/2020 11:36 AM CDT Height 168.9 cm (5' 6.5 ) 11/18/2020 11:36 AM CD T Body Mass Index 32.91 11/18/2020 11:36 AM CDT documented in this encounter Discharge Diagnoses Diagnosis 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 * [facility] PATHWAY TO EXCELLENT CARE AFTER SURGERY documented in this encounter Medications at Time of Discharge cephalexin (KEFLEX) 500 mg capsuleIndication s:Urinary Tract/Genitourina ry Infection,uses after intercourse Take 1 capsule (500 mg total) by mouth as needed cholecalciferol (VITAMIN D-3) 25 mcg (1,000 unit) tabletIndications :Vitamin D Deficiency Take 1 tablet (1,000 Units total) by mouth nightly multivitamin capsuleIndication s:Vitamin Deficiency Prevention Take 1 capsule by mouth nightly docusate sodium (COLACE) 100 mg capsuleIndication s:constipation Take 1 capsule (100 mg total) by mouth 2 (two) times a day 30 capsule 11/25/2020 10/05/2021 Lacto.acidophilus -Bif.animalis 32 billion cell capsuleIndication s:supplement Take 1 capsule by mouth nightly 10/05/2021 oxyCODONE (ROXICODONE) 5 mg immediate release tabletIndications :Pain Take 1 tablet (5 mg total) by mouth every 4 (four) hours as needed for pain 8 tablet 11/25/2020 10/05/2021 documented as of this encounter Ordered Prescriptions Prescription Sig Dispense Quantity Refills Last Filled Start Date End Date docusate sodium (COLACE) 100 mg capsuleIndications :constipation Take 1 capsule (100 mg total) by mouth 2 (two) times a day 30 capsule 11/25/2020 2 oxyCODONE (ROXICODONE) 5 mg immediate release tabletIndications: Pain Take 1 tablet (5 mg total) by mouth every 4 (four) hours as needed for pain 8 tablet 11/25/2020 2 documented in this encounter Discharge Disposition Disposition Code Departure Means Destination Discharge to home or self care documented in this encounter H&P Notes * Adele Montilla MD PhD - 11/25/2020 11:23 AM CDT I have reviewed the H&P, examined the patient, and endorse the findings as written. Plan of Care : Based on the above findings, I consider Lena Baron to be an acceptable risk for : Procedure(s): BIOPSY BREAST NEEDLE LOCALIZATION EXCISION MASS - BREAST Source Note - Sanjana Aldana MA - 11/22/2020 9:00 AM CDT Patient presents today for pre procedure COVID-19 test. Scheduled for a procedure 11/25/20. N95 mask, gown, gloves, and eye protection worn during swab collection. Patient instructed to self-isolate from time of swab collection until scheduled surgery. * Tito Escalante MD - 11/25/2020 10:42 AM CDT I have reviewed the H&P, examined the patient, and endorse the findings as written. Plan of Care : Based on the above findings, I consider Lena Baron to be an acceptable risk for : Procedure(s): BIOPSY BREAST NEEDLE LOCALIZATION EXCISION MASS - BREAST Cosigned by Adele Montilla MD PhD at 11/26/2020 10:47 AM CDT Source Note - Andrés Corbin MD - 11/19/2020 12:56 PM CDT Images from the original note were not included. Center for Preoperative Assessment and Planning Preoperative Evaluation Record Evaluation type/location: [facility] Planned procedure site: [facility] CAM OR (Pod 4) Date: 11/19/20 NOTE: This note represents a preoperative evaluation initiated via telephone interview. NO PHYSICALEXAM was performed at the time of initial assessment. A physical exam may be added to this note anddocumented below. Anesthesia Evaluation Lena Baron is a 45 y.o. female Procedure(s): BIOPSY BREAST NEEDLE LOCALIZATION EXCISION MASS - BREAST Pre-Op Diagnosis Codes: * Breast mass, right [N63.10] HISTORY HPI Lena Baron is a 45 year old female with hx of right breast cancer is planned to excision of mass. Past Medical History Information obtained from: patient and chart. Neurological Pertinent negatives: seizures; neuromuscular disease; CVA/stroke; TIA; CEA; ICA stenosis; dementia/mild cognitive impairment and carotid artery stent Cardiovascular Pertinent negatives: hypertension ; CAD ; DC ; CABG ; valvular heart disease; valve [...] risk. Preoperative assessment status: complete. Additional comments: Lena Baron is a 45 y.o. female who is [...] instructions were provided in writing sent via [employer] mail. Patient verbalized understanding of preoperative plan. [...] COVID19 testing to be performed on 11/22/2020. [facility] will place the order for testing. Result [...] BIOPSY Right 2016 ??? BREAST LUMPECTOMY Right 2016 bilateral reconstruction ??? SECTION 1998 ??? CHOLECYSTECTOMY 2009 ??? LAPAROSCOPY 1995, 2009 ??? LITHOTRIPSY 2011, 2014 x2 ??? PARTIAL HYSTERECTOMY 2009 OB History No obstetric history on file. Allergies Allergen Reactions ??? Sulfa (Sulfonamide Antibiotics) Hives and Rash Med List Status: Nurse Complete Set By: Moon Irizarry RN at 11/18/2020 11:40 AM Taking? Last Dose Start Date End Date Provider cephalexin (KEFLEX) 500 mg capsule Past Week -- -- ProviderTerrance MD cholecalciferol (VITAMIN D-3) 25 mcg (1,000 [...] Medication protocol when under care of a TILE BURNER Planned anesthesia: MAC Induction: Induction: intravenous. Postoperative Plan: Postoperative administration opioids intended. No postoperative mechanical ventilation intended. Patient's planned disposition post procedure is Outpatient. No trial extubation planned. Informed Consent: Discussed plan with TILE BURNER. Anesthesia plan and risks discussed with patient. Consent and Attending signature: I and/or my designee have discussed the anesthesia plan, benefits, possible alternatives, parental presence at time of induction (if indicated), and clinically relevant risks that may include dental injury, unintentional awareness, and/or other complications. The patient and/or parent/legal guardian understand, and agree to proceed. All questions answered. documented in this encounter Miscellaneous Notes * Perioperative Nursing Note - Maria Del Carmen Ospina RN - 11/25/2020 2:45 PM CDT Specimen A sent to pathology via climatologist Scot Loaiza * Op Note - Adele Montilla MD PhD - 11/25/2020 2:21 PM CDT Operative Report SURGEON: Adele Montilla MD PhD SURGICAL TEAM: Surgeon(s) and Role: * Adele Montilla MD PhD - Primary DATE OF SURGERY : 11/25/2020 PREOPERATIVE DIAGNOSIS: Pre-op Diagnosis * Breast mass, right [N63.10] right breast atypical cells POSTOPERATIVE DIAGNOSIS: Post-op Diagnosis * Breast mass, right [N63.10] right breast atypical cells PROCEDURE: BIOPSY BREAST NEEDLE LOCALIZATION (R), EXCISION MASS - BREAST (R) right breast needle localization excisional biopsy INDICATION FOR PROCEDURE: The patient is a 45 y.o. female who is diagnosed with a Pre-op Diagnosis * Breast mass, right [N63.10] ANESTHESIA: Monitor Anesthesia Care IMPLANTS: Nothing was implanted during the procedure OPERATIVE DETAILS After obtaining informed consent, the patient was brought into the operating room placed on procedure table in the supine position. A time-out was performed verifying correct patient, correct procedures, correct positioning, correct special equipment in the room. Monitor Anesthesia Care anesthesia was induced . The patient had previously gone to the radiology suite for localization of her mammographic abnormality using a wire. The right breast was prepped and draped in usual sterile fashion. Using the wire as a guide, a upper-outer quadrant incision was made near the site of the wire with a 15 blade and brought down through the subcutaneous tissue using Bovie electrocautery. Flaps were raised superiorly and inferiorly a around the wire using Bovie electrocautery. Then an Allis clamp was placed on the mobilized tissue, and the specimen was eviscerated from the cavity. It was marked with a short stitch superior, long stitch lateral. The specimen was then amputated posteriorly and placedon a grid for mammographic inspection.The excision did not go down to pectoralis fascia. Mammographic inspection revealed the clip and lesion of interest within the specimen. Hemostasis was obtained.The cavity was copiously irrigated. The incision was then closed using 3- 0 Vicryl to approximate the dermal edge and 4- 0 Monocryl to approximate the subcuticular edge. Skin glue was then applied. The procedure was concluded. All needle and sponge counts were reported correct x2. Estimated Blood Loss: No blood loss documented. Urine output : Not measured Intraoperative Fluids: Five hundred mls Blood/Blood Products Transfused: 0 mls Specimens: Order Name Source Comment Collection Info Order Time SURGICAL PATHOLOGY Breast, excisional biopsy/ partial mastectomy Collected By: Adele Montilla MD PhD 11/25/2020 2:33 PM Complications: None Condition on Discharge from the operating room was stable Adele Montilla MD PhD Date: 11/29/2020 Time: 9:43 AM TEACHING ATTESTATION : I was present and I participated in all portions of the procedure except Theclosure and Dr. Contreras was immediately available for all remaining portions of the case. * Pre-Procedure Instructions - Linda Major NP - 11/19/2020 12:54 PM CDT Center for Preoperative Assessment and Planning CPAP Clinic Location: [facility] The night before your surgery: * Do not eat or drink anything after midnight. This includes candy, mint, gums, chewable antacids (TUMS, Rolaids) and cough drops * Do not smoke after midnight the night before surgery. It is best to stop smoking now to improve your health. The morning of your surgery: * You may brush your teeth and rinse your mouth out. * Do not glue your dentures. * Do not wear jewelry, body piercings, makeup, hairpins, false eyelashes or contact lenses to the hospital. * Leave any valuables at home or with your family. * If you are still having menstrual cycles, you should come with a full bladder on the morning of surgery in order to provide a urine sample. * If you have an implantable device with a remote, bring the remote with you on the day of surgery. * If having surgery at [facility], you may want to bring a credit card if you want to use our Mobile Pharmacy for your discharge medications. Mobile pharmacy is not available at [facility], the [facility], or [facility] Outpatient Surgery: * You must have a responsible adult drive you home and stay with you for 24 hours after your surgery * You cannot be alone at home or in a hotel * Please call your surgeon's office if you do not have someone to drive you home and/or stay with you after surgery * Please bring any items you may need to spend the night in the hospital. Sometimes patients need to be cared for in the hospital overnight. Instructions For Your Medications: Pre-Surgery Instructions: Medication Instructions ??? cephalexin (KEFLEX) 500 mg capsule Take morning of surgery ??? cholecalciferol (VITAMIN D-3) 25 mcg (1,000 unit) tablet Don't take on day of surgery ??? Lacto.acidophilus-Bif.animalis 32 billion cell capsule Don't take on day of surgery ??? multivitamin capsule Don't take on day of surgery General Instructions For Medications: ?? For medications that you are instructed to take on the morning of surgery, take the medications with a few sips of water. ?? Stop all of these medications 7-14 days prior to your surgery: Vitamin E, Herbal medicines, DietPills ?? If you take aspirin, do not stop taking it unless you were instructed to do so. ?? If you have pain, you may take tylenol (acetaminophen). Do not take more than 6 tablets or 3000 mg (3 g) within a 24 period. Call your surgeon and the CPAP clinic if any of the following happens before surgery: ?? Any changes in your health ?? You have a fever ?? You have any signs of an infection (chest, urinary tract or tooth) ?? You have been to the Emergency Room or were in the hospital ?? You have started taking any new medications * Perioperative Nursing Note - Moon Irizarry RN - 11/18/2020 11:45 AM CDT Center for Preoperative Assessment and Planning Perioperative Nursing Note Telephone Preoperative Evaluation ([facility]) - TELEPHONE ONLY, NO PHYSICAL EXAM Date: 11/18/20 Vitals: 11/18/20 1136 Weight: 93.9 kg (207 lb) Height: 168.9 cm (5' 6.5 ) CHEST CIRCUMFERENCE: N/A Social History Tobacco Use Smoking Status Former Smoker ??? Packs/day: 0.25 ??? Years: 18.00 ??? Pack years: 4.50 ??? Types: Cigarettes ??? Start date: 1989 ??? Quit date: 10/06/2013 ??? Years since quittin.1 Smokeless Tobacco Never Used Substance and Sexual Activity Drug Use Never Alcohol Use How often do you have a drink containing alcohol?: Monthly or less How many drinks containing alcohol do you have on a typical day when you are drinking?: 3 or 4 How often do you have six or more drinks on one occasion?: Never Outpatient Medications Marked as Taking for the 11/25/20 encounter (Hospital Encounter) Medication Sig Dispense Refill ??? cephalexin (KEFLEX) 500 mg capsule Take 500 mg by mouth as needed ??? cholecalciferol (VITAMIN D-3) 25 mcg (1,000 unit) tablet Take 1 tablet by mouth nightly ??? Lacto.acidophilus-Bif.animalis 32 billion cell capsule Take 1 capsule by mouth nightly ??? multivitamin capsule Take 1 capsule by mouth nightly Implants No active implants to display in this view. SKIN Piercings Remaining: Yes Wound (LDAs) Type of Wound (LDA): (None) SCREENINGS Rodríguez Fall Risk Score (Retired): 15 Raul index score: 100 PATIENT CARE PLANNING Advance Directives (For Healthcare) Have you reviewed your Advance Directive and is it valid for this stay?: Not applicable Advance Directive: Patient does not have advance directive, Patient refused information Communication/Counter Professional Needs Communication Needs: Contacts, Glasses Patient's Preferred Language: Croatian Does caregiver's language differ from patient's?: No Is an hat ironer needed? : No Assistive Devices/DME: Eyeglasses, Contacts Hearing - Right Ear: Functional Hearing - Left Ear: Functional Discharge Planning Type of Residence: Private residence Living Arrangements: Spouse/significant other, Children Support Systems: Spouse/significant other, Children Patient expects to be discharged to:: Private residence (, Claus will be double bottom driver after surgery.) COVID Screening Covid-19 Screening In the last 10 days have you had any new or worsening cough, SOB, fever (>=100F), body aches, loss of taste or smell, diarrhea or vomiting, or sore throat?: No Have you had close contact with anyone with confirmed or suspected COVID-19 in the past 2 weeks?: No Do you live in or work in a congregate living facility (ex. assisted living/shelter facility, correction, usp)?: No Have you tested positive for COVID-19 within the last 14 days?: No Have you previously tested positive for COVID-19? No Have you had a COVID -19 exposure within the past 14 days? No Were both or all people exposed wearing masks (cloth, isolation, surgical or N95)? N/A TESTING PLAN-See Instructions for plan We recommend you Self-Isolate after COVID Testing: Stay at home, if possible until your surgery date. Maintain a 6 foot distance from other people (social distancing). Avoid touching your eyes, noseand mouth with unwashed hands. Wash your hands often with soap and water for at least 20 seconds. Use an alcohol- based hand naumkeag operator that contains at least 60% alcohol if soap and water are not available. ADDITIONAL COMMENTS/ FOLLOW UP * Pre-Procedure Instructions - Moon Irizarry RN - 11/18/2020 11:43 AM CDT PRE-SURGICAL INSTRUCTIONS ??? General Information ?? Surgery location provided to patient. ?? Arrival time and surgical time will be provided by your surgeon. ?? Wear something clean, loose, comfortable and easy to get in and out of. ?? Leave your valuables and any jewelry at home (No metal or piercings are allowed in the operatingroom) ?? Bring your insurance card, a photo ID (like a Bowling Or Skating Front Desk Clerk's license) and a method of payment for any insurance copay, deductible, or copay for discharge medications. ?? Bring a complete, up to date list of all of your medications including any over the counter medications or supplements you may take. ? How To Prepare Your Skin For Surgery Antiseptic/antibacterial soap will decrease the amount of germs on your skin. It is important to minimize the risk of getting an infection by doing the following: ?? Change all the linens on the bed the night before surgery so you are sleeping on clean fresh sheets and pillowcases. ?? Shower the evening before and the morning of surgery with an antibacterial soap such as Dial or a surgical soap known as chlorhexidine (Hibiclens). You can purchase this soap at any pharmacy or department store or come by our CPAP clinic and we will give it to you free of charge. Do not use thissoap on your face or hair. ?? Wash your hair and face with your regular shampoo (no conditioners) and facial cleanser. ?? Take a shower using ?? cup (2 oz.) of antiseptic soap applied to a clean fresh washcloth. Scrub your entire body from the neck down. If you can't reach the surgical site, such as your back, have someone help you with your shower. Step out of the water and leave soap on your skin for 2 minutes prior to rinsing off. Rinse thoroughly and dry yourself off with a clean fresh dry towel. ?? Wear clean clothes or pajamas to sleep in and on morning of surgery. ?? Nothing extra on the skin or hair such as deodorant, makeup, hair products, lotions, powders, Vaseline, creams, or perfumes the evening before and the morning of surgery. ?? The morning of the surgery repeat the shower process with the remaining ?? cup (2 oz.) of surgical scrub using another fresh wash cloth and towel. ?? Do not shave the morning of surgery. ?? REMEMBER no deodorant, make-up, lotions, powders, creams, Vaseline, oils, conditioners or hair products the morning of the surgery. COVID TESTING PLAN COVID Test Request Placed in Epic to [facility]. Test to be performed on 11/22/[address] [address], M- F 8a-7:30p, Sat/Sun 8a-7:30p. HOLIDAY hours may vary. If you have COVID testing or should have COVID testing for your surgery/procedure, please read below section: If you need to reschedule your COVID test to a different location or if your surgery gets rescheduled, you MUST call [phone] Sunday-Sunday 8am-4:30pm to get your COVID testing rescheduled or your lab order will not be available at Testing Sites. COVID Testing is only valid for up to 96 hours prior to surgery date, unless otherwise specified. If you are unable to reach staff at the above phone number, please call the CPAP Staff at [phone]. This number cannot order a lab test, but can attempt to contact the above number/staff to assist you. We are available Sunday-Sunday 8am-4:30pm . We recommend you Self-Isolate after COVID Testing: Stay at home, if possible until your surgery date. Maintain a 6 foot distance from other people (social distancing). Avoid touching your eyes, nose and mouth with unwashed hands. Wash your hands often with soap and water for at least 20 seconds. Use an alcohol- based hand naumkeag operator that contains at least 60% alcohol if soap and water are not available. All patients should read below section: All visitors/patients are being asked to wear a clean mask when entering the hospital. COVID 19 Updates & Visitor Policy: Please access [email or web address] for the most updated information. Information on [facility]: Please view [email or web address] (Patient & Visitor Information) for additional details regarding Advanced Directive forms, AWARE, directions, parking information, lodging, Internet access, dining and more. Information on [facility]: Please view [email or web address] (Patient and Visitor Information) for parking/directions and more. For MyChart information, to activate account or password recovery, please go to [email or web address] or call [phone] (toll-free: [phone]). Surgery Times: For patients having surgery @ [facility], [facility] or [facility], if your surgeon's office has not notified you of your surgery time by NOON THE BUSINESS DAY BEFORE your surgery, please call [phone] and ask for your surgeon'luciafice Dr. Montilla. documented in this encounter Plan of Treatment Not on file documented as of this encounter Procedures Procedure Name Priority Date/Time Associated Diagnosis Comments SURGICAL PATHOLOGY Routine 11/25/2020 2: 31 PM CDT Breast mass, right EXCISION MASS - BREAST 11/25/2020 2:03 PM CDT Breast mass, right Case Notes 11/24: Case line up per office -bt Special Needs Faxitron needed day of surgery Needle loc 8am BIOPSY BREAST NEEDLE LOCALIZATION 11/25/2020 2:03 PM CDT Breast mass, right Case Notes 11/24: Case line up per office -bt Special Needs Faxitron needed day of surgery Needle loc 8am documented in this encounter Results * Surgical pathology (11/25/2020 2:31 PM CDT) Tissue (Breast, excisional biopsy/ partial mastectomy) 11/25/2020 2:31 PM CDT Narrative PATHOLOGY [facility] - 12/03/2020 4:09 PM CDT EPIC results best viewed via link to PDF [facility] [place] [address] SURGICAL PATHOLOGY REPORT FINAL Patient Name: ?? LENA BARON Gender: ??F : ??1975 (Age: 45) Address: ??[address] [place] [id number] Hospital #: ??[id number] Taken:11/25/2020 Received:11/25/2020 Reported: 12/03/2020 Patient Type: [facility] SDS ?? Service: Surgery Location: [facility] Physician(s): ??Bharathi Garibay M.D. Alejandro J. Alvarado Diagnosis: A. ??Right breast, partial mastectomy ? - Atypical lobular hyperplasia, see comment ? - Negative for malignancy fib/12/03/2020 16:07 By this signature, I attest that the above diagnosis is based upon my personal examination of the slides(and/or other material indicated in the diagnosis). Fouad Cameron Herminio, M.D. Report Electronically Reviewed and Signed Out By ??Francisca Durham M.D. 12/03/2020 16:09:21 Microscopic Description and Comment: Microscopic examination substantiates the above cited diagnosis. Classic atypical lobular hyperplasia is noted adjacent to the biopsy site. A single focus of moderately atypical cells with prominent nucleoli and irregular nuclear contours was noted within one lobular unit, raising the possibility of ductal carcinoma in situ. Deeper sections were performed and an E-Cadherin stain was done (single antibody procedure with adequate control). E-Cadherin shows lack of staining in the atypical cells, confirming their lobular phenotype and excluding a ductal process. The case was discussed at consensus conference and the attending faculty agree with the above. History: The patient is a 45-year-old woman who presents with a right breast mass. ??Operative procedure: Right breast needle localization biopsy. Specimen(s) Received: A: Right breast biopsy, long stitch lateral, short stitch superior Gross Description: - Labeled right breast biopsy, long stitch lateral, short stitch superior. - Collected at 1431 on 11/25/2020. ?? - Received fresh and placed in formalin at 1454 on 11/25/2020. ?? - Formalin fixation time: 30 hours. - Specimen orientation: long stitch lateral, short stitch superior with a metallic wire inserted into the superior aspect. - Specimen dimensions: Medial to Lateral: 4.2 cm. Anterior to Posterior: 1.7 cm. Superior to Inferior: 3.0 cm. - Skin dimensions: no skin included. - Margins inked: Posterior-black, superior-blue, inferior-green, and anterior-yellow - Sectioned: medial to lateral. - Number of slices: 11 slices, lateral margin is slices #1. - Gross findings: a bhatti-pink to yellow, fibrofatty cut surface no definitive masses or lesions are identified. - Sectioned specimen radiographed: yes. - Radiograph findings: a vascular clip located within slice #6, no other biopsy clips identified. ?? - Specimen photograph: no. - Diagram: no. - Specimen completely submitted: yes. - Summary of sections: ? A1-lateral margin, perpendicular A2 to O50-[id number] entirely and sequentially from lateral to medial I83-btnaft margin, perpendicular sxb/11/26/2020 12:01 PA(s): Thelma Rincon, MS, PA (ASCP) By this signature, I attest that the above diagnosis is based upon my personal examination of the slides(and/or other material). Addenda/Procedures The performance characteristics of some immunohistochemical stains, fluorescence in-situ hybridization tests and immunophenotyping by flow cytometry cited in this report (if any) were determined by the Surgical Pathology Department at [facility] as part of an ongoing quality assurance assessor program and in compliance with federally mandated regulations drawn from the Clinical Laboratory Improvement Act of 1988 (CLIA '88). ??Some of these tests rely on the use of analyte specific reagents and are subject to specific labeling requirements by the US Food and Drug Administration. ??Such diagnostic tests may only be performed in a facility that is certified by the Department of Health and Human Services as a high complexity laboratory under CLIA '88. ??The FDA has determined that such clearance or approval is not necessary. ??This test is used for clinical purposes. ??It should not be regarded as investigational or for research. ??Nevertheless, federal rules concerning the medical use of analyte specific reagents require that the following disclaimer be attached to the report: This test was developed and its performance characteristics determined by the Surgical Pathology Department of [facility]. ??It has not been cleared or approved by the U. S. Food and Drug Administration. IMAGES AND SCANNED DOCUMENTS, IF INCLUDED, ONLY VIEWABLE IN PDF VERSION OF REPORT us Adele Montilla MD PhD LAB PATHOLOGY ORDERABLES F inal Result PATHOLOGY [facility] 3rd Floor [place], [place] [phone] documented in this encounter Visit Diagnoses Diagnosis Breast mass, right- Primary Lump or mass in breast documented in this encounter Admitting Diagnoses Diagnosis Breast mass, right Lump or mass in breast documented in this encounter Administered Medications Inactive Administered Medications - up to 3 most recent administrations Medication Order MAR Action Action Date Dose Rate Site Lactated Ringer's (LR) infusion 30 mL/hr, intravenous, Continuous, Starting on Tricia 11/25/20 at 0730, Pre-Op Restarted 11/25/2020 2:30 PM CDT Rate/Dose Verify 11/25/2020 2:00 PM CDT 30 mL/h r New Bag 11/25/2020 9:57 AM CDT 30 mL/hr 30 mL/hr oxyCODONE (ROXICODONE) tablet 10 mg 10 mg, oral, Once, On Tricia 11/25/20 at 1600, For 1 dose, Phase I, Indications: PainIndications:Pain Given 11/25/2020 3:29 PM CDT 5 mg documented in this encounter Discontinued Medications Medication Sig Discontinue Reason Start Date End Da te cyclobenzaprine (FLEXERIL) 10 mg tablet TAKE 1 TABLET BY MOUTH THREE TIMES DAILY NEEDED FOR MUSCLE SPASM 07/17/2020 11/18/2020 cephalexin (KEFLEX) 500 mg capsule Take 500 mg by mouth 4 (four) times a day 04/03/2018 11/18/2020 fluconazole (DIFLUCAN) 150 mg tablet 08/02/2020 11/18/2020 tamsulosin (FLOMAX) 0.4 mg extended release capsule 07/22/2020 11/18/2020 tamsulosin (FLOMAX) 0.4 mg extended release capsule Take 0.4 mg by mouth daily 07/22/2020 11/18/2020 documented as of this encounter Historical Medications * This list may reflect changes made after this encounter. multivitamin capsuleIndications :Vitamin Deficiency Prevention Take 1 capsule by mouth nightly cephalexin (KEFLEX) 500 mg capsuleIndications :Urinary Tract/Genitourinar y Infection,uses after intercourse Take 1 capsule (500 mg total) by mouth as needed added in this encounter Active and Recently Administered Medications Times are shown in CDT. Scheduled Medication Order 11/23/2020 11/24/2020 11/25/2020 oxyCODONE (ROXICODONE) tablet 10 mg (COMPLETED) 10 mg, oral, Once, On Tricia 11/25/20 at 1600, For 1 dose, Phase I, Indications: Pain 1529 (Given - Provid er: Karla Angel RN - Comment: Patient only wanted 1 (5 mg). OK with . Only took one from Pyxis, but forgot to change the count when removing from 2 to 1.) Continuous Medication Order 11/23/2020 11/24/2020 11/25/2020 Lactated Ringer's (LR) infusion 30 mL/hr, intravenous, Continuous, Starting on Tricia 11/25/20 at 0730, Pre-Op 0955 (Due)0957 (New Bag - Provider: Ana Elaine RN)1400 (Rate/Dose Verify - Provider: Linda Major NP)1429 (Paused - Provider: Yvon Hartman CRNA - Comment: Switch to gravity)1430 (Restarted - Provider: Yvon Hartman CRNA)1445 (Anesthesia Volume Adjustment - Provider: Yvon Hartman CRNA)1542 (Stopped - Provider: Karla Angel RN) Lactated Ringer's (LR) infusion 125 mL/hr, intravenous, Continuous, Starting on Tricia 11/25/20 at 1545, Phase I 1545 (Due) PRN Medication Order 11/23/2020 11/24/2020 11/25/2020 diphenhydrAMINE (BENADRYL) injection 12.5 mg 12.5 mg, intravenous, Every 15 min PRN, itching, Starting on Tricia 11/25/20 at 1500, For 2 doses, Phase I, Max cumulative dose 50 mg., Indications: Itching fentaNYL (SUBLIMAZE) preservative free injection 50 mcg 50 mcg, intravenous, Once as needed, uncontrolled pain on PACU admission, Starting on Tricia 11/25/20 at 1500, For 1 dose, Phase I, Then proceed to PACU 1st line analgesic., Indications: Pain HYDROmorphone (DILAUDID) injection 0.2 mg 0.2 mg, intravenous, Administer over 2 Minutes, Every 10 min PRN, 1st line for pain, Starting on Tricia 11/25/20 at 1500, Phase I, Notify Anesthesiologist if total PACU dose reaches 2 mg and pain score 5/10 or more., Indications: Pain lidocaine (XYLOCAINE) 20 mL, bupivacaine (MARCAINE) 20 mL solution (CANCELED) As needed, Starting on Tricia 11/25/20 at 1446, Intra-Op 1446 (Given - Provid er: Adele Montilla MD PhD) meperidine (DEMEROL) preservative free injection 12.5 mg 12.5 mg, intravenous, Every 10 min PRN, shivering, Starting on Tricia 11/25/20 at 1500, For 2 doses, Phase I, Max cumulative dose 25 mg., Indications: Shivering naloxone (NARCAN) 0.4 mg/mL injection 0.04-0.4 mg 0.04-0.4 mg, intravenous, Once as needed, other, excessive sedation/respiratory depression, Starting on Tricia 11/25/20 at 1500, For 1 dose, Phase I, Dilute 0.4 mg with 9 mL NS (final concentration 0.04 mg/mL). For respiratory depression (respiratory rate less than 6), administer 0.4 mg IVP over 30 seconds. For excessive sedation administer 0.04 mg (1 mL) every 1 minute until desired level of alertness. For IV, administer over 30 seconds., Indications: Opioid Toxicity ondansetron (ZOFRAN) injection 4 mg 4 mg, intravenous, Administer over 2 Minutes, Once as needed, nausea, vomiting, Starting on Tricia 11/25/20 at 1500, For 1 dose, Phase I, Proceed to prochlorperazine if ondansetron has been given within the last 6 hours. prochlorperazine (COMPAZINE) injection 10 mg 10 mg, intravenous, Administer over 2 Minutes, Once as needed, nausea, vomiting, Starting on Tricia 11/25/20 at 1500, For 1 dose, Phase I, If nausea/vomiting not relieved by ondansetron within 30 minutes or if ondansetron has been given within the last 6 hours. sodium chloride 0.9% irrigation (CANCELED) As needed, Starting on Tricia 11/25/20 at 1437, Intra-Op 1437 (Given - Provid er: Adele Montilla MD PhD) documented in this encounter Orders Medications Ordered That Calin ht Not Have Been Administered Count Last Ordered Date First Ordered Date diphenhydrAMINE (BENADRYL) i njection 12.5 mg 1 11/25/2020 fentaNYL (SUBLIMAZE) preserv ative free injection 50 mcg 1 11/25/2020 HYDROmorphone (DILAUDID) injection 0.2 mg 1 11/25/2020 Lactated Ringer's (LR) infusion 1 lidocaine (XYLOCAINE) 20 mL, bupivacaine (MARCAINE) 20 mL solution 1 11/25/2020 lidocaine PF (XYLOCAINE) 10 mg/mL (1 %) preservative free injection 2-10 mg 1 11/25/2020 meperidine (DEMEROL) preserv ative free injection 12.5 mg 1 11/25/2020 naloxone (NARCAN) 0.4 mg/mL injection 0.04-0.4 mg 1 11/25/2020 ondansetron (ZOFRAN) injection 4 mg 1 11/25 prochlorperazine (COMPAZINE) injection 10 mg 1 11/25/2020 sodium chloride 0.9% flush 0.5-20 mL 1 11/09 sodium chloride 0.9% irrigation 1 Diet Count Last Ordered Date First Orde red Date ADULT DISCHARGE DIET 1 11/25/2020 Nursing Count Last Ordered Date First Orde red Date DISCHARGE ACTIVITY 4 11/25/2020 DISCHARGE CALL PROVIDER 6 11/25/2020 DISCHARGE DRESSING 6 11/25/2020 documented in this encounter Care Teams Logistics Loss Prevention Manager Relationship Specialty Start [place] [address] [place] [address] PCP - General Internal Medicine 09/28/20 09/24/23 Kathy Lee MD [address] [place] [address] Referring Physician Obstetrics and Gynecology 10/28/20 documented as of this encounter
--- OUTSIDE RECORDS SUMMARY | 2024-06-13 02:12 | XMS_ITS | Encounter Summary ---
Author Organization [facility] Address [address] [place] [address] Phone Care Team Providers Care Wire Transfer Clerk Name Role Phone Denilson Ferrara MD Primary Care Provider Kathy Lee MD Unavailable [phone] Encounter Details Date Type Department Care Team (Late st Contact Info) Description 10/05/2021 1:00 PM CDT Office Visit [facility] Surgery [address] 5th [place] [address] [place] [id number] Aft, Adele Palomino MD PhD [address] [place] [address] Ductal carcinoma in situ (DCIS) of right breast (Primary Dx) Social History Tobacco Use [...] - - Weight 93.9 kg (207 lb) 10/05/2021 12:31 PM CDT Height 168.9 cm (5' 6.5 ) 10/05/2021 12:31 PM CD T Body Mass Index 32.91 10/05/2021 12:31 PM CDT documented in this encounter Progress Notes * Aft, Adele Palomino MD PhD - 10/05/2021 1:00 PM CDT Section of Surgical Oncology and Endocrinology [facility] of [address], [address], [place] [address] - NAME: Karena Jay : 1975 DATE: 10/05/21 CHIEF COMPLAINT: Prior right breast DCIS in 2016 who presented in September 2020 with a new right breast abnormality s/p excisional biopsy on 11/25/2020 with pathology consistent with atypical lobular hyperplasia HISTORY OF PRESENT ILLNESS: The patient is a 46 y.o. female who had initially presented after undergoing imaging at [facility] on 10/08/2020 where they noted an abnormality of her right breast.She underwent a biopsy which demonstrated atypical lobular hyperplasia. 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 She underwent excisional biopsy and underwent no further treatment. She was last seen in clinic on 12/08/2020 for routine post operative check. Today she has no new complaints. She endorses no new lumps in her breast, no erythema or skin changes, no nipple discharge in either of her breasts. She does reports some tenderness to her right breast specifically on the superior medial aspect. She endorses no fevers, chills, or unintentional weight loss. She otherwise feels well. Since her last clinical visit she reports no new updates in her medications, no surgeries, no new medical diagnoses, and no new cancers in her family. She has a past medical history of PONV (postoperative nausea and vomiting) and Urinary tract infection. She has no past medical history of Acute respiratory failure requiring reintubation (CMS/HCC) (HCC), Awareness under anesthesia, Cardiac complication, Delayed emergence from general anesthesia, Hard to intubate, Hematoma, Malignant hyperthermia, Motion sickness, Pneumothorax, Postoperative delirium, Pseudocholinesterase deficiency, Sleep apnea, or Spinal headache. Past Medical History: Diagnosis Date ??? PONV (postoperative nausea and vomiting) ??? Urinary tract infection Past Surgical History: Procedure Laterality Date ??? BREAST BIOPSY Right 10/11/2020 ??? BREAST BIOPSY Left 2018 ??? BREAST BIOPSY Right 2016 ??? BREAST LUMPECTOMY Right 2017 bilateral reconstruction ??? SECTION 1998 ??? CHOLECYSTECTOMY 2009 ??? LAPAROSCOPY 1995, 2009 ??? LITHOTRIPSY 2011, 2014 x2 ??? PARTIAL HYSTERECTOMY 2009 Social History Socioeconomic History ??? Marital status: Tobacco Use ??? Smoking status: Former Smoker Packs/day: 0.25 Years: 18.00 Pack years: 4.50 Types: Cigarettes Start date: 1989 Quit date: 10/06/2013 Years since quittin.0 ??? Smokeless tobacco: Never Used Vaping Use ??? Vaping Use: Never used Substance and Sexual Activity ??? Drug use: Never ??? Sexual activity: Defer Family History Problem Relation Age of Onset ??? Testicular cancer Mother's Brother Prior to Admission medications Medication Sig Start Date End Date Taking? Authorizing Provider cephalexin (KEFLEX) 500 mg capsule Take 500 mg by mouth as needed Terrance Castellano MD cholecalciferol (VITAMIN D-3) 25 mcg (1,000 unit) tablet Take 1 tablet by mouth nightly Terrance Castellano MD multivitamin capsule Take 1 capsule by mouth nightly Terrance Castellano MD docusate sodium (COLACE) 100 mg capsule Take 1 capsule (100 mg total) by mouth 2 (two) times a day 11/25/20 10/05/21 Tito Escalante MD Lacto.acidophilus-Bif.animalis 32 billion cell capsule Take 1 capsule by mouth nightly 10/05/21 Terrance Castellano MD oxyCODONE (ROXICODONE) 5 mg immediate release tablet Take 1 tablet (5 mg total) by mouth every 4 (four) hours as needed for pain 11/25/20 10/05/21 Tito Escalante MD Allergies Allergen Reactions ??? Sulfa (Sulfonamide Antibiotics) Hives and Rash PHYSICAL EXAMINATION: GENERAL: Well-developed, well-nourished female in no acute distress. EYES: Extraocular movements intact. Sclerae - no jaundice. NOSE AND THROAT: Mucosal membranes intact. SKIN: No concerning lesions or skin changes noted on face, neck, or trunk. NECK: No obvious masses. HEART: Regular rate. No JVD noted. LUNGS: Unlabored breathing LYMPHATIC SYSTEM: No concerning cervical, supraclavicular, or axillary lymphadenopathy. BILATERAL BREAST EXAM: For both breasts there are no obvious skin changes, dimpling, nor retraction. There are no palpable dominant masses. The nipples and areolas are without erosion, ulceration, orobvious discharge. Examination of the axillary tail and contents shows no concerning mass or adenopathy. EXTREMITIES: Full range of motion in both arms. No lymphedema. NEUROLOGICAL: No focal neurologic signs. IMAGING: Bilateral diagnostic screening mammograms to be performed today ASSESSMENT: I have told the patient that she is doing well. She has no clinical evidence of diseasebased on physical exam. She underwent bilateral screening mammograms today. PLAN: I will document results on radiology report once available. I have recommended she continue her monthly breast exams and will notify us if she identifies any changes or problems. She will follow up in 6 months for breast MRI and then in 1 year in clinic. She knows to call with questions. Linda Wilde MD I have reviewed the history and physical, social history and surgical history and I concur with thefindings. Adele Montilla M.D. plastics factory worker, Endocrine Oncology surgery documented in this encounter Plan of Treatment Not on file documented as of this encounter Visit Diagnoses Diagnosis Ductal carcinoma in situ (DCIS) of right breast- Primary documented in this encounter Discontinued Medications Medication Sig Discontinue Reason Start Date End Da te docusate sodium (COLACE) 100 mg capsuleIndications:const ipation Take 1 capsule (100 mg total) by mouth 2 (two) times a day Therapy completed 11/25/2020 10/05/2021 Lacto.acidophilus-Bif.an imalis 32 billion cell capsuleIndications:suppl ement Take 1 capsule by mouth nightly Therapy completed 10/05/2021 oxyCODONE (ROXICODONE) 5 mg immediate release tabletIndications:Pain Take 1 tablet (5 mg total) by mouth every 4 (four) hours as needed for pain Therapy completed 11/25/2020 10/05/2021 documented as of this encounter Care Teams Wire Transfer Clerk Relationship Specialty Start [place] [address] [place] [address] PCP - General Internal Medicine 09/28/20 09/24/23 Kathy Lee MD [address] [address] Referring Physician Obstetrics and Gynecology 10/28/20 documented as of this encounter
--- OUTSIDE RECORDS SUMMARY | 2024-06-13 02:12 | XMS_ITS | Encounter Summary ---
Author Organization [facility] Address [address] [place] [address] Care Team Providers Care Center Line Cutter Operator Name Role Phone Denilson Ferrara MD Primary Care Provider Kathy Lee MD Unavailable [phone] Reason for Referral * Diagnostic Imaging (Routine) - Closed Specialty Diagnoses / Procedures Referred By Annemarie turner Referred To Contact Diagnoses Breast screening Procedures Screening Mammogram Bilateral W Adele Chambers MD PhD [address] [place] [address] Phone: tel: fax: [address] [phone] Referral ID Status Reason Start Date Expiration Date Visits Re quested Visits Authorized [id number] Closed 08/09/2021 09/08/2022 1 1 Reason for Visit * Diagnostic Imaging (Routine) - Closed Specialty Diagnoses / Procedures Referred By Annemarie turner Referred To Contact Diagnoses Breast screening Procedures Screening Mammogram Bilateral W Adele Chambers MD PhD [address] [place] [address] Phone: tel: fax: [address] [phone] Referral ID Status Reason Start Date Expiration Date Visits Re quested Visits Authorized [id number] Closed 08/09/2021 09/08/2022 1 1 Encounter Details Date Type Department Care Team (Latest Contact Info) Description 10/05/2021 1:00 PM CDT - 10/05/2021 11:59 PM CDT Hospital Encounter [facility] [address] [place] [address] Aft, Adele Palomino MD PhD [address] [place] [address] Breast screening Discharge Disposition: Discharge to home or self [...] KI Schedule Routine, Read Routine (OP Routine) 10/05/2021 1:28 PM CDT Breast screening documented in this encounter Results * Screening [...] compared to prior imaging studies performed at [facility]. [facility] on 09/15/2019, 09/16/2020 and 10/04/2020. The [...] compared to prior imaging studies performed at [facility] on 09/15/2019, 09/16/2020 and 10/04/2020. The breasts are heterogeneously dense, which may obscure small masses. There is no suspicious abnormality in either breast. Impression: There is no mammographic evidence of malignancy. Annual screening mammography is recommended. OVERALL FINAL ASSESSMENT: BI-RADS CATEGORY 1: Negative. Adele Montilla MD PhD IMG MAMMO PROCEDURES Final Result documented in this encounter Visit Diagnoses Diagnosis Breast screening Breast screening, unspecified documented in this encounter Care Teams Center Line Cutter Operator Relationship Specialty Start [place] [address] [place] [address] PCP - General Internal Medicine 09/28/20 09/24/23 Kathy Lee MD [address] [facility] [address] [address] [place] [address] Referring Physician Obstetrics and Gynecology 10/28/20 documented as of this encounter
--- OUTSIDE RECORDS SUMMARY | 2024-06-13 02:12 | XMS_ITS | Encounter Summary ---
Author Organization [facility] Healthcare Address [address] [place] [address] Care Team Providers Care Pneumatic Jack Operator Name Role Phone Denilson Ferrara MD Primary Care Provider Kathy Lee MD Unavailable [phone] Encounter Details Date Type Department Care Team (Late st Contact Info) Description 11/25/2020 12:00 PM CDT - 11/25/2020 1:10 PM CDT Surgery [facility] Operating Room [facility] [address] [place] [id number] Adele Montilla MD PhD [address] [place] [id number] BIOPSY BREAST NEEDLE LOCALIZATION Surgery Details Date/Time Status Location OR Service Patient Class Case Cl ass Case Type Trauma Case? 11/25/2020 12:00 PM Posted [facility] CAM OR POD 4 C Oncology Outpatient Elective Panel 1 Procedure LRB Anes Op Region Wound Class Comments BIOPSY BREAST NEEDLE LOCALIZATION Right Monitor Anesthesia Care Breast Class I - Clean EXCISION MASS - BREAST Right Monitor A nesthesia Care Breast Class I - Clean Surgeon Surgeon Role Service Panel SanjaytAdele MD PhD Primary Oncology 1 Case Notes 11/24: Case line up per office -bt Special Needs Faxitron needed day of surgery Needle loc 8am documented in this encounter Social History Tobacco [...] Sign Reading Time Taken Comments Blood Pressure 124/74 11/25/2020 11:00 AM CDT Pulse 68 11/25/2020 11:00 AM CDT Temperature 36.6 ??C (97.9 ??F) 11/25/2020 6:55 AM CD T Respiratory Rate 16 11/25/2020 10:20 AM CDT Oxygen Saturation 96% 11/25/2020 11:00 AM CDT Inhaled Oxygen Concentration - - Weight 93.9 kg (207 lb) 11/18/2020 11:36 AM CDT Height 168.9 cm (5' 6.5 ) 11/18/2020 11:36 AM CD T Body Mass Index 32.91 11/18/2020 11:36 AM CDT documented in this encounter Discharge Instructions * Attachments The following attachments cannot be sent through Care Everywhere. * [facility] PATHWAY TO EXCELLENT CARE AFTER SURGERY documented [...] and Planning Preoperative Evaluation Record Evaluation type/location: [facility] Planned procedure site: [facility] CAM OR (Pod 4) Date: 11/19/20 [...] Cardiovascular Pertinent negatives: hypertension ; CAD ; [place] ; CABG ; valvular heart disease; valve [...] instructions were provided in writing sent via [employer] mail. Patient verbalized understanding of preoperative plan. [...] COVID19 testing to be performed on 11/22/2020. [facility] will place the order for testing. [...] 1998 ??? CHOLECYSTECTOMY 2009 ??? LAPAROSCOPY 1995, 2008 ??? LITHOTRIPSY 2011, 2014 x2 ??? PARTIAL HYSTERECTOMY 2009 OB History No obstetric history on file. Allergies Allergen Reactions ??? Sulfa (Sulfonamide Antibiotics) Hives and Rash Med List Status: Nurse Complete Set By: Moon Irizarry RN at 11/18/2020 11:40 AM Taking? Last Dose Start Date End Date Provider cephalexin (KEFLEX) 500 mg capsule Past Week -- -- Terrance Castellano MD cholecalciferol (VITAMIN D-3) 25 [...] Medication protocol when under care of a IT DISASTER RECOVERY MANAGER Planned anesthesia: MAC Induction: Induction: intravenous. Postoperative Plan: Postoperative administration opioids intended. No postoperative mechanical ventilation intended. Patient's planned disposition post procedure is Outpatient. No trial extubation planned. Informed Consent: Discussed plan with IT DISASTER RECOVERY MANAGER. Anesthesia plan and risks discussed with patient. [...] CDT Specimen A sent to pathology via [employer] Loaiza * Op Note - AftAdele MD PhD - 11/25/2020 2:21 PM CDT [...] Preoperative Assessment and Planning CPAP Clinic Location: [facility] The night before your surgery: * Do [...] of surgery. * If having surgery at [facility], you may want to bring a credit card if you want to use our Mobile Pharmacy for your discharge medications. Mobile pharmacy is not available at [facility], the [facility], or the [place] [facility]. Outpatient Surgery: * You must [...] Planning Perioperative Nursing Note Telephone Preoperative Evaluation (BJ) - TELEPHONE ONLY, NO PHYSICAL EXAM Date: [...] not have advance directive, Patient refused information Communication/News Content Specialist Needs Communication Needs: Contacts, Glasses Patient's Preferred Language: [place] Does caregiver's language differ from patient's?: No Is an gun tester needed? : No Assistive Devices/DME: Eyeglasses, Contacts Hearing - Right Ear: Functional Hearing - Left Ear: Functional Discharge Planning Type of Residence: Private residence Living Arrangements: Spouse/significant other, Children Support Systems: Spouse/significant other, Children Patient expects to be discharged to:: Private residence (, Claus will be road driver after surgery.) COVID Screening Covid-19 Screening [...] in a congregate living facility (ex. assisted living/retirement facility, snf, nursing home)?: No Have you tested positive for COVID-19 [...] 20 seconds. Use an alcohol- based hand production machine computer operator that contains at least 60% alcohol [...] insurance card, a photo ID (like a Adjunct Professor's license) and a method of payment for [...] COVID Test Request Placed in Epic to [facility]. Test to be performed on 11/22/[address] [address], M- F 8a-7:30p, Sat/Sun 8a-7:30p. HOLIDAY hours may vary. If you have COVID testing or should have COVID testing for your surgery/procedure, please read below section: If you need to reschedule your COVID test to a different location or if your surgery gets rescheduled, you MUST call [phone] Sunday-Sunday 8am-4:30pm to get your COVID testing rescheduled or your lab order will not be available at Testing Sites. COVID Testing is only valid for up to 96 hours prior to surgery date, unless otherwise specified. If you are unable to reach staff at the above phone number, please call the CPAP Staff at [phone]. This number cannot order a lab test, [...] 20 seconds. Use an alcohol- based hand production machine computer operator that contains at least 60% alcohol if soap and water are not available. All patients should read below section: All visitors/patients are being asked to wear a clean mask when entering the hospital. COVID 19 Updates & Visitor Policy: Please access [email or web address] for the most updated information. Information on [facility]: Please view [email or web address] (Patient & Visitor Information) for additional details regarding Advanced Directive forms, AWARE, directions, parking information, lodging, Internet access, dining and more. Information on [facility]: Please view [email or web address] (Patient and Visitor Information) for parking/directions and more. For MyChart information, to activate account or password recovery, please go to [email or web address] or call [phone] (toll-free: [phone]). Surgery Times: For patients having surgery @ [facility] or [facility], if your surgeon's office has not notified you of your surgery time by NOON THE BUSINESS DAY BEFORE your surgery, please call [phone] and ask for your surgeon'soffice Dr. Montilla. documented in this encounter Plan [...] mastectomy) 11/25/2020 2:31 PM CDT Narrative PATHOLOGY [facility] - 12/03/2020 4:09 PM CDT EPIC results best viewed via link to PDF [facility] [place] [address] SURGICAL PATHOLOGY REPORT FINAL Patient Name: ?? LENA BARON Gender: ??F : ??1975 (Age: 45) Address: ??[address] [place] [address] ??[id number] Hospital #: ??[id number] Taken:11/25/2020 Received:11/25/2020 Reported: 12/03/2020 Patient Type: [facility] SDS ?? Service: Surgery Location: [facility] Physician(s): ??Bharathi Garibay M.D. Alejandro J. Alvarado Diagnosis: A. ??Right breast, partial mastectomy ? - Atypical lobular hyperplasia, see comment ? - Negative for malignancy fib/12/03/2020 16:07 By this signature, I attest that the above diagnosis is based upon my personal examination of the slides(and/or other material indicated in the diagnosis). Francisca Durham M.D. Report Electronically Reviewed and Signed Out [...] sections: ? A1-lateral margin, perpendicular A2 to V35-hfarzwzol entirely and sequentially from lateral to medial M97-udypik margin, perpendicular sxb/11/26/2020 12:01 PA(s): Thelma Rincon MS, PA ([facility]) By this signature, I attest that the above diagnosis is based upon my personal examination of the slides(and/or other material). Addenda/Procedures The performance characteristics of some immunohistochemical stains, fluorescence in-situ hybridization tests and immunophenotyping by flow cytometry cited in this report (if any) were determined by the Surgical Pathology Department at [facility] as part of an ongoing software quality manager program and in compliance with federally mandated [...] determined by the Surgical Pathology Department of [facility]. ??It has not been cleared or approved by the U. S. Food and Drug Administration. IMAGES AND SCANNED DOCUMENTS, IF INCLUDED, ONLY VIEWABLE IN PDF VERSION OF REPORT Adele Montilla MD PhD LAB PATHOLOGY ORDERABLES F inal Result PATHOLOGY [facility] [address] Floor [place], [place] [phone] documented in this encounter Visit Diagnoses Diagnosis Breast mass, right- Primary Lump or mass in breast Breast mass, right Lump or mass in [...] AM CDT 30 mL/hr 30 mL/hr lidocaine (XYLOCAINE) 20 mL, bupivacaine (MARCAINE) 20 mL solution As needed, Starting on Tricia 11/25/20 at 1446, Intra-Op Given 11/25/2020 2:46 PM CDT 30 mL Right Breast oxyCODONE (ROXICODONE) tablet 10 mg 10 mg, oral, Once, On Tricia 11/25/20 at 1600, For 1 dose, Phase I, Indications: PainIndications:Pain Given 11/25/2020 3:29 PM CDT 5 mg sodium chloride 0.9% irrigation As needed, Starting on Tricia 11/25/20 at 1437, Intra-Op Given 11/25/2020 2:37 PM CDT 1,000 mL Surgical Site documented in this encounter Discontinued Medications Medication [...] OK with . Only took one from [facility], but forgot to change the count when [...] 11/25/2020 Lactated Ringer's (LR) infusion 1 lidocaine PF (XYLOCAINE) 10 mg/mL (1 %) preservative free injection 2-10 mg 1 11/25/2020 meperidine (DEMEROL) preserv ative free injection 12.5 mg 1 11/25/2020 naloxone (NARCAN) 0.4 mg/mL injection 0.04-0.4 mg 1 11/25/2020 ondansetron (ZOFRAN) injection 4 mg 1 11/25 prochlorperazine (COMPAZINE) injection 10 mg 1 11/25/2020 sodium chloride 0.9% flush 0.5-20 mL 1 11/09 Diet Count Last Ordered Date First Orde red Date ADULT DISCHARGE DIET 1 11/25/2020 Nursing Count Last Ordered Date First Orde red Date DISCHARGE ACTIVITY 4 11/25/2020 DISCHARGE CALL PROVIDER 6 11/25/2020 DISCHARGE DRESSING 6 11/25/2020 documented in this encounter Care Teams Pneumatic Jack Operator Relationship Specialty Start [place] [address] [place] [address] PCP - General Internal Medicine 09/28/20 09/24/23 Kathy Lee MD [address] [facility] [address] [place] [address] Referring Physician Obstetrics and Gynecology 10/28/20 documented as of this encounter
--- OUTSIDE RECORDS SUMMARY | 2024-06-13 02:12 | XMS_ITS | Encounter Summary ---
Author Organization [facility] Healthcare Address [facility] [place] [address] Care Team Providers Care Top Taper Machine Name Role Phone Denilson Ferrara MD Primary Care Provider Kathy Lee MD Unavailable [phone] Reason for Referral * Diagnostic Imaging (Routine) - Closed Specialty Diagnoses / Procedures Referred By Annemarie turner Referred To Contact Diagnoses Ductal carcinoma in situ (DCIS) of right breast Procedures Screening Mammogram Bilateral W Ravinder Clement NP Phone: tel: fax: [address] [phone] Referral ID Status Reason Start Date Expiration Date Visits Re quested Visits Authorized [id number] Closed 05/01/2022 05/31/2023 1 1 Reason for Visit * Diagnostic Imaging (Routine) - Closed Specialty Diagnoses / Procedures Referred By Annemarie turner Referred To Contact Diagnoses Ductal carcinoma in situ (DCIS) of right breast Procedures Screening Mammogram Bilateral W Ravinder Clement NP Phone: tel: fax: [address] [phone] Referral ID Status Reason Start Date Expiration Date Visits Re quested Visits Authorized [id number] Closed 05/01/2022 05/31/2023 1 1 Encounter Details Date Type Department Care Team (Latest Contact Info) Description 10/05/2022 10:23 AM CDT - 10/05/2022 11:59 PM CDT Hospital Encounter [facility] Breast Imaging [facility]) [facility] [place] [address] Ductal carcinoma in situ (DCIS) of right breast Discharge Disposition: Discharge to home or [...] KI Schedule Routine, Read Routine (OP Routine) 10/05/2022 11:10 AM CDT Ductal carcinoma in situ (DCIS) of right breast documented in this encounter Results * Screening Mammogram Bilateral W Ki (10/05/2022 11:10 AM CDT) Anatomical Region Laterality Modality Breast Bilateral Mammography Narrative 10/05/2022 2:38 PM CDT Mammogram Technique: Bilateral Digital Breast Tomosynthesis, Bilateral C-view 2D Screening mammogram. ??Views obtained: ??bilateral craniocaudal and bilateral mediolateral oblique. ??Computer Aided Detection was performed. Mammogram Findings: The present examination has been compared to prior imaging studies performed at [facility]. ??[facility] on 10/07/2018, 09/15/2019, 09/16/2020 and 10/04/2020, and at [facility] on 10/05/2021. There are scattered areas of fibroglandular density. There is a post-surgical scar in the right breast. There is no suspicious abnormality in the left breast. Impression: Post-surgical scar in the right breast is benign. Annual screening mammography is recommended. OVERALL FINAL ASSESSMENT: BI-RADS CATEGORY 2: ??Benign. Procedure Note Veronique Saldivar MD - 10/05/2022 Mammogram Technique: Bilateral Digital Breast Tomosynthesis, Bilateral C-view 2D Screening mammogram. Views obtained: bilateral craniocaudal and bilateral mediolateral oblique. Computer Aided Detection was performed. Mammogram Findings: The present examination has been compared to prior imaging studies performed at [facility]. [facility] on 10/07/2018, 09/15/2019, 09/16/2020 and 10/04/2020, and at [facility] on 10/05/2021. There are scattered areas of fibroglandular density. There is a post-surgical scar in the right breast. There is no suspicious abnormality in the left breast. Impression: Post-surgical scar in the right breast is benign. Annual screening mammography is recommended. OVERALL FINAL ASSESSMENT: BI-RADS CATEGORY 2: Benign. Ravinder Candelaria NP IMG MAMMO PROCEDURES Final Result documented in this encounter Visit Diagnoses Diagnosis Ductal carcinoma in situ (DCIS) of right breast documented in this encounter Care Teams Top Taper Machine Relationship Specialty Start [place] [address] [place] [address] PCP - General Internal Medicine 09/28/20 09/24/23 Kathy Lee MD [address] [facility] [address] [address] Referring Physician Obstetrics and Gynecology 10/28/20 documented as of this encounter
--- OUTSIDE RECORDS SUMMARY | 2024-06-13 02:12 | XMS_ITS | Encounter Summary ---
Author Organization [facility] Healthcare Address [address] [place] [address] Care Team Providers Care Audit Machine Operator Name Role Phone Denilson Ferrara MD Primary Care Provider Kathy Lee MD Unavailable [phone] Reason for Referral * MRI/CAT/PET Scan (Routine) - Closed Specialty Diagnoses / Procedures Referred By Contac t Referred To Contact Radiology Diagnoses Ductal carcinoma in situ (DCIS) of right breast Procedures MRI Breast Bilateral W WO Contrast Adele Montilla MD PhD [address] [place] [address] Phone: tel: fax: [address] [phone] Referral ID Status Reason Start Date Expiration Date Visits Re quested Visits Authorized [id number] Closed 10/05/2021 11/04/2022 1 1 Reason for Visit * MRI/CAT/PET Scan (Routine) - Closed Specialty Diagnoses / Procedures Referred By Contac t Referred To Contact Radiology Diagnoses Ductal carcinoma in situ (DCIS) of right breast Procedures MRI Breast Bilateral W WO Contrast Adele Montilla MD PhD [address] [place] [address] Phone: tel: fax: [address] [phone] Referral ID Status Reason Start Date Expiration Date Visits Re quested Visits Authorized [id number] Closed 10/05/2021 11/04/2022 1 1 Encounter Details Date Type Department Care Team (Latest Contact Info) Description 04/10/2022 7:18 AM CDT - 04/10/2022 11:59 PM CDT Hospital Encounter [facility] [place] [address] Ductal carcinoma in situ (DCIS) of right [...] CONTRAST Schedule Routine, Read Routine (OP Routine) 04/10/2022 8:25 AM CDT Ductal carcinoma in situ (DCIS) of right breast documented in this encounter Results * MRI Breast Bilateral W WO Contrast (04/10/2022 8:25 AM CDT) Anatomical Region Laterality Modality Breast Bilateral Magnetic Resonan ce 04/10/2022 10:5 0 AM CDT Impressions 04/10/2022 10:53 AM CDT 1. ??Clumped non-mass enhancement with architectural distortion in the central RIGHT breast at the posterior depth at the site of recent surgical excision, most likely represents postsurgical changes. 2. ??No MR evidence of malignancy in the LEFT breast. OVERALL FINAL ASSESSMENT: BI-RADS Category 3: Probably Benign. RECOMMENDATION: Recommend follow-up with bilateral breast MR with and without contrast in 6 months. Dictated by: Felicitas Thomas M.D. The radiology attending physician has personally reviewed this study, and had reviewed and/or edited this written report and agrees with it. Electronically signed by: Ana Linda M.D. Narrative 04/10/2022 10:53 AM CDT EXAMINATION: 1. MRI EXAMINATION OF THE BREASTS WITH AND WITHOUT CONTRAST 2. 3D POST PROCESSING ON A DEDICATED 3D WORKSTATION HISTORY: High-risk Screening. 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 ?? DATE OF LAST MENSTRUAL PERIOD: Status post hysterectomy in 2009 TECHNIQUE: MRI examination of the breasts per breast tumor protocol with and without gadolinium contrast. ??A dedicated breast imaging coil was used. ??The images were transferred to a breast CAD system for 3D post processing and contrast kinetics analysis. ?? CONTRAST: Gadoterate meglumine, 18 ml COMPARISON: 10/26/2020, 11/25/2020 BREAST COMPOSITION: Heterogeneous fibroglandular tissue BACKGROUND PARENCHYMAL ENHANCEMENT: Moderate FINDINGS: RIGHT breast: There is new clumped non-mass enhancement with associated architectural distortion in the central RIGHT breast at the posterior depth (H 18.1) at the site of recent surgical excision. Otherwise, there is no suspicious enhancing mass in the RIGHT breast. LEFT breast: There is no suspicious mass or non-mass enhancement in the LEFT breast. No abnormally enlarged lymph nodes are identified in the visualized portions of either axilla. Procedure Note Ana Linda MD - 04/10/2022 EXAMINATION: 1. MRI EXAMINATION OF THE BREASTS WITH AND WITHOUT CONTRAST 2. 3D POST PROCESSING ON A DEDICATED 3D WORKSTATION HISTORY: High-risk Screening. 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 DATE OF LAST MENSTRUAL PERIOD: Status post hysterectomy in 2009 TECHNIQUE: MRI examination of the breasts per breast tumor protocol with and without gadolinium contrast. A dedicated breast imaging coil was used. The images were transferred to a breast CAD system for 3D post processing and contrast kinetics analysis. CONTRAST: Gadoterate meglumine, 18 ml COMPARISON: 10/26/2020, 11/25/2020 BREAST COMPOSITION: Heterogeneous fibroglandular tissue BACKGROUND PARENCHYMAL ENHANCEMENT: Moderate FINDINGS: RIGHT breast: There is new clumped non-mass enhancement with associated architectural distortion in the central RIGHT breast at the posterior depth (H 18.1) at the site of recent surgical excision. Otherwise, there is no suspicious enhancing mass in the RIGHT breast. LEFT breast: There is no suspicious mass or non-mass enhancement in the LEFT breast. No abnormally enlarged lymph nodes are identified in the visualized portions of either axilla. IMPRESSION: 1. Clumped non-mass enhancement with architectural distortion in the central RIGHT breast at the posterior depth at the site of recent surgical excision, most likely represents postsurgical changes. 2. No MR evidence of malignancy in the LEFT breast. OVERALL FINAL ASSESSMENT: BI-RADS Category 3: Probably Benign. RECOMMENDATION: Recommend follow-up with bilateral breast MR with and without contrast in 6 months. Dictated by: Felicitas Thomas M.D. The radiology attending physician has personally reviewed this study, and had reviewed and/or edited this written report and agrees with it. Electronically signed by: Ana Linda M.D. Adele Montilla MD PhD IMG MRI PROCEDURES Final R esult documented in this encounter Visit Diagnoses Diagnosis Ductal carcinoma in situ (DCIS) of right breast documented in this encounter Administered Medications Inactive Administered Medications - up to 3 most recent administrations Medication Order MAR Action Action Date Dose Rate Site gadoterate meglumine injection 18 mL 18 mL, intravenous, Once in imaging, contrast, Starting on 04/10/22 at 0820, For 1 dose Contrast Given 04/10/2022 8:20 AM CDT 18 mL documented in this encounter Orders Medications Ordered That Calin ht Not Have Been Administered Count Last Ordered Date First Ordered Date gadoterate meglumine injection 18 mL 1 03/13 documented in this encounter Care Teams Audit Machine Operator Relationship Specialty Start [place] [address] [place] [address] PCP - General Internal Medicine 09/28/20 09/24/23 Kathy Lee MD [address] [email or web address] [address] [place] [address] Referring Physician Obstetrics and Gynecology 10/28/20 documented as of this encounter
--- OUTSIDE RECORDS SUMMARY | 2024-06-13 02:12 | XMS_ITS | Encounter Summary ---
Author Organization [facility] Address [address] [place] [address] Phone Care Team Providers Care Commercial Stripper Name Role Phone Denilson Ferrara MD Primary Care Provider Kathy Lee MD Unavailable [phone] Reason for Referral * Diagnostic Imaging (Routine) - Closed Specialty Diagnoses / Procedures Referred By Annemarie turner Referred To Contact Diagnoses Ductal carcinoma in situ (DCIS) of right breast Procedures Screening Mammogram Bilateral W Ravinder Clement NP Phone: tel: fax: [address] [address] Referral ID Status Reason Start Date Expiration Date Visits Re quested Visits Authorized [id number] Closed 05/01/2022 05/31/2023 1 1 URE CAPITAL ANALYST Encounter Details Date Type Department Care Team (Late st Contact Info) Description 05/01/2022 Orders Only [facility] Surgery [address] [facility] Advanced Medicine 5th [place] [address] [place] [address] Ravinder Candelaria NP [address] [facility] [address] [place] [address] Ductal carcinoma in situ (DCIS) of right [...] compared to prior imaging studies performed at [facility]. [facility] on 10/07/2018, 09/15/2019, 09/16/2020 and 10/04/2020, and at [facility] on 10/05/2021. There are scattered areas of [...] compared to prior imaging studies performed at [facility] on 10/07/2018, 09/15/2019, 09/16/2020 and 10/04/2020, and at [facility] on 10/05/2021. There are scattered areas of [...] in situ (DCIS) of right breast- Primary Ductal carcinoma in situ (DCIS) of right breast documented in this encounter Care Teams Commercial Stripper Relationship Specialty [place] [address] [place] [address] PCP - General Internal Medicine 09/28/20 09/24/23 Kathy Lee MD [address] [facility] [address] [place] [address] Referring Physician Obstetrics and Gynecology 10/28/20 documented as of this encounter
--- OUTSIDE RECORDS SUMMARY | 2024-06-13 02:12 | XMS_ITS | Encounter Summary ---
Author Organization [facility] Address [address] [facility] [address] [place] [address] Care Team Providers Care Wax Pattern Assembler Name Role Phone Denilson Ferrara MD Primary Care Provider Kathy Lee MD Unavailable [phone] Reason for Visit * Reason Comments Covid Pt presents to clini c for pre-procedural covid testing. Encounter Details Date Type Department Care Team (Latest Contact Info) Description 11/22/2020 9:00 AM CDT Clinical Support [facility] at [address] [place] [address] Encounter for preoperative screening laboratory testing for COVID-19 virus (Primary Dx) Social History Tobacco Use Types Packs/Day Years Used Date Smoking Tobacco: Former Cigarettes 0.3 24.3 1 990 - 10/06/2013 Smokeless Tobacco: Never AUDIT-C Answer Date Recorded Q1: How often do you have a drink containing alc ohol? Monthly or less 11/18/2020 Q2: How many drinks containi ng alcohol do you have on a typical day when you are drinking? 3 or 4 11/18/2020 Q3: How often do you have si x or more drinks on one occasion? Never 11/18/2020 Comments Unknown Sex and Gender Information Value Date Recorded Sex Assigned at Not on file Legal Sex Female 1:59 PM CDT Gender Identity Not on file Sexual Orientation Not on file documented as of this encounter Progress Notes * Sanjana Aldana MA - 11/22/2020 9:00 AM CDT Patient presents today for pre procedure COVID-19 test. Scheduled for a procedure 11/25/20. N95 mask, gown, gloves, and eye protection worn during swab collection. Patient instructed to self-isolate from time of swab collection until scheduled surgery. documented in this encounter Plan of Treatment Not on file documented as of this encounter Visit Diagnoses Diagnosis Encounter for preoperative screening laboratory testing for COVID-19 virus- Primary documented in this encounter Care Teams Wax Pattern Assembler Relationship Specialty [place] [address] [place] [address] PCP - General Internal Medicine 09/28/20 09/24/23 Kathy Lee MD [address] [facility] [address] [address] Referring Physician Obstetrics and Gynecology 10/28/20 documented as of this encounter
--- OUTSIDE RECORDS SUMMARY | 2024-06-13 02:12 | XMS_ITS | Encounter Summary ---
Author Organization [facility] Address [address] [place] [address] Phone Care Team Providers Care Manager Control Name Role Phone Denilson Ferrara MD Primary Care Provider Kathy Lee MD Unavailable [phone] Reason for Referral * MRI/CAT/PET Scan (Routine) - Closed Specialty Diagnoses / Procedures Referred By Contac t Referred To Contact Radiology Diagnoses Ductal carcinoma in situ (DCIS) of right breast Procedures MRI Breast Bilateral W WO Contrast SanjaytAdele MD PhD [address] [place] [address] Phone: tel: fax: [address] [address] Referral ID Status Reason Start Date Expiration Date Visits Re quested Visits Authorized [id number] Closed 10/05/2021 11/04/2022 1 1 Encounter Details Date Type Department Care Team (Late st Contact Info) Description 10/05/2021 Orders Only [facility] Surgery [address] [facility] 5th [place] [address] Adele Montilla MD PhD [address] [place] [address] Ductal carcinoma in situ (DCIS) of right [...] in 2016. DATE OF LAST MENSTRUAL PERIOD: Status post [...] it. Electronically signed by: Ana Linda M.D. us Adele Montilla MD PhD IMG MRI PROCEDURES Final R esult documented in this encounter Visit Diagnoses Diagnosis Ductal carcinoma in situ (DCIS) of right breast- Primary Ductal carcinoma in situ (DCIS) of right breast documented in this encounter Care Teams Manager Control Relationship Specialty [place] [address] [place] [address] PCP - General Internal Medicine 09/28/20 09/24/23 Kathy Lee MD [address] [address] Referring Physician Obstetrics and Gynecology 10/28/20 documented as of this encounter
--- OUTSIDE RECORDS SUMMARY | 2024-06-13 02:12 | XMS_ITS | Encounter Summary ---
Author Organization [facility] Address [address] [place] [address] Phone Care Team Providers Care Inspector Wire Rope Name Role Phone Denilson Ferrara MD Primary Care Provider Kathy Lee MD Unavailable [phone] Reason for Visit * Reason Comments Follow-up Encounter Details Date Type Department Care Team (Late st Contact Info) Description 12/08/2020 3:10 PM CDT Office Visit [facility] Surgery [address] [facility] Medicine 5th [place] [address] [place] [address] Tamy Pederson, [facility] [address] [address] Ductal carcinoma in situ (DCIS) of right breast (Primary Dx); Atypical lobular hyperplasia (ALH) of breast Social History Tobacco Use Types [...] of this encounter Progress Notes * Tamy Pederson, JEWEL FLAT SURFACER - 12/08/2020 3:10 PM CDT Section of Surgical Oncology and Endocrinology [facility] [address], [place] [address] - NAME: Karena Jay : 1975 DATE: 12/08/20 CHIEF COMPLAINT: Postoperative appoint HISTORY OF PRESENT ILLNESS: The patient is a 45 y.o. female who returns for her postoperative appointment. She had initially presented after undergoing imaging at [facility] on 10/08/2020 wherethey noted an abnormality of her right breast. She underwent a biopsy which demonstrated atypical lobular hyperplasia. 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 She underwent excisional biopsy and underwent no further treatment. She is doing well and notes no discomfort or abnormalities in her breast exam She has a past medical history of PONV (postoperative nausea and vomiting) and Urinary tract infection. She also has no past medical history of Acute respiratory failure requiring reintubation (CMS/HCC), Awareness under anesthesia, Cardiac complication, Delayed emergence from general anesthesia, Lester d to intubate, Hematoma, Malignant hyperthermia, Motion sickness, [...] ??? LAPAROSCOPY 1995, 2009 ??? LITHOTRIPSY 2011, 2015 x2 ??? PARTIAL HYSTERECTOMY 2009 Social History Socioeconomic History ??? Marital status: Spouse name: None ??? Number of children: None ??? Years of education: None ??? Highest education level: None Occupational History ??? None Tobacco Use ??? Smoking status: Former Smoker Packs/day: 0.25 Years: 18.00 Pack years: 4.50 Types: Cigarettes Start date: 1989 Quit date: 10/06/2013 Years since quittin.1 ??? Smokeless tobacco: Never Used Vaping Use ??? Vaping Use: Never used Substance and Sexual Activity ??? Alcohol use: None ??? Drug use: Never ??? Sexual activity: Defer Other Topics Concern ??? None Social History Narrative ??? None Social Determinants of Health Financial Resource Strain: [...] Gatherings with Friends and Family: ??? Attends [employer] Services: ??? Active Member of Clubs or Organizations: ??? Attends Club or Organization Meetings: ??? Marital Status: Intimate Partner Violence: ??? Fear of Current or Ex-Partner: ??? Emotionally Abused: ??? Physically Abused: ??? Sexually Abused: Family History Problem Relation Age of Onset ??? Testicular cancer Mother's Brother Prior to Admission medications Medication Sig Start Date End Date Taking? Authorizing Provider cephalexin (KEFLEX) 500 mg capsule Take 500 mg by mouth as needed Terrance Castellano MD cholecalciferol (VITAMIN D-3) 25 mcg (1,000 unit) tablet Take 1 tablet by mouth nightly Terrance Castellano MD docusate sodium (COLACE) 100 mg capsule Take 1 capsule (100 mg total) by mouth 2 (two) times a day 11/25/20 Tito Escalante MD Lacto.acidophilus-Bif.animalis 32 billion cell capsule Take 1 capsule by mouth nightly Terrance Castellano MD multivitamin capsule Take 1 capsule by mouth nightly Terrance Castellano MD oxyCODONE (ROXICODONE) 5 mg immediate release tablet Take 1 tablet (5 mg total) by mouth every 4 (four) hours as needed for pain 11/25/20 Tito Escalante MD Allergies Allergen Reactions ??? Sulfa (Sulfonamide Antibiotics) Hives and Rash PHYSICAL EXAMINATION: GENERAL: Well-developed, well-nourished female in no acute distress. EYES: Extraocular movements intact. Sclerae - no jaundice. NOSE AND THROAT: Mucosal membranes intact. SKIN: No concerning lesions or skin changes noted on face, neck, or trunk. NECK: No obvious masses. HEART: Regular rate. No JVD noted. LUNGS: No shortness of breath noted. LYMPHATIC SYSTEM: No concerning cervical, supraclavicular, or axillary lymphadenopathy. BILATERAL BREAST EXAM: Her right breast has well-healed reduction incisions. She is well incision the circumareolar edge she has Dermabond in place. She has some slight bruising around the incision. There is no evidence of infection or drainage. ABDOMEN: Soft, nontender with no palpable masses. MUSCULOSKELETAL: No evidence of rib, long bone, or spine pain. EXTREMITIES: Full range of motion in both arms. No lymphedema. NEUROLOGICAL: No focal neurologic signs; normal gait. PATHOLOGY: I reviewed the pathology in great detail with the patient and her Diagnosis: A. ??Right breast, partial mastectomy ? - Atypical lobular hyperplasia, see comment ? - Negative for malignancy ASSESSMENT: I have told the patient that she is doing well healing with no evidence of infection. PLAN: I had a long discussion with her related to atypical lobular hyperplasia as well as her ductal carcinoma in situ in light of not following standard of care. I will plan on bringing her back in September when she will undergo bilateral screening mammograms. We will then plan on obtaining a breast MRI alternating with mammography every 6 months for added surveillance. The patient her wereagreeable with this plan I also offered the option to take tamoxifen. The patient has adamantly refused. She stated she had a friend that took the medication and it was terrible She knows to call with questions. Tamy Pederson, MSN, BODY SHOP MANAGER- Endocrine and Oncology Surgery I have reviewed the history and physical, social history and surgical history and I concur with thefindings. Adele Montilla M.D. retail marketing executive, Endocrine Oncology surgery Cosigned by Adele Montilla MD PhD at 12/19/2020 2:40 PM CDT documented in this encounter Plan of Treatment Not on file documented as of this encounter Visit Diagnoses Diagnosis Ductal carcinoma in situ (DCIS) of right breast- Primary Atypical lobular hyperplasia (ALH) of breast documented in this encounter Care Teams Inspector Wire Rope Relationship Specialty [place] [address] [place] [address] PCP - General Internal Medicine 09/28/20 09/24/23 Kathy Lee MD [address] [facility] [address] [facility] [address] [place] [address] Referring Physician Obstetrics and Gynecology 10/28/20 documented as of this encounter
--- OUTSIDE RECORDS SUMMARY | 2024-06-13 02:12 | XMS_ITS | Encounter Summary ---
Author Organization [facility] Address [address] [place] [address] Care Team Providers Care In Flight Refueling Operator Name Role Phone Denilson Ferrara MD Primary Care Provider Kathy eLe MD Unavailable [phone] Reason for Referral * MRI/CAT/PET Scan (Routine) - Closed Specialty Diagnoses / Procedures Referred By Annemarie turner Referred To Contact Radiology Diagnoses Ductal carcinoma in situ (DCIS) of right breast Procedures MRI Breast Bilateral W WO Contrast Adele Montilla MD PhD [address] [place] [address] Phone: tel: fax: [address] [address] Referral ID Status Reason Start Date Expiration Date Visits Re quested Visits Authorized [id number] Closed 04/12/2022 05/12/2023 1 1 Reason for Visit * MRI/CAT/PET Scan (Routine) - Closed Specialty Diagnoses / Procedures Referred By Contac Referred To Contact Radiology Diagnoses Ductal carcinoma in situ (DCIS) of right breast Procedures MRI Breast Bilateral W WO Contrast Adele Montilla MD PhD [address] [place] [address] Phone: tel: fax: [address] [address] Referral ID Status Reason Start Date Expiration Date Visits Re quested Visits Authorized [id number] Closed 04/12/2022 05/12/2023 1 1 Encounter Details Date Type Department Care Team (Latest Contact Info) Description 10/10/2022 7:05 AM CDT - 10/10/2022 11:59 PM CDT Hospital Encounter [facility] [place] [address] Ductal carcinoma in situ (DCIS) of right [...] CONTRAST Schedule Routine, Read Routine (OP Routine) 10/10/2022 8:36 AM CDT Ductal carcinoma in situ (DCIS) of right breast documented in this encounter Results * MRI Breast Bilateral W WO Contrast (10/10/2022 8:36 AM CDT) Anatomical Region Laterality Modality Breast Bilateral Magnetic Resonan ce 10/10/2022 11:4 2 AM CDT Impressions 10/10/2022 2:44 PM CDT 1. ??Post surgical changes in the right breast without MR finding of malignancy in either breast. 2. ??Previously demonstrated non-mass enhancement with architectural distortion in the central right breast at posterior depth at the site of the surgical excision is decreased and is most consistent with postsurgical changes. OVERALL FINAL ASSESSMENT: BI-RADS Category 2: Benign. RECOMMENDATION: Annual screening mammography and breast MRI are recommended. Dictated by: Felicitas Thomas M.D. The radiology attending physician has personally reviewed this study, and had reviewed and/or edited this written report and agrees with it. Electronically signed by: Kiarra Swenson M.D. Narrative 10/10/2022 2:44 PM CDT EXAMINATION: 1. MRI EXAMINATION OF [...] 2016. ?? DATE OF LAST MENSTRUAL PERIOD: Unknown TECHNIQUE: MRI examination of the breasts per breast tumor protocol with and without gadolinium contrast. ??A dedicated breast imaging coil was used. ??The images were transferred to a breast CAD system for 3D post processing and contrast kinetics analysis. ?? CONTRAST: Gadoterate meglumine, 20 ml COMPARISON: 04/10/2022, 10/26/2020 BREAST COMPOSITION: Scattered fibroglandular tissue BACKGROUND PARENCHYMAL ENHANCEMENT: Moderate FINDINGS: Post lumpectomy and excisional biopsy changes are noted in the right breast. ??There is no suspicious mass or non-mass enhancement in either breast. ??The previously demonstrated non-mass enhancement with architectural distortion in the central right breast at posterior depth at the site of the surgical excision is decreased and is most consistent with evolving postsurgical changes. No abnormally enlarged lymph nodes are identified in the visualized portions of either axilla. Procedure Note Kiarra Swenson MD - 10/10/2022 EXAMINATION: 1. MRI EXAMINATION OF THE BREASTS WITH AND WITHOUT CONTRAST 2. 3D POST PROCESSING ON A DEDICATED 3D WORKSTATION HISTORY: High-risk Screening. 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 DATE OF LAST MENSTRUAL PERIOD: Unknown TECHNIQUE: MRI examination of the breasts per breast tumor protocol with and without gadolinium contrast. A dedicated breast imaging coil was used. The images were transferred to a breast CAD system for 3D post processing and contrast kinetics analysis. CONTRAST: Gadoterate meglumine, 20 ml COMPARISON: 04/10/2022, 10/26/2020 BREAST COMPOSITION: Scattered fibroglandular tissue BACKGROUND PARENCHYMAL ENHANCEMENT: Moderate FINDINGS: Post lumpectomy and excisional biopsy changes are noted in the right breast. There is no suspicious mass or non-mass enhancement in either breast. The previously demonstrated non-mass enhancement with architectural distortion in the central right breast at posterior depth at the site of the surgical excision is decreased and is most consistent with evolving postsurgical changes. No abnormally enlarged lymph nodes are identified in the visualized portions of either axilla. IMPRESSION: 1. Post surgical changes in the right breast without MR finding of malignancy in either breast. 2. Previously demonstrated non-mass enhancement with architectural distortion in the central right breast at posterior depth at the site of the surgical excision is decreased and is most consistent with postsurgical changes. OVERALL FINAL ASSESSMENT: BI-RADS Category 2: Benign. RECOMMENDATION: Annual screening mammography and breast MRI are recommended. Dictated by: Felicitas Thomas M.D. The radiology attending physician has personally reviewed this study, and had reviewed and/or edited this written report and agrees with it. Electronically signed by: Kiarra Swenson M.D. Adele Montilla MD PhD IMG MRI PROCEDURES Final R esult documented in this encounter Visit Diagnoses Diagnosis Ductal carcinoma in situ (DCIS) of right breast documented in this encounter Administered Medications Inactive Administered Medications - up to 3 most recent administrations Medication Order MAR Action Action Date Dose Rate Site gadoterate meglumine injection 20 mL 20 mL, intravenous, Once in imaging, contrast, Starting on Sun10/10/22 at 0807, For 1 dose Contrast Given 10/10/2022 8:25 AM CDT 20 mL documented in this encounter Orders Medications Ordered That Calin ht Not Have Been Administered Count Last Ordered Date First Ordered Date gadoterate meglumine injection 20 mL 1 07/2022 documented in this encounter Care Teams In Flight Refueling Operator Relationship Specialty [place] [address] [place] [address] PCP - General Internal Medicine 09/28/20 09/24/23 Kathy Lee MD [address] [facility] [address] [place] [address] Referring Physician Obstetrics and Gynecology 10/28/20 documented as of this encounter
--- OUTSIDE RECORDS SUMMARY | 2024-06-13 02:12 | XMS_ITS | Encounter Summary ---
Author Organization [facility] Address [address] [place] [address] Phone Care Team Providers Care Senior Strategy Manager Name Role Phone Denilson Ferrara MD Primary Care Provider Kathy Lee MD Unavailable [phone] Reason for Visit * Reason Comments Follow-up Encounter Details Date Type Department Care Team (Late st Contact Info) Description 10/05/2022 10:30 AM CDT Office Visit [facility] Surgery [address] [facility] Advanced Medicine 5th [place] [address] [place] [address] Ravinder Candelaria, SINCERE [address] [facility] [address] [place] [address] Atypical lobular hyperplasia (ALH) of breast (Primary Dx); Mammogram abnormal Social History Tobacco Use Types Packs/Day Years [...] Weight 93.9 kg (207 lb 0.2 oz) 10/05/2022 9:57 A M CDT Height 168.9 cm (5' 6.5 ) 10/05/2022 9:57 AM CDT Body Mass Index 32.92 10/05/2022 9:57 AM CDT documented in this encounter Progress Notes * Ravinder Candelaria, SINCERE - 10/05/2022 10:30 AM CDT NAME: Karena Jay : 1975 DATE: 10/05/2022 CONSULTING PROVIDERS: Surgeon: Adele Montilla Primary Care Physician: Denilson Ferrara MD CHIEF COMPLAINT: Follow-up for right breast atypical lobular hyperplasia HISTORY OF PRESENT ILLNESS: Ms. Jay is a 47 y.o. female She had initially presented after undergoing imaging at [facility] on 10/08/2020 where they noted an abnormality [...] Social History Tobacco Use Smoking status: Former Packs/day: 0.25 Years: 18.00 Pack years: 4.50 Types: Cigarettes Start date: 1989 Quit date: 10/06/2013 Years since quittin.0 Smokeless tobacco: Never Substance and Sexual Activity Drug use: Never Sexual activity: Defer Alcohol Use: Heavy Drinker (11/25/2020) AUDIT-C Frequency of Alcohol Consumption: 2-4 [...] is pending. IMPRESSION/RECOMMENDATION: Karena Jay is a 47 y.o. female who is now 2 years years status-post right incisional biopsy for [...] Portions of this note were dictated using [employer] Direct speech recognition software. Please excuse any financial consultant errors. Cosigned by Adele Montilla MD PhD at 10/05/2022 1:24 PM CDT documented in this encounter Plan of Treatment Not on file documented as of this encounter Visit Diagnoses Diagnosis Atypical lobular hyperplasia (ALH) of breast- Primary Mammogram abnormal Abnormal mammogram, unspecified documented in this encounter Care Teams Senior Strategy Manager Relationship Specialty [place] [address] [place] [address] PCP - General Internal Medicine 09/28/20 09/24/23 Kathy Lee MD [address] [address] Referring Physician Obstetrics and Gynecology 10/28/20 documented as of this encounter
--- OUTSIDE RECORDS SUMMARY | 2024-06-13 02:12 | XMS_ITS | Encounter Summary ---
Author Organization [facility] Address [address] [place] [address] Phone Care Team Providers Care Chain Hoist Operator Name Role Phone Denilson Ferrara MD Primary Care Provider Kathy Lee MD Unavailable [phone] Encounter Details Date Type Department Care Team (Late st Contact Info) Description 12/09/2020 Orders Only [facility] Surgery [address] [facility] Advanced Medicine 5th [place] [address] [place] [id number] Tamy Pederson, [facility] [address] [address] Ductal carcinoma in situ (DCIS) of right [...] breast documented in this encounter Care Teams Chain Hoist Operator Relationship Specialty [place] [address] [place] [address] PCP - General Internal Medicine 09/28/20 09/24/23 Kathy Lee MD [address] [address] Referring Physician Obstetrics and Gynecology 10/28/20 documented as of this encounter
--- OUTSIDE RECORDS SUMMARY | 2024-06-13 02:12 | XMS_ITS | Encounter Summary ---
Author Organization [facility] Healthcare Address [address] [place] [address] Care Team Providers Care Rounder And Backer Name Role Phone Denilson Ferrara MD Primary Care Provider Kathy Lee MD Unavailable [phone] Encounter Details Date Type Department Care Team (Late st Contact Info) Description 04/10/2022 Telephone [facility] Operating Room [facility] [address] [place] [address] Adele Montilla MD PhD [address] [place] [address] Social History Tobacco Use Types Packs/Day Years [...] on file documented as of this encounter Miscellaneous Notes * Telephone Encounter - Adele Montilla MD PhD - 04/10/2022 3:12 PM CDT Mri-dw pt will schedule 6mo fu mri ELLA TIPPER MACHINE documented in this encounter Plan of Treatment Not on file documented as of this encounter Visit Diagnoses Not on filedocumented in this encounter Care Teams Rounder And Backer Relationship Specialty [place] [address] [place] [address] PCP - General Internal Medicine 09/28/20 09/24/23 Kathy Lee MD [address] [address] Referring Physician Obstetrics and Gynecology 10/28/20 documented as of this encounter
--- OUTSIDE RECORDS SUMMARY | 2024-06-13 02:12 | XMS_ITS | Encounter Summary ---
Author Organization [facility] Address [address] [place] [address] Phone Care Team Providers Care Inspector Optical Instrument Name Role Phone Denilson Ferrara MD Primary Care Provider Kathy Lee MD Unavailable [phone] Reason for Referral * MRI/CAT/PET Scan (Routine) - Closed Specialty Diagnoses / Procedures Referred By Contac t Referred To Contact Radiology Diagnoses Ductal carcinoma in situ (DCIS) of right breast Procedures MRI Breast Bilateral W WO Contrast Adele Montilla MD PhD [address] [place] [address] Phone: tel: fax: [address] [address] Referral ID Status Reason Start Date Expiration Date Visits Re quested Visits Authorized [id number] Closed 04/12/2022 05/12/2023 1 1 Encounter Details Date Type Department Care Team (Late st Contact Info) Description 04/12/2022 Orders Only [facility] Surgery [address] [facility] 5th [place] [address] Adele Montilla MD PhD [address] [place], [place] [id number] Ductal carcinoma in situ (DCIS) of right [...] in 2016. DATE OF LAST MENSTRUAL PERIOD: Unknown TECHNIQUE: [...] it. Electronically signed by: Kiarra Swenson M.D. us Adele Montilla MD PhD IMG MRI PROCEDURES Final R esult documented in this encounter Visit Diagnoses Diagnosis Ductal carcinoma in situ (DCIS) of right breast- Primary Ductal carcinoma in situ (DCIS) of right breast documented in this encounter Care Teams Inspector Optical Instrument Relationship Specialty [place] [address] [place] [address] PCP - General Internal Medicine 09/28/20 09/24/23 Kathy Lee MD [address] [address] Referring Physician Obstetrics and Gynecology 10/28/20 documented as of this encounter
--- OUTSIDE RECORDS SUMMARY | 2024-06-13 02:12 | XMS_ITS | Encounter Summary ---
Author Organization [facility] Healthcare Address [address] [place] [address] Care Team Providers Care Recreation Programmer Name Role Phone Denilson Ferrara MD Primary Care Provider Kathy Lee MD Unavailable [phone] Reason for Referral * Diagnostic Imaging (Routine) - Closed Specialty Diagnoses / Procedures Referred By Contac t Referred To Contact Diagnoses Breast mass Procedures Mammo Guided Localization Breast Right Adele Montilla MD PhD [address] [place] [address] Phone: tel: fax: [address] [phone] Referral ID Status Reason Start Date Expiration Date Visits Re quested Visits Authorized [id number] Closed 10/15/2020 11/14/2021 1 1 * Diagnostic Imaging (Routine) - Closed Specialty Diagnoses / Procedures Referred By Annemarie t Referred To Contact Diagnoses Breast mass Procedures Radiologic Examination of Surgical Specimen Adele Montilla MD PhD [address] [place] [address] Phone: tel: fax: [address] [phone] Referral ID Status Reason Start Date Expiration Date Visits Re quested Visits Authorized [id number] Closed 10/15/2020 11/14/2021 1 1 Reason for Visit * Diagnostic Imaging (Routine) - Closed Specialty Diagnoses / Procedures Referred By Annemarie turner Referred To Contact Diagnoses Breast mass Procedures Radiologic Examination of Surgical Specimen Adele Montilla MD PhD [address] [place] [address] Phone: tel: fax: [address] [phone] Referral ID Status Reason Start Date Expiration Date Visits Re quested Visits Authorized [id number] Closed 10/15/2020 11/14/2021 1 1 Encounter Details Date Type Department Care Team (Latest Contact Info) Description 11/25/2020 6:22 AM CDT - 11/25/2020 11:59 PM CDT Hospital Encounter [facility] Breast [facility] [address] [place] [address] Adele Montilla MD PhD [address] [place] [address] Breast mass Discharge Disposition: Discharge to home or self [...] 11/25/2020 10/05/2021 documented as of this encounter Discharge Disposition Disposition Code Departure Means Destination Discharge to home or self care documented in this encounter Miscellaneous Notes * Post-Procedure Note - Darrick Dorsey MD - 11/25/2020 6:45 AM CDT Radiology Brief Post Procedure Note Attending: Maria Fernanda De La Torre MD Device Sales Consultant: Darrick Dorsey MD Sedation/Anesthesia: Local Pre-Op/Pre-Procedure Diagnosis: Right breast calcifications Post-Op/Post-Procedure Diagnosis: same Procedure Performed: Mammography guided needle localization of right breast calcifications Procedure Findings: Successful Needle localization Complications: None Estimated Blood Loss: None Specimens: None Condition: Stable Full report to follow. documented in this encounter Plan of Treatment Not on file documented as of this encounter Procedures Procedure Name Priority Date/Time Associated Diagnosis Comments RADIOLOGIC EXAMINATION OF SURGICAL SPECIMEN Schedule Routine, Read Routine (OP Routine) 11/25/2020 2:49 PM CDT Breast mass MAMMO GUIDED LOCALIZATION BREAST RIGHT Schedule Routine, Read Routine (OP Routine) 11/25/2020 9:04 AM CDT Breast mass documented in this encounter Results * Radiologic Examination of Surgical Specimen (11/25/2020 2:49 PM CDT) Anatomical Region Laterality Modality Breast N/A Mammography 11/25/2020 2:54 PM CDT Impressions 11/25/2020 2:54 PM CDT Successful wire localization of the area of interest within the RIGHT breast using mammographic guidance. Dictated by: Darrick Dorsey M.D. The radiology attending physician has personally reviewed this study, and had reviewed and/or edited this written report and agrees with it. Electronically signed by: MD Halle DUNBAR 11/25/2020 2:54 PM CDT EXAMINATION: RIGHT BREAST NEEDLE LOCALIZATION UTILIZING MAMMOGRAPHIC GUIDANCE AND A SINGLE WIRE; AND SURGICAL SPECIMEN RADIOGRAPH HISTORY: 45-year-old woman with right breast calcifications, status post biopsy demonstrating atypical lobular hyperplasia. PROCEDURE AND FINDINGS: The procedure was discussed with the patient and informed consent was obtained. The breast was placed in a compression grid, and the area of interest was localized with digital mammography. ??After sterile preparation of the skin, 1% lidocaine was utilized for local anesthesia. A needle was advanced into the area of the hourglass tissue marker in the RIGHT breast from ??a superior approach utilizing digital mammographic guidance. Orthogonal views were obtained to confirm appropriate needle/wire position. ??The lateral projection demonstrated that the hourglass tissue marker had migrated inferiorly approximately 4 cm, therefore the needle was removed and magnification views of the RIGHT breast were performed to confirm the area of residual calcifications. ??After confirming with the breast surgeon, a hook-wire system was subsequently inserted into the area of RIGHT breast residual calcifications from a superior approach utilizing digital mammographic guidance. ??Orthogonal views were obtained to confirm appropriate needle/wire position. ??The hourglass biopsy site marker was located too inferiorly and was therefore not targeted. The patient tolerated the procedure well and there was no evidence of immediate complication. ??The images were marked for the surgeon, and the patient was transferred to the operating suite for surgical excision. A surgical specimen was subsequently received from the operating room and was imaged using digital radiography. ??An old previous surgical clip and the residual calcifications as well as the wire are included within the surgical specimen. ??These findings were communicated to the surgeon. ??Because of significant clip migration the hourglass biopsy site marker was not included as detailed above. ??This was discussed with the surgeon prior to the surgery. The attending radiologist, Dr. MARIA FERNANDA DE LA TORRE MD, was present throughout the entire procedure. ??Dr. Darrick Dorsey (diagnostic resident director) also participated in this examination. Procedure Note Maria Fernanda De La Torre MD - 11/25/2020 EXAMINATION: RIGHT BREAST NEEDLE LOCALIZATION UTILIZING MAMMOGRAPHIC GUIDANCE AND A SINGLE WIRE; AND SURGICAL SPECIMEN RADIOGRAPH HISTORY: 45-year-old woman with right breast calcifications, status post biopsy demonstrating atypical lobular hyperplasia. PROCEDURE AND FINDINGS: The procedure was discussed with the patient and informed consent was obtained. The breast was placed in a compression grid, and the area of interest was localized with digital mammography. After sterile preparation of the skin, 1% lidocaine was utilized for local anesthesia. A needle was advanced into the area of the hourglass tissue marker in the RIGHT breast from a superior approach utilizing digital mammographic guidance. Orthogonal views were obtained to confirm appropriate needle/wire position. The lateral projection demonstrated that the hourglass tissue marker had migrated inferiorly approximately 4 cm, therefore the needle was removed and magnification views of the RIGHT breast were performed to confirm the area of residual calcifications. After confirming with the breast surgeon, a hook-wire system was subsequently inserted into the area of RIGHT breast residual calcifications from a superior approach utilizing digital mammographic guidance. Orthogonal views were obtained to confirm appropriate needle/wire position. The hourglass biopsy site marker was located too inferiorly and was therefore not targeted. The patient tolerated the procedure well and there was no evidence of immediate complication. The images were marked for the surgeon, and the patient was transferred to the operating suite for surgical excision. A surgical specimen was subsequently received from the operating room and was imaged using digital radiography. An old previous surgical clip and the residual calcifications as well as the wire are included within the surgical specimen. These findings were communicated to the surgeon. Because of significant clip migration the hourglass biopsy site marker was not included as detailed above. This was discussed with the surgeon prior to the surgery. The attending radiologist, Dr. MARIA FERNANDA DE LA TORRE MD, was present throughout the entire procedure. Dr. Darrick Dorsey (diagnostic resident director) also participated in this examination. IMPRESSION: Successful wire localization of the area of interest within the RIGHT breast using mammographic guidance. Dictated by: Darrick Dorsey M.D. The radiology attending physician has personally reviewed this study, and had reviewed and/or edited this written report and agrees with it. Electronically signed by: MARIA FERNANDA DE LA TORRE MD us Adele Montilla MD PhD IMG MAMMO PROCEDURES Final Result * Mammo Guided Localization Breast Right (11/25/2020 9:04 AM CDT) Anatomical Region Laterality Modality Breast Right Mammography 11/25/2020 2:42 PM CDT Impressions 11/25/2020 2:54 PM CDT Successful wire localization of the area of interest within the RIGHT breast using mammographic guidance. Dictated by: Darrick Dorsey M.D. The radiology attending physician has personally reviewed this study, and had reviewed and/or edited this written report and agrees with it. Electronically signed by: MARIA FERNANDA DE LA TORRE MD [facility] 11/25/2020 2:54 PM CDT EXAMINATION: RIGHT BREAST NEEDLE LOCALIZATION UTILIZING MAMMOGRAPHIC GUIDANCE AND A SINGLE WIRE; AND SURGICAL SPECIMEN RADIOGRAPH HISTORY: 45-year-old woman with right breast calcifications, status post biopsy demonstrating atypical lobular hyperplasia. PROCEDURE AND FINDINGS: The procedure was discussed with the patient and informed consent was obtained. The breast was placed in a compression grid, and the area of interest was localized with digital mammography. ??After sterile preparation of the skin, 1% lidocaine was utilized for local anesthesia. A needle was advanced into the area of the hourglass tissue marker in the RIGHT breast from ??a superior approach utilizing digital mammographic guidance. Orthogonal views were obtained to confirm appropriate needle/wire position. ??The lateral projection demonstrated that the hourglass tissue marker had migrated inferiorly approximately 4 cm, therefore the needle was removed and magnification views of the RIGHT breast were performed to confirm the area of residual calcifications. ??After confirming with the breast surgeon, a hook-wire system was subsequently inserted into the area of RIGHT breast residual calcifications from a superior approach utilizing digital mammographic guidance. ??Orthogonal views were obtained to confirm appropriate needle/wire position. ??The hourglass biopsy site marker was located too inferiorly and was therefore not targeted. The patient tolerated the procedure well and there was no evidence of immediate complication. ??The images were marked for the surgeon, and the patient was transferred to the operating suite for surgical excision. A surgical specimen was subsequently received from the operating room and was imaged using digital radiography. ??An old previous surgical clip and the residual calcifications as well as the wire are included within the surgical specimen. ??These findings were communicated to the surgeon. ??Because of significant clip migration the hourglass biopsy site marker was not included as detailed above. ??This was discussed with the surgeon prior to the surgery. The attending radiologist, Dr. MARIA FERNANDA DE LA TORRE MD, was present throughout the entire procedure. ??Dr. Darrick Dorsey (diagnostic resident director) also participated in this examination. Procedure Note Maria Fernanda De La Torre MD - 11/25/2020 EXAMINATION: RIGHT BREAST NEEDLE LOCALIZATION UTILIZING MAMMOGRAPHIC GUIDANCE AND A SINGLE WIRE; AND SURGICAL SPECIMEN RADIOGRAPH HISTORY: 45-year-old woman with right breast calcifications, status post biopsy demonstrating atypical lobular hyperplasia. PROCEDURE AND FINDINGS: The procedure was discussed with the patient and informed consent was obtained. The breast was placed in a compression grid, and the area of interest was localized with digital mammography. After sterile preparation of the skin, 1% lidocaine was utilized for local anesthesia. A needle was advanced into the area of the hourglass tissue marker in the RIGHT breast from a superior approach utilizing digital mammographic guidance. Orthogonal views were obtained to confirm appropriate needle/wire position. The lateral projection demonstrated that the hourglass tissue marker had migrated inferiorly approximately 4 cm, therefore the needle was removed and magnification views of the RIGHT breast were performed to confirm the area of residual calcifications. After confirming with the breast surgeon, a hook-wire system was subsequently inserted into the area of RIGHT breast residual calcifications from a superior approach utilizing digital mammographic guidance. Orthogonal views were obtained to confirm appropriate needle/wire position. The hourglass biopsy site marker was located too inferiorly and was therefore not targeted. The patient tolerated the procedure well and there was no evidence of immediate complication. The images were marked for the surgeon, and the patient was transferred to the operating suite for surgical excision. A surgical specimen was subsequently received from the operating room and was imaged using digital radiography. An old previous surgical clip and the residual calcifications as well as the wire are included within the surgical specimen. These findings were communicated to the surgeon. Because of significant clip migration the hourglass biopsy site marker was not included as detailed above. This was discussed with the surgeon prior to the surgery. The attending radiologist, Dr. MARIA FERNANDA DE LA TORRE MD, was present throughout the entire procedure. Dr. Darrick Dorsey (diagnostic resident director) also participated in this examination. IMPRESSION: Successful wire localization of the area of interest within the RIGHT breast using mammographic guidance. Dictated by: Darrick Dorsey M.D. The radiology attending physician has personally reviewed this study, and had reviewed and/or edited this written report and agrees with it. Electronically signed by: MARIA FERNANDA DE LA TORRE MD Adele Montilla MD PhD IMG MAMMO PROCEDURES Final Result documented in this encounter Visit Diagnoses Diagnosis Breast mass Lump or mass in breast documented in this encounter Administered Medications Inactive Administered Medications - up to 3 most recent administrations Medication Order MAR Action Action Date Dose Rate Site lidocaine PF (XYLOCAINE) 10 mg/mL (1 %) preservative free injection Code/trauma/sedation medication, Starting on Tricia 11/25/20 at 0820, Intra-Procedure (IR), Indications: Administration of Local AnesthesiaIndications:Administ ration of Local Anesthesia Given 11/25/2020 8:20 AM CDT 5 mL Right Breast lidocaine PF (XYLOCAINE) 10 mg/mL (1 %) preservative free injection Code/trauma/sedation medication, Starting on Tricia 11/25/20 at 0840, Intra-Procedure (IR), Indications: Administration of Local AnesthesiaIndications:Administ ration of Local Anesthesia Given 11/25/2020 8:40 AM CDT 5 mL Right Breast documented in this encounter Orders Medications Ordered That Calin ht Not Have Been Administered Count Last Ordered Date First Ordered Date lidocaine PF (XYLOCAINE) 10 mg/mL (1 %) preservative free injection 1 11/25/2020 documented in this encounter Care Teams Recreation Programmer Relationship Specialty Start [place] [address] [place] [address] PCP - General Internal Medicine 09/28/20 09/24/23 Kathy Lee MD [address] [facility] [address] [place] [address] Referring Physician Obstetrics and Gynecology 10/28/20 documented as of this encounter
--- OUTSIDE RECORDS SUMMARY | 2024-06-13 02:13 | XMS_ITS | Encounter Summary ---
Author Organization [facility] Healthcare Address [address] [place] [address] Care Team Providers Care Resistor Tester Name Role Phone Denilson Ferrara MD Primary Care Provider Encounter Details Date Type Department Care Team (Latest Contact Info) Description 10/08/2020 1:53 PM CDT - 10/08/2020 5:13 PM CDT Hospital Encounter [facility] Radiology [facility] [address] [place] [address] Discharge Disposition: Discharge to home or self [...] Time of Discharge cephalexin (KEFLEX) 500 mg capsule Take 500 mg by mouth 4 (four) times a day 04/03/2018 11/18/2020 cyclobenzaprine (FLEXERIL) 10 mg tablet TAKE 1 TABLET BY MOUTH THREE TIMES DAILY NEEDED FOR MUSCLE SPASM 07/17/2020 11/18/2020 fluconazole (DIFLUCAN) 150 mg tablet 08/02/2020 11/18/2020 tamsulosin (FLOMAX) 0.4 mg extended release capsule Take 0.4 mg by mouth daily 07/22/2020 11/18/2020 tamsulosin (FLOMAX) 0.4 mg extended release capsule 07/22/2020 11/18/2020 documented as of this encounter Discharge Disposition Disposition Code Departure Means Destination Discharge to home or self care documented in this encounter Plan of Treatment Not on file documented as of this encounter Procedures Procedure Name Priority Date/Time Associated Diagnosis Comments BREAST IMAGING OUTSIDE REFERENCE Routine 10/08/2020 1:53 PM CDT documented in this encounter Results * Breast Imaging Outside Reference (10/08/2020 1:53 PM CDT) Impressions [facility] - 10/08/2020 1:53 PM CDT These images are for Reference purposes only and have not been reviewed by [facility]iology. ??There will be no report generated by a [facility] Radiologist. Narrative [facility]_M[facility]MO[facility] - 10/08/2020 1:53 PM CDT EXAMINATION: ??Images For Reference Purposes Only us Aedle Montilla MD PhD IMG MAMMO PROCEDURES Final Result Performing Organization Address City/State/[facility] Co de Phone Number [facility] documented in this encounter Visit Diagnoses Not on filedocumented in this encounter Care Teams Resistor Tester Relationship Specialty Start [place] [address] [place] [address] PCP - General Internal Medicine 09/28/20 09/24/23 documented as of this encounter
--- OUTSIDE RECORDS SUMMARY | 2024-06-13 02:13 | XMS_ITS | Encounter Summary ---
Author Organization [facility] Address [address] [place] [address] Phone Care Team Providers Care Motion Pictures Cartoonist Name Role Phone Denilson Ferrara MD Primary Care Provider Encounter Details Date Type Department Care Team (Late st Contact Info) Description 10/18/2020 Orders Only [facility] Surgery [address] [facility] Advanced [facility] 5th [place] [address] [place] [address] Aft, Adele Palomino MD PhD [address] [place] [address] Social History Tobacco Use Types Packs/Day Years Used Date Smoking Tobacco: Former Cigarettes 0.3 18 0 10/07/1995 - 10/06/2013 Comments Unknown Sex and Gender Information Value Date Recorded Sex Assigned at Not on file Legal Sex Female 1:59 PM CDT Gender Identity Not on file Sexual Orientation Not on file documented as of this encounter Plan of Treatment Not on file documented as of this encounter Visit Diagnoses Not on filedocumented in this encounter Care Teams Motion Pictures Cartoonist Relationship Specialty Start [place] [address] [place] [address] PCP - General Internal Medicine 09/28/20 09/24/23 documented as of this encounter
--- OUTSIDE RECORDS SUMMARY | 2024-06-13 02:13 | XMS_ITS | Encounter Summary ---
Author Organization [facility] Address [address] [place] [address] Phone Care Team Providers Care Supplemental Manager Name Role Phone Denilson Ferrara MD Primary Care Provider Encounter Details Date Type Department Care Team (Late st Contact Info) Description 10/06/2020 Orders Only [facility] Surgery [address] [facility] 5th [place] [address] [place] [id number] Aft, Adele Palomino MD PhD [address] [place], [place] [id number] Abnormal mammography (Primary Dx) Social History Tobacco Use Types [...] documented as of this encounter Results * Breast Imaging Outside Consult (10/08/2020 5:14 PM CDT) Anatomical Region Laterality Modality Breast N/A Mammography 10/11/2020 10:1 9 AM CDT Impressions 10/11/2020 10:39 AM CDT 1. ??New cluster of amorphous calcifications within the right central breast, posterior depth, are at moderate suspicion of malignancy. RECOMMENDATION: Recommend stereotactic guided biopsy of the right breast calcifications. NOTE: The findings, conclusions and recommendations within this report do not replace the initial findings, conclusions and recommendations made at the facility where the study was performed based upon the imaging and clinical condition at that time. ??Review of the prior report and correlation with the clinical history are necessary. The provided images may or may not represent the kiowa tribe source data set and thus may contain changes which may lower the sensitivity of the second opinion interpretation. Dictated by: Yuval Blood M.D. The radiology attending physician has personally reviewed this study, and had reviewed and/or edited this written report and agrees with it. Electronically signed by: Karen Mcdermott M.D. Narrative 10/11/2020 10:39 AM CDT EXAMINATION: REVIEW AND INTERPRETATION OF OUTSIDE IMAGING FACILITY PERFORMING OUTSIDE IMAGING: [facility] EXAM(S) REVIEWED: 1. ??RIGHT UNILATERAL DIAGNOSTIC MAMMOGRAM WITH TOMOSYNTHESIS, 3 images, 10/04/2020 DATE OF INTERPRETATION: 10/11/2020 PHYSICIAN REQUESTING REVIEW: Dr. Montilla, who is seeing the patient in the Breast Surgery Clinic. 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 COMPARISON: Multiple screening mammograms dating back to 09/25/2016. BILATERAL SCREENING MAMMOGRAM WITH TOMOSYNTHESIS, 4 images, 09/16/2020 BREAST PARENCHYMAL COMPOSITION: The breasts are heterogenously dense, which may obscure small masses. FINDINGS: There are breast conservation therapy changes involving the right breast. ??Within the right upper central breast, posterior depth, there is a cluster of amorphous calcifications measuring up to 1.7 cm in extent without an associated underlying mass or areas of architectural distortion. ??There is no suspicious mass, calcification, or areas of architectural distortion within the left breast. Procedure Note Karen Mcdermott MD - 10/11/2020 EXAMINATION: REVIEW AND INTERPRETATION OF OUTSIDE IMAGING FACILITY PERFORMING OUTSIDE IMAGING: [facility] EXAM(S) REVIEWED: 1. RIGHT UNILATERAL DIAGNOSTIC MAMMOGRAM WITH TOMOSYNTHESIS, 3 images, 10/04/2020 DATE OF INTERPRETATION: 10/11/2020 PHYSICIAN REQUESTING REVIEW: Dr. Montilla, who is seeing the patient in the Breast Surgery Clinic. 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 COMPARISON: Multiple screening mammograms dating back to 09/25/2016. BILATERAL SCREENING MAMMOGRAM WITH TOMOSYNTHESIS, 4 images, 09/16/2020 BREAST PARENCHYMAL COMPOSITION: The breasts are heterogenously dense, which may obscure small masses. FINDINGS: There are breast conservation therapy changes involving the right breast. Within the right upper central breast, posterior depth, there is a cluster of amorphous calcifications measuring up to 1.7 cm in extent without an associated underlying mass or areas of architectural distortion. There is no suspicious mass, calcification, or areas of architectural distortion within the left breast. IMPRESSION: 1. New cluster of amorphous calcifications within the right central breast, posterior depth, are at moderate suspicion of malignancy. RECOMMENDATION: Recommend stereotactic guided biopsy of the right breast calcifications. NOTE: The findings, conclusions and recommendations within this report do not replace the initial findings, conclusions and recommendations made at the facility where the study was performed based upon the imaging and clinical condition at that time. Review of the prior report and correlation with the clinical history are necessary. The provided images may or may not represent the [place] tribe source data set and thus may contain changes which may lower the sensitivity of the second opinion interpretation. Dictated by: Yuval Blood M.D. The radiology attending physician has personally reviewed this study, and had reviewed and/or edited this written report and agrees with it. Electronically signed by: Karen Mcdermott M.D. Adele Montilla MD PhD IMG MAMMO PROCEDURES Final Result documented in this encounter Visit Diagnoses Diagnosis Abnormal mammography- Primary Abnormal mammogram, unspecified Abnormal mammography Abnormal mammogram, unspecified documented in this encounter Care Teams Supplemental Manager Relationship Specialty [place] [address] [place] [address] PCP - General Internal Medicine 09/28/20 09/24/23 documented as of this encounter
--- OUTSIDE RECORDS SUMMARY | 2024-06-13 02:13 | XMS_ITS | Encounter Summary ---
Author Organization [facility] Address [address] [place] [address] Care Team Providers Care Barrel Cooper Name Role Phone eDnilson Ferrara MD Primary Care Provider Encounter Details Date Type Department Care Team (Latest Contact Info) Description 10/08/2020 1:53 PM CDT - 10/08/2020 5:13 PM CDT Hospital Encounter [facility] [address] [place] [address] Discharge Disposition: Discharge to home or self [...] only and have not been reviewed by [facility]. ??There will be no report generated by a [facility] Radiologist. Narrative [facility] - 10/08/2020 1:53 PM CDT EXAMINATION: ??Images For Reference Purposes Only us Adele Montilla MD PhD IMG MAMMO PROCEDURES Final Result Performing Organization Address City/State/[facility] Co de Phone Number [facility] documented in this encounter Visit Diagnoses Not on filedocumented in this encounter Care Teams Barrel Cooper Relationship Specialty [place] [address] [place] [address] PCP - General Internal Medicine 09/28/20 09/24/23 documented as of this encounter
--- OUTSIDE RECORDS SUMMARY | 2024-06-13 02:13 | XMS_ITS | Encounter Summary ---
Author Organization [facility] Address [address] [place] [address] Care Team Providers Care Decision Support Manager Name Role Phone Denilson Ferrara MD Primary Care Provider Encounter Details Date Type Department Care Team (Latest Contact Info) Description 10/08/2020 1:53 PM CDT - 10/08/2020 5:13 PM CDT Hospital Encounter [facility]) [address] [place] [address] Discharge Disposition: Discharge to home or self [...] only and have not been reviewed by [facility]. ??There will be no report generated by a [facility] Radiologist. Narrative [facility] - 10/08/2020 1:53 PM CDT EXAMINATION: ??Images For Reference Purposes Only us Adele Montilla MD PhD IMG MAMMO PROCEDURES Final Result Performing Organization Address City/State/[facility] Co de Phone Number [facility] documented in this encounter Visit Diagnoses Not on filedocumented in this encounter Care Teams Decision Support Manager Relationship Specialty [place] [address] [place] [address] PCP - General Internal Medicine 09/28/20 09/24/23 documented as of this encounter
--- OUTSIDE RECORDS SUMMARY | 2024-06-13 02:13 | XMS_ITS | Encounter Summary ---
Author Organization [facility] Address [address] [place] [address] Phone Care Team Providers Care Student Affairs Dean Name Role Phone Denilson Ferrara MD Primary Care Provider Encounter Details Date Type Department Care Team (Late st Contact Info) Description 10/15/2020 Telephone [facility] Surgery [address] [facility] 5th [place] [address] [place] [phone] Adele Montilla MD PhD [address] [place], [place] [phone] Social History Tobacco Use Types Packs/Day Years Used Date Smoking Tobacco: Former Cigarettes 0.3 18 0 10/07/1995 - 10/06/2013 Comments Unknown Sex and Gender Information Value Date Recorded Sex Assigned at Not on file Legal Sex Female 1:59 PM CDT Gender Identity Not on file Sexual Orientation Not on file documented as of this encounter Miscellaneous Notes * Telephone Encounter - Stacey Solis CMA - 10/15/2020 3:13 PM CDT Contacted pt to schedule MRI. Call was conferenced with the MRI miriam hub. Pt confirmed DOS: 10/26/20. ----- Message from Adele Montilla MD PhD sent at 10/13/2020 4:03 PM CDT ----- Please schedule for br mri-thankyou Elicia, Please schedule for rt needle loc, 1 hr mac outpt after br mri. Thank you documented in this encounter Plan of Treatment Not on file documented as of this encounter Visit Diagnoses Not on filedocumented in this encounter Care Teams Student Affairs Dean Relationship Specialty [place] [address] [place] [address] PCP - General Internal Medicine 09/28/20 09/24/23 documented as of this encounter
--- OUTSIDE RECORDS SUMMARY | 2024-06-13 02:13 | XMS_ITS | Encounter Summary ---
Author Organization [facility] Address [address] [place] [address] Care Team Providers Care Farm Equipment Operator Name Role Phone Denilson Ferrara MD Primary Care Provider Encounter Details Date Type Department Care Team (Latest Contact Info) Description 10/08/2020 1:53 PM CDT - 10/08/2020 5:13 PM CDT Hospital Encounter [facility]) [address] [place] [address] Discharge Disposition: Discharge to home or self [...] only and have not been reviewed by [facility] Radiology. ??There will be no report generated by a [facility] Radiologist. Narrative [facility]MO[facility] - 10/08/2020 1:53 PM CDT EXAMINATION: ??Images For Reference Purposes Only us Adele Montilla MD PhD IMG MAMMO PROCEDURES Final Result Performing Organization Address City/State/[facility] [[email or web address]] Co de Phone Number [facility] documented in this encounter Visit Diagnoses Not on filedocumented in this encounter Care Teams Farm Equipment Operator Relationship Specialty [place] [address] [place] [address] PCP - General Internal Medicine 09/28/20 09/24/23 documented as of this encounter
--- OUTSIDE RECORDS SUMMARY | 2024-06-13 02:13 | XMS_ITS | Encounter Summary ---
Author Organization [facility] Address [address] [place] [address] Care Team Providers Care Non Licensed Nuclear Plant Operator Name Role Phone Denilson Ferrara MD Primary Care Provider Encounter Details Date Type Department Care Team (Latest Contact Info) Description 10/08/2020 1:53 PM CDT - 10/08/2020 5:13 PM CDT Hospital Encounter [facility] [address] [place] [address] Discharge Disposition: Discharge to home or self [...] only and have not been reviewed by [facility] Radiology. ??There will be no report generated by a [facility] Radiologist. Narrative [facility]MAMMO[facility] - 10/08/2020 1:53 PM CDT EXAMINATION: ??Images For Reference Purposes Only us Adele Montilla MD PhD IMG MAMMO PROCEDURES Final Result Performing Organization Address City/State/[place] Co de Phone Number [facility] documented in this encounter Visit Diagnoses Not on filedocumented in this encounter Care Teams Non Licensed Nuclear Plant Operator Relationship Specialty Start [place] [address] [place] [address] PCP - General Internal Medicine 09/28/20 09/24/23 documented as of this encounter
--- OUTSIDE RECORDS SUMMARY | 2024-06-13 02:13 | XMS_ITS | Encounter Summary ---
Author Organization [facility] Address [address] [place] [address] Care Team Providers Care Package Dye Stand Loader Name Role Phone Denilson Ferrara MD Primary Care Provider Encounter Details Date Type Department Care Team (Latest Contact Info) Description 10/08/2020 1:53 PM CDT - 10/08/2020 5:13 PM CDT Hospital Encounter [facility] [address] [place] [address] Discharge Disposition: Discharge to home or self [...] only and have not been reviewed by [facility] Radiology. ??There will be no report generated by a [facility] Radiologist. Narrative [facility]_MAMMO[facility] - 10/08/2020 1:53 PM CDT EXAMINATION: ??Images For Reference Purposes Only us Adele Montilla MD PhD IMG MAMMO PROCEDURES Final Result Performing Organization Address City/State/[facility] Co de Phone Number [facility] documented in this encounter Visit Diagnoses Not on filedocumented in this encounter Care Teams Package Dye Stand Loader Relationship Specialty [place] [address] [place] [address] PCP - General Internal Medicine 09/28/20 09/24/23 documented as of this encounter
--- OUTSIDE RECORDS SUMMARY | 2024-06-13 02:13 | XMS_ITS | Encounter Summary ---
Author Organization [facility] Address [address] [place] [address] Phone Care Team Providers Care Lease Purchase Driver Name Role Phone Denilson Ferrara MD Primary Care Provider Reason for Visit * Consultation (Routine) - Closed Specialty Diagnoses / Procedures Referred By Annemarie turner Referred To Contact Surgery / Breast Surgery Diagnoses Ductal carcinoma in situ (DCIS) of right breast Referral, Self [facility] (All Locations) Referral ID Status Reason Start Date Expiration Date V isits Requested Visits Authorized [id number] Closed Specialty Services Required 09/28/2020 10/28/2021 1 1 Encounter Details Date Type Department Care Team (Late st Contact Info) Description 10/11/2020 12:15 PM CDT Office Visit [facility] Surgery [address] [facility] 5th [place] [address] Aft, Adele Palomino MD PhD [address] [place] [address] Breast mass (Primary Dx); Mammogram abnormal Social History Tobacco [...] - Inhaled Oxygen Concentration - - Weight 95.3 kg (210 lb) 10/11/2020 12:07 PM CDT Height 170.2 cm (5' 7 ) 10/11/2020 12:07 PM CDT Body Mass Index 32.89 10/11/2020 12:07 PM CDT documented in this encounter Progress Notes * Aft, Adele Palomino MD PhD - 10/11/2020 12:15 PM CDT PATIENT NAME: Karena Jay DATE OF : 1975 DATE OF OFFICE VISIT: 10/11/20 REFERRING MD: Kathy Lee MD A consultation was requested by Kathy Lee MD for right abnormal mammogram. CHIEF COMPLAINT: Karena Jay is a 45 y.o. female with chief complaint of abnormal mammogram.. HPI: The patient is a 45 y.o. female who presents for evaluation of a right abnormal mammogram. She has a history of DCIS in the upper, slightly inner right breast, diagnosed on biopsy on 08/08/2016. She received no adjuvant treatment. Recently, the patient states that she was undergoing her routine mammogram on 10-08-20 at [facility], which showed microcalcifications in the right breast. The patient denies any masses in either breast. She denies any change in the appearance of her breasts or the skin of her breasts. She denies bilateral nipple discharge. She has no other systemic complaints and otherwise feels well today. Of note the patient underwent genetic testing which was negative Location: right Timing: Constant Quality: None Duration: 1 month Associated symptoms: None PAST MEDICAL HISTORY: She has no past medical history on file. PAST SURGICAL HISTORY: She has no past surgical history on file. MEDICATIONS: She currently has no medications in their medication list. ALLERGIES: She has no allergies on file. FAMILY HISTORY: Her family history is not on file. SOCIAL HISTORY: She is a former smoker, having smoked 0.5packs/day for 15 years and quit in June 2013. She neverused smokeless tobacco. She endorses occasional alcohol use, monthly or less. ROS: Pertinent items are noted in HPI. A comprehensive review of systems was negative. I have personally reviewed the patient health history form which is scanned into her chart. PHYSICAL EXAMINATION: GENERAL: She is a well-developed, well-nourished woman in no acute distress. HEENT: Within normal limits. NECK: Neck is supple without lymphadenopathy or thyromegaly. LUNGS: Clear. HEART: Regular. ABDOMEN: Soft without organomegaly. EXTREMITIES: Warm without edema. NEUROLOGICAL: She is alert and oriented x 3. BREAST EXAMINATION: Bilateral breast examination reveals normal ptotic breasts bilaterally. Both breasts are without any dominant masses, skin changes, nipple discharge, or axillary adenopathy. IMAGING: I personally ordered and independently reviewed all of the imaging performed. *FINDINGS: There are breast conservation therapy changes involving the right breast. Within the right upper central breast, posterior depth, there is a cluster of amorphous calcifications measuring up to 1.7 cm in extent without an associated underlying mass or areas of architectural distortion. There is no suspicious mass, calcification, or areas of architectural distortion within the left breast. IMPRESSION Abnormal mammogram RECOMMENDATION: Karena Jay is a 45 y.o. woman who presents today for a consultation regarding her right abnormal mammogram. I reviewed the clinical and imaging findings with her today. We discussed the fact that this is an indeterminate lesion and we would recommend a tissue diagnosis. I have made arrangements for an image guided biopsy in our Radiology Department. I will contact the patient with the pathology results. I have told the patient that if this demonstrates ductal carcinoma in situ then we would further image her with a breast MRI. I have told the patient that if her MRI demonstrates no other disease then she would be a candidate for breast conserving surgery. I have told herthat she would require adjuvant treatment with radiation and possibly hormonal treatment. The patient understands and agrees with this plan. I have answered all of her questions. She contact me in the interim if any new questions or concerns arise. I have seen and examined Karena Jay with the Resident physician, Britta Tay MD. We worked together to complete the office note, and I personally reviewed and edited the note. I agree with the evaluation and management plan outlined above. Adele Montilla MD PhD documented in this encounter Plan of Treatment Not on file documented as of this encounter Visit Diagnoses Diagnosis Breast mass- Primary Lump or mass in breast Mammogram abnormal Abnormal mammogram, unspecified documented in this encounter Historical Medications * This list may reflect changes made after this encounter. cholecalciferol (VITAMIN D-3) 25 mcg (1,000 unit) tabletIndications :Vitamin D Deficiency Take 1 tablet (1,000 Units total) by mouth nightly tamsulosin (FLOMAX) 0.4 mg extended release capsule 07/22/2020 11/18/2020 tamsulosin (FLOMAX) 0.4 mg extended release capsule Take 0.4 mg by mouth daily 07/22/2020 11/18/2020 Lacto.acidophilus -Bif.animalis 32 billion cell capsuleIndication s:supplement Take 1 capsule by mouth nightly 10/05/2021 fluconazole (DIFLUCAN) 150 mg tablet 08/02/2020 11/18/2020 cyclobenzaprine (FLEXERIL) 10 mg tablet TAKE 1 TABLET BY MOUTH THREE TIMES DAILY NEEDED FOR MUSCLE SPASM 07/17/2020 11/18/2020 cephalexin (KEFLEX) 500 mg capsule Take 500 mg by mouth 4 (four) times a day 04/03/2018 11/18/2020 added in this encounter Care Teams Lease Purchase Driver Relationship Specialty [place] [address] [place] [address] PCP - General Internal Medicine 09/28/20 09/24/23 documented as of this encounter
--- OUTSIDE RECORDS SUMMARY | 2024-06-13 02:13 | XMS_ITS | Encounter Summary ---
Author Organization [facility] Healthcare Address [address] [place] [address] Care Team Providers Care Ladle Car Operator Name Role Phone Denilson Ferrara MD Primary Care Provider Reason for Referral * MRI/CAT/PET Scan (Routine) - Closed Specialty Diagnoses / Procedures Referred By Contac t Referred To Contact Radiology Diagnoses Breast mass Atypical lobular hyperplasia (ALH) of breast Procedures MRI Breast Bilateral W WO Contrast Adele Montilla MD PhD [address] [place] [id number] Phone: tel: fax: [address] [phone] Referral ID Status Reason Start Date Expiration Date Visits Re quested Visits Authorized [id number] Closed 10/15/2020 11/14/2021 1 1 Reason for Visit * MRI/CAT/PET Scan (Routine) - Closed Specialty Diagnoses / Procedures Referred By Contac t Referred To Contact Radiology Diagnoses Breast mass Atypical lobular hyperplasia (ALH) of breast Procedures MRI Breast Bilateral W WO Contrast Adele Montilla MD PhD [address] [place] [address] Phone: tel: fax: [address] [phone] Referral ID Status Reason Start Date Expiration Date Visits Re quested Visits Authorized [id number] Closed 10/15/2020 11/14/2021 1 1 Encounter Details Date Type Department Care Team (Latest Contact Info) Description 10/26/2020 8:09 AM CDT - 10/26/2020 11:59 PM CDT Hospital Encounter [facility] [address] [place] [address] Aft, Adele Palomino MD PhD [address] [place] [address] Breast mass; Atypical lobular hyperplasia (ALH) of breast Discharge [...] by mouth nightly cephalexin (KEFLEX) 500 mg capsule Take 500 mg by mouth 4 (four) times a day 04/03/2018 11/18/2020 cyclobenzaprine (FLEXERIL) 10 mg tablet TAKE 1 TABLET BY MOUTH THREE TIMES DAILY NEEDED FOR MUSCLE SPASM 07/17/2020 11/18/2020 docusate sodium (COLACE) 100 mg capsuleIndication s:constipation Take 1 capsule (100 mg total) by mouth 2 (two) times a day 30 capsule 11/25/2020 10/05/2021 fluconazole (DIFLUCAN) 150 mg tablet 08/02/2020 11/18/2020 Lacto.acidophilus -Bif.animalis 32 billion cell capsuleIndication s:supplement Take 1 capsule by mouth nightly 10/05/2021 oxyCODONE (ROXICODONE) 5 mg immediate release tabletIndications :Pain Take 1 tablet (5 mg total) by mouth every 4 (four) hours as needed for pain 8 tablet 11/25/2020 10/05/2021 tamsulosin (FLOMAX) 0.4 mg extended release capsule [...] CONTRAST Schedule Routine, Read Routine (OP Routine) 10/26/2020 9:16 AM CDT Breast mass Atypical lobular hyperplasia (ALH) of breast documented in this encounter Results * MRI Breast Bilateral W WO Contrast (10/26/2020 9:16 AM CDT) Anatomical Region Laterality Modality Breast Bilateral Magnetic Resonan ce 10/26/2020 11:5 5 AM CDT Impressions 10/26/2020 3:24 PM CDT 1. No suspicious abnormality. 2. Annual screening mammography is recommended. 3. Annual breast MRI is recommended as an adjunct to mammography. OVERALL FINAL ASSESSMENT: BI-RADS Category 2: Benign. Dictated by: Danica Kwong M.D. The radiology attending physician has personally reviewed this study, and had reviewed and/or edited this written report and agrees with it. Electronically signed by: Millie Peña M.D. Narrative 10/26/2020 3:24 PM CDT EXAMINATION: 1. MRI EXAMINATION OF THE BREASTS WITH AND WITHOUT CONTRAST 2. 3D POST PROCESSING ON A DEDICATED 3D WORKSTATION HISTORY: Abnormal breast imaging. ??45-year-old woman with right breast atypical lobular hyperplasia. 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 DATE OF LAST MENSTRUAL PERIOD: Postmenopausal after hysterectomy. TECHNIQUE: MRI examination of the breasts per breast tumor protocol with and without gadolinium contrast. ??A dedicated breast imaging coil was used. ??The images were transferred to a breast CAD system for 3D post processing and contrast kinetics analysis. ?? Contrast: Dotarem, 18 ml COMPARISON: No direct MR comparison. ??Prior imaging obtained on 10/11/2020 was reviewed. BREAST COMPOSITION: Heterogeneous fibroglandular tissue BACKGROUND PARENCHYMAL ENHANCEMENT: Moderate FINDINGS: There are findings of right breast lumpectomy. ?? No suspicious findings including enhancement is seen in either breast. ?? Recently biopsied right upper central clip is not definitely seen on precontrast T1 images No abnormally enlarged lymph nodes are identified in the visualized portions of either axilla. Procedure Note Millie Peña MD - 10/26/2020 EXAMINATION: 1. MRI EXAMINATION OF THE BREASTS WITH AND WITHOUT CONTRAST 2. 3D POST PROCESSING ON A DEDICATED 3D WORKSTATION HISTORY: Abnormal breast imaging. 45-year-old woman with right breast atypical lobular hyperplasia. 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 TECHNIQUE: MRI examination of the breasts per breast tumor protocol with and without gadolinium contrast. A dedicated breast imaging coil was used. The images were transferred to a breast CAD system for 3D post processing and contrast kinetics analysis. Contrast: Dotarem, 18 ml COMPARISON: No direct MR comparison. Prior imaging obtained on 10/11/2020 was reviewed. BREAST COMPOSITION: Heterogeneous fibroglandular tissue BACKGROUND PARENCHYMAL ENHANCEMENT: Moderate FINDINGS: There are findings of right breast lumpectomy. No suspicious findings including enhancement is seen in either breast. Recently biopsied right upper central clip is not definitely seen on precontrast T1 images No abnormally enlarged lymph nodes are identified in the visualized portions of either axilla. IMPRESSION: 1. No suspicious abnormality. 2. Annual screening mammography is recommended. 3. Annual breast MRI is recommended as an adjunct to mammography. OVERALL FINAL ASSESSMENT: BI-RADS Category 2: Benign. Dictated by: Danica Kwong M.D. The radiology attending physician has personally reviewed this study, and had reviewed and/or edited this written report and agrees with it. Electronically signed by: Millie Peña M.D. us Adele Montilla MD PhD IMG MRI PROCEDURES Final R esult documented in this encounter Visit Diagnoses Diagnosis Breast mass Lump or mass in breast Atypical lobular hyperplasia (ALH) of breast documented in this encounter Administered Medications Inactive Administered Medications - up to 3 most recent administrations Medication Order MAR Action Action Date Dose Rate Site gadoterate meglumine (DOTAREM) 0.5 mmol/mL injection 20 mL 20 mL, intravenous, Once in imaging, contrast, Starting on Sun10/26/20 at 0915, For 1 dose Given 10/26/2020 9:16 AM CDT 18 mL documented in this encounter Orders Medications Ordered That Calin ht Not Have Been Administered Count Last Ordered Date First Ordered Date gadoterate meglumine (DOTARE M) 0.5 mmol/mL injection 20 mL 1 10/26/2020 documented in this encounter Care Teams Ladle Car Operator Relationship Specialty [place] [address] [place] [address] PCP - General Internal Medicine 09/28/20 09/24/23 documented as of this encounter
--- OUTSIDE RECORDS SUMMARY | 2024-06-13 02:13 | XMS_ITS | Encounter Summary ---
Author Organization [facility] Healthcare Address [address] [place] [address] Care Team Providers Care Resolution Agent Name Role Phone Denilson Ferrara MD Primary Care Provider Encounter Details Date Type Department Care Team (Latest Contact Info) Description 10/08/2020 1:53 PM CDT - 10/08/2020 5:13 PM CDT Hospital Encounter [facility]) [address] [place] [id number] Discharge Disposition: Discharge to home or self [...] only and have not been reviewed by [facility] Radiology. ??There will be no report generated by a [facility] Radiologist. Narrative [id number] - 10/08/2020 1:53 PM CDT EXAMINATION: ??Images For Reference Purposes Only us Adele Montilla MD PhD IMG MAMMO PROCEDURES Final Result Performing Organization Address City/State/[facility] Co de Phone Number [email or web address] documented in this encounter Visit Diagnoses Not on filedocumented in this encounter Care Teams Resolution Agent Relationship Specialty Start [place] [address] [place] [address] PCP - General Internal Medicine 09/28/20 09/24/23 documented as of this encounter
--- OUTSIDE RECORDS SUMMARY | 2024-06-13 02:13 | XMS_ITS | Encounter Summary ---
Author Organization [facility] Healthcare Address [address] [place] [address] Care Team Providers Care Saddle Cutter Name Role Phone Denilson Ferrara MD Primary Care Provider Encounter Details Date Type Department Care Team (Latest Contact Info) Description 10/08/2020 5:14 PM CDT - 10/08/2020 11:59 PM CDT Hospital Encounter [facility] [address] [place] [address] Abnormal mammography Discharge Disposition: Discharge to home or self [...] Date/Time Associated Diagnosis Comments BREAST IMAGING OUTSIDE CONSULT Routine 10/08/2020 5:14 PM CDT Abnormal mammography documented in this encounter Results * Breast [...] images may or may not represent the council source data set and thus may contain [...] OF OUTSIDE IMAGING FACILITY PERFORMING OUTSIDE IMAGING: [facility] EXAM(S) REVIEWED: 1. ??RIGHT UNILATERAL [...] OF OUTSIDE IMAGING FACILITY PERFORMING OUTSIDE IMAGING: [facility] EXAM(S) REVIEWED: 1. RIGHT UNILATERAL [...] images may or may not represent the council source data set and thus may contain changes which may lower the sensitivity of the second opinion interpretation. Dictated by: Yuval Blood M.D. The radiology attending physician has personally reviewed this study, and had reviewed and/or edited this written report and agrees with it. Electronically signed by: Karen Mcdermott M.D. us Adele Montilla MD PhD IMG MAMMO PROCEDURES Final Result documented in this encounter Visit Diagnoses Diagnosis Abnormal mammography Abnormal mammogram, unspecified documented in this encounter Care Teams Saddle Cutter Relationship Specialty Start [place] [address] [place] [address] PCP - General Internal Medicine 09/28/20 09/24/23 documented as of this encounter
--- OUTSIDE RECORDS SUMMARY | 2024-06-13 02:13 | XMS_ITS | Encounter Summary ---
Author Organization [facility] Healthcare Address [address] [place] [address] Care Team Providers Care Speed Winder Name Role Phone Denilson Ferrara MD Primary Care Provider Reason for Referral * Diagnostic Imaging (Routine) - Closed Specialty Diagnoses / Procedures Referred By Annemarie turner Referred To Contact Diagnoses Abnormal mammogram of right breast Breast microcalcifications Procedures Stereotactic Breast Biopsy Right Adele Montilla MD PhD [address] [place] [address] Phone: tel: fax: [address] [phone] Referral ID Status Reason Start Date Expiration Date Visits Re quested Visits Authorized [id number] Closed 10/11/2020 11/10/2021 1 1 Reason for Visit * Diagnostic Imaging (Routine) - Closed Specialty Diagnoses / Procedures Referred By Contac t Referred To Contact Diagnoses Abnormal mammography Procedures Ki Post Clip Placement Right US Breast Right Limited Adele Montilla MD PhD [address] [place] [address] Phone: tel: fax: [address] [phone] Referral ID Status Reason Start Date Expiration Date Visits Re quested Visits Authorized [id number] Closed 10/06/2020 11/05/2021 1 1 Encounter Details Date Type Department Care Team (Latest Contact Info) Description 10/11/2020 1:15 PM CDT - 10/11/2020 11:59 PM CDT Hospital Encounter [facility] [address] [place] [address] Aft, Adele Palomino MD PhD [address] [place] [address] Abnormal mammography; Abnormal mammogram of right breast; Breast microcalcifications Discharge Disposition: Discharge to home or self care Social History Tobacco Use Types Packs/Day Years Used Date Smoking Tobacco: Former Cigarettes 0.3 18 0 10/07/1995 - 10/06/2013 Comments Unknown Sex and Gender Information Value Date Recorded Sex Assigned at Not on file Legal Sex Female 1:59 PM CDT Gender Identity Not on file Sexual Orientation Not on file documented as of this encounter Discharge Instructions * Discharge Instructions* Elicia Chaudhari, RT - 10/11/2020 1:38 PM CDT Breast [facility] Outpatient Discharge Instructions Activity: ?? Avoid exercise for 24 hours after biopsy. ?? Do not lift objects heavier than 5-10 lbs for 24 hours after biopsy. ?? Other instructions: Medication: ?? Remain on your usual medications; check with your regualr doctor for any questions. ?? You may take Tylenol (acetaminophen) 500mg, 2 tablest aevery 6 hours fr pain of needed (and no allergy exists). You should avoid using Aspirin (Excedrin), Ibuprofen (Motrin, Advil)or Aleve for 48 hours after thebiopsy. ?? Other instructions Wound care: Wear your bra all day today, and consider sleeping in one tonight. You may take a bath or shower after on ?? Tegaderm Dressing: Remove the outer dressing after you bath or shower. Don ot remove the steri strips. They will fall off in 5-10 days. ?? Dermabond: Do not scratch, rub or pick at the wound adhesive. It will naturally fall off in 5-10days. Avoid swimming pools, hot tubs, and tub soaks for 7 days after biopsy. Apply an ice pack to the biopsy site every 2 hours today (for 20 minutes each time) until bedtime. Do not place ice directly on the skin. You will experience some bruising. Special instructions: Please call the [facility] nurses at [phone] or the [facility] at [phone] (8am to 5 pm*) if you experience: ?? Extreme redness, bruising, swelling, severe pain or unusual drainage at the biopsy site ?? Fever of 101.5 F ?? If there are any signs of bleeding, lie down and apply firm pressure for 20 minutes. If bleedingpersists call the [facility] or your physician. * If it is after hours, a weekend or holiday, please call your breast surgeon or referring physician. Results: You should receive your biopsy results within 3 working days. If you have not been informed of yourresults after this time please call: ?? The breast imaging nurse in the [facility] at [phone]. ?? The breast surgeon's office at . ?? The referring physicians office documented in this encounter Medications at Time of Discharge cholecalciferol (VITAMIN D-3) 25 mcg (1,000 unit) tabletIndications :Vitamin D Deficiency Take 1 tablet (1,000 Units total) by mouth nightly cephalexin (KEFLEX) 500 mg capsule Take 500 mg by mouth 4 (four) times a day 04/03/2018 11/18/2020 cyclobenzaprine (FLEXERIL) 10 mg tablet TAKE 1 TABLET BY MOUTH THREE TIMES DAILY NEEDED FOR MUSCLE SPASM 07/17/2020 11/18/2020 fluconazole (DIFLUCAN) 150 mg tablet 08/02/2020 11/18/2020 Lacto.acidophilus -Bif.animalis 32 billion cell capsuleIndication s:supplement Take 1 capsule by mouth nightly 10/05/2021 tamsulosin (FLOMAX) 0.4 mg extended release capsule Take 0.4 mg by mouth daily 07/22/2020 11/18/2020 tamsulosin (FLOMAX) 0.4 mg extended release capsule 07/22/2020 11/18/2020 documented as of this encounter Discharge Disposition Disposition Code Departure Means Destination Discharge to home or self care documented in this encounter Miscellaneous Notes * Post-Procedure Note - Ana Linda MD - 10/11/2020 1:30 PM CDT Radiology Brief Post Procedure Note Attending: Maddi Pharmacy Director: Bhargavi Sedation/Anesthesia: Local Pre-Op/Pre-Procedure Diagnosis: Right breast calcifications Post-Op/Post-Procedure Diagnosis: Same as pre Procedure Performed: Right breast stereotactic biopsy and tissue marker placement Procedure Findings: See dictation Complications: None Estimated Blood Loss: < 30 ml Specimens: 3 core specimens Condition: Stable Full report to follow. documented in this encounter Plan of Treatment Not on file documented as of this encounter Procedures Procedure Name Priority Date/Time Associated Diagnosis Comments KI POST CLIP PLACEMENT RIGHT Schedule Routine, Read Routine (OP Routine) 10/11/2020 2:04 PM CDT Abnormal mammography STEREOTACTIC BREAST BIOPSY RIGHT Schedule Routine, Read Routine (OP Routine) 10/11/2020 1:56 PM CDT Abnormal mammogram of right breast Breast microcalcifications SURGICAL PATHOLOGY Routine 10/11/2020 1:54 PM CDT Abnormal mammography Abnormal mammogram of right breast Breast microcalcifications documented in this encounter Results * Ki Post Clip Placement Right (10/11/2020 2:04 PM CDT) Anatomical Region Laterality Modality Breast Right Ultrasound 10/11/2020 2:31 PM CDT Addenda Addendum by Ana Linda MD on 10/14/2020 10:35 AM CDT ADDENDUM Addendum #1 issued at 10/14/2020 8:37 AM by Rafaela Watkins RN, RT for Dr. Ana Linda: Histopathology from the vacuum assisted needle biopsy of the area of interest in the RIGHT breast demonstrates columnar cell change and columnar hyperplasia with associated microcalcifications. ??Atypical lobular hyperplasia (ALH), multifocal. ??No evidence of malignancy. These results have been reviewed by Dr. Ana Linda and Dr. Karen Mcdermott. This is a high risk lesion and surgical excision is recommended. The patient was informed of the biopsy results and recommendations by referring provider Dr. Adele Montilla on 10/13/2020 who will direct surgical management. Edited by: Rafaela Watkins Electronically signed by: Ana Linda M.D. Impressions 10/11/2020 2:31 PM CDT Successful vacuum-assisted core needle biopsy of the RIGHT breast. ??Pathology is pending. Electronically signed by: Ana Linda M.D. Narrative 10/11/2020 2:31 PM CDT EXAMINATION: RIGHT BREAST VACUUM-ASSISTED CORE BIOPSY UTILIZING TOMOSYNTHESIS AND STEREOTACTIC GUIDANCE, PLACEMENT OF A BIOPSY SITE TISSUE MARKER CLIP, AND RIGHT FULL FIELD DIGITAL POST-PROCEDURE MAMMOGRAM, INCLUDING DIGITAL BREAST TOMOSYNTHESIS HISTORY: ??Abnormal mammogram. 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 Image guided core needle biopsy is requested to evaluate for malignancy. COMPARISON: 10/04/2020 and priors dating back to 2017 PROCEDURE AND FINDINGS: The risks and potential benefits of the procedures were discussed with the patient and written informed consent was obtained. After a time-out procedure, the patient was placed in the prone position on the biopsy unit. ??The area of interest was localized and targeted utilizing digital imaging with tomosynthesis and stereotaxis. ??After sterile preparation of the skin, 1% lidocaine and 2% lidocaine with epinephrine were utilized for local anaesthesia. A small skin incision was made with a #11 scalpel blade and a 9 gauge Brevera vacuum-assisted biopsy needle was advanced to the area of interest from a superior approach utilizing stereotactic guidance. A total of 3 tissue cores were then obtained; these were submitted to surgical pathology in formalin for histologic analysis. ??The specimen radiograph demonstrates that the calcifications of interest are included within the tissue cores. ??[A TriMark Hourglass tissue marker clip was placed at the biopsy site. The needle was removed, hemostasis was achieved and a sterile bandage was applied. The patient tolerated the procedure well and without evidence of significant immediate complication. The patient was given verbal as well as written post procedural instructions prior to release from the department. A two-view RIGHT digital mammogram , including digital breast tomosynthesis (DBT), obtained post procedure demonstrates that the tissue marker clip is in the expected position. The attending radiologist, Dr. Ana Linda M.D., was present throughout the entire procedure. ?? Procedure Note Ana Linda MD - 10/11/2020 EXAMINATION: RIGHT BREAST VACUUM-ASSISTED CORE BIOPSY UTILIZING TOMOSYNTHESIS AND STEREOTACTIC GUIDANCE, PLACEMENT OF A BIOPSY SITE TISSUE MARKER CLIP, AND RIGHT FULL FIELD DIGITAL POST-PROCEDURE MAMMOGRAM, INCLUDING DIGITAL BREAST TOMOSYNTHESIS HISTORY: Abnormal mammogram. 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 Image guided core needle biopsy is requested to evaluate for malignancy. COMPARISON: 10/04/2020 and priors dating back to 2017 PROCEDURE AND FINDINGS: The risks and potential benefits of the procedures were discussed with the patient and written informed consent was obtained. After a time-out procedure, the patient was placed in the prone position on the biopsy unit. The area of interest was localized and targeted utilizing digital imaging with tomosynthesis and stereotaxis. After sterile preparation of the skin, 1% lidocaine and 2% lidocaine with epinephrine were utilized for local anaesthesia. A small skin incision was made with a #11 scalpel blade and a 9 gauge Brevera vacuum-assisted biopsy needle was advanced to the area of interest from a superior approach utilizing stereotactic guidance. A total of 3 tissue cores were then obtained; these were submitted to surgical pathology in formalin for histologic analysis. The specimen radiograph demonstrates that the calcifications of interest are included within the tissue cores. [A TriMark Hourglass tissue marker clip was placed at the biopsy site. The needle was removed, hemostasis was achieved and a sterile bandage was applied. The patient tolerated the procedure well and without evidence of significant immediate complication. The patient was given verbal as well as written post procedural instructions prior to release from the department. A two-view RIGHT digital mammogram , including digital breast tomosynthesis (DBT), obtained post procedure demonstrates that the tissue marker clip is in the expected position. The attending radiologist, Dr. Ana Linda M.D., was present throughout the entire procedure. IMPRESSION: Successful vacuum-assisted core needle biopsy of the RIGHT breast. Pathology is pending. Electronically signed by: Ana Linda M.D. us Adele Montilla MD PhD IMG MAMMO PROCEDURES Edite d Result - Final * Stereotactic Breast Biopsy Right (10/11/2020 1:56 PM CDT) Anatomical Region Laterality Modality Breast Right Ultrasound 10/11/2020 2:31 PM CDT Addenda Addendum by Ana Linda MD on 10/14/2020 10:35 AM CDT ADDENDUM Addendum #1 issued at 10/14/2020 8:37 AM by Rafaela Watkins RN, RT for Dr. Ana Linda: Histopathology from the vacuum assisted needle biopsy of the area of interest in the RIGHT breast demonstrates columnar cell change and columnar hyperplasia with associated microcalcifications. ??Atypical lobular hyperplasia (ALH), multifocal. ??No evidence of malignancy. These results have been reviewed by Dr. Ana Linda and Dr. Karen Mcdermott. This is a high risk lesion and surgical excision is recommended. The patient was informed of the biopsy results and recommendations by referring provider Dr. Adele Montilla on 10/13/2020 who will direct surgical management. Edited by: Rafaela Watkins Electronically signed by: Ana Linda M.D. Impressions 10/11/2020 2:31 PM CDT Successful vacuum-assisted core needle biopsy of the RIGHT breast. ??Pathology is pending. Electronically signed by: Ana Linda M.D. Narrative 10/11/2020 2:31 PM CDT EXAMINATION: RIGHT BREAST VACUUM-ASSISTED CORE BIOPSY UTILIZING TOMOSYNTHESIS AND STEREOTACTIC GUIDANCE, PLACEMENT OF A BIOPSY SITE TISSUE MARKER CLIP, AND RIGHT FULL FIELD DIGITAL POST-PROCEDURE MAMMOGRAM, INCLUDING DIGITAL BREAST TOMOSYNTHESIS HISTORY: ??Abnormal mammogram. 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 Image guided core needle biopsy is requested to evaluate for malignancy. COMPARISON: 10/04/2020 and priors dating back to 2017 PROCEDURE AND FINDINGS: The risks and potential benefits of the procedures were discussed with the patient and written informed consent was obtained. After a time-out procedure, the patient was placed in the prone position on the biopsy unit. ??The area of interest was localized and targeted utilizing digital imaging with tomosynthesis and stereotaxis. ??After sterile preparation of the skin, 1% lidocaine and 2% lidocaine with epinephrine were utilized for local anaesthesia. A small skin incision was made with a #11 scalpel blade and a 9 gauge Brevera vacuum-assisted biopsy needle was advanced to the area of interest from a superior approach utilizing stereotactic guidance. A total of 3 tissue cores were then obtained; these were submitted to surgical pathology in formalin for histologic analysis. ??The specimen radiograph demonstrates that the calcifications of interest are included within the tissue cores. ??[A TriMark Hourglass tissue marker clip was placed at the biopsy site. The needle was removed, hemostasis was achieved and a sterile bandage was applied. The patient tolerated the procedure well and without evidence of significant immediate complication. The patient was given verbal as well as written post procedural instructions prior to release from the department. A two-view RIGHT digital mammogram , including digital breast tomosynthesis (DBT), obtained post procedure demonstrates that the tissue marker clip is in the expected position. The attending radiologist, Dr. Ana Linda M.D., was present throughout the entire procedure. ?? Procedure Note Ana Linda MD - 10/11/2020 EXAMINATION: RIGHT BREAST VACUUM-ASSISTED CORE BIOPSY UTILIZING TOMOSYNTHESIS AND STEREOTACTIC GUIDANCE, PLACEMENT OF A BIOPSY SITE TISSUE MARKER CLIP, AND RIGHT FULL FIELD DIGITAL POST-PROCEDURE MAMMOGRAM, INCLUDING DIGITAL BREAST TOMOSYNTHESIS HISTORY: Abnormal mammogram. 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 Image guided core needle biopsy is requested to evaluate for malignancy. COMPARISON: 10/04/2020 and priors dating back to 2017 PROCEDURE AND FINDINGS: The risks and potential benefits of the procedures were discussed with the patient and written informed consent was obtained. After a time-out procedure, the patient was placed in the prone position on the biopsy unit. The area of interest was localized and targeted utilizing digital imaging with tomosynthesis and stereotaxis. After sterile preparation of the skin, 1% lidocaine and 2% lidocaine with epinephrine were utilized for local anaesthesia. A small skin incision was made with a #11 scalpel blade and a 9 gauge Brevera vacuum-assisted biopsy needle was advanced to the area of interest from a superior approach utilizing stereotactic guidance. A total of 3 tissue cores were then obtained; these were submitted to surgical pathology in formalin for histologic analysis. The specimen radiograph demonstrates that the calcifications of interest are included within the tissue cores. [A TriMark Hourglass tissue marker clip was placed at the biopsy site. The needle was removed, hemostasis was achieved and a sterile bandage was applied. The patient tolerated the procedure well and without evidence of significant immediate complication. The patient was given verbal as well as written post procedural instructions prior to release from the department. A two-view RIGHT digital mammogram , including digital breast tomosynthesis (DBT), obtained post procedure demonstrates that the tissue marker clip is in the expected position. The attending radiologist, Dr. Ana Linda M.D., was present throughout the entire procedure. IMPRESSION: Successful vacuum-assisted core needle biopsy of the RIGHT breast. Pathology is pending. Electronically signed by: Ana Linda M.D. us Adele Montilla MD PhD IMG MAMMO PROCEDURES Edite d Result - Final * Surgical pathology (10/11/2020 1:54 PM CDT) Tissue (Breast biopsy, needle core) 10/11/2020 1:54 PM CDT Comment:Grouped calcificatio ns, BI-RADS 4B, 3 cores Narrative PATHOLOGY [facility] - 10/12/2020 12:05 PM CDT EPIC results best viewed via link to PDF [facility] [place] [address] [place] [address] SURGICAL PATHOLOGY REPORT FINAL Patient Name: ?? LENA BARON Gender: ??F : ??1975 (Age: 45) Address: ??[address] [place] [address] ??[id number] Hospital #: ??[id number] Taken:10/11/2020 Received:10/11/2020 Reported: 10/12/2020 Patient Type: [facility] Ancillary ?? Service: Radiology Location: [facility] Physician(s): ??Tyree Blandon . Aft, M.D. Diagnosis: A. ??Breast, right, stereotactic core biopsy ? - Columnar cell change and columnar hyperplasia with associated microcalcifications - Atypical lobular hyperplasia (ALH), multifocal - No evidence of malignancy lxs/10/12/2020 11:54 By this signature, I attest that the above diagnosis is based upon my personal examination of the slides(and/or other material indicated in the diagnosis). Maki Saravia M.D., Ph.D. Report Electronically Reviewed and Signed Out By ??Maki Saravia M.D., Ph.D. 10/12/2020 12:05:17 Microscopic Description and Comment: Microscopic examination substantiates the above cited diagnosis. Paige Bundy MD PhD History: The patient is a 45-year-old woman who presents with abnormal mammogram and microcalcifications; grouped calcifications, BIRADS 4B. Operative procedure: Right breast stereo biopsy, three cores. Specimen(s) Received: A: Right breast - stereo biopsy Gross Description: Received in formalin labeled with the patient's name, MRN, and designated right breast- stereo biopsy are three fibrofatty tissue cores (2.0 x 1.2 x 0.3 cm in aggregate) submitted in A1- 2. ??Jar 0. ??Formalin fixation = 7 hours. sxv/10/11/2020 17:02 PA(s): TASNEEM Miller ([facility]) By this signature, I attest that the above diagnosis is based upon my personal examination of the slides(and/or other material). Addenda/Procedures The performance characteristics of some immunohistochemical stains, fluorescence in-situ hybridization tests and immunophenotyping by flow cytometry cited in this report (if any) were determined by the Surgical Pathology Department at [facility] as part of an ongoing quality supervisor program and in compliance with federally mandated [...] determined by the Surgical Pathology Department of [facility]. ??It has not been cleared or approved by the U. S. Food and Drug Administration. IMAGES AND SCANNED DOCUMENTS, IF INCLUDED, ONLY VIEWABLE IN PDF VERSION OF REPORT Adele Montilla MD PhD LAB PATHOLOGY ORDERABLES F inal Result PATHOLOGY [facility] [address] Floor [place], [place] [phone] documented in this encounter Visit Diagnoses Diagnosis Abnormal mammography Abnormal mammogram, unspecified Abnormal mammogram of right breast Breast microcalcifications Mammographic microcalcification documented in this encounter Administered Medications Inactive Administered Medications - up to 3 most recent administrations Medication Order MAR Action Action Date Dose Rate Site lidocaine (XYLOCAINE) 10 mg/mL (1 %) injection Code/trauma/sedation medication, Starting on 10/11/20 at 1338, Intra-Procedure (IR), Indications: Administration of Local AnesthesiaIndications:Adminis tration of Local Anesthesia Given 10/11/2020 1:38 PM CDT 5 mL Right Breast lidocaine-EPINEPHrine (XYLOCAINE with EPI) 2 %-1:100,000 injection Code/trauma/sedation medication, Starting on Sun10/11/20 at 1339, Indications: Administration of Local AnesthesiaIndications:Adminis tration of Local Anesthesia Given 10/11/2020 1:39 PM CDT 20 mL Right Breast documented in this encounter Care Teams Speed Winder Relationship Specialty [place] [address] [place] [address] PCP - General Internal Medicine 09/28/20 09/24/23 documented as of this encounter
--- OUTSIDE RECORDS SUMMARY | 2024-06-13 02:13 | XMS_ITS | Encounter Summary ---
Author Organization [facility] Healthcare Address [address] [place] [address] Care Team Providers Care B2B Outside Sales Representative Name Role Phone Denilson Ferrara MD Primary Care Provider Encounter Details Date Type Department Care Team (Latest Contact Info) Description 10/08/2020 1:53 PM CDT - 10/08/2020 5:13 PM CDT Hospital Encounter [facility] [address] [place] [id number] Discharge Disposition: Discharge to home or self [...] only and have not been reviewed by [facility] Radiology. ??There will be no report generated by a [facility] Radiologist. Narrative [email or web address] - 10/08/2020 1:53 PM CDT EXAMINATION: ??Images For Reference Purposes Only us Adele Montilla MD PhD IMG MAMMO PROCEDURES Final Result Performing Organization Address City/State/[facility] Co de Phone Number [email or web address] documented in this encounter Visit Diagnoses Not on filedocumented in this encounter Care Teams B2B Outside Sales Representative Relationship Specialty Start [place] [address] [place] [address] PCP - General Internal Medicine 09/28/20 09/24/23 documented as of this encounter
--- OUTSIDE RECORDS SUMMARY | 2024-06-13 02:13 | XMS_ITS | Encounter Summary ---
Author Organization [facility] Healthcare Address [address] [place] [address] Care Team Providers Care Lead Java J2Ee Developer Name Role Phone Denilson Ferrara MD Primary Care Provider Encounter Details Date Type Department Care Team (Latest Contact Info) Description 10/08/2020 1:53 PM CDT - 10/08/2020 5:13 PM CDT Hospital Encounter [facility]) [address] [place] [address] Discharge Disposition: Discharge to home or self [...] and have not been reviewed by [facility] Radiology. ??There will be no report generated by a [facility] Radiologist. Narrative RAD_MAMMO_[facility] - 10/08/2020 1:53 PM CDT EXAMINATION: ??Images For Reference Purposes Only us Adele Montilla MD PhD IMG MAMMO PROCEDURES Final Result Performing Organization Address City/State/[facility] Co de Phone Number RAD_MAMMO_[facility] documented in this encounter Visit Diagnoses Not on filedocumented in this encounter Care Teams Lead Java J2Ee Developer Relationship Specialty Start [place] [address] [place] [address] PCP - General Internal Medicine 09/28/20 09/24/23 documented as of this encounter
--- OUTSIDE RECORDS SUMMARY | 2024-06-13 02:13 | XMS_ITS | Encounter Summary ---
Author Organization [facility] Healthcare Address [address] [place] [address] Care Team Providers Care Memory Care Program Resident Name Role Phone Denilson Ferrara MD Primary Care Provider Encounter Details Date Type Department Care Team (Latest Contact Info) Description 10/08/2020 1:53 PM CDT - 10/08/2020 5:13 PM CDT Hospital Encounter [facility]) [address] [place] [address] Discharge Disposition: Discharge to home or self [...] only and have not been reviewed by [facility] Radiology. ??There will be no report generated by a [facility] Radiologist. Narrative RAD_MAMMO_[facility] - 10/08/2020 1:53 PM CDT EXAMINATION: ??Images For Reference Purposes Only us Adele Montilla MD PhD IMG MAMMO PROCEDURES Final Result Performing Organization Address City/State/[facility] Co de Phone Number RAD_MAMMO[facility] documented in this encounter Visit Diagnoses Not on filedocumented in this encounter Care Teams Memory Care Program Resident Relationship Specialty Start [place] [address] [place] [address] PCP - General Internal Medicine 09/28/20 09/24/23 documented as of this encounter
--- OUTSIDE RECORDS SUMMARY | 2024-06-13 02:13 | XMS_ITS | Encounter Summary ---
Author Organization [facility] Medical Group Address [address] [place] [address] Care Team Providers Care Position Description Manager Name Role Phone Denilson Ferrara MD Primary Care Provider Encounter Details Date Type Department Care Team (Late st Contact Info) Description 10/18/2020 Orders Only [facility] Testing Site - [address] [place] [address] Alan Santos MD PhD [address] [place] [address] Pre-operative laboratory examination (Primary Dx) Social History Tobacco Use Types Packs/Day Years Used Date Smoking Tobacco: Former Cigarettes 0.3 18 0 10/07/1995 - 10/06/2013 Comments Unknown Sex and Gender Information Value Date Recorded Sex Assigned at Not on file Legal Sex Female 1:59 PM CDT Gender Identity Not on file Sexual Orientation Not on file documented as of this encounter Progress Notes * Vy Shearer - 10/18/2020 10:00 AM CDT Priority: Routine Status: ?? Class: Internal Referral Ordering User: Elicia Soni Provider: ALAN SANTOS Enc Provider: Alan Santos MD PhD Diagnosis: ?? Department: [facility] Sched Instruct: ?? Comment: ?? Order Specific Questions Question Answer Comment Testing types: Pre-procedure ?? Date of Px/chemo/treatment/placement/transfer 11/25/2020 ?? Testing site patient will be sent to: [facility] ?? Date testing requested: 11/22/2020 ?? Testing: COVID/FLU ?? Is this the first COVID-19 test for this patient? Unknown ?? Does the patient currently work in a healthcare facility with direct patient contact? No ?? Is the patient a resident of a congregate care or living setting? No ?? Is the patient ? No ?? Please select the performing region: [facility] documented in this encounter Plan of Treatment Not on file documented as of this encounter Visit Diagnoses Diagnosis Pre-operative laboratory examination- Primary Pre-procedural laboratory examination documented in this encounter Care Teams Position Description Manager Relationship Specialty [place] [address] [place] [address] PCP - General Internal Medicine 09/28/20 09/24/23 documented as of this encounter
--- OUTSIDE RECORDS SUMMARY | 2024-06-13 02:13 | XMS_ITS | Encounter Summary ---
Author Organization [facility] Healthcare Address [address] [place] [address] Care Team Providers Care Tile Layer Name Role Phone Denilson Ferrara MD Primary Care Provider Encounter Details Date Type Department Care Team (Latest Contact Info) Description 10/08/2020 1:53 PM CDT - 10/08/2020 5:13 PM CDT Hospital Encounter [facility]) [address] [place] [address] Discharge Disposition: Discharge to home or self [...] and have not been reviewed by [facility] Radiology. ??There will be no report generated by a [facility] Radiologist. Narrative RAD_MAMMO_[facility] - 10/08/2020 1:53 PM CDT EXAMINATION: ??Images For Reference Purposes Only us Adele Montilla MD PhD IMG MAMMO PROCEDURES Final Result Performing Organization Address City/State/[facility] Co de Phone Number RAD_MAMMO[facility] documented in this encounter Visit Diagnoses Not on filedocumented in this encounter Care Teams Tile Layer Relationship Specialty [place] [address] [place] [address] PCP - General Internal Medicine 09/28/20 09/24/23 documented as of this encounter
--- OUTSIDE RECORDS SUMMARY | 2024-06-13 02:13 | XMS_ITS | Encounter Summary ---
Author Organization [facility] Healthcare Address [address] [place] [address] Care Team Providers Care Dermatology Technician Name Role Phone Denilson Ferrara MD Primary Care Provider Encounter Details Date Type Department Care Team (Latest Contact Info) Description 10/08/2020 1:53 PM CDT - 10/08/2020 5:13 PM CDT Hospital Encounter [facility]) [address] [place] [address] Discharge Disposition: Discharge to home or self [...] only and have not been reviewed by [facility] Radiology. ??There will be no report generated by a [facility] Radiologist. Narrative RAD_MAMMO_[facility] - 10/08/2020 1:53 PM CDT EXAMINATION: ??Images For Reference Purposes Only us Adele Montilla MD PhD IMG MAMMO PROCEDURES Final Result Performing Organization Address City/State/[facility] Co de Phone Number RAD[facility]MO[facility] documented in this encounter Visit Diagnoses Not on filedocumented in this encounter Care Teams Dermatology Technician Relationship Specialty Start [place] [address] [place] [address] PCP - General Internal Medicine 09/28/20 09/24/23 documented as of this encounter
--- OUTSIDE RECORDS SUMMARY | 2024-06-13 02:13 | XMS_ITS | Encounter Summary ---
Author Organization [facility] Address [address] [place] [address] Phone Care Team Providers Care Carton Making Machinist Name Role Phone Denilson Ferrara MD Primary Care Provider Encounter Details Date Type Department Care Team (Late st Contact Info) Description 10/13/2020 Telephone [facility] Surgery [address] [facility] 5th Floor [address] [place] [phone] Adele Montilla MD PhD [address] [place], [place] [id number] Social History Tobacco Use Types Packs/Day Years Used Date Smoking Tobacco: Former Cigarettes 0.3 18 0 10/07/1995 - 10/06/2013 Comments Unknown Sex and Gender Information Value Date Recorded Sex Assigned at Not on file Legal Sex Female 1:59 PM CDT Gender Identity Not on file Sexual Orientation Not on file documented as of this encounter Miscellaneous Notes * Telephone Encounter - SanjaytAdele MD PhD - 10/13/2020 4:05 PM CDT bx results dw pt-recommended excision after br mri. documented in this encounter Plan of Treatment Not on file documented as of this encounter Visit Diagnoses Not on filedocumented in this encounter Care Teams Carton Making Machinist Relationship Specialty [place] [address] [place] [address] PCP - General Internal Medicine 09/28/20 09/24/23 documented as of this encounter
--- OUTSIDE RECORDS SUMMARY | 2024-06-13 02:13 | XMS_ITS | Encounter Summary ---
Author Organization [facility] Address [address] [place] [address] Phone Care Team Providers Care Insurance Broker Name Role Phone Denilson Ferrara MD Primary Care Provider Encounter Details Date Type Department Care Team (Late st Contact Info) Description 10/01/2020 Telephone [facility] Surgery [facility] 5th [place] [address] [place] [address] Mica Ruiz RN Social History Tobacco Use Types Packs/Day Years Used Date Smoking Tobacco: Never Assessed Comments Unknown Sex and Gender Information Value Date Recorded Sex Assigned at Not on file Legal Sex Female 1:59 PM CDT Gender Identity Not on file Sexual Orientation Not on file documented as of this encounter Miscellaneous Notes * Telephone Encounter - Mica Riuz RN - 10/01/2020 1:46 PM CDT Spoke with Ms Jay going to have additional right breast imaging Sunday10-04-20 at [facility] ( [facility]) and will call if requesting appt documented in this encounter Plan of Treatment Not on file documented as of this encounter Visit Diagnoses Not on filedocumented in this encounter Care Teams Insurance Broker Relationship Specialty [place] [address] [place] [address] PCP - General Internal Medicine 09/28/20 09/24/23 documented as of this encounter
--- OUTSIDE RECORDS SUMMARY | 2024-06-13 02:13 | XMS_ITS | Encounter Summary ---
Author Organization [facility] Medical Group Address [address] [place] [address] Care Team Providers Care Senior Software Developer Name Role Phone Denilson Ferrara MD Primary Care Provider Kathy Lee MD Unavailable [phone] Encounter Details Date Type Department Care Team (Late st Contact Info) Description 11/18/[address] [facility] Testing Site - [address] [address] Aft, Alan Palomino MD PhD [address] [place], [place] [id number] Pre-operative laboratory examination (Primary Dx) Social History [...] encounter Progress Notes * Vy Shearer - 11/18/2020 11:48 AM CDT Priority: Routine Status: ?? Class: Internal Referral Ordering User: Moon Irizarry RN Auth Provider: ALAN SANTOS Provider: ?? Diagnosis: ?? Department: ?? Sched Instruct: ?? Comment: ?? Order Specific Questions Question Answer Comment Testing types: Pre-procedure ?? Date of Px/chemo/treatment/placement/transfer 11/25/2020 ?? Testing site patient will be sent to: [place], [place] ?? Date testing requested: 11/22/2020 ?? Testing: COVID/FLU ?? Does the patient currently work in a healthcare facility with direct patient contact? No ?? Is the patient a resident of a congregate care or living setting? No ?? Is the patient ? No ?? Please select the performing region: [facility] Group documented in this encounter Plan of Treatment Not on file documented as of this encounter Visit Diagnoses Diagnosis Pre-operative laboratory examination- Primary Pre-procedural laboratory examination documented in this encounter Care Teams Senior Software Developer Relationship Specialty [place] [address] [place] [address] PCP - General Internal Medicine 09/28/20 09/24/23 Kathy Lee MD [address] [facility] [address] [address] Referring Physician Obstetrics and Gynecology 10/28/20 documented as of this encounter
--- OUTSIDE RECORDS SUMMARY | 2024-06-13 02:13 | XMS_ITS | Encounter Summary ---
Author Organization [facility] Address [address] [place] [address] Phone Care Team Providers Care Filtering Machine Tender Name Role Phone Denilson Ferrara MD Primary Care Provider Reason for Referral * MRI/CAT/PET Scan (Routine) - Closed Specialty Diagnoses / Procedures Referred By Annemarie t Referred To Contact Radiology Diagnoses Breast mass Atypical lobular hyperplasia (ALH) of breast Procedures MRI Breast Bilateral W WO Contrast Adele Montilla MD PhD [address] [place] [address] Phone: tel: fax: [address] [phone] Referral ID Status Reason Start Date Expiration Date Visits Re quested Visits Authorized [id number] Closed 10/15/2020 11/14/2021 1 1 * Diagnostic Imaging (Routine) - Closed Specialty Diagnoses / Procedures Referred By Annemarie turner Referred To Contact Diagnoses Breast mass Procedures Radiologic Examination of Surgical Specimen Adele Montilla MD PhD [address] [place] [address] Phone: tel: fax: [address] [phone] Referral ID Status Reason Start Date Expiration Date Visits Re quested Visits Authorized [id number] Closed 10/15/2020 11/14/2021 1 1 * Diagnostic Imaging (Routine) - Closed Specialty Diagnoses / Procedures Referred By Contac t Referred To Contact Diagnoses Breast mass Procedures Mammo Guided Localization Breast Right Adele Montilla MD PhD [address] [place] [address] Phone: tel: fax: [address] [phone] Referral ID Status Reason Start Date Expiration Date Visits Re quested Visits Authorized [id number] Closed 10/15/2020 11/14/2021 1 1 Encounter Details Date Type Department Care Team (Late st Contact Info) Description 10/15/2020 Orders Only [facility] Surgery [address] [place] [address] 5th [place] [address] Adele Montilla MD PhD [address] [place] [address] Breast mass (Primary Dx); Atypical lobular hyperplasia (ALH) of [...] documented as of this encounter Results * Radiologic Examination of [...] by: MARIA FERNANDA DE LA TORRE MD Narrative 11/25/2020 2:54 PM CDT EXAMINATION: RIGHT BREAST [...] the entire procedure. ??Dr. Darrick Dorsey (diagnostic co founder and president) also participated in this examination. Procedure Note [...] the entire procedure. Dr. Darrick Dorsey (diagnostic co founder and president) also participated in this examination. IMPRESSION: Successful [...] the entire procedure. ??Dr. Darrick Dorsey (diagnostic co founder and president) also participated in this examination. Procedure Note [...] to the surgery. The attending radiologist, Dr. MARIAF ERNANDA DE LA TORRE MD, was present throughout the entire procedure. Dr. Darrick Dorsey (diagnostic co founder and president) also participated in this examination. IMPRESSION: Successful [...] PhD IMG MAMMO PROCEDURES Final Result * MRI [...] it. Electronically signed by: Millie Peña M.D. Adele Montilla MD PhD IMG MRI PROCEDURES Final R esult documented in this encounter Visit Diagnoses Diagnosis Breast mass- Primary Lump or mass in breast Atypical lobular hyperplasia (ALH) of breast Breast mass Lump or mass in breast Atypical lobular hyperplasia (ALH) of breast Breast mass Lump or mass in breast documented in this encounter Care Teams Filtering Machine Tender Relationship Specialty Start [place] [address] [place] [address] PCP - General Internal Medicine 4/20/21 4/15/24 documented as of this encounter
--- OUTSIDE RECORDS SUMMARY | 2024-06-13 02:13 | XMS_ITS | Encounter Summary ---
Author Organization [facility] Healthcare Address [address] [place] [address] Care Team Providers Care Digital Intern Name Role Phone Denilson Ferrara MD Primary Care Provider Encounter Details Date Type Department Care Team (Latest Contact Info) Description 10/08/2020 1:53 PM CDT - 10/08/2020 5:13 PM CDT Hospital Encounter [facility]) [address] [place] [address] Discharge Disposition: Discharge to home or self [...] only and have not been reviewed by [facility] Radiology. ??There will be no report generated by a [facility] Radiologist. Narrative RAD_MAMMO_[facility] - 10/08/2020 1:53 PM CDT EXAMINATION: ??Images For Reference Purposes Only us Adele Montilla MD PhD IMG MAMMO PROCEDURES Final Result Performing Organization Address City/State/[facility] Co de Phone Number RAD_MAMMO_[facility] documented in this encounter Visit Diagnoses Not on filedocumented in this encounter Care Teams Digital Intern Relationship Specialty [place] [address] [place] [address] PCP - General Internal Medicine 09/28/20 09/24/23 documented as of this encounter
--- OUTSIDE RECORDS SUMMARY | 2024-06-13 02:13 | XMS_ITS | Encounter Summary ---
Author Organization [facility] Healthcare Address [address] [place] [address] Care Team Providers Care Optical Manufacturing Technician Name Role Phone Denilson Ferrara MD Primary Care Provider Encounter Details Date Type Department Care Team (Latest Contact Info) Description 10/08/2020 1:53 PM CDT - 10/08/2020 5:13 PM CDT Hospital Encounter [facility]) [address] [place] [address] Discharge Disposition: Discharge to home or self [...] only and have not been reviewed by [facility] Radiology. ??There will be no report generated by a [facility] Radiologist. Narrative RAD_MAMMO_[facility] - 10/08/2020 1:53 PM CDT EXAMINATION: ??Images For Reference Purposes Only us Adele Montilla MD PhD IMG MAMMO PROCEDURES Final Result Performing Organization Address City/State/[facility] Co de Phone Number RAD_MAMMO_[facility] documented in this encounter Visit Diagnoses Not on filedocumented in this encounter Care Teams Optical Manufacturing Technician Relationship Specialty Start [place] [address] [place] [address] PCP - General Internal Medicine 09/28/20 09/24/23 documented as of this encounter
--- OUTSIDE RECORDS SUMMARY | 2024-06-13 02:14 | XMS_ITS | Encounter Summary ---
Author Organization [facility] Address [address] [place] [address] Phone Care Team Providers Care Asphalt Machine Operator Name Role Phone Unavailable Primary Care Provider Unavailabl e Encounter Details Date Type Department Care Team (Late st Contact Info) Description 10/08/2018 2:10 PM CDT Office Visit [facility] [address] [place] [address] [facility] Social History Tobacco Use Types Packs/Day Years [...] Date/Time Associated Diagnosis Comments SURGICAL PATHOLOGY Routine 10/07/2018 12 :00 AM CDT documented in this encounter Results * Surgical pathology (10/07/2018 12:00 AM CDT) 10/07/2018 10/07/2018 Narrative 10/09/2018 9:21 AM CDT Results in [facility] best viewed via PDF link [facility] [address] [place] [address] SURGICAL PATHOLOGY REPORT FINAL Patient Name: ??LENA BARON Address: ??[address] [place] [place], [place] ??[address] Gender: ??F : ??1975 (Age: 43) Service: ??[facility] Location: ??[facility] Hospital #: ??[id number] Accession #: ? [id number] Taken: ? 10/07/2018 Received: ? 10/07/2018 Accessioned: ? 10/08/2018 Reported: ? 10/09/2018 Physician(s): ? Nivia Castrejon, DO Diagnosis: <<<<< Breast, left retroareolar at 2 o'clock, needle core biopsy ? - Stromal fibrosis - Duct ectasia and periductal fibrosis - Adenosis - No atypical or malignant findings >>>>> 10/09/2018 08:42 By this signature, I attest that the above diagnosis is based upon my personal examination of the slides(and/or other material indicated in the diagnosis). Maki Saravia M.D., Ph.D. Report Electronically Reviewed and Signed Out By Maki Saravia M.D., Ph.D. Microscopic Description and Comment: Microscopic examination substantiates the above stated diagnosis. 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 Operative procedure: ??Needle biopsy of left breast at 2:00, retroareolar. Specimen(s) Received: A: Breast, left, 2:00, retroareolar biopsy, needle core Gross Description: The specimen is received in a single formalinfilled container labeled Lena Baron and Left Breast Retroareolar 2 o'clock. ??It contains 8 cores of white and yellow tissue, measuring from 0.5 cm to 2.5 cm in length. ??Labeled A1. ??Jar 0. Total formalin fixation time: 30 hours. Wendy Obando ??kmestella/10/08/2018 15:01 Pathology services are provided by the Department of Pathology and Immunology at [facility], [address] [place] [address] CLIA # [id number] The performance characteristics of the testing cited in this report (if any) were determined by the ??[facility] Department of Pathology and Immunology [facility], as part of an ongoing director quality systems program and in compliance with federally mandated regulations drawn from the Clinical Laboratory Improvement Act of 1988 (CLIA '88). ??Some of these tests rely on the use of analyte specific reagents (ASR) and are subject to specific labeling requirements by the US Food and Drug Administration. ??Such diagnostic tests may only be performed in a facility that is certified by the Department of Health and Human Services as a high complexity laboratory under CLIA '88. ??The FDA has determined that such clearance or approval is not necessary. ??ASRs should not be regarded as investigational or for research. ??ASRs were developed and the performance characteristics determined by the [facility], [facility] of Pathology and Immunology. ??It has not been cleared or approved by the U.S. Food and Drug Administration. ??Any test designated as LDT was developed and its performance characteristics determined by [facility]. It has not been cleared or approved by the FDA. This test is used for clinical purposes and should not be regarded as investigational or for research. Nivia Castrejon DO LAB PATHOLOGY ORDERABLES F inal Result documented in this encounter Visit Diagnoses Not on filedocumented in this encounter
== END 2024-06-06 15:25 | disposition home or self-care (01) ==
PROVIDERS: Visit Provider Urology
PROC: (CPT 50590; principal; 2024-06-06 13:30)
DX: N20.0 Calculus of kidney (principal); D64.9 Anemia, unspecified; R31.0 Gross hematuria; R31.29 Other microscopic hematuria; E66.9 Obesity, unspecified; Z68.33 Body mass index [BMI] 33.0-33.9, adult; Z98.890 Other specified postprocedural states; Z90.49 Acquired absence of other specified parts of digestive tract; Z87.891 Personal history of nicotine dependence; Z85.3 Personal history of malignant neoplasm of breast; Z87.19 Personal history of other diseases of the digestive system
CPT/HCPCS: 50590; 74018; J0690; J1100; J2003; J2250; J2405; J2704; J3010; J7120

== ENCOUNTER 2024-06-24 07:13 | Outpatient (CLI) | payer BC, SELFPAY ==
--- NOTE | ~2024-06-24 | XR_ITS ---
XR abdomen/kub 1V Ordering provider: Tanner Red MD History: . N20.0 - Calculus of kidney HX LEFT KIDNEY STONE . Comparison: None. FINDINGS: BOWEL: Nonobstructive bowel gas pattern. ORGANOMEGALY: None. SIGNIFICANT PATHOLOGIC CALCIFICATIONS: Left kidney stone seen in the lower pole. Tiny stones in the u pper pole are also noted. OTHER: No free air is seen under the diaphragm. Pubic Symphysitis. IMPRESSION: NO ACUTE ABDOMINAL FINDINGS. Left kidney stones. Reviewed, dictated and finalized at location A. NESS ADMINISTRATOR
== END 2024-06-24 07:14 | disposition home or self-care (01) ==
PROVIDERS: Visit Provider Urology
DX: N20.0 Calculus of kidney (principal)
CPT/HCPCS: 74018

== ENCOUNTER 2025-01-29 14:02 | Outpatient (CLI) | payer BC, SELFPAY ==
--- NOTE | ~2025-01-29 | DEXA_ITS ---
Bone Density Report Name: LENA BARON Age: 49 Sex: Female Ethnicity: White Date of : 1975 Indication: height loss; cancer; hysterectomy; Referring Provider: DEMETRIUS LAWSON Study: Bone densitometry was performed. Exam Date: January 29, 2025 Accession number: [id number] Bone Density: Region BMD T-score Z-score Classification AP Spine(L1, L2, L4) 1.085 0.5 1.1 Normal Femoral Neck (Left) 0.798 -0.5 0.2 Normal Total Hip (Left) 1.040 0.8 1.2 Normal Femoral Neck (Right) 0.740 -1.0 -0.3 Normal Total Hip (Right) 0.943 0.0 0.4 Normal Total Hip Mean 0.992 0.4 0.8 Normal World Health Organization criteria for BMD impression classify patients as: Normal (T-score at or above -1.0), Osteopenia (T-score between -1.0 and -2.5), or Osteoporosis (T-score at or below -2.5). 10-year Fracture Risk: FRAX not reported because: Premenopausal woman All T-scores for Spine Total, Hip Total, Femoral Neck at or above -1.0 Clinical Information Provided by Patient: Has used the following medications: Vitamin D, Calcium Has the following medical conditions: Cancer, Hysterectomy Patient maximum height was 67 No regular weight bearing exercise Onset of menses at age 12 Premenopausal Number of children 3 Impression: The patient's bone mass is within expected range for age, gender and ethnicity. Discussion: BONE DENSITY IS WITHIN EXPECTED LIMITS FOR AGE, SEX AND RACE. Bone density is within expected limits for age, sex and race at all sites measured. The patient should follow a healthful lifestyle (good nutrition with adequate calcium and vitamin D, and appropriate weight-bearing exercise). Follow-Up: Consider repeating this study in 5 years or sooner if there is some new clinical indication. Reported by: CARMEN on 02/02/2025 11:07:00 AM. Reviewed, dictated and finalized at location A.
== END 2025-01-29 14:03 | disposition home or self-care (01) ==
LOC: MICIMG 14:04
PROVIDERS: PCP Physician Assistant; Visit Provider Obstetrics & Gynecology
DX: R29.890 Loss of height (principal)
CPT/HCPCS: 77080